=== PATIENT | female | born 1995 | race Caucasian/White ===

== ENCOUNTER 2023-02-07 08:14 | Outpatient (RCR) | payer OTHER, SELFPAY ==
--- NOTE | 2023-02-07 13:18 | PC.NURSE ---
Leroy, Brody and 6 week old Nicolas arrive for support. Family thriving. Parents rested, happy and doing well. States is wonderful nurses well, happy, growing. Baby weighed and 3 pounds above weight. Brody doing well after initial struggle with severe anxiety and Leroy reports feeling like myself again, stress is gone Home at this time, Leroy plans to attend [facility] group and aware to call for concerns.
== END 2023-02-07 13:23 | disposition home or self-care (01) ==
LOC: FBCO 08:14
PROVIDERS: PCP Physician Assistant; Visit Provider Obstetrics & Gynecology
DX: Z39.1 Encounter for care and examination of lactating mother (principal)
CPT/HCPCS: G0463

== ENCOUNTER 2024-04-22 07:01 | Outpatient (OUT) | payer OTHER, SELFPAY ==
--- OUTSIDE RECORDS SUMMARY | 2024-04-22 07:04 | XMS_ITS | CCD ---
Author Organization [facility]iniSynv Care Team Providers Care Zanjero Name Role Phone [facility] Unavailable SANDRO ., DR HAYES Attending Unavailable SANDRO ., DR HAYES Consulting Unavailable SANDRO ., DR HAYES Admitting Unavailable ZIEBER, DR ZEUS Heredia Consulting Unavailable SANDRO ., DR HAYES Attending Unavailable SANDRO ., DR HAYES Consulting Unavailable [facility] Unavailable SANDRO ., DR HAYES Admitting Unavailable ZIEBER, DR ZEUS Heredia Consulting Unavailable [facility] Unavailable KARASIK ., DR SUMMERS Consulting Unavailabl e KARASIK ., DR SUMMERS Attending Unavailabl e KARASIK ., DR SUMMERS Admitting Unavailabl e Sebastian Doan Consulting Unavailable SANDRO ., DR HAYES Consulting Unavailable SANDRO ., DR HAYES Attending Unavailable [facility] Unavailable SANDRO ., DR HAYES Admitting Unavailable SANDRO ., DR HAYES Attending Unavailable [facility] Unavailable SANDRO ., DR HAYES Consulting Unavailable SANDRO ., DR HAYES Admitting Unavailable KARASIK ., DR SUMMERS Admitting Unavailabl e KARASIK ., DR SUMMERS Attending Unavailabl e KARASIK ., DR SUMMERS Consulting [facility] Un[facility] Sebastian Doan Consulting Unavailable SANDRO ., DR HAYES Consulting Unavailable KARASIK ., DR SUMMERS Attending Unavailabl e KARASIK ., DR SUMMERS Consulting Unavailabl e KARASIK ., DR SUMMERS Ad[facility] Sebastian Doan Consulting Unavailable SANDRO ., DR HAYES Consulting Unavailable [facility] Unavailable SANDRO ., DR HAYES Admitting Unavailable SANDRO ., DR HAYES Consulting Unavailable SANDRO ., DR HAYES Attending Unavailable ZIEBER, DR ZEUS Heredia Consulting Unavailable [facility], [facility] Primary Care Unavailable SANDRO ., DR HAYES Attending Unavailable SANDRO ., DR HAYES Consulting Unavailable SANDRO ., DR HAYES Admitting Unavailable SANDRO ., DR HAYES Attending Unavailable [facility] Primary Care Unavailable SANDRO ., DR HAYES Admitting Unavailable [facility] Primary Care Unavailable KARASIK ., DR SUMMERS Admitting Unavailabl e KARASIK ., DR SUMMERS Attending Unavailabl e KARASIK ., DR SUMMERS Consulting Unavailabl e KARASIK ., DR SUMMERS Admitting Unavailabl e KARASIK ., DR SUMMERS Attending Unavailabl e KARASIK ., DR SUMMERS Consulting Unavailabl e [facility] Primary Care Unavailable KARASIK ., DR SUMMERS Admitting Unavailabl e KARASIK ., DR SUMMERS Attending Unavailabl e KARASIK ., DR SUMMERS Consulting Unavailabl e [facility] Primary Care Unavailable [facility] Primary Care Unavailable KARASIK ., DR SUMMERS Consulting Unavailabl e KARASIK ., DR SUMMERS Attending Unavailabl e KARASIK ., DR SUMMERS Admitting Unavailabl e SANDRO ., DR HAYES Consulting Unavailable ZIEBER, DR ZEUS Heredia Consulting Unavailable [facility] Primary Care Unavailable SANDRO ., DR HAYES Admitting Unavailable SANDRO ., DR HAYES Consulting Unavailable SANDRO ., DR HAYES Attending Unavailable ZIEBER, DR ZEUS Heredia Consulting Unavailable [facility] Primary Care Unavailable SANDRO ., DR HAYES Attending Unavailable SANDRO ., DR HAYES Consulting Unavailable SANDRO ., DR HAYES Admitting Unavailable [facility] Primary Care Unavailable SANDRO ., DR HAYES Attending Unavailable SANDRO ., DR HAYES Consulting Unavailable SANDRO ., DR HAYES Admitting Unavailable SANDRO ., DR HAYES Admitting Unavailable [facility], [facility] Primary Care Unavailable SANDRO ., DR HAYES Attending Unavailable SANDRO ., DR HAYES Attending Unavailable [facility] Primary Care Unavailable SANDRO ., DR HAYES Admitting Unavailable [facility] Primary Care Unavailable SANDRO ., DR HAYES Attending Unavailable SANDRO ., DR HAYES Consulting Unavailable SANDRO ., DR HAYES Admitting Unavailable ZIEBER, DR ZEUS Heredia Consulting Unavailable [facility] Primary Care Unavailable SANDRO ., DR HAYES Consulting Unavailable SANDRO ., DR HAYES Admitting Unavailable SANDRO ., DR HAYES Attending Unavailable ZIEBER, DR ZEUS Heredia Consulting Unavailable [facility] Primary Care Unavailable SANDRO ., DR HAYES Consulting Unavailable SANDRO ., DR HAYES Admitting Unavailable SANDRO ., DR HAYES Attending Unavailable ZIEBER, DR ZEUS Heredia Consulting Unavailable KARASIK ., DR SUMMERS Attending Unavailabl e KARASIK ., DR SUMMERS Admitting Unavailabl e SANDRO ., DR HAYES Consulting Unavailable [facility], [facility] Primary Care Unavailable KARASIK ., DR SUMMERS Consulting Unavailabl e KARASIK ., DR SUMMERS Attending Unavailabl e KARASIK ., DR SUMMERS Admitting Unavailabl e [facility] Primary Care Unavailable KARASIK ., DR SUMMERS Consulting Unavailabl e KARASIK ., DR SUMMERS Admitting Unavailabl e KARASIK ., DR SUMMERS Attending Unavailabl e [facility] Primary Care Unavailable [facility] Primary Care Unavailable KARASIK ., DR SUMMERS Consulting Unavailabl e KARASIK ., DR SUMMERS Admitting Unavailabl e KARASIK ., DR SUMMERS Attending Unavailabl e SANDRO ., DR HAYES Attending Unavailable [facility] Primary Care Unavailable SANDRO ., DR HAYES Admitting Unavailable [facility] Primary Care Unavailable SANDRO ., DR HAYES Attending Unavailable SANDRO ., DR HAYES Admitting Unavailable KARASIK ., DR SUMMERS Consulting Unavailabl e SANDRO ., DR HAYES Attending Unavailable [facility] Primary Care Unavailable SANDRO ., DR HAYES Admitting Unavailable SANDRO ., DR HAYES Consulting Unavailable YANIQUE LOVE Consulting Unavailable SANDRO ., DR HAYES Procedure Practitioner Unavail able [facility] Primary Care Unavailable SANDRO ., DR HAYES Attending Unavailable SANDRO ., DR HAYES Consulting Unavailable SANDRO ., DR HAYES Admitting Unavailable [facility], [facility] Primary Care Unavailable KARASIK ., DR SUMMERS Admitting Unavailabl e KARASIK ., DR SUMMERS Attending Ovidio TUTTLE ., DR SUMMERS Consulting Kyler Morse Attending Kyler Ellis Admitting MADELEINE Hernandez Attending Unavailable Problems Active Problems Problem Classification Problem Date Documented Da te Episodic/Chronic Diabetes or abnormal glucose tolerance complicating ; childbirth; or the puerperium (5 sources) Gestational diabetes mellitus in , unspecified control; Translations: [Gestational diabetes mellitus in childbirth, unspecified control] Onset: 12-26-2022 Episodic Menstrual disorders (4 sources) Irregular menstruation, unspecified; Translations: [IRREGULAR MENSTRUATION UNSPECIFIED] Onset: 06-07-2022 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 (1 source) Second degree perineal laceration during delivery; Translations: [SECOND DEG PERINEAL LAC DUR DELIV] Onset: 01-02-2023 Episodic Other and delivery including normal (20 sources) Encounter for care and examination of lactating mother; Translations: [Encounter for routine follow-up] Onset: 05-26-2022 Episodic Residual codes; unclassified (1 source) 40 weeks gestation of ; Translations: [40 WEEKS GESTATION OF ] Onset: 01-02-2023 Episodic Residual codes; unclassified (1 source) 39 weeks gestation of ; Translations: [39 WEEKS GESTATION OF ] Onset: 12-26-2022 Episodic Residual codes; unclassified (1 source) 38 weeks gestation of ; Translations: [38 WEEKS GESTATION OF ] Onset: 12-22-2022 Episodic Residual codes; unclassified (1 source) 37 weeks gestation of ; Translations: [37 WEEKS GESTATION OF ] Onset: 12-13-2022 Episodic Residual codes; unclassified (1 source) 36 weeks gestation of ; Translations: [36 WEEKS GESTATION OF ] Onset: 12-04-2022 Episodic Residual codes; unclassified (1 source) 35 weeks gestation of ; Translations: [35 WEEKS GESTATION OF ] Onset: 11-30-2022 Episodic Residual codes; unclassified (1 source) 34 weeks gestation of ; Translations: [34 WEEKS GESTATION OF ] Onset: 11-19-2022 Episodic Residual codes; unclassified (1 source) 33 weeks gestation of ; Translations: [33 WEEKS GESTATION OF ] Onset: 11-12-2022 Episodic Residual codes; unclassified (1 source) 32 weeks gestation of ; Translations: [32 WEEKS GESTATION OF ] Onset: 11-06-2022 Episodic Past or Other Problems Problem Classification Problem Date Documented Date Episodic/Chronic Diabetes mellitus without complication (4 sources) Other abnormal glucose; Translations: [OTHER ABNORMAL GLUCOSE] Onset: 09-28-2022 Episodic Immunizations and screening for infectious disease (1 source) Contact with and (suspected) exposure to infections with a predominantly sexual mode of transmission; Translations: [CONTCT W EXPOS INFECT SEXUAL TRNSMS] Onset: 06-12-2022 Episodic Other screening for suspected conditions (not mental disorders or infectious disease) (1 source) Encounter for screening for diabetes mellitus; Translations: [ENCOUNTER FOR SCREENING FOR DM] Onset: 06-12-2022 Episodic Residual codes; unclassified (1 source) 28 weeks gestation of ; Translations: [28 WEEKS GESTATION OF ] Onset: 10-09-2022 Episodic Results Test Name Value Interpretation Reference Range Facil ity CBC AUTO DIFFon 12-27-2022 BASO # 0.0 103/ul Normal 0.0-0.1 [facility] Comment on above: Performed By: #### R UBIGG #### [facility] [address] [place] [address] Dr. Baljinder Murrell Basophils/100 WBC (Bld) 0.1 % Critically low 0.2-2.0 [facility] Comment on above: Performed By: #### R UBIGG #### [facility] [address] [place] [address] Dr. Baljinder Murrell EO # 0.0 103/ul Normal 0.0-0.7 [facility] Comment on above: Performed By: #### R UBIGG #### [facility] [address] [address] [address] Baljinder Murrell Eosinophils/100 WBC (Bld) 0.1 % Critically low 0.9-7.0 [facility] Comment on above: Performed By: #### R UBIGG #### [facility] [address] [place] [address] Dr. Baljinder Murrell Erythrocyte distribution width (RBC) [Ratio] 13.3 % Normal 11.0-15.0 [facility] Comment on above: Performed By: #### R UBIGG #### [facility] [address] [place] [address] Dr. Baljinder Murrell Hematocrit (Bld) [Volume fraction] 35.5 % Critically low 36.0-48.0 [facility] Comment on above: Performed By: #### R UBIGG #### [facility] [address] [place] [address] Dr. Baljinder Murrell Hemoglobin (Bld) [Mass/Vol] 11.3 g/dL Critically low 12.0-16.0 [facility] Comment on above: Performed By: #### R UBIGG #### [facility] [address] [place] [address] Dr. Baljinder Murrell IG # 0.06 10e3/ul Critically high 0.00-0.03 [facility] Comment on above: Performed By: #### R UBIGG #### [facility] [address] [place] [address] Dr. Baljinder Murrell IG % 0.4 % Normal 0.0-0.5 [facility] Comment on above: Performed By: #### R UBIGG #### [facility] [address] [place] [address] Dr. Baljinder Murrell LYMPH # 1.6 103/ul Normal 1.2-3.8 [facility] Comment on above: Performed By: #### R UBIGG #### [facility] [address] [place] [address] Dr. Baljinder Murrell Lymphocytes/100 WBC (Bld) 11.0 % Critically low 20.5-60.0 [facility] Comment on above: Performed By: #### R UBIGG #### [facility] [address] [place] [address] Dr. Baljinder Murrell MANUAL DIFF REQ NO Normal [facility] Comment on above: Performed By: #### R UBIGG #### [facility] [address] [place] [address] Dr. Baljinder Murrell MCH (RBC) [Entitic mass] 30.2 pg Normal 26.7-34.0 [facility] Comment on above: Performed By: #### R UBIGG #### [facility] [address] [place] [address] Dr. Baljinder Murrell MCHC (RBC) [Mass/Vol] 31.8 g/dL Normal 29.9-35.2 [facility] Comment on above: Performed By: #### R UBIGG #### [facility] [address] [place] [address] Dr. Baljinder Murrell MCV (RBC) [Entitic vol] 94.9 fL Normal 81.0-99.0 [facility] Comment on above: Performed By: #### R UBIGG #### [facility] [address] [place] [address] Dr. Baljinder Murrell MONO # 0.9 103/ul Critically high 0.3-0.8 [facility] Comment on above: Performed By: #### R UBIGG #### [facility] [address] [place] [address] Dr. Baljinder Murrell Monocytes/100 WBC (Bld) 6.1 % Normal 1.7-12.0 [facility] Comment on above: Performed By: #### R UBIGG #### [facility] [address] [place] [address] Dr. Baljinder Murrell NEUT # 11.9 103/ul Critically high 1.4-6.5 [facility] Comment on above: Performed By: #### R UBIGG #### [facility] [address] [place] [address] Dr. Baljinder Murrell Neutrophils/100 WBC (Bld) 82.3 % Critically high 43.0-75.0 [facility] Comment on above: Performed By: #### R UBIGG #### [facility] [address] [place] [address] Dr. Baljinder Murrell Platelet mean volume (Bld) [Entitic vol] 8.5 fL Critically low 9.5-13.5 [facility] Comment on above: Performed By: #### R UBIGG #### [facility] [address] [address] [address] Baljinder Murrell PLT 217 103/ul Normal 150-450 [facility] Comment on above: Performed By: #### R UBIGG #### [facility] [address] [place] [address] Dr. Baljinder Murrell RBC 3.74 106/ul Critically low 4.20-5.40 [facility] Comment on above: Performed By: #### R UBIGG #### [facility] [address] [place] [address] Dr. Baljinder Murrell WBC 14.5 103/ul Critically high 4.0-11.0 [facility] Comment on above: Performed By: #### R UBIGG #### [facility] [address] [place] [address] Dr. Baljinder Murrell CBC AUTO DIFFon 12-26-2022 BASO # 0.0 103/ul Normal 0.0-0.1 [facility] Comment on above: Performed By: #### C BC #### [facility] [address] [place] [address] Dr. Baljinder Murrell Basophils/100 WBC (Bld) 0.2 % Normal 0.2-2.0 [facility] Comment on above: Performed By: #### C BC #### [facility] [address] [place] [address] Dr. Baljinder Murrell EO # 0.0 103/ul Normal 0.0-0.7 [facility] Comment on above: Performed By: #### C BC #### [facility] [address] [place] [address] Dr. Baljinder Murrell Eosinophils/100 WBC (Bld) 0.4 % Critically low 0.9-7.0 [facility] Comment on above: Performed By: #### C BC #### [facility] [address] [place] [address] Dr. Baljinder Murrell Erythrocyte distribution width (RBC) [Ratio] 13.4 % Normal 11.0-15.0 [facility] Comment on above: Performed By: #### C BC #### [facility] [address] [address] [address] Baljinder Murrell Hematocrit (Bld) [Volume fraction] 36.8 % Normal 36.0-48.0 [facility] Comment on above: Performed By: #### C BC #### [facility] [address] [address] [address] Baljinder Murrell Hemoglobin (Bld) [Mass/Vol] 12.5 g/dL Normal 12.0-16.0 [facility] Comment on above: Performed By: #### C BC #### [facility] [address] [place] [address] Dr. Baljinder Murrell IG # 0.05 10e3/ul Critically high 0.00-0.03 [facility] Comment on above: Performed By: #### C BC #### [facility] [address] [place] [address] Dr. Baljinder Murrell IG % 0.6 % Critically high 0.0-0.5 [facility] Comment on above: Performed By: #### C BC #### [facility] [address] [place] [address] Dr. Baljinder Murrell LYMPH # 1.9 103/ul Normal 1.2-3.8 [facility] Comment on above: Performed By: #### C BC #### [facility] [address] [place] [address] Dr. Baljinder Murrell Lymphocytes/100 WBC (Bld) 20.9 % Normal 20.5-60.0 [facility] Comment on above: Performed By: #### C BC #### [facility] [address] [place] [address] Dr. Baljinder Murrell MANUAL DIFF REQ NO Normal [facility] Comment on above: Performed By: #### C BC #### [facility] [address] [place] [address] Dr. Baljinder Murrell MCH (RBC) [Entitic mass] 31.0 pg Normal 26.7-34.0 [facility] Comment on above: Performed By: #### C BC #### [facility] [address] [place] [address] Dr. Baljinder Murrell MCHC (RBC) [Mass/Vol] 34.0 g/dL Normal 29.9-35.2 [facility] Comment on above: Performed By: #### C BC #### [facility] [address] [place] [address] Dr. Baljinder Murrell MCV (RBC) [Entitic vol] 91.3 fL Normal 81.0-99.0 [facility] Comment on above: Performed By: #### C BC #### [facility] [address] [place] [address] Dr. Baljinder Murrell MONO # 0.6 103/ul Normal 0.3-0.8 [facility] Comment on above: Performed By: #### C BC #### [facility] [address] [place] [address] Dr. Baljinder Murrell Monocytes/100 WBC (Bld) 6.3 % Normal 1.7-12.0 [facility] Comment on above: Performed By: #### C BC #### [facility] [address] [place] [address] Dr. Baljinder Murrell NEUT # 6.4 103/ul Normal 1.4-6.5 [facility] Comment on above: Performed By: #### C BC #### [facility] [address] [place] [address] Dr. Baljinder Murrell Neutrophils/100 WBC (Bld) 71.6 % Normal 43.0-75.0 [facility] Comment on above: Performed By: #### C BC #### [facility] [address] [place] [address] Dr. Baljinder Murrell Platelet mean volume (Bld) [Entitic vol] 8.9 fL Critically low 9.5-13.5 [facility] Comment on above: Performed By: #### C BC #### [facility] [address] [place] [address] Dr. Baljinder Murrell PLT 270 103/ul Normal 150-450 [facility] Comment on above: Performed By: #### C BC #### [facility] [address] [place] [address] Dr. Baljinder Murrell RBC 4.03 106/ul Critically low 4.20-5.40 [facility] Comment on above: Performed By: #### C BC #### [facility] [address] [place] [address] Dr. Baljinder Murrell WBC 8.9 103/ul Normal 4.0-11.0 [facility] Comment on above: Performed By: #### C BC #### [facility] [address] [place] [address] Dr. Baljinder Murrell DRUG SCREEN RAPID (URINE)on 12-26-2022 AMP Negative Normal NEGATIVE [facility] Comment on above: Performed By: #### D RUGRPD #### [facility] [address] [place] [address] Dr. Baljinder Murrell BAR Negative Normal NEGATIVE [facility] Comment on above: Performed By: #### D RUGRPD #### [facility] [address] [place] [address] Dr. Baljinder Murrell BUP Negative Normal NEGATIVE [facility] Comment on above: Performed By: #### D RUGRPD #### [facility] [address] [place] [address] Dr. Baljinder Murrell BZO Negative Normal NEGATIVE [facility] Comment on above: Performed By: #### D RUGRPD #### [facility] [address] [place] [address] Dr. Baljinder Murrell ROXANA Negative Normal NEGATIVE [facility] Comment on above: Performed By: #### D RUGRPD #### [facility] [address] [place] [address] Dr. Baljinder Murrell CUT-OFFS SEE BELOW Normal [facility] Comment on above: Result Comment: AMP (Amphetamine): 500ng/mL, BAR (Barbituates): 200 ng/mL, BZO (Benzodiazepines): 150 ng/mL, BUP (Buprenorphine): 10 ng/mL, ROXANA (Cocaine): 150 ng/mL, mAMP (Methamphetamine): 500 ng/mL, MTD (Methadone): 200 ng/mL, OPI (Opiates): 100 ng/mL, OXY (Oxycodone): 100 ng/mL, PCP (Phencyclidine): 25 ng/mL, PPX (Propoxyphene): 300 ng/mL, THC (Cannabinoids): 50 ng/mL, TCA (Trycyclic Antidepressants): 300 ng/mL Performed By: #### D RUGRPD #### [facility] [address] [place] [address] Dr. Baljinder Murrell DRUG CUT HEADER DRUG CLASS TEST SYSTEM CUT-OFF CONCENTRATIONS ARE FOLLOWS: Normal [facility] Comment on above: Performed By: #### D RUGRPD #### [facility] [address] [place] [address] Dr. Baljinder Murrell mAMP Negative Normal NEGATIVE [facility] Comment on above: Performed By: #### D RUGRPD #### [facility] [address] [place] [address] Dr. Baljinder Murrell MTD Negative Normal NEGATIVE [facility] Comment on above: Performed By: #### D RUGRPD #### [facility] [address] [place] [address] Dr. Baljinder Murrell OPI Negative Normal NEGATIVE [facility] Comment on above: Performed By: #### D RUGRPD #### [facility] [address] [place] [address] Dr. Baljinder Murrell OXY Negative Normal NEGATIVE [facility] Comment on above: Performed By: #### D RUGRPD #### [facility] [address] [place] [address] Dr. Baljinder Murrell PCP Negative Normal NEGATIVE [facility] Comment on above: Performed By: #### D RUGRPD #### [facility] [address] [place] [address] Dr. Baljinder Murrell PPX Negative Normal NEGATIVE [facility] Comment on above: Performed By: #### D RUGRPD #### [facility] [address] [place] [address] Dr. Baljinder Murrell TCA Negative Normal NEGATIVE [facility] Comment on above: Performed By: #### D RUGRPD #### [facility] [address] [place] [address] Dr. Baljinder Murrell THC Negative Normal NEGATIVE [facility] Comment on above: Performed By: #### D RUGRPD #### [facility] [address] [address] [address] Baljinder Murrell TYPE AND SCREENon 12-26-2022 TYPE AND SCREEN Negative Normal [facility] Comment on above: Performed By: #### R UBIGG #### [facility] [address] [address] [address] Baljinder Murrell US PREG BIOPHY W NON STRESSo n 12-23-2022 US PREG BIOPHY W NON STRESS EXAMINATION: US PREG BIOPHY W NON STRESS HISTORY: Gestational diabetes mellitus COMPARISON: Ultrasound biophysical 12/12/2022 FINDINGS: BREATHING MOVEMENTS: 2.0 GROSS BODY MOVEMENTS: 2.0 TONE: 2.0 QUALITATIVE AMNIOTIC FLUID VOLUME: 2.0 PRESENTATION: CEPHALIC HEART RATE: 152.5 bpm bpm. AMNIOTIC FLUID VOLUME: 9.0 cm GESTATIONAL AGE: 39 weeks 0 days CONCLUSION: Total biophysical profile score 8.0. Electronically authenticated by: ZEUS BRANNON Date: 2022-12-22 23:17 Normal [facility] US PREG BIOPHY W NON STRESSo n 12-12-2022 US PREG BIOPHY W NON STRESS EXAMINATION: US PREG BIOPHY W NON STRESS HISTORY: Gestational diabetes mellitus COMPARISON: Ultrasound biophysical 12/05/2022 FINDINGS: BREATHING MOVEMENTS: 2.0 GROSS BODY MOVEMENTS: 2.0 TONE: 2.0 QUALITATIVE AMNIOTIC FLUID VOLUME: 2.0 PRESENTATION: CEPHALIC HEART RATE: 139.2 bpm bpm. AMNIOTIC FLUID VOLUME: 11.6 cm GESTATIONAL AGE: 38 weeks 0 days CONCLUSION: Total biophysical profile score 8.0. Electronically authenticated by: ZEUS BRANNON Date: 2022-12-12 16:39 Normal [facility] US PREG BIOPHY W NON STRESSo n 12-06-2022 US PREG BIOPHY W NON STRESS EXAMINATION: US PREG BIOPHY W NON STRESS HISTORY: Gestational diabetes mellitus COMPARISON: No relevant comparison available. TECHNIQUE: Ultrasound biophysical profile was performed in the radiology department. FINDINGS: BREATHING MOVEMENTS: 2.0 GROSS BODY MOVEMENTS: 2.0 TONE: 2.0 QUALITATIVE AMNIOTIC FLUID VOLUME: 2.0 PRESENTATION: Cephalic HEART RATE: 142.1 bpm H.B./min AMNIOTIC FLUID VOLUME: 12.6 cm cm GESTATIONAL AGE: 37 weeks 0 days CONCLUSION: Total biophysical profile score: 8.0 Electronically authenticated by: SEBASTIAN DOAN Date: 2022-12-06 15:03 Normal [facility] GROUP B STREP CULTUREon 11-07 S. agalactiae Ag Ql (Unsp spec) Culture Observations: NEGATIVE FOR GROUP B STREPTOCOCCUS. Normal [facility] Comment on above: Performed By: #### R UBIGG #### [facility] [address] [place] [address] Dr. Baljinder Murrell US PREG BIOPHY W NON STRESSo n 11-28-2022 US PREG BIOPHY W NON STRESS EXAMINATION: US PREG BIOPHY W NON STRESS HISTORY: Gestational diabetes mellitus COMPARISON: Ultrasound biophysical 11/21/2022 FINDINGS: BREATHING MOVEMENTS: 2.0 GROSS BODY MOVEMENTS: 2.0 TONE: 2.0 QUALITATIVE AMNIOTIC FLUID VOLUME: 2.0 PRESENTATION: Cephalic HEART RATE: 145.9 bpm bpm. AMNIOTIC FLUID VOLUME: 13.3 cm GESTATIONAL AGE: 36 weeks 0 days CONCLUSION: Total biophysical profile score 8.0. Electronically authenticated by: ZEUS BRANNON Date: 2022-11-28 16:08 Normal [facility] US PREG GROWTHon 11-28-2022 US PREG GROWTH EXAMINATION: US PREG GROWTH HISTORY: Gestational diabetes mellitus COMPARISON: No relevant comparison available. FINDINGS: Heart Rate: 145.9 bpm Number: 1.0 Position: Cephalic Amniotic Fluid Volume: 13.3 cm Maximum Vertical Pocket: 4.5 cm BIOMETRY: BPD: 9.1 cm cm; 36 weeks 6 days; 81% HC: 33.6 cmcm; 38 weeks 4 days; 80% AC: 29.6 cm cm; 33 weeks 4 days; 6% FL: 6.6 cm cm; 34 weeks 0 days; 7% EFW: 2450.0 grams; 16% FL/AC: 22.3 FL/BPD: 72.6 HC/AC: 1.1 GESTATIONAL AGE: Age by EDC: 36 weeks 0 days KIM by EDC: 12/26/2022 Age by US: 35 weeks 5 days KIM by US: 12/28/2022 IMPRESSION: 1. Single live intrauterine with growth detailed above. Electronically authenticated by: ZEUS BRANNON Date: 2022-11-28 16:03 Normal [facility] US PREG BIOPHY W NON STRESSo n 11-21-2022 US PREG BIOPHY W NON STRESS EXAMINATION: US PREG BIOPHY W NON STRESS HISTORY: Gestational diabetes mellitus COMPARISON: Ultrasound biophysical 11/14/2022 FINDINGS: BREATHING MOVEMENTS: 2.0 GROSS BODY MOVEMENTS: 2.0 TONE: 2.0 QUALITATIVE AMNIOTIC FLUID VOLUME: 2.0 PRESENTATION: Cephalic HEART RATE: 131.7 bpm bpm. AMNIOTIC FLUID VOLUME: 14.2 cm GESTATIONAL AGE: 35 weeks 0 days CONCLUSION: Total biophysical profile score 8.0. Electronically authenticated by: ZEUS BRANNON Date: 2022-11-21 16:37 Normal [facility] US PREG BIOPHY W NON STRESSo n 11-14-2022 US PREG BIOPHY W NON STRESS EXAMINATION: US PREG BIOPHY W NON STRESS HISTORY: Gestational diabetes mellitus COMPARISON: No relevant comparison available. TECHNIQUE: Ultrasound biophysical profile was performed in the radiology department. FINDINGS: BREATHING MOVEMENTS: 2.0 GROSS BODY MOVEMENTS: 2.0 TONE: 2.0 QUALITATIVE AMNIOTIC FLUID VOLUME: 2.0 PRESENTATION: Cephalic HEART RATE: 151.7 bpm H.B./min AMNIOTIC FLUID VOLUME: 13.0 cm cm GESTATIONAL AGE: 34 weeks 0 days CONCLUSION: Total biophysical profile score: 8.0 Electronically authenticated by: SEBASTIAN DOAN Date: 2022-11-14 15:29 Normal [facility] US PREG BIOPHY W NON STRESSo n 11-07-2022 US PREG BIOPHY W NON STRESS EXAMINATION: US PREG BIOPHY W NON STRESS HISTORY: Gestational diabetes mellitus COMPARISON: No relevant comparison available. TECHNIQUE: Ultrasound biophysical profile was performed in the radiology department. FINDINGS: BREATHING MOVEMENTS: 2.0 GROSS BODY MOVEMENTS: 2.0 TONE: 2.0 QUALITATIVE AMNIOTIC FLUID VOLUME: 2.0 PRESENTATION: Cephalic HEART RATE: 150.0 bpm H.B./min AMNIOTIC FLUID VOLUME: 11.4 cm cm GESTATIONAL AGE: 33 weeks 0 days CONCLUSION: Total biophysical profile score: 8.0 Electronically authenticated by: SEBASTIAN DOAN Date: 2022-11-07 16:03 Normal [facility] US PREG BIOPHY W NON STRESSo n 10-31-2022 US PREG BIOPHY W NON STRESS EXAMINATION: US PREG BIOPHY W NON STRESS HISTORY: Gestational diabetes mellitus COMPARISON: No relevant comparison available. FINDINGS: BREATHING MOVEMENTS: 2.0 GROSS BODY MOVEMENTS: 2.0 TONE: 2.0 QUALITATIVE AMNIOTIC FLUID VOLUME: 2.0 PRESENTATION: Cephalic HEART RATE: 146.7 bpm bpm. AMNIOTIC FLUID VOLUME: 16.1 cm GESTATIONAL AGE: 32 weeks 0 days CONCLUSION: Total biophysical profile score 8.0. Electronically authenticated by: ZEUS BRANNON Date: 2022-10-31 17:13 Normal [facility] US PREG GROWTHon 10-31-2022 US PREG GROWTH EXAMINATION: US PREG GROWTH HISTORY: Gestational diabetes mellitus COMPARISON: No relevant comparison available. FINDINGS: Heart Rate: 146.7 bpm Number: 1.0 Position: Cephalic Amniotic Fluid Volume: 16.1 cm Maximum Vertical Pocket: 5.5 cm BIOMETRY: BPD: 8.3 cm cm; 33 weeks 2 days; 77% HC: 29.7 cmcm; 32 weeks 6 days; 36% AC: 26.9 cm cm; 31 weeks 0 days; 21% FL: 5.9 cm cm; 30 weeks 6 days; 12% EFW: 1744.3 grams; 20% FL/AC: 22.0 FL/BPD: 71.6 HC/AC: 1.1 GESTATIONAL AGE: Age by EDC: 32 weeks 0 days KIM by EDC: 12/26/2022 Age by US: 32 weeks 0 days KIM by US: 12/26/2022 IMPRESSION: 1. Single live intrauterine with growth detailed above. Electronically authenticated by: ZEUS BRANNON Date: 2022-10-31 17:12 Normal [facility] US PREG GROWTHon 10-07-2022 US PREG GROWTH EXAMINATION: US PREG GROWTH HISTORY: Gestational diabetes mellitus COMPARISON: Ultrasound anatomy 08/14/2022 FINDINGS: Heart Rate: 145.0 bpm Number: 1.0 Position: CEPHALIC Amniotic Fluid Volume: 12.8 cm Maximum Vertical Pocket: 4.1 cm BIOMETRY: BPD: 7.1 cm cm; 28 weeks 3 days HC: 27.7 cmcm; 30 weeks 2 days AC: 23.8 cm cm; 28 weeks 1 days FL: 5.3 cm cm; 28 weeks 0 days EFW: 1206.4 grams; 28% FL/AC: 22.1 FL/BPD: 74.5 HC/AC: 1.2 GESTATIONAL AGE: Age by EDC: 28 weeks 4 days KIM by EDC: 12/26/2022 Age by US: 28 weeks 5 days KIM by US: 12/25/2022 IMPRESSION: 1. Single live intrauterine with growth detailed above. Electronically authenticated by: ZEUS BRANNON Date: 2022-10-07 16:18 Normal [facility] GTT 3 HR PREGon 09-28-2022 Glucose [Mass/Vol] 79 mg/dL Normal 74-106 [facility] Comment on above: Performed By: #### G TT3P #### [facility] [address] [place] [address] Dr. Baljinder Murrell Glucose [Mass/Vol] 204 mg/dL Normal [facility] Comment on above: Performed By: #### G TT3P #### [facility] [address] [place] [address] Dr. Baljinder Murrell Glucose [Mass/Vol] 158 mg/dL Normal [facility] Comment on above: Performed By: #### G TT3P #### [facility] [address] [place] [address] Dr. Baljinder Murrell Glucose [Mass/Vol] 150 mg/dL Normal [facility] Comment on above: Performed By: #### G TT3P #### [facility] [address] [place] [address] Dr. Baljinder Murrell CBC AUTO DIFFon 09-21-2022 BASO # 0.0 103/ul Normal 0.0-0.1 [facility] Comment on above: Performed By: #### C BC #### [facility] [address] [place] [address] Dr. Baljinder Murrell Basophils/100 WBC (Bld) 0.2 % Normal 0.2-2.0 [facility] Comment on above: Performed By: #### C BC #### [facility] [address] [place] [address] Dr. Baljinder Murrell EO # 0.0 103/ul Normal 0.0-0.7 [facility] Comment on above: Performed By: #### C BC #### [facility] [address] [place] [address] Dr. Baljinder Murrell Eosinophils/100 WBC (Bld) 0.3 % Critically low 0.9-7.0 [facility] Comment on above: Performed By: #### C BC #### [facility] [address] [place] [address] Dr. Baljinder Murrell Erythrocyte distribution width (RBC) [Ratio] 12.8 % Normal 11.0-15.0 [facility] Comment on above: Performed By: #### C BC #### [facility] [address] [place] [address] Dr. Baljinder Murrell Hematocrit (Bld) [Volume fraction] 33.4 % Critically low 36.0-48.0 [facility] Comment on above: Performed By: #### C BC #### [facility] [address] [place] [address] Dr. Baljinder Murrell Hemoglobin (Bld) [Mass/Vol] 11.4 g/dL Critically low 12.0-16.0 [facility] Comment on above: Performed By: #### C BC #### [facility] [address] [place] [address] Dr. Baljinder Murrell IG # 0.05 10e3/ul Critically high 0.00-0.03 [facility] Comment on above: Performed By: #### C BC #### [facility] [address] [place] [address] Dr. Baljinder Murrell IG % 0.5 % Normal 0.0-0.5 [facility] Comment on above: Performed By: #### C BC #### [facility] [address] [place] [address] Dr. Baljinder Murrell LYMPH # 1.7 103/ul Normal 1.2-3.8 [facility] Comment on above: Performed By: #### C BC #### [facility] [address] [place] [address] Dr. Baljinder Murrell Lymphocytes/100 WBC (Bld) 17.9 % Critically low 20.5-60.0 [facility] Comment on above: Performed By: #### C BC #### [facility] [address] [place] [address] Dr. Baljinder Murrell MANUAL DIFF REQ NO Normal [facility] Comment on above: Performed By: #### C BC #### [facility] [address] [place] [address] Dr. Baljinder Murrell MCH (RBC) [Entitic mass] 31.2 pg Normal 26.7-34.0 [facility] Comment on above: Performed By: #### C BC #### [facility] [address] [place] [address] Dr. Baljinder Murrell MCHC (RBC) [Mass/Vol] 34.1 g/dL Normal 29.9-35.2 [facility] Comment on above: Performed By: #### C BC #### [facility] [address] [place] [address] Dr. Baljinder Murrell MCV (RBC) [Entitic vol] 91.5 fL Normal 81.0-99.0 [facility] Comment on above: Performed By: #### C BC #### [facility] [address] [place] [address] Dr. Baljinder Murrell MONO # 0.4 103/ul Normal 0.3-0.8 [facility] Comment on above: Performed By: #### C BC #### [facility] [address] [place] [address] Dr. Baljinder Murrell Monocytes/100 WBC (Bld) 4.1 % Normal 1.7-12.0 [facility] Comment on above: Performed By: #### C BC #### [facility] [address] [place] [address] Dr. Baljinder Murrell NEUT # 7.2 103/ul Critically high 1.4-6.5 [facility] Comment on above: Performed By: #### C BC #### [facility] [address] [place] [address] Dr. Baljinder Murrell Neutrophils/100 WBC (Bld) 77.0 % Critically high 43.0-75.0 [facility] Comment on above: Performed By: #### C BC #### [facility] [address] [place] [address] Dr. Baljinder Murrell Platelet mean volume (Bld) [Entitic vol] 8.2 fL Critically low 9.5-13.5 [facility] Comment on above: Performed By: #### C BC #### [facility] [address] [place] [address] Dr. Baljinder Murrell PLT 232 103/ul Normal 150-450 [facility] Comment on above: Performed By: #### C BC #### [facility] [address] [place], [place] [id number] Dr. Baljinder Murrell RBC 3.65 106/ul Critically low 4.20-5.40 [facility] Comment on above: Performed By: #### C BC #### [facility] [address] [place] [address] Dr. Baljinder Murrell WBC 9.3 103/ul Normal 4.0-11.0 [facility] Comment on above: Performed By: #### C BC #### [facility] [address] [place] [address] Dr. Baljinder Murrell GLUCOSE - 1HRon 09-21-2022 Glucose [Mass/Vol] 158 mg/dL Critically high 74-106 [facility] Comment on above: Performed By: #### G LU1HR #### [facility] [address] [place] [address] Dr. Baljinder Murrell US PREG ANATOMY SINGLEon US PREG ANATOMY SINGLE EXAMINATION: US PREG ANATOMY SINGLE HISTORY: Patient currently COMPARISON: No relevant comparison available. TECHNIQUE: Transabdominal sonographic examination was performed for obstetrical and evaluation. FINDINGS: Number: 1 Heart Rate: 155.2 bpm H.B. /min Amniotic Fluid Volume: Subjectively normal Placental Location: Posterior with lower margin 1.9 cm from os. Cervix Length: 5.1 cm, closed. ANATOMY: Normal Structures -cerebellum, choroid plexus, cisterna magna, lateral cerebral ventricles, orbits, midline falx, hard palate, four-chamber heart, RVOT, LVOT, stomach, kidneys, bladder, umbilical cord insertion into abdomen, three-vessel cord, cervical spine, thoracic spine, lumbar spine, sacral spine, right upper extremity, left upper extremity, right lower extremity, left lower extremity. SUBOPTIMALLY SEEN: None ABNORMALITIES: None BIOMETRY: BPD: 4.4 cm 19 weeks 2 days ; 5% HC: 17.3 cm 19 weeks 6 days; 7% AC: 16.1 cm 21 weeks 1 days; 54% FL: 3.3 cm 20 weeks 2 days; 25% EFW:368.0 grams; 34% FL/AC: 20.6 FL/BPD: 75.0 HC/AC: 1.1 GESTATIONAL AGE: Age by EDC: 20 weeks 6 days KIM by EDC: 12/26/2022 Age by current US: 20 weeks 1 days KIM by current US: 12/31/2022 IMPRESSION: 1. Single live intrauterine with growth detailed above. Electronically authenticated by: ZEUS BRANNON Date: 2022-08-15 06:49 Normal [facility] HEPATITIS C VIRUS AB W/ REFL EX QUANTon 06-11-2022 HCV AB <0.1 Normal 0.0-0.9 [facility] Comment on above: Performed By: #### H IV12 #### [facility] [address] [address] [address] Baljinder Murrell Interpretation: Comment Normal [facility] Comment on above: Result Comment: Nega tive Not infected with HCV, unless recent infection is suspected or other evidence exists to indicate HCV infection. Performed By: #### H IV12 #### [facility] [address] [address] [address] Baljinder Murrell HEP B SURFACE ANTIGEN SCREEN on 06-09-2022 HBsAg Screen Negative Normal Negative [facility] Comment on above: Performed By: #### D RUGRPD #### [facility] [address] [address] [address] Baljinder Murrell HIV 1 AND 2 WITH REFLEXon HIV Screen 4th Generation wRfx Non-Reactive Normal Non Reactive [facility] Comment on above: Result Comment: HIV Negative HIV-1/HIV-2 antibodies and HIV-1 p24 antigen were NOT detected. There is no laboratory evidence of HIV infection. Performed By: #### H IV12 #### [facility] [address] [address] [address] Baljinder Murrell RPR QUANTon 06-09-2022 Rapid Plasma Reagin, Quant Non-Reactive Normal NonRea<1:1 [facility] Comment on above: Result Comment: Plea se Note: This test does not meet current guidelines for screening and diagnosis of syphilis. This test is intended for following treatment response in patients being treated for syphilis infection. To screen for syphilis infection, a reflex cascade that includes both RPR and a treponema-specific assay should be utilized, such as Treponema pallidum (Syphilis) Screening [place] (219776) or Rapid Plasma Reagin (RPR) Test With Reflex to Quantitative RPR and Confirmatory Treponema pallidum Antibodies ([id number]). Performed By: #### D RUGRPD #### [facility] [address] [place] [address] Dr. Baljinder Murrell RUBELLA AB IGGon 06-09-2022 Rubella Antibodies, IgG 17.20 index Normal Immune >0.99 [facility] Comment on above: Result Comment: Non- immune <0.90 Equivocal 0.90 - 0.99 Immune >0.99 Performed By: #### R UBIGG #### [facility] [address] [place] [address] Dr. Baljinder Murrell CBC AUTO DIFFon 06-07-2022 BASO # 0.0 103/ul Normal 0.0-0.1 [facility] Comment on above: Performed By: #### C BC #### [facility] [address] [place] [address] Dr. Baljinder Murrell Basophils/100 WBC (Bld) 0.2 % Normal 0.2-2.0 [facility] Comment on above: Performed By: #### C BC #### [facility] [address] [place] [address] Dr. Baljinder Murrell EO # 0.1 103/ul Normal 0.0-0.7 [facility] Comment on above: Performed By: #### C BC #### [facility] [address] [place] [address] Dr. Baljinder Murrell Eosinophils/100 WBC (Bld) 0.6 % Critically low 0.9-7.0 [facility] Comment on above: Performed By: #### C BC #### [facility] [address] [place] [address] Dr. Baljinder Murrell Erythrocyte distribution width (RBC) [Ratio] 12.2 % Normal 11.0-15.0 [facility] Comment on above: Performed By: #### C BC #### [facility] [address] [place] [address] Dr. Baljinder Murrell Hematocrit (Bld) [Volume fraction] 37.1 % Normal 36.0-48.0 [facility] Comment on above: Performed By: #### C BC #### [facility] [address] [place] [address] Dr. Baljinder Murrell Hemoglobin (Bld) [Mass/Vol] 12.6 g/dL Normal 12.0-16.0 [facility] Comment on above: Performed By: #### C BC #### [facility] [address] [place] [address] Dr. Baljinder Murrell IG # 0.03 10e3/ul Normal 0.00-0.03 [facility] Comment on above: Performed By: #### C BC #### [facility] [address] [place] [address] Dr. Baljinder Murrell IG % 0.3 % Normal 0.0-0.5 [facility] Comment on above: Performed By: #### C BC #### [facility] [address] [place] [address] Dr. Baljinder Murrell LYMPH # 2.3 103/ul Normal 1.2-3.8 [facility] Comment on above: Performed By: #### C BC #### [facility] [address] [place] [address] Dr. Baljinder Murrell Lymphocytes/100 WBC (Bld) 26.0 % Normal 20.5-60.0 [facility] Comment on above: Performed By: #### C BC #### [facility] [address] [place] [address] Dr. Baljinder Murrell MANUAL DIFF REQ NO Normal [facility] Comment on above: Performed By: #### C BC #### [facility] [address] [place] [address] Dr. Baljinder Murrell MCH (RBC) [Entitic mass] 30.4 pg Normal 26.7-34.0 [facility] Comment on above: Performed By: #### C BC #### [facility] [address] [place] [address] Dr. Baljinder Murrell MCHC (RBC) [Mass/Vol] 34.0 g/dL Normal 29.9-35.2 [facility] Comment on above: Performed By: #### C BC #### [facility] [address] [place] [address] Dr. Baljinder Murrell MCV (RBC) [Entitic vol] 89.6 fL Normal 81.0-99.0 [facility] Comment on above: Performed By: #### C BC #### [facility] [address] [place] [address] Dr. Baljinder Murrell MONO # 0.4 103/ul Normal 0.3-0.8 [facility] Comment on above: Performed By: #### C BC #### [facility] [address] [place] [address] Dr. Baljinder Murrell Monocytes/100 WBC (Bld) 4.6 % Normal 1.7-12.0 [facility] Comment on above: Performed By: #### C BC #### [facility] [address] [place] [address] Dr. Baljinder Murrell NEUT # 6.1 103/ul Normal 1.4-6.5 [facility] Comment on above: Performed By: #### C BC #### [facility] [address] [place] [address] Dr. Baljinder Murrell Neutrophils/100 WBC (Bld) 68.3 % Normal 43.0-75.0 [facility] Comment on above: Performed By: #### C BC #### [facility] [address] [place] [address] Dr. Baljinder Murrell Platelet mean volume (Bld) [Entitic vol] 8.5 fL Critically low 9.5-13.5 [facility] Comment on above: Performed By: #### C BC #### [facility] [address] [address] [address] Baljinder Murrell PLT 260 103/ul Normal 150-450 [facility] Comment on above: Performed By: #### C BC #### [facility] [address] [place] [address] Dr. Baljinder Murrell RBC 4.14 106/ul Critically low 4.20-5.40 [facility] Comment on above: Performed By: #### C BC #### [facility] [address] [place] [address] Dr. Baljinder Murrell WBC 8.9 103/ul Normal 4.0-11.0 [facility] Comment on above: Performed By: #### C BC #### [facility] [address] [place] [address] Dr. Baljinder Murrell CULTURE URINEon 06-07-2022 CULTURE URINE Culture Observations: LIGHT GROWTH OF MIXED GENITAL RAYSHAWN. NO POTENTIAL PATHOGENS SEEN. Normal [facility] Comment on above: Performed By: #### U RCX #### [facility] [address] [place] [address] Dr. Baljinder Murrell GLYCOHEMOGLOBIN A1Con 2021 ADA RECOMMENDATION SEE BELOW Normal [facility] Comment on above: Result Comment: ADA RECOMMENDED LIMIT 4.0 - 6.0 ADA THERAPEUTIC TARGET < 7.0 ACTION SUGGESTED > 7.0 Performed By: #### D RUGRPD #### [facility] [address] [place] [address] Dr. Baljinder Murrell Glucose [Mass/Vol] 105 mg/dL Normal [facility] Comment on above: Performed By: #### D RUGRPD #### [facility] [address] [place] [address] Dr. Baljinder Murrell HbA1c (Bld) [Mass fraction] 5.3 % Normal 4.5-6.2 [facility] Comment on above: Performed By: #### D RUGRPD #### [facility] [address] [place] [address] Dr. Baljinder Murrell CRISTINA BOX TEST PT SEND OUTo n 06-07-2022 SENT TO REF LAB 06/07/2022 Normal [facility] Comment on above: Performed By: #### D RUGRPD #### [facility] [address] [place], [place] [address] Dr. Baljinder Murrell TYPE AND SCREENon 06-07-2022 TYPE AND SCREEN Negative Normal [facility] Comment on above: Performed By: #### T NS #### [facility] [address] [place], [place] [address] Dr. Baljinder Murrell US PREG TVon 05-21-2022 US PREG TV EXAMINATION: US PREG TV HISTORY: Missed period COMPARISON: No relevant comparison available. FINDINGS: GESTATIONAL SAC: Present and normal appearing. POLE: Present and normal appearing. YOLK SAC: Present. CARDIAC: Present. UTERUS: Normal size and appearance. OVARIES: Right: Not seen. Left: Normal. CERVIX: 4.2 cm in length and closed. CUL-DE-SAC: Normal. OTHER: None. AGE BY LMP: 8 weeks, 5 days KIM BY LMP: 12/26/2022 AGE BY US CRL: 8 weeks, 2 days KIM BY US CRL: 12/29/2022 IMPRESSION: 1. Single live intrauterine . Electronically authenticated by: ZEUS BRANNON Date: 2022-05-21 16:59 Normal [facility] Encounters Encounter Date Encounter Type Care Provider Facility Start: 03-30-2024 End: 03-30-2024 ambulatory MADELEINE TRAN Not Available Start: 01-08-2023 End: 01-16-[address] FREDDY JO . Facility:[facility] Start: 12-31-2022 End: 12-31-[address] FREDDY JO . Facility:[facility] Start: 12-26-[address] FREDDY JO . Facili ty:[facility] Start: 12-26-2022 End: 12-28-2022 Evaluation and management of inpatient DR MELINA TUTTLE . Facility:[facility] Start: 12-23-2022 End: 12-23-[address] MELINA TUTTLE . Facility:[facility] Start: 12-19-2022 End: 12-19-2022 ambulatory REJI WRIGHT Facility:[facility] Start: 12-16-2022 End: 12-16-[address] MELINA TUTTLE . Facility:[facility] Start: 12-12-2022 End: 12-12-2022 ambulatory REJI WRIGHT Facility:[facility] Start: 12-09-2022 End: 12-09-[address] MELINA TUTTLE . Facility:[facility] Start: 12-05-2022 End: 12-05-2022 ambulatory REJI ADRIANA Facility:[facility] Start: 12-04-2022 End: 12-04-2022 ambulatory REJI ADRIANA Facility:[facility] Start: 12-02-2022 End: 12-02-2022 ambulatory REJI ADRIANA Facility:[facility] Start: 11-28-2022 End: 11-28-2022 ambulatory REJI ADRIANA Facility:[facility] Start: 11-25-2022 End: 11-25-2022 ambulatory REJI ADRIANA Facility:[facility] Start: 11-21-2022 End: 11-21-2022 ambulatory REJI ADRIANA Facility:[facility] Start: 11-18-2022 End: 11-18-2022 ambulatory REJI WRIGHT Facility:[facility] Start: 11-14-2022 End: 11-14-[address] MELINA TUTTLE . Facility:[facility] Start: 11-11-2022 End: 11-11-[address] MELINA TUTTLE . Facility:[facility] Start: 11-07-2022 End: 11-07-[address] MELINA TUTTLE . Facility:[facility] Start: 11-04-2022 End: 11-04-[address] MELINA TUTTLE . Facility:[facility] Start: 10-31-2022 End: 10-31-2022 ambulatory REJI WRIGHT Facility:[facility] Start: 10-07-2022 End: 10-08-2022 ambulatory REJI ADRIANA Facility:[facility] Start: 10-03-2022 End: 10-04-2022 ambulatory REJI ADRIANA Facility:[facility] Start: 09-28-2022 End: 09-29-2022 ambulatory REJI ADRIANA Facility:[facility] Start: 09-21-2022 End: 09-22-2022 ambulatory REJI ADRIANA Facility:[facility] Start: 08-14-2022 End: 08-15-2022 ambulatory REJI ADRIANA Facility:[facility] Start: 06-07-2022 End: 06-08-2022 ambulatory REJI ADRIANA Facility:[facility] Start: 05-24-2022 End: 05-25-[address] FREDDY JO . Facility:[facility] Start: 05-21-2022 End: 05-22-[address] FREDDY JO . Facility:[facility] Start: 10-25-2020 End: 10-26-2020 ambulatory Kyler Holder Facility:[facility] Procedures Date Procedure Procedure Detail Performing Clinician Start: 12-26-2022 Delivery of Products of Conception, External Approach REJI WRIGHT Start: 12-26-2022 Division of Female P erineum, External Approach REJI WRIGHT Start: 12-26-2022 Drainage of Amniotic Fluid, Therapeutic from Products of Conception, Via Natural or Artificial Opening REJI WRIGHT Start: 12-26-2022 Introduction of Othe r Hormone into Peripheral Vein, Percutaneous Approach REJI WRIGHT Start: 12-26-2022 Repair Perineum Musc le, Open Approach REJI WRIGHT Payers Date Payer Category Payer Private Health Insurance 2020 Unknown 1997 Unknown [id number] 2.16.84 0.1.747636.3.579.2.593 1997 Unknown [id number] 2.16.84 0.1.312109.3.579.2.593 1997 Unknown [id number] 2.16.84 0.1.213344.3.579.2.593 1997 Unknown [id number] 2.16.84 0.1.313219.3.579.2.593 1997 Unknown [id number] 2.16.84 0.1.205174.3.579.2.593 1997 Unknown [id number] 2.16.84 0.1.536567.3.579.2.593 1997 Unknown [id number] 2.16.84 0.1.552615.3.579.2.593 1997 Unknown [id number] 2.16.84 0.1.819934.3.579.2.593 1997 Unknown [id number] 2.16.84 0.1.493081.3.579.2.593 1997 Unknown [id number] 2.16.84 0.1.790244.3.579.2.593 1997 Unknown [id number] 2.16.84 0.1.051732.3.579.2.593 1997 Unknown [id number] 2.16.84 0.1.393041.3.579.2.593 1997 Unknown [id number] 2.16.84 0.1.921210.3.579.2.593 1997 Unknown [id number] 2.16.84 0.1.971519.3.579.2.593 1997 Unknown [id number] 2.16.84 0.1.539155.3.579.2.593 1997 Unknown [id number] 2.16.84 0.1.562662.3.579.2.593 1997 Unknown [id number] 2.16.84 0.1.034223.3.579.2.593 1997 Unknown [id number] 2.16.84 0.1.808455.3.579.2.593 1997 Unknown [id number] 2.16.84 0.1.592160.3.579.2.593 1997 Unknown [id number] 2.16.84 0.1.165427.3.579.2.593 1997 Unknown [id number] 2.16.84 0.1.374550.3.579.2.593 1997 Unknown [id number] 2.16.84 0.1.818670.3.579.2.593 1997 Unknown [id number] 2.16.84 0.1.628359.3.579.2.593 1997 Unknown [id number] 2.16.84 0.1.504359.3.579.2.593 1997 Unknown [id number] 2.16.84 0.1.930548.3.579.2.593 1997 Unknown [id number] 2.16.84 0.1.640993.3.579.2.593 1997 Unknown [id number] 2.16.84 0.1.837095.3.579.2.593 1997 Unknown [id number] 2.16.84 0.1.215441.3.579.2.593 1997 Unknown [id number] 2.16.84 0.1.730825.3.579.2.593 1997 Unknown [id number] 2.16.84 0.1.153154.3.579.2.727 1997 Unknown [id number] 2.16.84 0.1.073440.3.579.2.1259 1959 Self-pay 1959 Unknown [id number] Unknown [id number] 2.16.84 0.1.168612.3.579.2.593 Unknown [id number] 2.16.84 0.1.397971.3.579.2.593 Summary Purpose Family History No Family History Records FoundNo Family History Records FoundNo Family History Records Found Advance Directives No Advanced Directives Records FoundNo Advanced Directives Records FoundNo Advanced Directives Records Found Additional Source Comments INFORMATION SOURCE (unrecogn ized section and content) DATE CREATED AUTHOR 01/17/2023 Micheal [facility] DATE CREATED AUTHOR AUTHOR'S ORGANIZ ATION 12/25/2023 [facility] DATE CREATED AUTHOR AUTHOR'S ORGANIZ ATION 04/01/2024 [facility] FOR RECORDS PERTAINING TO PATIENTS WHO ARE OR HAVE BEEN ENROLLED IN A CHEMICAL DEPENDENCY/SUBSTANCEABUSE PROGRAM, SOME INFORMATION MAY BE OMITTED. This clinical summary was aggregated from multiple sources. Caution should be exercised in using it in the provision of clinical care. This summary normalizes information from multiple sources, and as a consequence, information in this document may materially change the coding, format and clinical context of patient data. In addition, data may be omitted in some cases. CLINICAL DECISIONS SHOULD BE BASED ON THE PRIMARY CLINICAL RECORDS. [facility] provides no warranty or guarantee of the accuracy or completeness of information in this document.
[2024-04-22 09:06] LABS: Chol HDL Ratio 2.5; Cholesterol 199 mg/dL (<=200); Glucose 101 mg/dL (74-106); HDL Cholesterol 79 mg/dL (40-60); Triglycerides 49 mg/dL (<=150); VLDL CHOLESTEROL 9.8 mg/dL
== END 2024-04-22 07:02 | disposition home or self-care (01) ==
PROVIDERS: PCP Physician Assistant; Visit Provider Family Medicine
DX: Z13.220 Encounter for screening for lipoid disorders (principal)
CPT/HCPCS: 36415; 80061; 82947

== ENCOUNTER 2025-05-13 16:10 | Outpatient (OUT) | payer OTHER, SELFPAY ==
--- OUTSIDE RECORDS SUMMARY | 2025-05-13 16:18 | XMS_ITS | CCD ---
Author Organization [facility] Care Team Providers Care Cbx Operator Name Role Phone [facility] Care Unavailable LUCIA ., DR HAYES Attending Unavailable LUCIA ., DR HAYES Consulting Unavailable LUCIA ., DR HAYES Admitting Unavailable ZIEBER, DR ZEUS Heredia Consulting Unavailable LUCIA ., DR HAYES Attending Unavailable LUCIA ., DR HAYES Consulting Unavailable [facility] Care Unavailable LUCIA ., DR HAYES Admitting Unavailable ZIEBER, DR ZEUS Heredia Consulting Unavailable [facility] Care Unavailable KARASIK ., DR SUMMERS Consulting Unavailabl e KARASIK ., DR SUMMERS Attending Unavailabl e KARASIK ., DR SUMMERS Admitting Unavailabl e Sebastian Doan Consulting Unavailable LUCIA ., DR HAYES Consulting Unavailable LUCIA ., DR HAYES Attending Unavailable [facility] Primary Care Unavailable LUCIA ., DR HAYES Admitting Unavailable LUCIA ., DR HAYES Attending Unavailable [facility] Care Unavailable LUCIA ., DR HAYES Consulting Unavailable LUCIA ., DR HAYES Admitting Unavailable KARASIK ., DR SUMMERS Admitting Unavailabl e KARASIK ., DR SUMMERS Attending Unavailabl e KARASIK ., DR SUMMERS Consulting [facility]availabl e [facility] Un[facility] Sebastian Doan Consulting Unavailable LUCIA ., DR HAYES Consulting Unavailable KARASIK ., DR SUMMERS Attending Unavailabl e KARASIK ., DR SUMMERS Consulting Unavailabl e KARASIK ., DR SUMMERS Admitting [facility]abl [facility] Unavailable Sebastian Doan Consulting Unavailable LUCIA ., DR HAYES Consulting Unavailable [facility] Care Unavailable LUCIA ., DR HAYES Admitting Unavailable LUCIA ., DR HAYES Consulting Unavailable LUCIA ., DR HAYES Attending Unavailable ZIEBER, DR ZEUS Heredia Consulting Unavailable [facility] Primary Care Unavailable LUCIA ., DR HAYES Attending Unavailable LUCIA ., DR HAYES Consulting Unavailable LUCIA ., DR HAYES Admitting Unavailable LUCIA ., DR HAYES Attending Unavailable [facility] Primary Care Unavailable LUCIA ., DR HAYES Admitting Unavailable [facility] Primary Care Unavailable KARASIK ., DR SUMMERS Admitting Unavailabl e KARASIK ., DR SUMMERS Attending Unavailabl e KARASIK ., DR SUMMERS Consulting Unavailabl e KARASIK ., DR SUMMERS Admitting Unavailabl e KARASIK ., DR SUMMERS Attending Unavailabl e KARASIK ., DR SUMMERS Consulting Unavailabl e [facility], [facility] Primary Care Unavailable KARASIK ., DR SUMMERS Admitting Unavailabl e KARASIK ., DR SUMMERS Attending Unavailabl e KARASIK ., DR SUMMERS Consulting Unavailabl e [facility], [facility] Primary Care Unavailable [facility], [facility] Primary Care Unavailable KARASIK ., DR SUMMERS Consulting Unavailabl e KARASIK ., DR SUMMERS Attending Unavailabl e KARASIK ., DR SUMMERS Admitting Unavailabl e LUCIA ., DR HAYES Consulting Unavailable ZIEBER, DR ZEUS Heredia Consulting Unavailable [facility] Primary Care Unavailable LUCIA ., DR HAYES Admitting Unavailable LUCIA ., DR HAYES Consulting Unavailable LUCIA ., DR HAYES Attending Unavailable ZIEBER, DR ZEUS Heredia Consulting Unavailable [facility], [facility] Primary Care Unavailable LUCIA ., DR HAYES Attending Unavailable LUCIA ., DR HAYES Consulting Unavailable LUCIA ., DR HAYES Admitting Unavailable [facility], [facility] Primary Care Unavailable LUCIA ., DR HAYES Attending Unavailable LUCIA ., DR HAYES Consulting Unavailable LUCIA ., DR HAYES Admitting Unavailable LUCIA ., DR HAYES Admitting Unavailable [facility], [facility] Primary Care Unavailable LUCIA ., DR HAYES Attending Unavailable LUCIA ., DR HAYES Attending Unavailable [facility], [facility] Primary Care Unavailable LUCIA ., DR HAYES Admitting Unavailable [facility] Primary Care Unavailable LUCIA ., DR HAYES Attending Unavailable LUCIA ., DR HAYES Consulting Unavailable LUCIA ., DR HAYES Admitting Unavailable ZIEBER, DR ZEUS Heredia Consulting Unavailable [facility], [facility] Primary Care Unavailable LUCIA ., DR HAYES Consulting Unavailable LUCIA ., DR HAYES Admitting Unavailable LUCIA ., DR HAYES Attending Unavailable ZIEBER, DR ZEUS Heredia Consulting Unavailable [facility], [facility] Primary Care Unavailable LUCIA ., DR HAYES Consulting Unavailable LUCIA ., DR HAYES Admitting Unavailable LUCIA ., DR HAYES Attending Unavailable ZIEBER, DR ZEUS Heredia Consulting Unavailable KARASIK ., DR SUMMERS Attending Unavailabl e KARASIK ., DR SUMMERS Admitting Unavailabl e LUCIA ., DR HAYES Consulting Unavailable [facility], [facility] Primary Care Unavailable KARASIK ., DR SUMMERS Consulting Unavailabl e KARASIK ., DR SUMMERS Attending Unavailabl e KARASIK ., DR SUMMERS Admitting Unavailabl e [facility], [facility] Primary Care Unavailable KARASIK ., DR SUMMERS Consulting Unavailabl e KARASIK ., DR SUMMERS Admitting Unavailabl e KARASIK ., DR SUMMERS Attending Unavailabl e [facility], [facility] Primary Care Unavailable [facility], [facility] Primary Care Unavailable KARASIK ., DR SUMMERS Consulting Unavailabl e KARASIK ., DR SUMMERS Admitting Unavailabl e KARASIK ., DR SUMMERS Attending Unavailabl e LUCIA ., DR HAYES Attending Unavailable [facility], [facility] Primary Care Unavailable LUCIA ., DR HAYES Admitting Unavailable [facility], [facility] Primary Care Unavailable LUCIA ., DR HAYES Attending Unavailable ULCIA ., DR HAYES Admitting Unavailable KARASIK ., DR SUMMERS Consulting Unavailabl e LUCIA ., DR HAYES Attending Unavailable [facility], [facility] Primary Care Unavailable LUCIA ., DR HAYES Admitting Unavailable LUCIA ., DR HAYES Consulting Unavailable YANIQUE LOVE Consulting Unavailable LUCIA ., DR HAYES Procedure Practitioner Unavail able [facility]RIANA, REGINA Primary Care Unavailable LUCIA ., DR HAYES Attending Unavailable LUCIA ., DR HAYES Consulting Unavailable LUCIA ., DR HAYES Admitting Unavailable AD[facility], REGINA Primary Care Unavailable PARAG ., DR SUMMERS Admitting Ovidio TUTTLE ., DR SUMMERS Attending Ovidio TUTTLE ., DR SUMMERS Consulting Regina Joyce Primary Care Provider Lydia Whyte Primary Care Physician Lydia Whyte Attending Unavailable Lydia Whyte Admitting Unavailable BEE TRAN Attending Unavailable BEE TRAN Attending Unavailable NEISHA LAMB Attending Unavailable Medications Current Medications Medication Drug Class(es) Dates Sig (Normalized) Sig (Original) adapalene 0.001 mg/mg / benzoyl peroxide 0.025 mg/mg topical gel (5 sources) Retinoid Start: 08-25-2024 End: 03-31-2025 Adapalene-Benzoyl Peroxide 0.1-2.5 % gel Indications: Acne, unspecified acne type Apply pea-size amount to T-zone, chin and problem areas nightly. 45 g 1 08/25/2024 03/31/2025 Discontinued ALPRAZolam 0.5 mg oral tablet (1 source) Benzodiazepine Start: 01-19-2020 take 1 tablet by mouth three times daily as needed for anxiety alprazolam 0.5 mg Tab 0.5 mg = 1 tab(s), Oral, TID, PRN for anxiety, # 30 tab(s), Refills(s) 1, Pharmacy: [facility] #[id number], 167.64, cm, 08/11/19 12:02:00 EST, Height/Length Measured, 70.8, kg, 08/11/19 12:02:00 EST, Weight Measured Start Date: 01/19/20 Status: Ordered Quantity: 30.0 Unit: tab(s) Repeat number: 2 Indication: Generalized anxiety disorder benzoyl peroxide 50 mg/ml topical solution (3 sources) Start: 03-31-2025 benzoyl peroxide 5 % external wash Indications: Acne vulgaris Apply to affected areas, then rinse daily, 30 day supply 227 g 11 03/31/2025 Active Start: 03-31-2025 benzoyl peroxi de 5 % external wash Indications: Acne vulgaris Apply to affected areas, then rinse daily, 30 day supply 227 g 03/31/2025 Active cefuroxime 250 mg oral tablet (8 sources) Cephalosporin Antibacterial Start: 07-05-2024 End: 03-31-2025 take 1 tablet by mouth once daily cefuroxime (Ceftin) 250 MG tablet Indications: Acne vulgaris Take 1 tablet, by mouth, once daily, 30 days 30 tablet 2 07/05/2024 03/31/2025 Discontinued cephalexin 500 mg oral capsule (2 sources) Cephalosporin Antibacterial Start: 08-25-2024 End: 09-04-2024 take 1 capsule by mouth in the morning, then take 1 capsule by mouth in the evening, then take 1 capsule by mouth at bedtime cephalexin (Keflex) 500 MG capsule Indications: Acne, unspecified acne type Take 1 capsule (500 mg) by mouth in the morning and 1 capsule (500 mg) in the evening and 1 capsule (500 mg) before bedtime. Do all this for 10 days. 30 capsule 08/25/2024 09/04/2024 Active clindamycin 10 mg/ml topical lotion (3 sources) Lincosamide Antibacterial Start: 03-31-2025 clindamycin (Cleocin T) 1 % lotion Indications: Acne vulgaris Apply thin later to affected areas on the body, once daily, 30 day supply 60 mL 11 03/31/2025 Active Start: 03-31-2025 clindamycin (C leocin T) 1 % lotion Indications: Acne vulgaris Apply thin later to affected areas on the body, once daily, 30 day supply 60 mL 11 03/31/2025 Active {7 (Ethinyl Estradiol 0.035 MG / norgestimate 0.18 MG Oral Tablet) / 7 (Ethinyl Estradiol 0.035 MG / norgestimate 0.215 MG Oral Tablet) / 7 (Ethinyl Estradiol 0.035 MG / norgestimate 0.25 MG Oral Tablet) / 7 (Inert Ingredients 1 MG Oral Tablet) } Pack [TR (1 source) Progestin, Estrogen Start: 06-16-2019 Tri-Linyah 35 mcg oral tablet 1 tab(s), Oral, Daily, 30 tab(s), Refill(s) 0, other reason (Rx) Start Date: 06/16/19 Status: Ordered Quantity: 30.0 Unit: tab(s) Repeat number: 1 tretinoin 0.25 mg/ml topical cream (8 sources) Retinoid Start: 07-05-2024 End: 03-31-2025 tretinoin (Retin-A) 0.025 % cream Indications: Acne vulgaris Apply to face, once daily at evening/night time, 30 day supply 20 g 11 07/05/2024 03/31/2025 Discontinued (Alternate therapy) Completed/Discontinued Medications Medication Drug Class(es) Dates Sig (Normalized) Sig (Original) azelaic acid 200 mg/ml topical cream (3 sources) Start: 04-15-2024 End: 07-05-2024 azelaic acid (Azelex) 20 % cream Indications: Acne vulgaris Apply thin layer to face qHS, 30 day supply 50 g 11 04/15/2024 07/05/2024 Discontinued benzoyl peroxide 0.05 mg/mg / clindamycin 0.01 mg/mg topical gel (3 sources) Lincosamide Antibacterial Start: 03-30-2024 End: 07-05-2024 clindamycin-benzoy l peroxide (BenzaClin) gel Indications: Acne vulgaris Apply thin layer to face, once daily in the morning, 30 day supply 50 g 11 03/30/2024 07/05/2024 Discontinued (Ineffective) Clascoterone (Winlevi) 1 % cream (3 sources) Start: 06-22-2024 End: 07-05-2024 Clascoterone (Winlevi) 1 % cream Indications: Acne vulgaris Apply thin layer to face twice daily 60 g 11 06/22/2024 07/05/2024 Discontinued Start: 06-22-2024 Clascoterone ( Winlevi) 1 % cream Indications: Acne vulgaris Apply thin layer to face twice daily 60 g 11 06/22/2024 Active Problems Active Problems Problem Classification Problem Date Documented Date Episodic/Chronic Abdominal pain (4 sources) Right sided abdominal pain; Translations: [Unspecified abdominal pain] 08-25-2024 Episodic Anxiety disorders (2 sources) Generalized anxiety disorder; Translations: [Panic disorder without agoraphobia] 12-22-2019 Chronic Diabetes or abnormal glucose tolerance complicating ; childbirth; or the puerperium (6 sources) Gestational diabetes mellitus in , unspecified control; Translations: [Gestational diabetes mellitus in childbirth, unspecified control] Onset: 12-26-2022 Episodic Genitourinary symptoms and ill-defined conditions (1 source) Dysuria 11-19-2013 Episodic Menstrual disorders (6 sources) Irregular menstruation, unspecified; Translations: [Missed period] Onset: 06-07-2022 Chronic Mood disorders (1 source) Episodic mood disorder 02-08-2019 Chronic Mycoses (1 source) Tinea corporis 02-08-2019 Episodic OB-related trauma to perineum and vulva (1 source) Second degree perineal laceration during delivery; Translations: [SECOND DEG PERINEAL LAC DUR DELIV] Onset: 01-02-2023 Episodic Other complications of (2 sources) History of gestational diabetes mellitus; Translations: [Supervision of with other poor reproductive or obstetric history, unspecified trimester] Onset: 04-21-2025 04-21-2025 Episodic Other female genital disorders (2 sources) Abnormal uterine bleeding; Translations: [Abnormal uterine and vaginal bleeding, unspecified] 08-25-2024 Chronic Other female genital disorders (1 source) Dysfunctional uterine bleeding 02-23-2019 Chronic Other and delivery including normal (20 sources) Encounter for care and examination of lactating mother; Translations: [Encounter for routine follow-up] Onset: 05-26-2022 Episodic Other skin disorders (4 sources) Acne vulgaris; Translations: [Acne vulgaris] 07-05-2024 Episodic Other skin disorders (2 sources) Acne; Translations: [Acne, unspecified] 08-25-2024 Episodic Residual codes; unclassified (1 source) 40 [...] WEEKS GESTATION OF ] Onset: 11-06-2022 Episodic Residual codes; unclassified (1 source) Gestation period, 8 weeks; Translations: [8 weeks gestation of ] 04-21-2025 Episodic Past or Other Problems Problem Classification [...] Results Test Name Value Interpretation Reference Range Facility HCG ( test) Ql (U)o n 04-21-2025 Interpretation and review of laboratory results Abnormal [facility] Preg Test, Ur Positive Negative [facility] OB TRANSVAGINALon 025 OB TRANSVAGINAL FINDINGS: A single intrauterine gestational sac is present. No subchorionic hemorrhage. A single pole is present. Normal heart rate at 172 beats per minute. Yolk sac also is seen. Current sonographic age is 8 weeks and 3 days based on the crown-rump length measurement of 1.9 cm. Based on this age, current estimated date of delivery is November 08, 2025. No pelvic fluid or adnexal mass present. Cervical length is 4.3 cm, closed. IMPRESSION: Findings consistent with a live intrauterine gestation, current sonographic age of 8 weeks and 3 days resulting in an estimated date of delivery of November 28, 2025. TRANSCRIBED BY: ELECTRONICALLY SIGNED BY: Delroy Reese MD Normal Not Available Comment on above: Order Comment: US OB TRANSVAGINAL No LMP recorded. Urinalysis macro (dipstick) panel (U)on 04-21-2025 Bilirubin, UA Negative Negative - 4(70) +++ mg/dL [facility] Blood, UA Negative Negative - 50 Josh/mcL [facility] Clarity, UA Clear [facility] Color, UA Yellow [facility] Glucose, UA Negative Negative - 1999(110) ++++ mg/dL [facility] Interpretation and review of laboratory results Normal [facility] Ketones, UA Negative Negative - 160(16) ++++ mg/dL [facility] Leukocytes, UA Negative Negative - 500+++ Елена/mcL [facility] Nitrite, UA Negative Negative - Positive [facility] pH, UA 6 5 - 9 [facility] Protein, UA Negative Negative - 1999(20) ++++ mg/dL [facility] Spec Grav, UA 1.02 1 - 1.03 [facility] Urobilinogen, UA 1.0 0.2 - 12 mg/dL [facility] XR Chest 2 Viewson XR Chest 2 Views Exam Date/Time: 01/21/2025 17:05 EDT Reason for Exam: R05.9 Report IMPRESSION: No acute radiographic abnormality. EXAMINATION: XR Chest 2 Views Clinical History: Cough. Shortness of breath. Comparison: None RESULT: No consolidation. No pleural effusion. No pneumothorax. Normal cardiomediastinal silhouette. No acute osseous findings. Ordering Provider: Lydia Whyte FINAL REPORT Dictated: 01/22/2025 8:20 am Manjit Mazariegos MD Signed (Electronic Signature): 01/22/2025 8:20 am Signed by: Manjit Mazariegos MD Transcribed by: BRENDA Technologist: RONAN Childers [facility] US PELVIC COMPLETE W/ TVon 0 09-20-2024 US PELVIC COMPLETE W/ TV EXAM: US PELVIC COMPLETE W/ TV HISTORY: Pelvic pain, abnormal uterine bleeding after intercourse. COMPARISON: None available. TECHNIQUE: Two-dimensional transabdominal grayscale ultrasound imaging of the pelvis was performed. Color flow and spectral Doppler imaging of the ovaries were also performed. Transvaginal was performed. FINDINGS: UTERUS 8.6 x 3.4 x 5.6 cm The uterus is anteverted in position and demonstrates a normal, homogeneous echotexture. ENDOMETRIUM 0.5 cm The endometrium demonstrates a normal, homogeneous echotexture. RIGHT OVARY 3.6 x 1.9 x 2.2 cm The right ovary demonstrates a normal echotexture with a follicles. There is normal color and spectral Doppler flow. LEFT OVARY 3.2 x 1.7 x 1.7 cm The left ovary demonstrates a normal echotexture with follicles. There is normal color and spectral Doppler flow. No fluid is present within the cul-de-sac. IMPRESSION: 1. Unremarkable ultrasound of the pelvis. 2. Normal color and spectral Doppler flow within the bilateral ovaries. Electronically Signed:Electronically signed by YANIRA ZENG II, MD, PHD at 22-Sep-2024 07:42:52 AM [facility] Normal Not Available Comment on above: Order Comment: US PE LVIS-TRANSVAG IF INDICATED Patient's last menstrual period was 07/28/2024 (approximate). HCG ( test) Ql (U)o n 08-25-2024 Interpretation and review of laboratory results Normal [facility] Preg Test, Ur Negative Negative [facility] Urinalysis macro (dipstick) panel (U)on 08-25-2024 Bilirubin, UA Negative Negative - 4(70) +++ mg/dL [facility] Blood, UA Positive Negative - 50 Josh/mcL [facility] Comment on above: moderate Clarity, UA Clear [facility] Color, UA Yellow [facility] Glucose, UA Negative Negative - 1999(110) ++++ mg/dL [facility] Interpretation and review of laboratory results Abnormal [facility] Ketones, UA Negative Negative - 160(16) ++++ mg/dL [facility] Leukocytes, UA Trace Negative - 500+++ Елена/mcL [facility] Nitrite, UA Negative Negative - Positive [facility] pH, UA 6 5 - 9 [facility] Protein, UA Negative Negative - 1999(20) ++++ mg/dL [facility] Spec Grav, UA 1.025 1 - 1.03 [facility] Urobilinogen, UA 0.2 0.2 - 12 mg/dL [facility] CBC AUTO DIFFon 12-27-2022 BASO # 0.0 103/ul Normal 0.0-0.1 [facility] Comment on above: Performed By: #### R UBIGG #### [facility] [address] [place] [address] Dr. Baljinder Murrell Basophils/100 WBC (Bld) 0.1 % Critically low 0.2-2.0 [facility] Comment on above: Performed By: #### R UBIGG #### [facility] [address] [place] [address] Dr. Baljinder Murrell EO # 0.0 103/ul Normal 0.0-0.7 [facility] Comment on above: Performed By: #### R UBIGG #### [facility] [address] [place] [address] Dr. Baljinder Murrell Eosinophils/100 WBC (Bld) 0.1 % Critically low 0.9-7.0 [facility] Comment on above: Performed By: #### R UBIGG #### [facility] [address] [place] [address] Dr. Baljinder Murrell Erythrocyte distribution width (RBC) [Ratio] 13.3 % Normal 11.0-15.0 [facility] Comment on above: Performed By: #### R UBIGG #### [facility] [address] [place] [address] Dr. Baljinder Murrell Hematocrit (Bld) [Volume fraction] 35.5 % Critically low 36.0-48.0 [facility] Comment on above: Performed By: #### R UBIGG #### [facility] [address] [place] [address] Dr. Baljinder Murrell Hemoglobin (Bld) [Mass/Vol] 11.3 g/dL Critically low 12.0-16.0 [facility] Comment on above: Performed By: #### R UBIGG #### [facility] [address] [place] [address] Dr. Baljinder Murrell IG # 0.06 10e3/ul Critically high 0.00-0.03 [facility] Comment on above: Performed By: #### R UBIGG #### [facility] [address] [address] [address] Baljinder Murrell IG % 0.4 % Normal 0.0-0.5 [facility] Comment on above: Performed By: #### R UBIGG #### [facility] [address] [address] [address] Baljinder Murrell LYMPH # 1.6 103/ul Normal 1.2-3.8 [facility] Comment on above: Performed By: #### R UBIGG #### [facility] [address] [address] [address] Baljinder Murrell Lymphocytes/100 WBC (Bld) 11.0 % Critically low 20.5-60.0 [facility] Comment on above: Performed By: #### R UBIGG #### [facility] [address] [address] [address] Baljinder Murrell MANUAL DIFF REQ NO Normal [facility] Comment on above: Performed By: #### R UBIGG #### [facility] [address] [address] [address] Baljinder Murrell MCH (RBC) [Entitic mass] 30.2 pg Normal 26.7-34.0 [facility] Comment on above: Performed By: #### R UBIGG #### [facility] [address] [address] [address] Baljinder Murrell MCHC (RBC) [Mass/Vol] 31.8 g/dL Normal 29.9-35.2 [facility] Comment on above: Performed By: #### R UBIGG #### [facility] [address] [address] [address] Baljinder Murrell MCV (RBC) [Entitic vol] 94.9 fL Normal 81.0-99.0 [facility] Comment on above: Performed By: #### R UBIGG #### [facility] [address] [address] [address] Baljinder Murrell MONO # 0.9 103/ul Critically high 0.3-0.8 [facility] Comment on above: Performed By: #### R UBIGG #### [facility] [address] [address] [address] Baljinder Murrell Monocytes/100 WBC (Bld) 6.1 % Normal 1.7-12.0 [facility] Comment on above: Performed By: #### R UBIGG #### [facility] [address] [address] [address] Baljinder Murrell NEUT # 11.9 103/ul Critically high 1.4-6.5 [facility] Comment on above: Performed By: #### R UBIGG #### [facility] [address] [place] [address] Dr. Baljinder Murrell Neutrophils/100 WBC (Bld) 82.3 % Critically high 43.0-75.0 [facility] Comment on above: Performed By: #### R UBIGG #### [facility] [address] [place] [address] Dr. Baljinder Murrell Platelet mean volume (Bld) [Entitic vol] 8.5 fL Critically low 9.5-13.5 [facility] Comment on above: Performed By: #### R UBIGG #### [facility] [address] [place] [address] Dr. Baljinder Murrell PLT 217 103/ul Normal 150-450 [facility] Comment on above: Performed By: #### R UBIGG #### [facility] [address] [place] [address] Dr. Baljinder Murrell RBC 3.74 106/ul Critically low 4.20-5.40 [facility] Comment on above: Performed By: #### R UBIGG #### [facility] [address] [place] [address] Dr. Baljinder Murrell WBC 14.5 103/ul Critically high 4.0-11.0 [facility] Comment on above: Performed By: #### R UBIGG #### [facility] [address] [place] [address] Dr. Baljinder Murrell CBC AUTO DIFFon 12-26-2022 BASO # 0.0 103/ul Normal 0.0-0.1 [facility] Comment on above: Performed By: #### C BC #### [facility] [address] [place] [address] Dr. Baljinder Murrell Basophils/100 WBC (Bld) 0.2 % Normal 0.2-2.0 [facility] Comment on above: Performed By: #### C BC #### [facility] [address] [place] [address] Dr. Baljinder Murrell EO # 0.0 103/ul Normal 0.0-0.7 [facility] Comment on above: Performed By: #### C BC #### [facility] [address] [place] [address] Dr. Baljinder Murrell Eosinophils/100 WBC (Bld) 0.4 % Critically low 0.9-7.0 [facility] Comment on above: Performed By: #### C BC #### [facility] [address] [place] [address] Dr. Baljinder Murrell Erythrocyte distribution width (RBC) [Ratio] 13.4 % Normal 11.0-15.0 [facility] Comment on above: Performed By: #### C BC #### [facility] [address] [place] [address] Dr. Baljinder Murrell Hematocrit (Bld) [Volume fraction] 36.8 % Normal 36.0-48.0 [facility] Comment on above: Performed By: #### C BC #### [facility] [address] [place] [address] Dr. Baljinder Murrell Hemoglobin (Bld) [Mass/Vol] 12.5 g/dL Normal 12.0-16.0 [facility] Comment on above: Performed By: #### C BC #### [facility] [address] [place] [address] Dr. Baljinder Murrell IG # 0.05 10e3/ul Critically high 0.00-0.03 [facility] Comment on above: Performed By: #### C BC #### [facility] [address] [place] [address] Dr. Baljinder Murrell IG % 0.6 % Critically high 0.0-0.5 [facility] Comment on above: Performed By: #### C BC #### [facility] [address] [place] [address] Dr. Baljinder Murrell LYMPH # 1.9 103/ul Normal 1.2-3.8 [facility] Comment on above: Performed By: #### C BC #### [facility] [address] [place] [address] Dr. Baljinder Murrell Lymphocytes/100 WBC (Bld) 20.9 % Normal 20.5-60.0 [facility] Comment on above: Performed By: #### C BC #### [facility] [address] [place] [address] Dr. Baljinder Murrell MANUAL DIFF REQ NO Normal [facility] Comment on above: Performed By: #### C BC #### [facility] [address] [place] [address] Dr. Baljinder Murrell MCH (RBC) [Entitic mass] 31.0 pg Normal 26.7-34.0 [facility] Comment on above: Performed By: #### C BC #### [facility] [address] [place] [address] Dr. Baljinder Murrell MCHC (RBC) [Mass/Vol] 34.0 g/dL Normal 29.9-35.2 [facility] Comment on above: Performed By: #### C BC #### [facility] [address] [place] [address] Dr. Baljinder Murrell MCV (RBC) [Entitic vol] 91.3 fL Normal 81.0-99.0 [facility] Comment on above: Performed By: #### C BC #### [facility] [address] [place] [address] Dr. Baljinder Murrell MONO # 0.6 103/ul Normal 0.3-0.8 [facility] Comment on above: Performed By: #### C BC #### [facility] [address] [place] [address] Dr. Baljinder Murrell Monocytes/100 WBC (Bld) 6.3 % Normal 1.7-12.0 [facility] Comment on above: Performed By: #### C BC #### [facility] [address] [address] [address] Baljinder Murrell NEUT # 6.4 103/ul Normal 1.4-6.5 [facility] Comment on above: Performed By: #### C BC #### [facility] [address] [address] [address] Baljinder Murrell Neutrophils/100 WBC (Bld) 71.6 % Normal 43.0-75.0 [facility] Comment on above: Performed By: #### C BC #### [facility] [address] [address] [address] Baljinder Murrell Platelet mean volume (Bld) [Entitic vol] 8.9 fL Critically low 9.5-13.5 [facility] Comment on above: Performed By: #### C BC #### [facility] [address] [address] [address] Baljinder Murrell PLT 270 103/ul Normal 150-450 [facility] Comment on above: Performed By: #### C BC #### [facility] [address] [address] [address] Baljinder Murrell RBC 4.03 106/ul Critically low 4.20-5.40 [facility] Comment on above: Performed By: #### C BC #### [facility] [address] [place] [address] Dr. Baljinder Murrell WBC 8.9 103/ul Normal 4.0-11.0 [facility] Comment on above: Performed By: #### C BC #### [facility] [address] [address] [address] Baljinder Murrell DRUG SCREEN RAPID (URINE)on 12-26-2022 AMP Negative Normal NEGATIVE [facility] Comment on above: Performed By: #### D RUGRPD #### [facility] [address] [place] [address] Dr. Baljinder Murrell BAR Negative Normal NEGATIVE [facility] Comment on above: Performed By: #### D RUGRPD #### [facility] [address] [place] [address] Dr. Baljinder Murrell BUP Negative Normal NEGATIVE [facility] Comment on above: Performed By: #### D RUGRPD #### [facility] [address] [place] [address] Dr. Baljinder Murrell BZO Negative Normal NEGATIVE [facility] Comment on above: Performed By: #### D RUGRPD #### [facility] [address] [place] [address] Dr. Baljinder Murrell ROXANA Negative Normal NEGATIVE [facility] Comment on above: Performed By: #### D RUGRPD #### [facility] [address] [place] [address] Dr. Baljinder Murrell CUT-OFFS SEE BELOW Normal [facility] Comment on above: Result Comment: AMP (Amphetamine): 500ng/mL, BAR (Barbituates): 200 ng/mL, BZO (Benzodiazepines): 150 ng/mL, BUP (Buprenorphine): 10 ng/mL, ROXANA (Cocaine): 150 ng/mL, mAMP (Methamphetamine): 500 ng/mL, MTD (Methadone): 200 ng/mL, OPI (Opiates): 100 ng/mL, OXY (Oxycodone): 100 ng/mL, PCP (Phencyclidine): 25 ng/mL, PPX (Propoxyphene): 300 ng/mL, THC (Cannabinoids): 50 ng/mL, TCA (Trycyclic Antidepressants): 300 ng/mL Performed By: #### D RUGRPD #### [facility] [address] [place] [address] Dr. Baljinder Murrell DRUG CUT HEADER DRUG CLASS TEST SYST EM CUT-OFF CONCENTRATIONS ARE FOLLOWS: Normal [facility] Comment on above: Performed By: #### D RUGRPD #### [facility] [address] [place] [address] Dr. Baljinder Murrell mAMP Negative Normal NEGATIVE [facility] Comment on above: Performed By: #### D RUGRPD #### [facility] [address] [place] [address] Dr. Baljinder Murrell MTD Negative Normal NEGATIVE [facility] Comment on above: Performed By: #### D RUGRPD #### [facility] [address] [address] [address] Baljinder Murrell OPI Negative Normal NEGATIVE [facility] Comment on above: Performed By: #### D RUGRPD #### [facility] [address] [address] [address] Baljinder Murrell OXY Negative Normal NEGATIVE [facility] Comment on above: Performed By: #### D RUGRPD #### [facility] [address] [address] [address] Baljinder Murrell PCP Negative Normal NEGATIVE [facility] Comment on above: Performed By: #### D RUGRPD #### [facility] [address] [address] [address] Baljinder Murrell PPX Negative Normal NEGATIVE [facility] Comment on above: Performed By: #### D RUGRPD #### [facility] [address] [place] [address] Dr. Baljinder Murrell TCA Negative Normal NEGATIVE [facility] Comment on above: Performed By: #### D RUGRPD #### [facility] [address] [address] [address] Baljnider Murrell THC Negative Normal NEGATIVE [facility] Comment on above: Performed By: #### D RUGRPD #### [facility] [address] [place] [address] Dr. Baljinder Murrell TYPE AND SCREENon 12-26-2022 TYPE AND SCREEN Negative Normal [facility] Comment on above: Performed By: #### R UBIGG #### [facility] [address] [place] [address] Dr. Baljinder Murrell US PREG BIOPHY W [...] by: ZEUS BRANNON Date: 2022-12-22 23:17 Normal [facility] US PREG BIOPHY W NON STRESSo n [...] by: ZEUS BRANNON Date: 2022-12-12 16:39 Normal [facility] US PREG BIOPHY W NON STRESSo n [...] by: SEBASTIAN DOAN Date: 2022-12-06 15:03 Normal [facility] GROUP B STREP CULTUREon 11-07 S. agalactiae Ag Ql (Unsp spec) Culture Observations: NEGATIVE FOR GROUP B STREPTOCOCCUS. Normal [facility] Comment on above: Performed By: #### R UBIGG #### [facility] [address] [place] [address] Dr. Baljinder Murrell US PREG BIOPHY W [...] by: ZEUS BRANNON Date: 2022-11-28 16:08 Normal [facility] US PREG GROWTHon 11-28-2022 US PREG GROWTH [...] by: ZEUS BRANNON Date: 2022-11-28 16:03 Normal [facility] US PREG BIOPHY W NON STRESSo n [...] by: ZEUS BRANNON Date: 2022-11-21 16:37 Normal [facility] US PREG BIOPHY W NON STRESSo n [...] by: SEBASTIAN DOAN Date: 2022-11-14 15:29 Normal [facility] US PREG BIOPHY W NON STRESSo n [...] by: SEBASTIAN DOAN Date: 2022-11-07 16:03 Normal [facility] US PREG BIOPHY W NON STRESSo n [...] by: ZEUS BRANNON Date: 2022-10-31 17:13 Normal [facility] US PREG GROWTHon 10-31-2022 US PREG GROWTH [...] by: ZEUS BRANNON Date: 2022-10-31 17:12 Normal [facility] US PREG GROWTHon 10-07-2022 US PREG GROWTH [...] by: ZEUS BRANNON Date: 2022-10-07 16:18 Normal [facility] GTT 3 HR PREGon 09-28-2022 Glucose [Mass/Vol] 79 mg/dL Normal 74-106 [facility] Comment on above: Performed By: #### G TT3P #### [facility] [address] [address] [address] Baljinder Murrell Glucose [Mass/Vol] 204 mg/dL Normal [facility] Comment on above: Performed By: #### G TT3P #### [facility] [address] [address] [address] Baljinder Murrell Glucose [Mass/Vol] 158 mg/dL Normal [facility] Comment on above: Performed By: #### G TT3P #### [facility] [address] [address] [address] Baljinder Murrell Glucose [Mass/Vol] 150 mg/dL Normal [facility] Comment on above: Performed By: #### G TT3P #### [facility] [address] [address] [address] Baljinder Murrell CBC AUTO DIFFon 09-21-2022 BASO # 0.0 103/ul Normal 0.0-0.1 [facility] Comment on above: Performed By: #### C BC #### [facility] [address] [place] [address] Dr. Baljinder Murrell Basophils/100 WBC (Bld) 0.2 % Normal 0.2-2.0 [facility] Comment on above: Performed By: #### C BC #### [facility] [address] [place] [address] Dr. Baljinder Murrell EO # 0.0 103/ul Normal 0.0-0.7 [facility] Comment on above: Performed By: #### C BC #### [facility] [address] [place] [address] Dr. Baljinder Murrell Eosinophils/100 WBC (Bld) 0.3 % Critically low 0.9-7.0 [facility] Comment on above: Performed By: #### C BC #### [facility] [address] [place] [address] Dr. Baljinder Murrell Erythrocyte distribution width (RBC) [Ratio] 12.8 % Normal 11.0-15.0 [facility] Comment on above: Performed By: #### C BC #### [facility] [address] [place] [address] Dr. Baljinder Murrell Hematocrit (Bld) [Volume fraction] 33.4 % Critically low 36.0-48.0 [facility] Comment on above: Performed By: #### C BC #### [facility] [address] [place] [address] Dr. Baljinder Murrell Hemoglobin (Bld) [Mass/Vol] 11.4 g/dL Critically low 12.0-16.0 [facility] Comment on above: Performed By: #### C BC #### [facility] [address] [place] [address] Dr. Baljinder Murrell IG # 0.05 10e3/ul Critically high 0.00-0.03 [facility] Comment on above: Performed By: #### C BC #### [facility] [address] [place] [address] Dr. Baljinder Murrell IG % 0.5 % Normal 0.0-0.5 [facility] Comment on above: Performed By: #### C BC #### [facility] [address] [place] [address] Dr. Baljinder Murrell LYMPH # 1.7 103/ul Normal 1.2-3.8 [facility] Comment on above: Performed By: #### C BC #### [facility] [address] [place] [address] Dr. Baljinder Murrell Lymphocytes/100 WBC (Bld) 17.9 % Critically low 20.5-60.0 [facility] Comment on above: Performed By: #### C BC #### [facility] [address] [place] [address] Dr. Baljinder Murrell MANUAL DIFF REQ NO Normal [facility] Comment on above: Performed By: #### C BC #### [facility] [address] [place] [address] Dr. Baljinder Murrell MCH (RBC) [Entitic mass] 31.2 pg Normal 26.7-34.0 [facility] Comment on above: Performed By: #### C BC #### [facility] [address] [place] [address] Dr. Baljinder Murrell MCHC (RBC) [Mass/Vol] 34.1 g/dL Normal 29.9-35.2 [facility] Comment on above: Performed By: #### C BC #### [facility] [address] [place] [address] Dr. Baljinder Murrell MCV (RBC) [Entitic vol] 91.5 fL Normal 81.0-99.0 [facility] Comment on above: Performed By: #### C BC #### [facility] [address] [address] [address] Baljinder Murrell MONO # 0.4 103/ul Normal 0.3-0.8 [facility] Comment on above: Performed By: #### C BC #### [facility] [address] [address] [address] Baljinder Murrell Monocytes/100 WBC (Bld) 4.1 % Normal 1.7-12.0 [facility] Comment on above: Performed By: #### C BC #### [facility] [address] [address] [address] Baljinder Murrell NEUT # 7.2 103/ul Critically high 1.4-6.5 [facility] Comment on above: Performed By: #### C BC #### [facility] [address] [place] [address] Dr. Baljinder Murrell Neutrophils/100 WBC (Bld) 77.0 % Critically high 43.0-75.0 [facility] Comment on above: Performed By: #### C BC #### [facility] [address] [address] [address] Baljinder Murrell Platelet mean volume (Bld) [Entitic vol] 8.2 fL Critically low 9.5-13.5 [facility] Comment on above: Performed By: #### C BC #### [facility] [address] [address] [address] Baljinder Murrell PLT 232 103/ul Normal 150-450 [facility] Comment on above: Performed By: #### C BC #### [facility] [address] [address] [address] Baljinder Murrell RBC 3.65 106/ul Critically low 4.20-5.40 [facility] Comment on above: Performed By: #### C BC #### [facility] [address] [address] [address] Baljinder Murrell WBC 9.3 103/ul Normal 4.0-11.0 [facility] Comment on above: Performed By: #### C BC #### [facility] [address] [address] [address] Baljinder Murrell GLUCOSE - 1HRon 09-21-2022 Glucose [Mass/Vol] 158 mg/dL Critically high 74-106 [facility] Comment on above: Performed By: #### G LU1HR #### [facility] [address] [address] [address] Baljinder Murrell US PREG ANATOMY SINGLEon [...] ZEUS BRANNON Date: 2022-08-15 06:49 Normal [facility] HEPATITIS C VIRUS AB W/ REFL EX QUANTon 06-11-2022 HCV AB <0.1 Normal 0.0-0.9 [facility] Comment on above: Performed By: #### H IV12 #### [facility] [address] [address] [address] Baljinder Murrell Interpretation: Comment Normal [facility] Comment on above: Result Comment: Nega tive Not infected with HCV, unless recent infection is suspected or other evidence exists to indicate HCV infection. Performed By: #### H IV12 #### [facility] [address] [address] [address] Baljinder Murrell HEP B SURFACE ANTIGEN SCREEN on 06-09-2022 HBsAg Screen Negative Normal Negative [facility] Comment on above: Performed By: #### D RUGRPD #### [facility] [address] [address] [address] Baljinder Murrell HIV 1 AND 2 WITH REFLEXon HIV Screen 4th Generation wRfx Non-Reactive Normal Non Reactive [facility] Comment on above: Result Comment: HIV Negative HIV-1/HIV-2 antibodies and HIV-1 p24 antigen were NOT detected. There is no laboratory evidence of HIV infection. Performed By: #### H IV12 #### [facility] [address] [place] [address] Dr. Baljinder Murrell RPR QUANTon 06-09-2022 Rapid Plasma Reagin, Quant Non-Reactive Normal NonRea<1:1 [facility] Comment on above: Result Comment: Plea se Note: This test does not meet current guidelines for screening and diagnosis of syphilis. This test is intended for following treatment response in patients being treated for syphilis infection. To screen for syphilis infection, a reflex cascade that includes both RPR and a treponema-specific assay should be utilized, such as Treponema pallidum (Syphilis) Screening [place] (264714) or Rapid Plasma Reagin (RPR) Test With Reflex to Quantitative RPR and Confirmatory Treponema pallidum Antibodies (384061). Performed By: #### D RUGRPD #### [facility] [address] [place] [address] Dr. Baljinder Murrell RUBELLA AB IGGon 06-09-2022 Rubella Antibodies, IgG 17.20 index Normal Immune >0.99 [facility] Comment on above: Result Comment: Non- immune <0.90 Equivocal 0.90 - 0.99 Immune >0.99 Performed By: #### R UBIGG #### [facility] [address] [place] [address] Dr. Baljinder Murrell CBC AUTO DIFFon 06-07-2022 BASO # 0.0 103/ul Normal 0.0-0.1 [facility] Comment on above: Performed By: #### C BC #### [facility] [address] [place] [address] Dr. Baljinder Murrell Basophils/100 WBC (Bld) 0.2 % Normal 0.2-2.0 [facility] Comment on above: Performed By: #### C BC #### [facility] [address] [place] [address] Dr. Baljinder Murrell EO # 0.1 103/ul Normal 0.0-0.7 [facility] Comment on above: Performed By: #### C BC #### [facility] [address] [place] [address] Dr. Baljinder Murrell Eosinophils/100 WBC (Bld) 0.6 % Critically low 0.9-7.0 [facility] Comment on above: Performed By: #### C BC #### [facility] [address] [place] [address] Dr. Baljinder Murrell Erythrocyte distribution width (RBC) [Ratio] 12.2 % Normal 11.0-15.0 [facility] Comment on above: Performed By: #### C BC #### [facility] [address] [place] [address] Dr. Baljinder Murrell Hematocrit (Bld) [Volume fraction] 37.1 % Normal 36.0-48.0 [facility] Comment on above: Performed By: #### C BC #### [facility] [address] [place] [address] Dr. Baljinder Murrell Hemoglobin (Bld) [Mass/Vol] 12.6 g/dL Normal 12.0-16.0 [facility] Comment on above: Performed By: #### C BC #### [facility] [address] [place] [address] Dr. Baljinder Murrell IG # 0.03 10e3/ul Normal 0.00-0.03 [facility] Comment on above: Performed By: #### C BC #### [facility] [address] [place] [address] Dr. Baljinder Murrell IG % 0.3 % Normal 0.0-0.5 [facility] Comment on above: Performed By: #### C BC #### [facility] [address] [place] [address] Dr. Baljinder Murrell LYMPH # 2.3 103/ul Normal 1.2-3.8 [facility] Comment on above: Performed By: #### C BC #### [facility] [address] [place] [address] Dr. Baljinder Murrell Lymphocytes/100 WBC (Bld) 26.0 % Normal 20.5-60.0 [facility] Comment on above: Performed By: #### C BC #### [facility] [address] [place] [address] Dr. Baljinder Murrell MANUAL DIFF REQ NO Normal [facility] Comment on above: Performed By: #### C BC #### [facility] [address] [place] [address] Dr. Baljinder Murrell MCH (RBC) [Entitic mass] 30.4 pg Normal 26.7-34.0 [facility] Comment on above: Performed By: #### C BC #### [facility] [address] [place] [address] Dr. Baljinder Murrell MCHC (RBC) [Mass/Vol] 34.0 g/dL Normal 29.9-35.2 [facility] Comment on above: Performed By: #### C BC #### [facility] [address] [place] [address] Dr. Baljinder Murrell MCV (RBC) [Entitic vol] 89.6 fL Normal 81.0-99.0 [facility] Comment on above: Performed By: #### C BC #### [facility] [address] [place] [address] Dr. Baljinder Murrell MONO # 0.4 103/ul Normal 0.3-0.8 [facility] Comment on above: Performed By: #### C BC #### [facility] [address] [address] [address] Baljinder Murrell Monocytes/100 WBC (Bld) 4.6 % Normal 1.7-12.0 [facility] Comment on above: Performed By: #### C BC #### [facility] [address] [address] [address] Baljinder Murrell NEUT # 6.1 103/ul Normal 1.4-6.5 [facility] Comment on above: Performed By: #### C BC #### [facility] [address] [place] [address] Dr. Baljinder Murrell Neutrophils/100 WBC (Bld) 68.3 % Normal 43.0-75.0 [facility] Comment on above: Performed By: #### C BC #### [facility] [address] [place] [address] Dr. Baljinder Murrell Platelet mean volume (Bld) [Entitic vol] 8.5 fL Critically low 9.5-13.5 [facility] Comment on above: Performed By: #### C BC #### [facility] [address] [place] [address] Dr. Baljinder Murrell PLT 260 103/ul Normal 150-450 [facility] Comment on above: Performed By: #### C BC #### [facility] [address] [place] [address] Dr. Baljinder Murrell RBC 4.14 106/ul Critically low 4.20-5.40 [facility] Comment on above: Performed By: #### C BC #### [facility] [address] [place] [address] Dr. Baljinder Murrell WBC 8.9 103/ul Normal 4.0-11.0 [facility] Comment on above: Performed By: #### C BC #### [facility] [address] [place] [address] Dr. Baljinder Murrell CULTURE URINEon 06-07-2022 CULTURE URINE Culture Observations : LIGHT GROWTH OF MIXED GENITAL RAYSHAWN. NO POTENTIAL PATHOGENS SEEN. Normal [facility] Comment on above: Performed By: #### U RCX #### [facility] [address] [address] [address] Baljinder Murrell GLYCOHEMOGLOBIN A1Con 2021 ADA RECOMMENDATION SEE BELOW Normal [facility] Comment on above: Result Comment: ADA RECOMMENDED LIMIT 4.0 - 6.0 ADA THERAPEUTIC TARGET < 7.0 ACTION SUGGESTED > 7.0 Performed By: #### D RUGRPD #### [facility] [address] [address] [address] Baljinder Murrell Glucose [Mass/Vol] 105 mg/dL Normal [facility] Comment on above: Performed By: #### D RUGRPD #### [facility] [address] [place] [address] Dr. Baljinder Murrell HbA1c (Bld) [Mass fraction] 5.3 % Normal 4.5-6.2 [facility] Comment on above: Performed By: #### D RUGRPD #### [facility] [address] [address] [address] Baljinder Murrell CRISTINA BOX TEST PT SEND OUTo n 06-07-2022 SENT TO REF LAB 06/07/2022 Normal [facility] Comment on above: Performed By: #### D RUGRPD #### [facility] [address] [place] [address] Dr. Baljinder Murrell TYPE AND SCREENon 06-07-2022 TYPE AND SCREEN Negative Normal [facility] Comment on above: Performed By: #### T NS #### [facility] [address] [place] [address] Dr. Baljinder Murrell US PREG TVon 05-21-2022 [...] by: ZEUS BRANNON Date: 2022-05-21 16:59 Normal [facility] Vital Signs Date Time Vital Sign Value Performing Clinician Kayli petit 04-21-2025 13:33-0400 Body mass index (BMI) [Ratio] 20.99 kg/m2 Lucia Ob [facility] 04-21-2025 13:33-0400 Body weight 60.78 kg Lucia Ob [facility] 04-21-2025 13:33-0400 Diastolic blood pressure 78 mm[Hg] Lucia Ob [facility] 04-21-2025 13:33-0400 Systolic blood pressure 118 mm[Hg] [facility] 08-25-2024 15:52-0500 Body mass index (BMI) [Ratio] 22.55 kg/m2 Neisha ACKERMAN Work Phone: [facility] 08-25-2024 15:52-0500 Body weight 65.32 kg Neisha ACKERMAN Work Phone: [facility] Healthcare Encounters Encounter Date Encounter Type Care Provider Facility Start: 04-21-2025 End: 04-21-2025 Office outpatient visit 5 minutes [facility] Comment on above: GA: 8w4d Start: 04-21-2025 End: 04-21-2025 ambulatory BEE PETITTI Not Available Start: 03-31-2025 End: 03-31-2025 Davis flowsjerel Tran MD Work Phone: [facility] Start: 03-31-2025 End: 03-31-2025 Bambobritni flowsjerel Tran MD Work Phone: [facility] Start: 03-31-2025 End: 03-31-2025 ambulatory BEE A PETITTI Not Available Start: 03-31-2025 End: 03-31-2025 Office outpatient visit 25 minutes Bee Tran MD Work Phone: [facility] Comment on above: Acne vulgaris (Prima ry Dx) Start: 01-21-2025 End: 01-21-2025 ambulatory Lydia Whyte [facility] Start: 01-21-2025 End: 01-21-2025 Patient encounter procedure Lydia Huynh Isabell [facility] Start: 09-20-2024 End: 09-20-2024 ambulatory BEE ARZATEI Not Available Start: 08-25-2024 End: 08-25-2024 Office outpatient visit 15 minutes Neisha ACKERMAN Work Phone: [facility] Comment on above: Abnormal uterine ble eding (AUB); Right sided abdominal pain; Pelvic pain in female; Acne, unspecified acne type Start: 08-25-2024 End: 08-25-2024 ambulatory NEISHA LAMB Not Available Start: 08-25-2024 End: 08-25-2024 Bamboo flowsheet Neisha ACKERMAN Work Phone: [facility] Start: 08-25-2024 End: 08-25-2024 Bamboo flowsheet Neisha Lamb PA Work Phone: [facility] Start: 07-05-2024 End: 07-05-2024 ambulatory BEE A PETITTI Not Available Start: 07-05-2024 End: 07-05-2024 Office outpatient visit 25 minutes Bee Tran MD Work Phone: [facility] Comment on above: Acne vulgaris (Prima ry Dx) Start: 07-05-2024 End: 07-05-2024 Bamboo flowsheet Bee Tran MD Work Phone: [facility] Start: 07-05-2024 End: 07-05-2024 Bamboo flowsheet Bee Tran MD Work Phone: [facility] Start: 01-08-2023 End: 01-16-[address] FREDDY MYERS . Facility: Start: 12-31-2022 End: 12-31-[address] FREDDY MYERS . Facility:[facility] Start: 12-26-[address] FREDDY MYERS . Facili ty:[facility] Start: 12-26-2022 End: 12-28-2022 Evaluation and management of inpatient DR MELINA TUTTLE . Facility:[facility] Start: 12-23-2022 End: 12-23-[address] MELINA TUTTLE . Facility:[facility] Start: 12-19-2022 End: 12-19-2022 ambulatory REGINA WRIGHT Facility:[facility] Start: 12-16-2022 End: 12-16-[address] MELINA TUTTLE . Facility:[facility] Start: 12-12-2022 End: 12-12-2022 ambulatory REGINA WRIGHT Facility:[facility] Start: 12-09-2022 End: 12-09-[address] MELINA TUTTLE . Facility:[facility] Start: 12-05-2022 End: 12-05-2022 ambulatory REGINA WRIGHT Facility:[facility] Start: 12-04-2022 End: 12-04-2022 ambulatory REGINA WRIGHT Facility:[facility] Start: 12-02-2022 End: 12-02-2022 ambulatory REGINA WRIGHT Facility:[facility] Start: 11-28-2022 End: 11-28-2022 ambulatory REGINA WRIGHT Facility:[facility] Start: 11-25-2022 End: 11-25-2022 ambulatory REGINA WRIGHT Facility:[facility] Start: 11-21-2022 End: 11-21-2022 ambulatory REGINA WRIGHT Facility:[facility] Start: 11-18-2022 End: 11-18-2022 ambulatory REGINA WRIGHT Facility:[facility] Start: 11-14-2022 End: 11-14-[address] MELINA TUTTLE . Facility:[facility] Start: 11-11-2022 End: 11-11-[address] MELINA TUTTLE . Facility:[facility] Start: 11-07-2022 End: 11-07-[address] MELINA TUTTLE . Facility:[facility] Start: 11-04-2022 End: 11-04-[address] MELINA TUTTLE . Facility:[facility] Start: 10-31-2022 End: 10-31-2022 ambulatory REGINA WRIGHT Facility:[facility] Start: 10-07-2022 End: 10-08-2022 ambulatory REGINA WRIGHT Facility: Start: 10-03-2022 End: 10-04-2022 ambulatory REGINA WRIGHT Facility: Start: 09-28-2022 End: 09-29-2022 ambulatory REGINA WRIGHT Facility: Start: 09-21-2022 End: 09-22-2022 ambulatory REGINA WRIGHT Facility: Start: 08-14-2022 End: 08-15-2022 ambulatory REGINA WRIGHT Facility: Start: 06-07-2022 End: 06-08-2022 ambulatory REGINA WRIGHT Facility: Start: 05-24-2022 End: 05-25-[address] FREDDY MYERS . Facility: Start: 05-21-2022 End: 05-22-[address] FREDDY MYERS . Facility: Procedures Date Procedure Procedure Detail Performing Clinician Start: 04-21-2025 End: 04-21-2025 Urnls dip stick/tablet rgnt non-auto w/o micrscp Freddy Myers DO Work Phone: Start: 08-25-2024 End: 08-25-2024 Urnls dip stick/tablet rgnt non-auto w/o micrscp Neisha ACKERMAN Work Phone: Start: 12-26-2022 Delivery of Products of Conception, External Approach REGINA WRIGHT Start: 12-26-2022 Division of Female Perineum, External Approach REGINA WRIGHT Start: 12-26-2022 Drainage of Amniotic Fluid, Therapeutic from Products of Conception, Via Natural or Artificial Opening REGINA WRIGHT Start: 12-26-2022 Introduction of Othe r Hormone into Peripheral Vein, Percutaneous Approach REGINA WRIGHT Start: 12-26-2022 Repair Perineum Musc le, Open Approach REGINA WRIGHT Start: 05-16-2014 Cyst Lesion Removal (right) Lydia Whyte Structure of wisdom tooth (body structure) Lydia Whyte Tonsillectomy and adenoidectomy Lydia Whyte Plan of Treatment Date Care Activity Detail Author Start: 06-22-2025 End: 06-22-2025 Patient encounter procedure [facility] Start: 05-23-2025 End: 05-23-2025 Patient encounter procedure 05/23/2025 3:40 PM EDT Routine [facility] [address] [id number] Freddy Myers DO [address] [place] [address] [facility] Start: 05-09-2025 Influenza vaccination Influenza Vacc ine (#1) [facility] Start: 04-21-2025 End: 04-21-2026 ABO/Rh ABO/Rh Lab Routine Missed menses , unspecified gestational age ([facility]) Expected: 04/21/2025 (Approximate), Expires: 04/21/2026 [facility] Comment on above: Expected: 04/21/2025 (Approximate), Expires: 04/21/2026 Start: 04-21-2025 End: 04-21-2026 Blood type and Indirect antibody screen panel - Blood Type and screen Lab Routine Missed menses , unspecified gestational age ([facility]) Expected: 04/21/2025 (Approximate), Expires: 04/21/2026 [facility] Comment on above: Expected: 04/21/2025 (Approximate), Expires: 04/21/2026 Start: 04-21-2025 End: 04-21-2026 Drugs of abuse panel - Urine by Screen method Rapid drug screen, urine Lab Routine , unspecified gestational age ([facility]) Encounter for supervision of normal first in first trimester ([facility]) Expected: 04/21/2025 (Approximate), Expires: 04/21/2026 [facility] Comment on above: Expected: 04/21/2025 (Approximate), Expires: 04/21/2026 Start: 04-21-2025 End: 04-21-2025 ambulatory 04/21/2025 1:00 PM EDT Initial [facility] [address] [address] [facility] Start: 04-21-2025 End: 04-21-2025 Professional / ancillary services management 04/21/2025 12:30 PM EDT Ancillary Procedure [facility] [address] [place] [id number] [facility] Start: 04-13-2025 End: 07-14-2025 US Pelvis transvaginal US OB transvaginal Imaging Routine Missed menses Positive urine test ([facility]) Expected: 04/13/2025, Expires: 07/14/2025 [facility] Work Phone: Comment on above: Expected: 04/13/2025 , Expires: 07/14/2025 Start: 03-31-2025 End: 03-31-2025 Patient encounter procedure 03/31/2025 8:45 AM EDT Office Visit [facility] [address] [place] [address] Bee Tran MD [address] [place], [place] [id number] [facility] Start: 09-20-2024 End: 09-20-2024 Professional / ancillary services management 09/20/2024 3:00 PM EST Ancillary Procedure [facility] [address] [place] [phone] [facility] Start: 09-14-2024 End: 09-14-2024 Patient encounter procedure 09/14/2024 4:00 PM EST Office Visit [facility] [address] [place] [address] Bee Tran MD [address] [place] [address] [facility] Start: 08-25-2024 End: 08-25-2024 Patient encounter procedure 08/25/2024 3:30 PM EST Office Visit [facility] [address] [place] [phone] Neisha Lamb PA [address] [place] [address] [place] [address] Arrived [facility] Comment on above: Arrived Start: 08-25-2024 End: 08-25-2025 US for US PELVIS-TRANSVAG IF INDICATED Imaging Routine Pelvic pain in female Expected: 08/25/2024 (Approximate), Expires: 08/25/2025 [facility] Work Phone: Comment on above: Expected: 08/25/2024 (Approximate), Expires: 08/25/2025 Start: 05-09-2024 Influenza vaccination Influenza Vacc ine (#1) [facility] Bacteria identified in Urine by Culture Urine culture Microbiology Routine Missed menses Ordered: 04/21/2025 [facility] Comment on above: Ordered: 04/21/2025 CBC W Auto Different ial panel - Blood CBC and differential Lab Routine Missed menses , unspecified gestational age ([facility]) Ordered: 04/21/2025 [facility] Comment on above: Ordered: 04/21/2025 Hemoglobin A1c/Hemoglobin.total in Blood Hemoglobin A1c Lab Routine Missed menses , unspecified gestational age ([facility]) Ordered: 04/21/2025 [facility] Comment on above: Ordered: 04/21/2025 Hepatitis B virus surface Ag [Presence] in Serum or Plasma by Immunoassay Hepatitis B surface antigen Lab Routine Missed menses , unspecified gestational age ([facility]) Ordered: 04/21/2025 [facility] Comment on above: Ordered: 04/21/2025 Hepatitis C virus Ab [Presence] in Serum or Plasma by Immunoassay Hepatitis C antibody Lab Routine Missed menses , unspecified gestational age ([facility]) Ordered: 04/21/2025 [facility] Comment on above: Ordered: 04/21/2025 HIV-1/HIV-2 antigen/antibody combination immunoassay HIV-1 and HIV-2 antibodies Lab Routine Missed menses , unspecified gestational age ([facility]) Ordered: 04/21/2025 [facility] Comment on above: Ordered: 04/21/2025 Reagin Ab [Presence] in Serum by RPR RPR Lab Routine Missed menses , unspecified gestational age ([facility]) Ordered: 04/21/2025 [facility] Comment on above: Ordered: 04/21/2025 Rubella antibody, IgG Rubella an tibody, IgG Lab Routine Missed menses , unspecified gestational age ([facility]) Ordered: 04/21/2025 [facility] Comment on above: Ordered: 04/21/2025 US Pelvis transvaginal US OB tra nsvaginal Imaging Routine Missed menses Positive urine test ([facility]) 04/21/2025 1:11 PM EDT [facility] Immunizations Immunization Date Immunization Notes Care Provider Mireya salvador 07-02-2000 pneumococcal conjuga te vaccine, 13 valent Lydia Isabell [facility] 09-28-1998 haemophilus influenz ae type b vaccine, HbOC conjugate Lydia Isabell [facility] 09-28-1998 measles, mumps and rubella virus vaccine Lydia Isabell [facility] 06-27-1998 varicella virus vaccine Lydia Isabell [facility] 1997 diphtheria, tetanus toxoids and acellular pertussis vaccine Lydia Isabell [facility] 1997 hepatitis B vaccine, adult dosage Lydia Isabell [facility] 1997 diphtheria, tetanus toxoids and acellular pertussis vaccine Lydia Isabell [facility] 1997 diphtheria, tetanus toxoids and acellular pertussis vaccine Lydia Isabell [facility] 1997 hepatitis B vaccine, adult dosage Lydia Isabell [facility] NEGATED: Highlighted row has not occurred!08-11-2019 influenza virus vaccine, unspecified formulation Lydia Isabell [facility] Payers Date Payer Category Payer Unknown [id number] 2021 Private Health Insurance [id number] 1997 Unknown [id number] 2.16.84 0.1.166209.3.579.2.593 1997 Unknown [id number] 2.16.84 0.1.898286.3.579.2.593 1997 Unknown [id number] 2.16.84 0.1.093935.3.579.2.593 1997 Unknown [id number] 2.16.84 0.1.364240.3.579.2.593 1997 Unknown [id number] 2.16.84 0.1.211696.3.579.2.593 1997 Unknown [id number] 2.16.84 0.1.475190.3.579.2.593 1997 Unknown [id number] 2.16.84 0.1.360423.3.579.2.593 1997 Unknown [id number] 2.16.84 0.1.151960.3.579.2.593 1997 Unknown [id number] 2.16.84 0.1.313308.3.579.2.593 1997 Unknown [id number] 2.16.84 0.1.896056.3.579.2.593 1997 Unknown [id number] 2.16.84 0.1.887590.3.579.2.593 1997 Unknown [id number] 2.16.84 0.1.352002.3.579.2.593 1997 Unknown [id number] 2.16.84 0.1.962450.3.579.2.593 1997 Unknown [id number] 2.16.84 0.1.905962.3.579.2.593 1997 Unknown [id number] 2.16.84 0.1.037886.3.579.2.593 1997 Unknown [id number] 2.16.84 0.1.760038.3.579.2.593 1997 Unknown [id number] 2.16.84 0.1.120634.3.579.2.593 1997 Unknown [id number] 2.16.84 0.1.242539.3.579.2.593 1997 Unknown [id number] 2.16.84 0.1.706277.3.579.2.593 1997 Unknown [id number] 2.16.84 0.1.026847.3.579.2.593 1997 Unknown [id number] 2.16.84 0.1.384130.3.579.2.593 1997 Unknown [id number] 2.16.84 0.1.754990.3.579.2.593 1997 Unknown [id number] 2.16.84 0.1.820465.3.579.2.593 1997 Unknown [id number] 2.16.84 0.1.349254.3.579.2.593 1997 Unknown [id number] 2.16.84 0.1.028839.3.579.2.593 1997 Unknown [id number] 2.16.84 0.1.462893.3.579.2.593 1997 Unknown [id number] 2.16.84 0.1.161821.3.579.2.593 1997 Unknown [id number] 2.16.84 0.1.996300.3.579.2.593 1997 Unknown [id number] 2.16.84 0.1.105215.3.579.2.593 1997 Unknown [id number] 2.16.8 40.1.662914.3.579.2.727 1997 Unknown [id number] 2.16.8 40.1.309928.3.579.2.1259 1997 Unknown [id number] 2.16.8 40.1.592545.3.579.2.1259 1997 Unknown [id number] 2.16.8 40.1.409513.3.579.2.1259 1997 Unknown [id number] 2.16.84 0.1.597228.3.579.2.1259 1997 Unknown [id number] 2.16.84 0.1.096415.3.579.2.1259 1997 Unknown [id number] 2.16.84 0.1.483135.3.579.2.1259 1959 Self-pay 1959 Unknown [id number] Unknown [id number] 2.16.84 0.1.657550.3.579.2.593 Unknown [id number] 2.16.84 0.1.290002.3.579.2.593 Social History Date Type Detail Facility Start: 12-22-2019 End: 04-03-2023 Tobacco smoking status [facility] Never smoked tobacco [facility] Work Phone: Start: 04-03-2023 Tobacco use and exposure Smoke less tobacco non-user [facility] Start: 03-30-2024 End: 04-21-2025 Alcoholic beverage intake Lifetime non-drinker (finding) [facility] Start: 03-30-2024 End: 03-31-2025 History of Social function [facility] Start: 03-30-2024 End: 03-31-2025 Tobacco use panel [facility] Start: 1995 Sex assigned at Female [facility] Start: 02-09-2023 Gender identity Identifies as female gender (finding) [facility] Tobacco smoking status Never [facility] Sexual Orientation [facility] Start: 11-27-2018 Sex Female (finding) [facility] Start: 03-06-2025 [facility] Clinical Notes 07-05-2024 to 04-21-2025 Peace Espino MA - 04/21/2025 1:00 PM Girish Tran MD - 03/31/2025 8:45 AM TYRON Salvador - 08/25/2024 3:30 PM Jose Tran MD - 07/05/2024 2:40 PM EDT Note Date & Type Note Facility 04-21-2025 History of Present illness Narrative Reason for Appointment: Patient ID: Leroy Baker is a 29 y.o. female who presents for Amenorrhea Patient presents today for a Nurse OB Intake appointment. Patient is 8w4d with a Estimated Date of Delivery: 11/27/25 OB History Para Term AB Living 2 1 1 1 SAB IAB Ectopic Multiple Live Births 1 # Outcome Date GA Lbr Loc/2nd Weight Sex Type Anes PTL Lv 2 Current 1 Term 12/26/21 40w0d 7 lb 2 oz F Vag-Spont N INDRA Current Medications: has a current medication list which includes the following prescription(s): benzoyl peroxide and clindamycin. Medical History: Active Ambulatory Problems Diagnosis Date Noted Gestational diabetes mellitus (GDM) affecting ([facility]) 04/13/2025 H/O gestational diabetes in prior , currently ([facility]) 04/21/2025 Resolved Ambulatory Problems Diagnosis Date Noted No Resolved Ambulatory Problems Past Medical History: Diagnosis Date Acne Anxiety Menorrhagia Family History Problem Relation Name Age of Onset No Known Problems Mother Mental illness Father Cancer Maternal Grandmother Melanoma Neg Hx Social History Tobacco Use Smoking status: Never Smokeless tobacco: Never Substance Use Topics Alcohol use: Never Drug use: Never Past Surgical History: Procedure Laterality Date TONSILLECTOMY 2005 WISDOM TOOTH EXTRACTION No Known Allergies Vitals: Estimated body mass index is 20.99 kg/m as calculated from the following: Height as of 02/10/23: 5' 7 . Weight as of this encounter: 134 lb. BP: 118/78 Patient's last menstrual period was 02/20/2025. Assessment/Plan Diagnoses and all orders for this visit: Missed menses - US OB transvaginal; Future - Type and screen; Future - ABO/Rh; Future - CBC and differential - Hemoglobin A1c - RPR - Rubella antibody, IgG - Hepatitis B surface antigen - Hepatitis C antibody - HIV-1 and HIV-2 antibodies - Urine culture - POCT , urine manually resulted - POCT urinalysis dipstick manually resulted Positive urine test ([facility]) - US OB transvaginal; Future Amenorrhea 8 weeks gestation of ([facility]) , unspecified gestational age ([facility]) - Type and screen; Future - ABO/Rh; Future - CBC and differential - Hemoglobin A1c - RPR - Rubella antibody, IgG - Hepatitis B surface antigen - Hepatitis C antibody - HIV-1 and HIV-2 antibodies - Rapid drug screen, urine; Future Encounter for supervision of normal first in first trimester ([facility]) - Rapid drug screen, urine; Future H/O gestational diabetes in prior , currently ([facility]) Nurse Note: Pt desires [facility] to one. Pt was advised to make sure she takes both the [place] and labs together at [facility]. PVU. Pt has a h/o GDM w/G1 and is aware of an early 1-hour glucose at 16 weeks. PVU. Pt currently has some nausea w/ however, declined any zofran at this time. Pt was advised If she would change her mind to please call our office and we will send it to her pharmacy. PVU. OB Intake: Patient presents today for first OB visit. Patients history has been reviewed in great detail including any potential risks. Patient signed consent forms and patient desires testing in both trimesters. Patient currently has no complaints and has been advised to drink 6-8 glasses of water a day, eat no raw or undercooked meat, and stay away from [facility]. Patient has also been advised to not change litter boxes and eat 6 small meals a day. Patient has been consulted regarding the do's and don'ts of . Patient was given labs and all questions and concerns were answered. Follow Up: Patient is to return in 4 weeks for routine OB appointment. Follow Up: Patient is to have labs drawn at directed and return to office for initial OB appointment with provider. Patient may call office as needed with any concerns or questions. Nurse Visit Completed by: Peace Espino MA documented in this encounter [facility] 03-31-2025 History of Present illness Narrative Images from the original note were not included. Follow up Diagnosis: Acne Location: face, back Last visit: 10 months ago Symptoms: pimples Status: stable, breakouts on her back every now and then Treatments tried and failed: Azelaic acid 20% gel, Clindamycin Phosphate 0.1% lotion, Benzaclin (Clindamycin/BPO) 1%/5% gel, Insurance denied [facility]. Current treatment: Tretinoin 0.025% cream Ceftin 250 mg qd -- patient stopped taking both medications due to . All pertinent medical history, medications, and allergies were reviewed. General Exam: alert, oriented to person, place, and time, normal affect, well appearing Accompanied by daughter A focused exam completed based on patient reported problems, see below: Skin Exam 1. ACNE VULGARIS Head - Anterior (Face), Torso - Posterior (Back) Scattered comedones and inflammatory pustules. Not at treatment goal The patient and/or parent were counseled that it may take up to 2-3 months to notice significant improvement of the acne. Patient recently found out she is , had to stop taking the Ceftin and tretinoin cream. Will have her start use of BPO wash, lather on the skin daily, then rinse, can use on chest and back. Also start clindamycin 0.1% lotion on the face and back once daily. Return to clinic in 2 months. Related Medications benzoyl peroxide 5 % external wash Apply to affected areas, then rinse daily, 30 day supply clindamycin (Cleocin T) 1 % lotion Apply thin later to affected areas on the body, once daily, 30 day supply Next Visit: 1 year documented in this encounter [facility] 08-25-2024 History of Present illness Narrative Reason for Appointment: Patient ID: Leroy Baker is a 29 y.o. female who presents for Vaginal Bleeding (Pt present today for spotting/bleeding after intercourse and right side ovary pain. Pt has been having this pain for 2 months now. ) Patient presents today for Acute Visit. MEDICATIONS Current Outpatient Medications Medication Instructions Adapalene-Benzoyl Peroxide 0.1-2.5 % gel Apply pea-size amount to T-zone, chin and problem areas nightly. cefuroxime (Ceftin) 250 MG tablet Take 1 tablet, by mouth, once daily, 30 days cephalexin (KEFLEX) 500 mg, Oral, 3 times daily tretinoin (Retin-A) 0.025 % cream Apply to face, once daily at evening/night time, 30 day supply ALLERGIES No Known Allergies PROBLEMS Active Ambulatory Problems Diagnosis Date Noted No Active Ambulatory Problems Resolved Ambulatory Problems Diagnosis Date Noted No Resolved Ambulatory Problems Past Medical History: Diagnosis Date Acne Anxiety Menorrhagia HISTORY PAST MEDICAL HISTORY SOCIAL HISTORY Past Medical History: Diagnosis Date Acne Anxiety Menorrhagia Social History Tobacco Use Smoking status: Never Smokeless tobacco: Never Substance Use Topics Alcohol use: Never Drug use: Never FAMILY HISTORY Family History Problem Relation Name Age of Onset No Known Problems Mother Mental illness Father Cancer Maternal Grandmother Melanoma Neg Hx SURGICAL HISTORY Past Surgical History: Procedure Laterality Date TONSILLECTOMY 2005 WISDOM TOOTH EXTRACTION REVIEW OF SYSTEMS Review of Systems: Review of Systems Constitutional: Negative. HENT: Negative. Eyes: Negative. Respiratory: Negative. Cardiovascular: Negative. Gastrointestinal: Negative. Genitourinary: Negative. Musculoskeletal: Negative. Skin: Negative. Neurological: Negative. All other systems reviewed and are negative. Hematological: Negative. Endocrine: Negative. Allergic/Immunologic: Negative. OBJECTIVE Objective: Physical Exam Constitutional: Appearance: Normal appearance. She is normal weight. HENT: Head: Normocephalic. Cardiovascular: Rate and Rhythm: Normal rate. Pulses: Normal pulses. Pulmonary: Effort: Pulmonary effort is normal. Breath sounds: Normal breath sounds. Abdominal: Palpations: Abdomen is soft. Musculoskeletal: General: Normal range of motion. Neurological: General: No focal deficit present. Mental Status: She is alert and oriented to person, place, and time. Psychiatric: Mood and Affect: Mood normal. Behavior: Behavior normal. Thought Content: Thought content normal. Judgment: Judgment normal. Vitals and nursing note reviewed. Vitals: Estimated body mass index is 22.55 kg/m as calculated from the following: Height as of 65/23: 5' 7 . Weight as of this encounter: 144 lb. BP: Patient's last menstrual period was 07/28/2024 (approximate). ASSESSMENT & PLAN ICD-10-CM 1. Abnormal uterine bleeding (AUB) N93.9 2. Right sided abdominal pain R10.9 3. Pelvic pain in female R10.2 POCT urinalysis dipstick manually resulted POCT , urine manually resulted US PELVIS-TRANSVAG IF INDICATED CANCELED: SURESWAB(R) ADVANCED VAGINITIS PLUS, TMA CANCELED: Neisseria gonorrhea DNA probe, direct CANCELED: CHLAMYDIA TRACHOMATIS (GENITO/STI) CANCELED: SURESWAB(R) ADVANCED VAGINITIS PLUS, TMA 4. Acne, unspecified acne type L70.9 Adapalene-Benzoyl Peroxide 0.1-2.5 % gel cephalexin (Keflex) 500 MG capsule Patient presents with chief complaint of right ovarian pain, pt is 20 months post . States pain is increased with cycles. Menstration is normal. We will order US and patient will follow up with DR Myers or myself Documented by TYRON Kathleen on behalf of: TYRON Kathleen documented in this encounter [facility] 07-05-2024 History of Present illness Narrative Images from the original note were not included. Follow up Diagnosis: Acne Location: face, back Last visit: 3 months ago Symptoms: getting bigger bumps on forehead now Status: flaring with recent discontinuation of . Planning for in 1 year. Treatments tried and failed: clindamycin lotion- did not help, Benzaclin gel Current treatment: azelaic 20% cream every day Insurance denied coverage of [employer] [id number] All pertinent medical history, medications, and allergies were reviewed. General Exam: alert, oriented to person, place, and time, normal affect, well appearing Unaccompanied A focused exam completed based on patient reported problems, see below: 1. Acne vulgaris Head - Anterior (Face), Torso - Posterior (Back) Scattered comedones and inflammatory pustules. Flaring today Patient was counseled that this condition is chronic and can be controlled, but not cured. Start Ceftin 250 mg every day and tretinoin 0.025% cream at bedtime. Instructed to discontinue tretinoin should occur. Ceftin handout was given. The patient was instructed to discontinue the medication and inform the office immediately if an adverse effect occurs. Understanding of the proper use and possible adverse effects was verbalized by the patient. The patient and/or parent were counseled that it may take up to 2-3 months to notice significant improvement of the acne. Plan to recheck in 2 months. Related Medications cefuroxime (Ceftin) 250 MG tablet Take 1 tablet, by mouth, once daily, 30 days tretinoin (Retin-A) 0.025 % cream Apply to face, once daily at evening/night time, 30 day supply Next Visit: 2 months documented in this encounter [facility] Evaluation + Plan note No data available for this section [facility] Evaluation note Diagnosis Acne vulgaris- Primary Other acne documented in this encounter [facility] HealthcareEvaluation note* Diagnosis Abnormal uterine bleeding (AUB) Right sided abdominal pain Abdominal pain, unspecified site Pelvic pain in female Unspecified symptom associated with female genital organs Acne, unspecified acne type documented in this encounter [facility] HealthcareEvaluation note* Diagnosis Acne vulgaris- Primary Other acne documented in this encounter [facility] HealthcareEvaluation note* Diagnosis Missed menses Positive urine test ([facility]) Amenorrhea Absence of menstruation 8 weeks gestation of ([facility]) , unspecified gestational age ([facility]) Encounter for supervision of normal first in first trimester ([facility]) H/O gestational diabetes in prior , currently ([facility]) [facility] No data available for this section [facility] Progress note No data available for this section [facility] Summary Purpose Family History No Family History Records Found No data available for this section No Family History Records FoundNo Family History Records Found Advance Directives No Advanced Directives Records FoundNo Advanced Directives Records FoundNo Advanced Directives Records Found Additional Source Comments INFORMATION SOURCE (unrecogn ized section and content) DATE CREATED AUTHOR 01/17/2023 [facility] DATE CREATED AUTHOR AUTHOR'S ORGANIZ ATION 02/03/2025 [facility] DATE CREATED AUTHOR AUTHOR'S ORGANIZ ATION 04/26/2025 [facility] Care Teams (unrecognized sec tion and content) Cbx Operator Relationship Specialty Start Date End Date Regina Wright PA [address] [place] [address] PCP - General Family Medicine 02/10/23 Cbx Operator Relationship Specialty Start Date End Date Regina Wright PA [address] [place] [address] PCP - General Family Medicine 02/10/23 Cbx Operator Relationship Specialty Start Date End Date Regina Wright PA [address] [place] [address] PCP - General Family Medicine 02/10/23 Cbx Operator Relationship Specialty Start Date End Date Regina Wright PA [address] [place] [address] PCP - General Family Medicine 02/10/23 Cbx Operator Relationship Specialty Start Date End Date Regina Wright PA [address] [place] [address] PCP - General Family Medicine 02/10/23 Cbx Operator Relationship Specialty Start Date End Date Regina Wright PA [address] [place] [address] PCP - General Family Medicine 02/10/23 Reason for Visit (unrecogniz ed section and content) Reason Comments Follow-up Reason Comments Vaginal Bleeding Pt present today for spotting/bleeding after intercourse and right side ovary pain. Pt has been having this pain for 2 months now. Reason Comments Amenorrhea FOR RECORDS PERTAINING TO PATIENTS WHO ARE [...] BE BASED ON THE PRIMARY CLINICAL RECORDS. [facility]. provides no warranty or guarantee of the accuracy or completeness of information in this document.
[2025-05-13 16:39] LABS: Hematocrit 38.9 % (36.0-48.0); Hemoglobin 13.4 g/dL (12.0-16.0); Immature Granulocytes Abs Auto 0.02 10^3/uL (0.00-0.03); Immature Granulocytes Pct Auto 0.2 % (0.0-0.5); Lymphocytes Absolute Auto 2.4 10^3/uL (1.2-3.8); Mean Corpuscular HGB Conc 34.4 g/dL (29.9-35.2); Mean Corpuscular Hemoglobin 30.7 pg (26.7-34.0); Mean Corpuscular Volume 89.0 fL (81.0-99.0); Platelet Count 249 10^3/uL (150-450); Red Blood Count 4.37 10^6/uL (4.20-5.40); White Blood Count 8.0 10^3/uL (4.0-11.0)
[2025-05-13 16:48] LABS: Cannabinoid Screen Urine NEGATIVE (NEGATIVE); Methamphetamines Screen Urine NEGATIVE (NEGATIVE); Tricyclic Antidepressant Urine NEGATIVE (NEGATIVE)
[2025-05-15 08:39] LABS: Rubella Antibodies, IgG 16.20 index (Immune >0.99)
[2025-05-15 09:44] LABS: Rapid Plasma Reagin, Quant Non Reactive titer (NonRea<1:1)
== END 2025-05-13 16:11 | disposition home or self-care (01) ==
PROVIDERS: PCP Physician Assistant; Visit Provider Obstetrics & Gynecology
DX: Z34.01 Encounter for supervision of normal first pregnancy, first trimester (principal); N92.6 Irregular menstruation, unspecified
CPT/HCPCS: 36415; 80307; 83036; 85025; 86592; 86762; 86803; 86850; 86900; 86901; 87086; 87340; 87389

== ENCOUNTER 2025-06-22 18:52 | Outpatient (REF) | payer OTHER, SELFPAY ==
--- OUTSIDE RECORDS SUMMARY | 2025-06-22 15:20 | XMS_ITS | Encounter Summary ---
Author Organization [facility] Address [address] [facility] [place] [address] Care Team Providers Care Tool Lapper Hand Name Role Phone Regina Samuels Primary Care Provider [phone] Reason for Visit * Reason Comments Routine Visit Gynecologic Exam STI Screening Encounter Details Date Type Department Care Team (Latest Contact Info) Description 06/22/2025 3:20 PM EDT Routine [facility] [address] [id number] J Carlos Myers DO [address] [place] [address] Well woman exam with routine gynecological exam; Second trimester ([facility]); 17 weeks gestation of ([facility]); Exposure to STD; Need for maternal serum alpha-protein (MSAFP) screening ([facility]); Screening, , for anatomic survey ([facility]); Diabetes mellitus screening Social History Tobacco Use Types Packs/Day Years Used Date Smoking Tobacco: Never Smokeless Tobacco: Never Alcohol Use Standard Drinks/Week Comments Never 0 (1 standard drink = 0.6 oz pur e alcohol) Estimated Date of Delivery Comme nts Yes 11/27/2025 Based on last me nstrual period of 02/20/2025 Sex and Gender Information Value Date Recorded Sex Assigned at Female 02/09/2023 11:12 AM EDT Legal Sex Female 6:42 PM EDT Gender Identity Female 02/09/2023 11:12 AM EDT Sexual Orientation Not on file documented as of this encounter Last Filed Vital Signs Vital Sign Reading Time Taken Comments Blood Pressure 112/76 06/22/2025 3:51 PM EDT Pulse - - Temperature - - Respiratory Rate - - Oxygen Saturation - - Inhaled Oxygen Concentration - - Weight 63 kg (139 lb) 06/22/2025 3:51 PM EDT Height - - Body Mass Index 21.77 02/10/2023 9:47 AM EDT documented in this encounter Progress Notes * Micki Seymour LPN - 06/22/2025 3:20 PM EDT Reason for Appointment: Patient ID: Leroy Baker is a 30 y.o. female who presents for Routine Visit, Gynecologic Exam, and STI Screening Patient presents today for Annual Exam., STD Check., and Return OB appointment. MEDICATIONS Current Outpatient Medications Medication Instructions benzoyl peroxide 5 % external wash Apply to affected areas, then rinse daily, 30 day supply clindamycin (Cleocin T) 1 % lotion Apply thin later to affected areas on the body, once daily, 30 day supply ALLERGIES Allergies[1] PROBLEMS Active Ambulatory Problems Diagnosis Date Noted Gestational diabetes mellitus (GDM) affecting ([facility]) 04/13/2025 H/O gestational diabetes in prior , currently ([facility]) 04/21/2025 Resolved Ambulatory Problems Diagnosis Date Noted No Resolved Ambulatory Problems Past Medical History: Diagnosis Date Acne Anxiety Menorrhagia HISTORY PAST MEDICAL HISTORY SOCIAL HISTORY Medical History[2] Social History Tobacco Use Smoking status: Never Smokeless tobacco: Never Substance Use Topics Alcohol use: Never Drug use: Never FAMILY HISTORY Family History[3] SURGICAL HISTORY Surgical History[4] REVIEW OF SYSTEMS Review of Systems: Review of Systems Constitutional: Negative. HENT: Negative. Eyes: Negative. Respiratory: Negative. Cardiovascular: Negative. Gastrointestinal: Negative. Genitourinary: Negative. Musculoskeletal: Negative. Skin: Negative. Neurological: Negative. All other systems reviewed and are negative. Hematological: Negative. Endocrine: Negative. Allergic/Immunologic: Negative. OBJECTIVE Objective: OBGyn Exam Vitals: Estimated body mass index is 21.77 kg/m?? as calculated from the following: Height as of 02/10/23: 5' 7 . Weight as of this encounter: 139 lb. BP: 112/76 Patient's last menstrual period was 02/20/2025. ASSESSMENT & PLAN ICD-10-CM 1. Well woman exam with routine gynecological exam Z01.419 Pap Smear 2. Second trimester ([facility]) Z34.92 POCT urinalysis dipstick manually resulted 3. 17 weeks gestation of ([facility]) Z3A.17 4. Exposure to STD Z20.2 SURESWAB(R) ADVANCED VAGINITIS PLUS, TMA CHLAMYDIA TRACHOMATIS (GENITO/STI) Neisseria gonorrhea DNA probe, direct 5. Need for maternal serum alpha-protein (MSAFP) screening ([facility]) Z36.1 6. Screening, , for anatomic survey ([facility]) Z36.89 US OB 14+ weeks anatomy scan Alpha fetoprotein, maternal Alpha fetoprotein, maternal Return OB/Annual Exam: Patient presents today for a annual exam/routine obstetrics appointment. Patient is currently [id number]. Patient states she is doing well but has complaints of nausea in the morning. Pap and cultures was obtained without difficulty and patient was given orders for anatomy scan and msAFP to be obtained. Orders Placed This Encounter Procedures US OB 14+ weeks anatomy scan CHLAMYDIA TRACHOMATIS (GENITO/STI) Neisseria gonorrhea DNA probe, direct Alpha fetoprotein, maternal POCT urinalysis dipstick manually resulted Follow Up: Patient is to schedule annual exam for next year and return to office in 4 weeks for OB appointment. Documented by Micki Seymour LPN on behalf of: J Carlos Myers DO [1] No Known Allergies [2] Past Medical History: Diagnosis Date Acne Anxiety Menorrhagia [3] Family History Problem Relation Name Age of Onset No Known Problems Mother Mental illness Father Cancer Maternal Grandmother Melanoma Neg Hx [4] Past Surgical History: Procedure Laterality Date TONSILLECTOMY 2005 WISDOM TOOTH EXTRACTION documented in this encounter Plan of Treatment Upcoming Encounters Date Type Department Care Team (Late st Contact Info) Description 07/13/2025 3:10 PM EST Routine [facility] [address] [place] [address] J Carlos Myers DO [address] [place] [address] Scheduled Orders Name Type Priority Associated Diagnoses Orde r Schedule SURESWAB(R) ADVANCED VAGINITIS PLUS, TMA Pathology and Cytology Routine Exposure to STD Ordered: 06/22/2025 CHLAMYDIA TRACHOMATIS (GENITO/STI) Lab Routine Exposure to STD Ordered: 06/22/2025 Neisseria gonorrhea DNA probe, direct Lab Routine Exposure to STD Ordered: 06/22/2025 Pap Smear Pathology and Cytology Routine Well woman exam with routine gynecological exam Ordered: 06/22/2025 US OB 14+ weeks anatomy scan Imaging Routine Screening, , for anatomic survey ([facility]) Expected: 06/22/2025 (Approximate), Expires: 06/22/2026 Alpha fetoprotein, maternal Lab Routine Screening, , for anatomic survey ([facility]) Expected: 06/22/2025 (Approximate), Expires: 08/22/2025 Glucose tolerance, 1 hour Lab Routine Diabetes mellitus screening Expected: 06/22/2025 (Approximate), Expires: 06/22/2026 documented as of this encounter Procedures Procedure Name Priority Date/Time Associated Diagnosis Comments POCT URINALYSIS DIPSTICK Routine 06/22/2025 3:52 PM EDT Second trimester ([facility]) documented in this encounter Results * POCT urinalysis dipstick manually resulted (06/22/2025 3:52 PM EDT) Color, UA Yellow Clarity, UA Clear Glucose, UA Negative Negative - 1999(110) ++++ mg/dL Bilirubin, UA Negative Negative - 4(70) +++ mg/dL Ketones, UA Negative Negative - 160(16) ++++ mg/dL Spec Grav, UA 1.010 1 - 1.03 Blood, UA Negative Negative - 50 Josh/mcL pH, UA 6.0 5 - 9 Protein, UA Negative Negative - 1999(20) ++++ mg/dL Urobilinogen, UA 1.0 0.2 - 12 mg/dL Leukocytes, UA Negative Negative - 500+++ Елена/mcL Nitrite, UA Negative Negative - Positive Urine 06/22/2025 3:52 PM EDT J Carlos Myers DO POINT OF CARE TEST ENTER/EDIT OR DERABLES Final Result documented in this encounter Visit Diagnoses Diagnosis Well woman exam with routine gynecological exam Routine gynecological examination Second trimester ([facility]) state, incidental 17 weeks gestation of ([facility]) Exposure to STD Need for maternal serum alpha-protein (MSAFP) screening ([facility]) Screening, , for anatomic survey ([facility]) Encounter for anatomic survey Diabetes mellitus screening Screening for diabetes mellitus documented in this encounter Care Teams Tool Lapper Hand Relationship Specialty Start Date End Date Regina Samuels PA [address] [place] [address] PCP - General Family Medicine 02/10/23 documented as of this encounter
--- OUTSIDE RECORDS SUMMARY | 2025-06-22 18:54 | XMS_ITS | Encounter Summary ---
Author Organization [facility] Address [address] [facility] [place] [address] Care Team Providers Care Drum Filler Name Role Phone Regina Samuels Primary Care Provider [phone] Encounter Details Date Type Department Care Team (Late st Contact Info) Description 04/03/2023 Abstract [facility] [address] [facility] [address] [place] [phone] Bee Neves MD [address] [facility] [address] [place] [address] Social History Tobacco Use Types Packs/Day Years Used Date Smoking Tobacco: Never Smokeless Tobacco: Never Alcohol Use Standard Drinks/Week Comments Never 0 (1 standard drink = 0.6 oz pur e alcohol) Comments Unknown Sex and Gender Information Value Date Recorded Sex Assigned at Female 02/09/2023 11:12 AM EDT Legal Sex Female 6:42 PM EDT Gender Identity Female 02/09/2023 11:12 AM EDT Sexual Orientation Not on file COVID-19 Exposure Response Date Recorded In the last 10 days, have yo u been in contact with someone who was confirmed or suspected to have Coronavirus/COVID-19? No / Unsure 03/27/2023 8:35 AM EDT documented as of this encounter Plan of Treatment Upcoming Encounters Date Type Department Care Team (Late st Contact Info) Description 07/13/2025 3:10 PM EST Routine [facility] [place] [address] [place] [address] [place] [phone] J Carlos Myers DO [address] [place] [address] [place] [address] documented as of this encounter Visit Diagnoses Not on filedocumented in this encounter Care Teams Drum Filler Relationship Specialty Start Date End Date Regina Samuels PA [address] [place] [address] PCP - General Family Medicine 02/10/23 documented as of this encounter
--- OUTSIDE RECORDS SUMMARY | 2025-06-22 18:54 | XMS_ITS | Encounter Summary ---
Author Organization [facility] Address [address] [facility] [place] [address] Care Team Providers Care Defense Analyst Name Role Phone Regina Samuels Primary Care Provider [phone] Encounter Details Date Type Department Care Team (Late Contact Info) Description 06/22/2025 Bamboo flowsheet [facility] [address] [place] [address] J Carlos Myers DO [facility] [place], [facility] Social History Tobacco Use Types Packs/Day Years [...] on file documented as of this encounter Plan of Treatment Upcoming Encounters Date Type Department Care Team (Late st Contact Info) Description 07/13/2025 3:10 PM EST Routine [facility] [address] [place] [address] J Carlos Myers DO [address] [place], [place] [id number] documented as of this encounter Visit Diagnoses Not on filedocumented in this encounter Care Teams Defense Analyst Relationship Specialty Start Date End Date Regina Samuels PA [address] [place] [address] PCP - General Family Medicine 02/10/23 documented as of this encounter
--- OUTSIDE RECORDS SUMMARY | 2025-06-22 18:54 | XMS_ITS | Encounter Summary ---
Author Organization [facility] Address [address] [facility] [place] [address] Care Team Providers Care Pricing Director Name Role Phone Regina Samuels Primary Care Provider [phone] Encounter Details Date Type Department Care Team (Latest Contact Info) Description 06/15/2025 Travel Social History Tobacco Use Types Packs/Day Years [...] PM EST Routine [facility] [address] [facility] [place] [phone] J Carlos Myers DO [address] [facility] [address] [facility] [address] [place], [place] [id number] documented as of this encounter Visit Diagnoses Not on filedocumented in this encounter Care Teams Pricing Director Relationship Specialty Start Date End Date Regina Samuels PA [address] [place] [address] PCP - General Family Medicine 02/10/23 documented as of this encounter
--- OUTSIDE RECORDS SUMMARY | 2025-06-22 18:54 | XMS_ITS | Clinical Summary ---
Author Organization [facility] Address [address] [facility] [place] [address] Care Team Providers Care Dish Technician Name Role Phone Regina Samuels Primary Care Provider Allergies No known active allergies Medications benzoyl peroxide 5 % external washIndications :Acne vulgaris Apply to affected areas, then rinse daily, 30 day supply 227 g 11 03/31/2025 Active clindamycin (Cleocin T) 1 % lotionIndicatio ns:Acne vulgaris Apply thin later to affected areas on the body, once daily, 30 day supply 60 mL 11 03/31/2025 Active Active Problems Problem Noted Date Diagnosed Date H/O gestational diabetes in prior , currently ([facility]) 04/21/2025 Gestational diabetes mellitu s (GDM) affecting ([facility]) 04/13/2025 Estimated Date of Delivery Comme nts Yes 11/27/2025 Based on last me nstrual period of 02/20/2025 Encounters Date Type Department Care Team Description 06/22/2025 3:20 PM EDT Routine [facility] [address] [place] [phone] J Carlos Myers, Well woman exam with routine gynecological exam; Second trimester ([facility]); 17 weeks gestation of ([facility]); Exposure to STD; Need for maternal serum alpha-protein (MSAFP) screening ([facility]); Screening, , for anatomic survey ([facility]); Diabetes mellitus screening 06/22/2025 Bamboo flowsheet [facility] [address] [place] [address] [place] [address] J Carlos Myers, DO 06/15/2025 Travel 06/15/2025 Telephone [facility] [place] [phone] Peace Espino MA Error (VOID this visit) 05/23/2025 3:40 PM EDT Routine [facility] [place] [place] [address] J Carlos Myers, 13 weeks gestation of ([facility]); Second trimester ([facility]) 05/23/2025 Bamboo flowsheet [facility] [address] [place] [address] [place] [address] J Carlos Myers, DO 05/16/2025 Travel 05/13/2025 Abstract [facility] [address] [place] [address] [place] [address] J Carlos Myers, DO 05/13/2025 Clinisync Result Encounter N[facility] External Department Unsolicited J Carlos Myers, DO 04/21/2025 1:00 PM EDT Initial [facility] [place] [address] GA: 8w4d 04/21/2025 12:30 PM EDT Ancillary Procedure [facility] [place] [address] Missed menses; Positive urine test ([facility]) 04/14/2025 Travel 03/31/2025 8:45 AM EDT Office Visit [facility] [address] [place] [address] [place] [address] Bee Neves MD Acne vulgaris (Primary Dx) 03/31/2025 Bamboo flowsheet [facility] [address] [place] [address] [place] [address] Bee Neves MD 03/31/2025 Travel 03/24/2025 Travel from Last 3 Months Family History Medical History Relation Name Comments Mental illness Father Cancer Maternal Grandmother No Known Problems Mother Melanoma Neg Hx Relation Name Status Comments Daughter Nicolas Alive Father Alive Maternal Grandmother Mother Alive Social History Tobacco Use Types Packs/Day Years Used Date Smoking Tobacco: Never Smokeless Tobacco: Never Tobacco Cessation:Counseling Given: Not Answered Alcohol Use Standard Drinks/Week Comments Never 0 [...] AM EDT Sexual Orientation Not on file Last Filed Vital Signs Vital Sign Reading Time Taken Comments Blood Pressure 112/76 06/22/2025 3:51 PM EDT Pulse - - Temperature - - Respiratory Rate - - Oxygen Saturation - - Inhaled Oxygen Concentration - - Weight 63 kg (139 lb) 06/22/2025 3:51 PM EDT Height 170.2 cm (5' 7 ) 02/10/2023 9:47 AM EDT Body Mass Index 21.77 02/10/2023 9:47 AM EDT Plan of Treatment Upcoming Encounters Date Type Department Care Team (Late st Contact Info) Description 07/13/2025 3:10 PM EST Routine [facility] [address] [place] [address] J Carlos Myers DO [address] [place] [address] Health Maintenance Due Date Last Done Comments Influenza Vaccine (#1) 2025 Procedures Procedure Name Priority Date/Time Associated Diagnosis Comments POCT URINALYSIS DIPSTICK Routine 06/22/2025 3:52 PM EDT Second trimester ([facility]) POCT URINALYSIS DIPSTICK Routine 05/23/2025 4:48 PM EDT 13 weeks gestation of ([facility]) Second trimester ([facility]) HBSAG SCREEN Routine 05/13/2025 4:24 PM EDT RAPID PLASMA REAGIN, QUANT Routine 05/13/2025 4:24 PM EDT HCV ANTIBODY RFX TO QUANT PCR Routine 05/13/2025 4:24 PM EDT ALL RUBELLA IGG AB Routine 05/13/2025 4: 24 PM EDT HIV AB/P24 AG WITH REFLEX Routine 05/13/2025 4:24 PM EDT ALL TYPE AND SCREEN Routine 05/13/2025 4 :24 PM EDT MLR HEMOGLOBIN A1C Routine 05/13/2025 4: 24 PM EDT ALL CBC WITH AUTO DIFF Routine 05/13/2025 4:24 PM EDT BOX TEST Routine 05/13/2025 4:24 PM EDT URINE CULTURE, ROUTINE Routine 05/13/2025 4:15 PM EDT TBH DRUG SCREEN RAPID (URINE) Routine 05/13/2025 4:15 PM EDT POCT URINALYSIS DIPSTICK Routine 04/21/2025 1:35 PM EDT Missed menses POCT , URINE Routine 04/21/2025 1:34 PM EDT Missed menses US OB TRANSVAGINAL Routine 04/21/2025 1: 11 PM EDT Missed menses Positive urine test ([facility]) from Last 3 Months Results * POCT urinalysis dipstick manually resulted (06/22/2025 3:52 PM EDT) Only the most recent of3 resultswithin the time period is included. Color, UA Yellow Clarity, UA Clear Glucose, UA Negative Negative - 2000(110) ++++ mg/dL Bilirubin, UA Negative Negative - 4(70) +++ mg/dL Ketones, UA Negative Negative - 160(16) ++++ mg/dL Spec Grav, UA 1.010 1 - 1.03 Blood, UA Negative Negative - 50 Josh/mcL pH, UA 6.0 5 - 9 Protein, UA Negative Negative - 2000(20) ++++ mg/dL Urobilinogen, UA 1.0 0.2 - 12 mg/dL Leukocytes, UA Negative Negative - 500+++ Елена/mcL Nitrite, UA Negative Negative - Positive Urine 06/22/2025 3:52 PM EDT J Carlos Myers DO POINT OF CARE TEST ENTER/EDIT OR DERABLES Final Result * BOX TEST (05/13/2025 4:24 PM EDT) BOX TEST SENT OUT [facility] 05/13/2025 [facility] 05/13/2025 4:24 PM EDT 05/13/2025 4:32 PM EDT Narrative [facility] - 05/13/2025 4:37 PM EDT Generic External Data Provider LAB BLOOD ORDERAB LES Final Result [facility] * HBSAG SCREEN (05/13/2025 4:24 PM EDT) HBSAG SCREEN Negative Negative [facility] Comment: Performed at: [address] [id number] Ekg Tech: Sincere Giraldo PhD, Phone: [phone] 05/13/2025 4:24 PM EDT 05/13/2025 4:32 PM EDT Narrative [facility] - 05/15/2025 9:44 AM EDT Generic External Data Provider LAB BLOOD ORDERAB LES Final Result Performing Organization Address [facility]/ZIP Co de Phone Number [facility] * RAPID PLASMA REAGIN, QUANT (05/13/2025 4:24 PM EDT) RAPID PLASMA REAGIN, QUANT Non Reactive NonRea<1: 1 titer [facility] Comment: Please Note: This test does not meet current guidelines for screening and diagnosis of syphilis. This test is intended for following treatment response in patients being treated for syphilis infection. To screen for syphilis infection, a reflex cascade that includes both RPR and a treponema-specific assay should be utilized, such as Treponema pallidum (Syphilis) Screening [place] (805593) or Rapid Plasma Reagin (RPR) Test With Reflex to Quantitative RPR and Confirmatory Treponema pallidum Antibodies (198910). Performed at: [facility] [id number] Ekg Tech: Sincere Giraldo PhD, Phone: [phone] 05/13/2025 4:24 PM EDT 05/13/2025 4:32 PM EDT Narrative [facility] - 05/15/2025 9:44 AM EDT Generic External Data Provider LAB BLOOD ORDERAB LES Final Result Performing Organization Address [facility] Co de Phone Number [facility] * HIV AB/P24 AG WITH REFLEX (05/13/2025 4:24 PM EDT) Pathologist [facility] HIV AB/P24 AG SCREEN Non Reactive Non Reactive [facility] Comment: HIV-1/HIV-2 antibodies and HIV-1 p24 antigen were NOT detected. There is no laboratory evidence of HIV infection. HIV Negative Performed at: [facility] [employer] [id number] Ekg Tech: Sincere Giraldo PhD, Phone: [phone] 05/13/2025 4:24 PM EDT 05/13/2025 4:32 PM EDT Narrative [facility] - 05/15/2025 7:09 AM EDT us Generic External Data Provider LAB BLOOD ORDERAB LES Final Result Performing Organization Address [facility] Co de Phone Number [facility] * HCV ANTIBODY RFX TO QUANT PCR (05/13/2025 4:24 PM EDT) HCV AB Non Reactive Non Reactive TB INTERPRETATION: Comment . TB Comment: Not infected with HCV unless early or acute infection is suspected (which may be delayed in an immunocompromised individual), or other evidence exists to indicate HCV infection. 05/13/2025 4:24 PM EDT 05/13/2025 4:32 PM EDT Narrative [facility] - 05/15/2025 8:39 AM EDT J Carlos Lucia DO LAB BLOOD ORDERABLES Final Resul t Performing Organization Address [facility] de Phone Number [facility] * MLR HEMOGLOBIN A1C (05/13/2025 4:24 PM EDT) GLYCOHEMOGLOBIN A1C 5.0 4.5 - 6.2 % [facility] Comment: ADA RECOMMENDED LIMIT 4.0 - 6.0 ADA THERAPEUTIC TARGET < 7.0 ACTION SUGGESTED > 7.0 ESTIMATED AVERAGE GLUCOSE 97 mg/dL TB 05/13/2025 4:24 PM EDT 05/13/2025 4:32 PM EDT Narrative [facility] - 05/13/2025 5:19 PM EDT us J Carlos Lucia DO CLINISYNC Final Result Performing Organization Address [facility] Co de Phone Number [facility] * ALL TYPE AND SCREEN (05/13/2025 4:24 PM EDT) BLOOD TYPE A Positive [facility] ANTIBODY SCREEN NEGATIVE TB 05/13/2025 4:24 PM EDT 05/13/2025 4:32 PM EDT Narrative [facility] - 05/13/2025 5:52 PM EDT [facility] , J Carlos Lucia DO CLINISYNC Final Result [facility] * ALL RUBELLA IGG AB (05/13/2025 4:24 PM EDT) [facility] RUBELLA ANTIBODIES, IGG 16.20 Immune >0.99 index [facility]H Comment: Non-immune <0.90 Equivocal 0.90 - 0.99 Immune >0.99 Performed at: [facility] [id number] Ekg Tech: Sincere Giraldo PhD, Phone: [phone] 05/13/2025 4:24 PM EDT 05/13/2025 4:32 PM EDT Narrative [facility] - 05/15/2025 8:39 AM EDT J Carlos Lucia DO CLINISYNC Final Result Performing Organization Address City/[facility]/ZIP Co de Phone Number [facility] * (ABNORMAL) ALL CBC WITH AUTO DIFF (05/13/2025 4:24 PM EDT) [facility] TB WBC 8.0 4.0 - 11.0 10 3/uL TBH TB RBC 4.37 4.20 - 5.40 10 6/uL TBH TB HGB 13.4 12.0 - 16.0 g/dL TB TB HCT 38.9 36.0 - 48.0 % TBH TB MCV 89.0 81.0 - 99.0 fL TB TBH MCH 30.7 26.7 - 34.0 pg TBH TB MCHC 34.4 29.9 - 35.2 g/dL TB TB RDW 12.5 11.0 - 15.0 % TBH TBH PLT 249 150 - 450 10 3/uL TBH TBH MPV 8.8(L) 9.5 - 13.5 fL TBH NEUTROPHILS PERCENT AUTO 64.7 43.0 - 75.0 % TBH LYMPHOCYTES PERCENT AUTO 29.4 20.5 - 60.0 % TBH MONOCYTES PERCENT AUTO 4.6 1.7 - 12.0 % TBH TBH EO % 0.7(L) 0.9 - 7.0 % TBH BASOPHILS PERCENT AUTO 0.4 0.2 - 2.0 % TBH IMMATURE GRANULOCYTES PCT AUTO 0.2 0.0 - 0.5 % TBH NEUTROPHILS ABSOLUTE AUTO 5.2 1.4 - 6.5 10 3/uL TBH LYMPHOCYTES ABSOLUTE AUTO 2.4 1.2 - 3.8 10 3/uL TBH MONOCYTES ABSOLUTE AUTO 0.4 0.3 - 0.8 10 3/uL TBH TBH EO # 0.1 0.0 - 0.7 10 3/uL TBH BASOPHILS ABSOLUTE AUTO 0.0 0.0 - 0.1 10 3/uL TBH IMMATURE GRANULOCYTES ABS AUTO 0.02 0.00 - 0.03 10 3/uL TBH 05/13/2025 4:24 PM EDT 05/13/2025 4:32 PM EDT Narrative [facility] - 05/13/2025 4:39 PM EDT Generic External Data Provider CLINISYNC F inal Result Performing Organization Address City/[facility]/ZIP Co de Phone Number [facility] * URINE CULTURE, ROUTINE (05/13/2025 4:15 PM EDT) [facility] URINE CULTURE, ROUTINE Urine Culture, Routine [facility] URINE CULTURE, ROUTINE Mixed urogenital terry [facility] URINE CULTURE, ROUTINE 25,000-50,000 colony forming units per mL [facility] URINE CULTURE, ROUTINE Performed at: - [facility] URINE CULTURE, ROUTINE [address] [place] [id number] [facility] URINE CULTURE, ROUTINE Ekg Tech: Sincere Giraldo PhD, Phone: [phone] [facility] 05/13/2025 4:15 PM EDT 05/13/2025 4:16 PM EDT Narrative [facility] - 05/16/2025 5:11 AM EDT Generic External Data Provider LAB BLOOD ORDERAB LES Final Result [facility] * TBH DRUG SCREEN RAPID (URINE) (05/13/2025 4:15 PM EDT) CANNABINOID SCREEN URINE NEGATIVE NEGATIVE TBH PHENCYCLIDINE SCREEN URINE NEGATIVE NEGATIVE TBH COCAINE SCREEN URINE NEGATIVE NEGATIVE TBH METHAMPHETAMINES SCREEN URINE NEGATIVE NEGATIVE TBH OPIATE SCREEN URINE NEGATIVE NEGATIVE TBH AMPHETAMINE SCREEN URINE NEGATIVE NEGATIVE TBH BENZODIAZEPINES SCREEN URINE NEGATIVE NEGATIVE TBH TRICYCLIC ANTIDEPRESSANT URINE NEGATIVE NEGATIVE TBH METHADONE SCREEN URINE NEGATIVE NEGATIVE TBH BARBITURATES SCREEN URINE NEGATIVE NEGATIVE TBH OXYCODONE SCREEN URINE NEGATIVE NEGATIVE TBH BUPRENORPHINE SCREEN URINE NEGATIVE NEGATIVE TBH Comment: DRUG CLASS TEST SYSTEM CUT-OFF CONCENTRATIONS ARE FOLLOWS: AMP (Amphetamine): 500 ng/mL BAR (Barbiturates): 200 ng/mL BZO (Benzodiazepines): 150 ng/mL BUP (Buprenorphine): 10 ng/mL ROXANA (Cocaine): 150 ng/mL mAMP (Methamphetamine): 500 ng/mL MTD (Methadone): 200 ng/mL OPI (Opiates): 100 ng/mL OXY (Oxycodone): 100 ng/mL PCP (Phencyclidine): 25 ng/mL THC (Cannabinoids): 50 ng/mL TCA (Trycyclic Antidepressants): 300 ng/mL 05/13/2025 4:15 PM EDT 05/13/2025 4:16 PM EDT Narrative [facility] - 05/13/2025 4:48 PM EDT us J Carlos Lucia DO CLINISYNC Final Result [facility] * (ABNORMAL) POCT , urine manually resulted (04/21/2025 1:34 PM EDT) Preg Test, Ur Positive Negative Urine 04/21/2025 1:34 PM EDT us J Carlos Lucia DO POINT OF CARE TEST ENTER/EDIT OR DERABLES Final Result * US OB transvaginal (04/21/2025 1:11 PM EDT) Anatomical Region Laterality Modality Body Ultrasound 04/25/2025 2:09 PM EDT Impressions 04/25/2025 3:59 PM EDT Findings consistent with a live intrauterine gestation, current sonographic age of 8 weeks and 3 days resulting in an estimated date of delivery of November 28, 2025. TRANSCRIBED BY: ELECTRONICALLY SIGNED BY: Delroy Reese MD [facility] 04/25/2025 3:59 PM EDT FINDINGS: A single intrauterine gestational sac is [...] present. Cervical length is 4.3 cm, closed. Procedure Note Delroy Reese MD - 04/25/2025 FINDINGS: A single intrauterine gestational sac is present. No subchorionichemorrhage. A single pole is present. Normal heart rate at172 beats per minute. Yolk sac also is seen. Current sonographic age is8 weeks and 3 days based on the crown-rump length measurement of 1.9 cm.Based on this age, current estimated date of delivery is November 08, 2025.No pelvic fluid or adnexal mass present. Cervical length is 4.3 cm,closed. IMPRESSION: Findings consistent with a live intrauterine gestation, currentsonographic age of 8 weeks and 3 days resulting in an estimated date ofdelivery of November 28, 2025. TRANSCRIBED BY: ELECTRONICALLY SIGNED BY: Delroy Reese MD us J Carlos Lucia DO IMG OB US PROCEDURES Final Resul t from Last 3 Months Insurance [employer] Care Teams Dish Technician Relationship Specialty Start Date End Date Regina Samuels PA [address] [place] [address] PCP - General Family Medicine 02/10/23
--- OUTSIDE RECORDS SUMMARY | 2025-06-22 18:54 | XMS_ITS | Encounter Summary ---
Author Organization [facility] Address [address] [facility] [place] [address] Care Team Providers Care Road Machinery Inspector Name Role Phone Regina Samuels Primary Care Provider [phone] Reason for Visit * Reason Onset Date Comments Error (VOID this visit) 06/15/2025 Encounter Details Date Type Department Care Team (Late st Contact Info) Description 06/15/2025 Telephone [facility] [address] [place] [address] Peace Espino MA [address] [place] [address] Error (VOID this visit) Social History Tobacco Use Types Packs/Day Years [...] on file documented as of this encounter Miscellaneous Notes * Telephone Encounter - Peace Espino MA - 06/15/2025 10:49 AM EDT void documented in this encounter Plan of Treatment Upcoming Encounters Date Type Department Care Team (Late st Contact Info) Description 07/13/2025 3:10 PM EST Routine [facility] [address] [place] [phone] J Carlos Myers DO [address] [place] [address] documented as of this encounter Visit Diagnoses Not on filedocumented in this encounter Care Teams Road Machinery Inspector Relationship Specialty Start Date End Date Regina Samuels PA [address] [place] [address] PCP - General Family Medicine 02/10/23 documented as of this encounter
--- OUTSIDE RECORDS SUMMARY | 2025-06-22 18:54 | XMS_ITS | Encounter Summary ---
Author Organization [facility] Address [address] [facility] [place] [address] Care Team Providers Care Radiology Assistant Name Role Phone Regina Samuels Primary Care Provider Encounter Details Date Type Department Care Team (Late st Contact Info) Description 05/13/2025 Abstract [facility] [place] [address] J Carlos Myers DO [facility] [address] [place], [place] [address] Social History Tobacco Use Types Packs/Day Years [...] Description 07/13/2025 3:10 PM EST Routine [facility] [address] [place] [address] J Carlos Myers DO [facility] [address] [place], [id number] documented as of this encounter Visit Diagnoses Not on filedocumented in this encounter Care Teams Radiology Assistant Relationship Specialty Start Date End Date Regina Samuels PA [address] [place] [address] PCP - General Family Medicine 02/10/23 documented as of this encounter
--- OUTSIDE RECORDS SUMMARY | 2025-06-22 18:54 | XMS_ITS | Clinical Summary ---
Author Organization [employer] s [employer] Address [id number] [address] [place] [address] Care Team Providers Care Mechanic Assistant Name Role Phone Unavailable Primary Care Provider Unavailabl e Allergies No known active allergies Medications amoxicillin (AMOXIL) 500 mg capsule Take 1 capsule (500 mg total) by mouth 3 (three) times a day. Active [id number] fumarate-FA () 28-800 mg-mcg tablet Take by mouth. Activ e clindamycin-sol zoyl peroxide (BENZACLIN) gel Apply 1 application topically in the morning. Active Active Problems Problem Noted Date Diagnosed Date Echogenic bowel of fetus on ultrasound 09/12/2022 Assessment & Plan (09/12/2022 2:17 PM EST): U/S at patient's prior visit suggested possible increased bowel echogenicity. Today's ultrasound reveals bowel with no echogenicity and not dilated. There is no ascites. No additional sonographic follow up is necessary at this time (patient and her were very happy with the news). Family History Medical History Relation Name Comments Mental illness Father Cancer Maternal Grandmother Relation Name Status Comments Father Maternal Grandmother Social History Tobacco Use Types Packs/Day Years Used Date Smoking Tobacco: Never Smokeless Tobacco: Never Tobacco Cessation:Counseling Given: Not Answered Alcohol Use Standard Drinks/Week Comments Not Currently 0 (1 standard drink = 0.6 oz pur e alcohol) OCCASIONAL Hunger Screening Answer Date Recorded Within the past 12 months we worried whether our food would run out before we got money to buy more. Never True 09/12/2022 Within the past 12 months th e food we bought just didn't last and we didn't have money to get more. Never True 09/12/2022 Comments No Sex and Gender Information Value Date Recorded Sex Assigned at Not on file Legal Sex Female 1:41 PM EST Gender Identity Not on file Sexual Orientation Not on file Last Filed Vital Signs Vital Sign Reading Time Taken Comments Blood Pressure 121/77 09/12/2022 1:40 PM EST Pulse 105 09/12/2022 1:40 PM EST Temperature - - Respiratory Rate - - Oxygen Saturation - - Inhaled Oxygen Concentration - - Weight 66 kg (145 lb 8.1 oz) 09/12/2022 1:40 PM EST Height 170.2 cm (5' 7 ) 09/12/2022 1:40 PM EST Body Mass Index 22.79 09/12/2022 1:40 PM EST Plan of Treatment Health Maintenance Due Date Last Done Comments Depression Screening 2009 Tobacco Screening 2009 DTaP,Tdap and Td Vaccines (1 - Tdap) 2016 Pap Smear 2018 Adult BMI Screening 09/12/2023 09/12/2022 Influenza Vaccine 05/09/2025 Medical Devices Not on file Insurance [employer]
--- OUTSIDE RECORDS SUMMARY | 2025-06-22 18:55 | XMS_ITS | CCD ---
Author Organization [facility]iniSyn[facility] Care Team Providers Care Tunnel Inspector Name Role Phone [facility] Unavailable LUCIA ., DR HAYES Attending Unavailable LUCIA ., DR HAYES Consulting Unavailable LUCIA ., DR HAYES Admitting Unavailable ZIEBER, DR ZEUS Heredia Consulting Unavailable LUCIA ., DR HAYES Attending Unavailable LUCIA ., DR HAYES Consulting Unavailable [facility] Unavailable LUCIA ., DR HAYES Admitting Unavailable ZIEBER, DR ZEUS Heredia Consulting Unavailable [facility] Unavailable KARASIK ., DR SUMMERS Consulting Unavailabl e KARASIK ., DR SUMMERS Attending Unavailabl e KARASIK ., DR SUMMERS Admitting Unavailabl e Sebastian Doan Consulting Unavailable LUCIA ., DR HAYES Consulting Unavailable LUCIA ., DR HAYES Attending Unavailable [facility] Unavailable LUCIA ., DR HAYES Admitting Unavailable LUCIA ., DR HAYES Attending Unavailable [facility] Unavailable LUCIA ., DR HAYES Consulting Unavailable LUCIA ., DR HAYES Admitting Unavailable KARASIK ., DR SUMMERS Admitting Unavailabl e KARASIK ., DR SUMMERS Attending Unavailabl e KARASIK ., DR SUMMERS Consulting [facility]availabl e [facility] Unavailable Sebastian Doan Consulting Unavailable LUCIA ., DR HAYES Consulting Unavailable KARASIK ., DR SUMMERS Attending Unavailabl e KARASIK ., DR SUMMERS Consulting Unavailabl e KARASIK ., DR SUMMERS Admitting Unavailabl e [facility] Primary Care Unavailable Sebastian Doan Consulting Unavailable LUCIA ., DR HAYES Consulting Unavailable [facility] Unavailable LUCIA ., DR HAYES Admitting Unavailable LUCIA ., DR HAYES Consulting Unavailable LUCIA ., DR HAYES Attending Unavailable ZIEBER, DR ZEUS Heredia Consulting Unavailable [facility], [facility] Primary Care Unavailable LUCIA ., DR HAYES Attending Unavailable LUCIA ., DR HAYES Consulting Unavailable LUCIA ., DR HAYES Admitting Unavailable LUCIA ., DR HAYES Attending Unavailable [facility] Primary Care Unavailable LUCIA ., DR HAYES Admitting Unavailable [facility] Primary Care Unavailable KARASIK ., DR SUMMERS Admitting Unavailabl e KARASIK ., DR SUMMERS Attending Unavailabl e KARASIK ., DR SUMMERS Consulting Unavailabl e KARASIK ., DR SUMMERS Admitting Unavailabl e KARASIK ., DR SUMMERS Attending Unavailabl e KARASIK ., DR SUMMERS Consulting Unavailabl e [facility] Primary Care Unavailable KARASIK ., DR SUMMERS Admitting Unavailabl e KARASIK ., DR SUMMERS Attending Unavailabl e KARASIK ., DR SUMMERS Consulting Unavailabl e [facility], [facility] Primary Care Unavailable [facility], [facility] Primary Care Unavailable KARASIK ., DR SUMMERS Consulting Unavailabl e KARASIK ., DR SUMMERS Attending Unavailabl e KARASIK ., DR SUMMERS Admitting Unavailabl e LUCIA ., DR HAYES Consulting Unavailable ZIEBER, DR ZEUS Heredia Consulting Unavailable [facility], [facility] Primary Care Unavailable LUCIA ., DR HAYES Admitting Unavailable LUCIA ., DR HAYES Consulting Unavailable LUCIA ., DR HAYES Attending Unavailable ZIEBER, DR ZEUS Heredia Consulting Unavailable [facility], [facility] Primary Care Unavailable LUCIA ., DR HAYES Attending Unavailable LUCIA ., DR HAYES Consulting Unavailable LUCIA ., DR HAYES Admitting Unavailable [facility], [facility] Primary Care Unavailable LUCIA ., DR HAYES Attending Unavailable LUCIA ., DR HAYES Consulting Unavailable LUCIA ., DR HAYES Admitting Unavailable LUCIA ., DR HAYES Admitting Unavailable [facility], [facility] Primary Care Unavailable LUCIA ., DR HAYES Attending Unavailable LUCIA ., DR HAYES Attending Unavailable [facility], [facility] Primary Care Unavailable LUCIA ., DR HAYES Admitting Unavailable [facility], [facility] Primary Care Unavailable LUCIA ., DR HAYES Attending Unavailable LUCIA ., DR HAYES Consulting Unavailable LUCIA ., DR HAYES Admitting Unavailable ZIEBER, DR ZEUS Heredia Consulting Unavailable [facility], [facility] Primary Care Unavailable LUCIA ., DR HAYES Consulting Unavailable LUCIA ., DR HAYES Admitting Unavailable LUCIA ., DR HAYES Attending Unavailable ZIEBER, DR ZEUS Heredia Consulting Unavailable [facility], [facility] Primary Care Unavailable LUCIA ., DR HAYES Consulting Unavailable LUCIA ., DR HAYES Admitting Unavailable LUCIA ., DR HAYES Attending Unavailable ZIEBER, DR ZEUS Heredia Consulting Unavailable KARASIK ., DR SUMMERS Attending Unavailabl e KARASIK ., DR SUMMERS Admitting Unavailabl e LUCIA ., DR HAYES Consulting Unavailable [facility], [facility] Primary Care Unavailable KARASIK ., DR SUMMERS Consulting Unavailabl e KARASIK ., DR SUMMERS Attending Unavailabl e KARASIK ., DR SUMMERS Admitting Unavailabl e [facility] Primary Care Unavailable KARASIK ., DR SUMMERS Consulting Unavailabl e KARASIK ., DR SUMMERS Admitting Unavailabl e KARASIK ., DR SUMMERS Attending Unavailabl e [facility] Primary Care Unavailable [facility], [facility] Primary Care Unavailable KARASIK ., DR SUMMERS Consulting Unavailabl e KARASIK ., DR SUMMERS Admitting Unavailabl e KARASIK ., DR SUMMERS Attending Unavailabl e LUCIA ., DR HAYES Attending Unavailable [facility], [facility] Primary Care Unavailable LUCIA ., DR HAYES Admitting Unavailable [facility], [facility] Primary Care Unavailable LUCIA ., DR HAYES Attending Unavailable LUCIA ., DR HAYES Admitting Unavailable KARASIK ., DR SUMMERS Consulting Unavailabl e LUCIA ., DR HAYES Attending Unavailable [facility], [facility] Primary Care Unavailable LUCIA ., DR HAYES Admitting Unavailable LUCIA ., DR HAYES Consulting Unavailable YANIQUE LOVE Consulting Unavailable LUCIA ., DR HAYES Procedure Practitioner Unavail able [facility], [facility] Primary Care Unavailable LUCIA ., DR HAYES Attending Unavailable LUCIA ., DR HAYES Consulting Unavailable LUCIA ., DR HAYES Admitting Unavailable [facility], [facility] Primary Care Unavailable KARASIK ., DR SUMMERS Admitting Unavailabl e KARASIK ., DR SUMMERS Attending Ovidio TUTTLE ., DR SUMMERS Consulting Jae ACKERMAN, Regina Ford Primary Care Provider Lydia Whyte Primary Care Physician BEE TRAN Attending Unavailable BEE TRAN Attending Unavailable NEISHA LAMB Attending Unavailable FREDDY MYERS Attending Unavailable Lydia Whyte Admitting Unavailable Lydia Whyte Attending Unavailable Lydia Whyte Attending Unavailable Lydia Whyte Admitting Unavailable Lydia Whyte Attending Unavailable Lydia Whyte Admitting Unavailable Medications Current Medications Medication Drug Class(es) [...] anxiety, # 30 tab(s), Refills(s) 1, Pharmacy: [id number], 167.64, cm, 08/11/19 12:02:00 EST, Height/Length Measured, 70.8, kg, 08/11/19 12:02:00 EST, Weight Measured Start Date: 01/19/20 Status: Ordered Quantity: 30.0 Unit: tab(s) Repeat number: 2 Indication: Generalized anxiety disorder benzoyl peroxide 50 mg/ml topical solution (7 sources) Start: 03-31-2025 benzoyl peroxide 5 % external wash Indications: Acne vulgaris Apply to affected areas, then rinse daily, 30 day supply 227 g 11 03/31/2025 Active cefuroxime 250 mg oral tablet [...] 09/04/2024 Active clindamycin 10 mg/ml topical lotion (7 sources) Lincosamide Antibacterial Start: 03-31-2025 clindamycin (Cleocin [...] tolerance complicating ; childbirth; or the puerperium (10 sources) Gestational diabetes mellitus in , unspecified [...] DELIV] Onset: 01-02-2023 Episodic Other complications of (6 sources) History of gestational diabetes mellitus; Translations: [...] [8 weeks gestation of ] 04-21-2025 Episodic Residual codes; unclassified (2 sources) Gestation period, 13 weeks; Translations: [13 weeks gestation of ] 05-23-2025 Episodic Past or Other Problems Problem Classification [...] Test Name Value Interpretation Reference Range Facility Glucoseon 06-20-2025 Glucose [Mass/Vol] 92 mg/dL Normal 55-199 [facility] Comment on above: Performed By: #### 2 [id number] #### [facility] [address] [place] [address] Lipid Panelon 06-20-2025 Cholesterol [Mass/Vol] 176 mg/dL Normal 120-200 [facility] Comment on above: Performed By: #### 2 [id number] #### [facility] [address] [place] [address] Cholesterol in HDL [Mass/Vol] 72 mg/dL Invalid Interpretation Code [facility] Comment on above: Result Comment: '>= 60 LOW RISK' '<= 40 HIGH RISK' Performed By: #### 2 [id number] #### [facility] [address] [place] [address] Cholesterol in LDL [Mass/Vol] 95 mg/dL Normal <=129 [facility] Comment on above: Performed By: #### 2 [id number] #### [facility] [address] [place] [address] Cholesterol in VLDL [Mass/Vol] 22 mg/dL Normal 7-40 [facility] Comment on above: Performed By: #### 2 [id number] #### [facility] [address] [place] [address] Triglyceride [Mass/Vol] 110 mg/dL Normal <=149 [facility] Comment on above: Performed By: #### 2 [id number] #### [facility] [address] [place] [address] Urinalysis macro (dipstick) panel (U)on 05-23-2025 Bilirubin, UA Negative Negative - 4(70) +++ mg/dL [facility] Blood, UA Negative Negative - 50 Josh/mcL [facility] Clarity, UA Cloudy [facility] Color, UA Maira [facility] Glucose, UA Negative Negative - 1999(110) ++++ mg/dL [facility] Interpretation and review of laboratory results Normal [facility] Ketones, UA Negative Negative - 160(16) ++++ mg/dL [facility] Leukocytes, UA Negative Negative - 500+++ Елена/mcL [facility] Nitrite, UA Negative Negative - Positive [facility] pH, UA 6 5 - 9 [facility] Protein, UA Negative Negative - 2000(20) ++++ mg/dL [facility] Spec Grav, UA 1.015 1 - 1.03 [facility] Urobilinogen, UA 1.0 0.2 - 12 mg/dL Pending sale to [facility] BOX TESTon 05-13-2025 BOX TEST SENT OUT [facility] BOX1 [facility] BOX2 05/13/2025 [facility] HCG ( test) Ql (U)o n 04-21-2025 Interpretation and review of laboratory results Abnormal [facility] Preg Test, Ur Positive Negative Pending sale to [facility] US OB TRANSVAGINALon 025 US OB TRANSVAGINAL FINDINGS: A single intrauterine gestational [...] UA Negative Negative - 4(70) +++ mg/dL [facility] Blood, UA Negative Negative - 50 Josh/mcL [facility] Clarity, UA Clear [facility] Color, UA Yellow [facility] Glucose, UA Negative Negative - 2000(110) ++++ mg/dL [facility] Interpretation and review of laboratory results Normal [facility] Ketones, UA Negative Negative - 160(16) ++++ mg/dL [facility] Leukocytes, UA Negative Negative - 500+++ Елена/mcL [facility] Nitrite, UA Negative Negative - Positive [facility] pH, UA 6 5 - 9 [facility] Protein, UA Negative Negative - 2000(20) ++++ mg/dL [facility] Spec Grav, UA 1.02 1 - 1.03 [facility] Urobilinogen, UA 1.0 0.2 - 12 mg/dL Pending sale to [facility] XR Chest 2 Viewson XR Chest 2 [...] MD Transcribed by: BRENDA Technologist: RONAN Childers [facility] US PELVIC COMPLETE W/ TVon 0 [...] II, MD, PHD at 22-Sep-2024 07:42:52 AM [facility] Normal Not Available Comment on above: Order Comment: US PE LVIS-TRANSVAG IF INDICATED Patient's last menstrual period was 07/28/2024 (approximate). HCG ( test) Ql (U)o n 08-25-2024 Interpretation and review of laboratory results Normal [facility] Preg Test, Ur Negative Negative Pending sale to [facility] Urinalysis macro (dipstick) panel (U)on 08-25-2024 Bilirubin, UA Negative Negative - 4(70) +++ mg/dL [facility] Blood, UA Positive Negative - 50 Josh/mcL [facility] Comment on above: moderate Clarity, UA Clear [facility] Color, UA Yellow [facility] Glucose, UA Negative Negative - 2000(110) ++++ mg/dL [facility] Interpretation and review of laboratory results Abnormal [facility] Ketones, UA Negative Negative - 160(16) ++++ mg/dL [facility] Leukocytes, UA Trace Negative - 500+++ Елена/mcL [facility] Nitrite, UA Negative Negative - Positive [facility] pH, UA 6 5 - 9 [facility] Protein, UA Negative Negative - 2000(20) ++++ mg/dL [facility] Spec Grav, UA 1.025 1 - 1.03 [facility] Urobilinogen, UA 0.2 0.2 - 12 mg/dL Pending sale to [facility] CBC AUTO DIFFon 12-27-2022 BASO # 0.0 103/ul Normal 0.0-0.1 [facility] Comment on above: Performed By: #### R UBIGG #### [facility] [address] [place] [address] Dr. Baljinder Murrell Basophils/100 WBC (Bld) 0.1 % Critically low 0.2-2.0 [facility] Comment on above: Performed By: #### R UBIGG #### [facility] [address] [place] [address] Dr. Baljinder Murrell EO # 0.0 103/ul Normal 0.0-0.7 [facility] Comment on above: Performed By: #### R UBIGG #### [facility] [address] [place] [address] Dr. Baljinder Murrell Eosinophils/100 WBC (Bld) 0.1 % Critically low 0.9-7.0 [facility] Comment on above: Performed By: #### R UBIGG #### [facility] [address] [address] [address] Baljinder Murrell Erythrocyte distribution width (RBC) [Ratio] 13.3 % Normal 11.0-15.0 [facility] Comment on above: Performed By: #### R UBIGG #### [facility] [address] [place] [address] Dr. Baljinder Murrell Hematocrit (Bld) [Volume fraction] 35.5 % Critically low 36.0-48.0 [facility] Comment on above: Performed By: #### R UBIGG #### [facility] [address] [place], [place] [id number] Dr. Baljinder Murrell Hemoglobin (Bld) [Mass/Vol] 11.3 g/dL Critically low 12.0-16.0 [facility] Comment on above: Performed By: #### R UBIGG #### [facility] [address] [address] [address] Baljinder Murrell IG # 0.06 10e3/ul Critically high 0.00-0.03 [facility] Comment on above: Performed By: #### R UBIGG #### [facility] [address] [place] [address] Dr. Baljinder Murrell IG % 0.4 % Normal 0.0-0.5 [facility] Comment on above: Performed By: #### R UBIGG #### [facility] [address] [place] [address] Dr. Baljinder Murrell LYMPH # 1.6 103/ul Normal 1.2-3.8 [facility] Comment on above: Performed By: #### R UBIGG #### [facility] [address] [place] [address] Dr. Baljinder Murrell Lymphocytes/100 WBC (Bld) 11.0 % Critically low 20.5-60.0 [facility] Comment on above: Performed By: #### R UBIGG #### [facility] [address] [place] [address] Dr. Baljinder Murrell MANUAL DIFF REQ NO Normal [facility] Comment on above: Performed By: #### R UBIGG #### [facility] [address] [place] [address] Dr. Baljinder Murrell MCH (RBC) [Entitic mass] 30.2 pg Normal 26.7-34.0 [facility] Comment on above: Performed By: #### R UBIGG #### [facility] [address] [place] [address] Dr. Baljinder Murrell MCHC (RBC) [Mass/Vol] 31.8 g/dL Normal 29.9-35.2 [facility] Comment on above: Performed By: #### R UBIGG #### [facility] [address] [address] [address] Baljinder Murrell MCV (RBC) [Entitic vol] 94.9 fL Normal 81.0-99.0 [facility] Comment on above: Performed By: #### R UBIGG #### [facility] [address] [place] [address] Dr. Baljinder Murrell MONO # 0.9 103/ul Critically high 0.3-0.8 [facility] Comment on above: Performed By: #### R UBIGG #### [facility] [address] [place] [address] Dr. Baljinder Murrell Monocytes/100 WBC (Bld) 6.1 % Normal 1.7-12.0 [facility] Comment on above: Performed By: #### R UBIGG #### [facility] [address] [place] [address] Dr. Baljinder Murrell NEUT # 11.9 103/ul Critically high 1.4-6.5 [facility] Comment on above: Performed By: #### R UBIGG #### [facility] [address] [place] [address] Dr. Baljinder Murrell Neutrophils/100 WBC (Bld) 82.3 % Critically high 43.0-75.0 [facility] Comment on above: Performed By: #### R UBIGG #### [facility] [address] [place] [address] Dr. Baljinder Murrell Platelet mean volume (Bld) [Entitic vol] 8.5 fL Critically low 9.5-13.5 [facility] Comment on above: Performed By: #### R UBIGG #### [facility] [address] [place] [address] Dr. Baljinder Murrell PLT 217 103/ul Normal 150-450 [facility] Comment on above: Performed By: #### R UBIGG #### [facility] [address] [place] [address] Dr. Baljinder Murrell RBC 3.74 106/ul Critically low 4.20-5.40 [facility] Comment on above: Performed By: #### R UBIGG #### [facility] [address] [address] [address] Baljinder Murrell WBC 14.5 103/ul Critically high 4.0-11.0 [facility] Comment on above: Performed By: #### R UBIGG #### [facility] [address] [place] [address] Dr. Baljinder Murrell CBC AUTO DIFFon 12-26-2022 BASO # 0.0 103/ul Normal 0.0-0.1 [facility] Comment on above: Performed By: #### C BC #### [facility] [address] [place] [address] Dr. Baljinder Murrell Basophils/100 WBC (Bld) 0.2 % Normal 0.2-2.0 [facility] Comment on above: Performed By: #### C BC #### [facility] [address] [place] [address] Dr. Baljinder Murrell EO # 0.0 103/ul Normal 0.0-0.7 [facility] Comment on above: Performed By: #### C BC #### [facility] [address] [place] [address] Dr. Baljinder Murrell Eosinophils/100 WBC (Bld) 0.4 % Critically low 0.9-7.0 [facility] Comment on above: Performed By: #### C BC #### [facility] [address] [place] [address] Dr. Baljinder Murrell Erythrocyte distribution width (RBC) [Ratio] 13.4 % Normal 11.0-15.0 [facility] Comment on above: Performed By: #### C BC #### [facility] [address] [place] [address] Dr. Baljinder Murrell Hematocrit (Bld) [Volume fraction] 36.8 % Normal 36.0-48.0 [facility] Comment on above: Performed By: #### C BC #### [facility] [address] [place] [address] Dr. Baljinder Murrell Hemoglobin (Bld) [Mass/Vol] 12.5 g/dL Normal 12.0-16.0 [facility] Comment on above: Performed By: #### C BC #### [facility] [address] [place] [address] Dr. Baljinder Murrell IG # 0.05 10e3/ul Critically high 0.00-0.03 [facility] Comment on above: Performed By: #### C BC #### [facility] [address] [place] [address] Dr. Baljinder Murrell IG % 0.6 % Critically high 0.0-0.5 [facility] Comment on above: Performed By: #### C BC #### [facility] [address] [place] [address] Dr. Baljinder Murrell LYMPH # 1.9 103/ul Normal 1.2-3.8 [facility] Comment on above: Performed By: #### C BC #### [facility] [address] [place] [address] Dr. Baljinder Murrell Lymphocytes/100 WBC (Bld) 20.9 % Normal 20.5-60.0 [facility] Comment on above: Performed By: #### C BC #### [facility] [address] [place] [address] Dr. Baljinder Murrell MANUAL DIFF REQ NO Normal [facility] Comment on above: Performed By: #### C BC #### [facility] [address] [place] [address] Dr. Baljinder Murrell MCH (RBC) [Entitic mass] 31.0 pg Normal 26.7-34.0 [facility] Comment on above: Performed By: #### C BC #### [facility] [address] [place] [address] Dr. Baljinder Murrell MCHC (RBC) [Mass/Vol] 34.0 g/dL Normal 29.9-35.2 [facility] Comment on above: Performed By: #### C BC #### [facility] [address] [place] [address] Dr. Baljinder Murrell MCV (RBC) [Entitic vol] 91.3 fL Normal 81.0-99.0 [facility] Comment on above: Performed By: #### C BC #### [facility] [address] [address] [address] Baljinder Murrell MONO # 0.6 103/ul Normal 0.3-0.8 [facility] Comment on above: Performed By: #### C BC #### [facility] [address] [address] [address] Baljinder Murrell Monocytes/100 WBC (Bld) 6.3 % Normal 1.7-12.0 [facility] Comment on above: Performed By: #### C BC #### [facility] [address] [place] [address] Dr. Baljinder Murrell NEUT # 6.4 103/ul Normal 1.4-6.5 [facility] Comment on above: Performed By: #### C BC #### [facility] [address] [place] [address] Dr. Baljinder Murrell Neutrophils/100 WBC (Bld) 71.6 % Normal 43.0-75.0 [facility] Comment on above: Performed By: #### C BC #### [facility] [address] [place] [address] Dr. Baljinder Murrell Platelet mean volume (Bld) [Entitic vol] 8.9 fL Critically low 9.5-13.5 [facility] Comment on above: Performed By: #### C BC #### [facility] [address] [place] [address] Dr. Baljinder Murrell PLT 270 103/ul Normal 150-450 [facility] Comment on above: Performed By: #### C BC #### [facility] [address] [place] [address] Dr. Baljinder Murrell RBC 4.03 106/ul Critically low 4.20-5.40 [facility] Comment on above: Performed By: #### C BC #### [facility] [address] [place] [address] Dr. Baljinder Murrell WBC 8.9 103/ul Normal 4.0-11.0 [facility] Comment on above: Performed By: #### C BC #### [facility] [address] [place] [address] Dr. Baljinder Murrell DRUG SCREEN RAPID (URINE)on 12-26-2022 AMP Negative Normal NEGATIVE [facility] Comment on above: Performed By: #### D RUGRPD #### [facility] [address] [place] [address] Dr. Baljinder Murrell BAR Negative Normal NEGATIVE [facility] Comment on above: Performed By: #### D RUGRPD #### [facility] [address] [place] [address] Dr. Baljinder Murrell BUP Negative Normal NEGATIVE [facility] Comment on above: Performed By: #### D RUGRPD #### [facility] [address] [place] [address] Dr. Baljinder Murrell BZO Negative Normal NEGATIVE [facility] Comment on above: Performed By: #### D RUGRPD #### [facility] [address] [place] [address] Dr. Baljinder Murrell ROXANA Negative Normal NEGATIVE [facility] Comment on above: Performed By: #### D RUGRPD #### [facility] [address] [place] [address] Dr. Baljinder Murrell CUT-OFFS SEE BELOW Normal [facility] Comment on above: Result Comment: AMP [...] ng/mL Performed By: #### D RUGRPD #### [facility] [address] [place] [address] Dr. Baljinder Murrell DRUG CUT HEADER DRUG CLASS TEST SYSTEM CUT-OFF CONCENTRATIONS ARE FOLLOWS: Normal [facility] Comment on above: Performed By: #### D RUGRPD #### [facility] [address] [address] [address] Baljinder Murrell mAMP Negative Normal NEGATIVE [facility] Comment on above: Performed By: #### D RUGRPD #### [facility] [address] [place] [address] Dr. Baljinder Murrell MTD Negative Normal NEGATIVE [facility] Comment on above: Performed By: #### D RUGRPD #### [facility] [address] [address] [address] Baljinder Murrell OPI Negative Normal NEGATIVE [facility] Comment on above: Performed By: #### D RUGRPD #### [facility] [address] [place] [address] Dr. Baljinder Murrell OXY Negative Normal NEGATIVE [facility] Comment on above: Performed By: #### D RUGRPD #### [facility] [address] [place] [address] Dr. Baljinder Murrell PCP Negative Normal NEGATIVE [facility] Comment on above: Performed By: #### D RUGRPD #### [facility] [address] [place] [address] Dr. Baljinder Murrell PPX Negative Normal NEGATIVE [facility] Comment on above: Performed By: #### D RUGRPD #### [facility] [address] [place] [address] Dr. Baljinder Murrell TCA Negative Normal NEGATIVE [facility] Comment on above: Performed By: #### D RUGRPD #### [facility] [address] [place] [address] Dr. Baljinder Murrell THC Negative Normal NEGATIVE [facility] Comment on above: Performed By: #### D RUGRPD #### [facility] [address] [place] [address] Dr. Baljinder Murrell TYPE AND SCREENon 12-26-2022 TYPE AND SCREEN Negative Normal [facility] Comment on above: Performed By: #### R UBIGG #### [facility] [address] [place] [address] Dr. Baljinder Murrell US PREG BIOPHY W [...] by: ZEUS BRANNON Date: 2022-12-22 23:17 Normal [facility] US PREG BIOPHY W NON STRESSo n [...] by: ZEUS BRANNON Date: 2022-12-12 16:39 Normal [facility] US PREG BIOPHY W NON STRESSo n [...] SEBASTIAN DOAN Date: 2022-12-06 15:03 Normal [facility] GROUP B STREP CULTUREon 11-07 S. agalactiae Ag Ql (Unsp spec) Culture Observations: NEGATIVE FOR GROUP B STREPTOCOCCUS. Normal [facility] Comment on above: Performed By: #### R UBIGG #### [facility] [address] [place] [address] Dr. aBljinder Murrell PREG BIOPHY W NON STRESSo n 11-28-2022 [...] by: ZEUS BRANNON Date: 2022-11-28 16:08 Normal [facility] US PREG GROWTHon 11-28-2022 US PREG [...] authenticated by: ZEUS BRANNON Date: 2022-11-28 16:03 [facility] US PREG BIOPHY W NON STRESSo [...] by: ZEUS BRANNON Date: 2022-11-21 16:37 Normal [facility] US PREG BIOPHY W NON STRESSo n [...] by: SEBASTIAN DOAN Date: 2022-11-14 15:29 Normal [facility] US PREG BIOPHY W NON STRESSo n [...] by: SEBASTIAN DOAN Date: 2022-11-07 16:03 Normal [facility] US PREG BIOPHY W NON STRESSo n [...] by: ZEUS BRANNON Date: 2022-10-31 17:13 Normal [facility] US PREG GROWTHon 10-31-2022 US PREG GROWTH [...] by: ZEUS BRANNON Date: 2022-10-31 17:12 Normal [facility] US PREG GROWTHon 10-07-2022 US PREG GROWTH [...] with growth detailed above. Electronically authenticated by: EZUS BRANNON Date: 2022-10-07 16:18 Normal [facility] GTT 3 HR PREGon 09-28-2022 Glucose [Mass/Vol] 79 mg/dL Normal 74-106 [facility] Comment on above: Performed By: #### G TT3P #### [facility] [address] [place] [address] Dr. Baljinder Murrell Glucose [Mass/Vol] 204 mg/dL Normal [facility] Comment on above: Performed By: #### G TT3P #### [facility] [address] [place] [address] Dr. Baljinder Murrell Glucose [Mass/Vol] 158 mg/dL Normal [facility] Comment on above: Performed By: #### G TT3P #### [facility] [address] [place] [address] Dr. Baljinder Murrell Glucose [Mass/Vol] 150 mg/dL Normal [facility] Comment on above: Performed By: #### G TT3P #### [facility] [address] [place] [address] Dr. Baljinder Murrell CBC AUTO DIFFon 09-21-2022 BASO # 0.0 103/ul Normal 0.0-0.1 [facility] Comment on above: Performed By: #### C BC #### [facility] [address] [place] [address] Dr. Baljinder Murrlel Basophils/100 WBC (Bld) 0.2 % Normal 0.2-2.0 [facility] Comment on above: Performed By: #### C BC #### [facility] [address] [place] [address] Dr. Baljinder Murrell EO # 0.0 103/ul Normal 0.0-0.7 [facility] Comment on above: Performed By: #### C BC #### [facility] [address] [place] [address] Dr. Baljinder Murrell Eosinophils/100 WBC (Bld) 0.3 % Critically low 0.9-7.0 [facility] Comment on above: Performed By: #### C BC #### [facility] [address] [place] [address] Dr. Baljinder Murrell Erythrocyte distribution width (RBC) [Ratio] 12.8 % Normal 11.0-15.0 [facility] Comment on above: Performed By: #### C BC #### [facility] [address] [place] [address] Dr. Baljinder Murrell Hematocrit (Bld) [Volume fraction] 33.4 % Critically low 36.0-48.0 [facility] Comment on above: Performed By: #### C BC #### [facility] [address] [place] [address] Dr. Baljinder Murrell Hemoglobin (Bld) [Mass/Vol] 11.4 g/dL Critically low 12.0-16.0 [facility] Comment on above: Performed By: #### C BC #### [facility] [address] [place] [address] Dr. Baljinder Murrell IG # 0.05 10e3/ul Critically high 0.00-0.03 [facility] Comment on above: Performed By: #### C BC #### [facility] [address] [place] [address] Dr. Baljinder Murrell IG % 0.5 % Normal 0.0-0.5 [facility] Comment on above: Performed By: #### C BC #### [facility] [address] [place] [address] Dr. Baljinder Murrell LYMPH # 1.7 103/ul Normal 1.2-3.8 [facility] Comment on above: Performed By: #### C BC #### [facility] [address] [place] [address] Dr. Baljinder Murrell Lymphocytes/100 WBC (Bld) 17.9 % Critically low 20.5-60.0 [facility] Comment on above: Performed By: #### C BC #### [facility] [address] [place] [address] Dr. Baljinder Murrell MANUAL DIFF REQ NO Normal [facility] Comment on above: Performed By: #### C BC #### [facility] [address] [place] [address] Dr. Baljinder Murrell MCH (RBC) [Entitic mass] 31.2 pg Normal 26.7-34.0 [facility] Comment on above: Performed By: #### C BC #### [facility] [address] [place], [place] [id number] Dr. Baljinder Murrell MCHC (RBC) [Mass/Vol] 34.1 g/dL Normal 29.9-35.2 [facility] Comment on above: Performed By: #### C BC #### [facility] [address] [place] [address] Dr. Baljinder Murrell MCV (RBC) [Entitic vol] 91.5 fL Normal 81.0-99.0 [facility] Comment on above: Performed By: #### C BC #### [facility] [address] [place] [address] Dr. Baljinder Murrell MONO # 0.4 103/ul Normal 0.3-0.8 [facility] Comment on above: Performed By: #### C BC #### [facility] [address] [place] [address] Dr. Baljinder Murrell Monocytes/100 WBC (Bld) 4.1 % Normal 1.7-12.0 [facility] Comment on above: Performed By: #### C BC #### [facility] [address] [place] [address] Dr. Baljinder Murrell NEUT # 7.2 103/ul Critically high 1.4-6.5 [facility] Comment on above: Performed By: #### C BC #### [facility] [address] [place] [address] Dr. Baljinder Murrell Neutrophils/100 WBC (Bld) 77.0 % Critically high 43.0-75.0 [facility] Comment on above: Performed By: #### C BC #### [facility] [address] [place] [address] Dr. Baljinder Murrell Platelet mean volume (Bld) [Entitic vol] 8.2 fL Critically low 9.5-13.5 [facility] Comment on above: Performed By: #### C BC #### [facility] [address] [place] [address] Dr. Baljinder Murrell PLT 232 103/ul Normal 150-450 [facility] Comment on above: Performed By: #### C BC #### [facility] [address] [place] [address] Dr. Baljinder Murrell RBC 3.65 106/ul Critically low 4.20-5.40 [facility] Comment on above: Performed By: #### C BC #### [facility] [address] [address] [address] Baljinder Murrell WBC 9.3 103/ul Normal 4.0-11.0 [facility] Comment on above: Performed By: #### C BC #### [facility] [address] [address] [address] Baljinder Murrell GLUCOSE - 1HRon 09-21-2022 Glucose [Mass/Vol] 158 mg/dL Critically high 74-106 [facility] Comment on above: Performed By: #### G LU1HR #### [facility] [address] [address] [address] Baljinder Murrell US PREG ANATOMY SINGLEon [...] ZEUS BRANNON Date: 2022-08-15 06:49 Normal [facility] HEPATITIS C VIRUS AB W/ REFL EX QUANTon 06-11-2022 HCV AB <0.1 Normal 0.0-0.9 [facility] Comment on above: Performed By: #### H IV12 #### [facility] [address] [address] [address] Baljinder Murrell Interpretation: Comment Normal [facility] Comment on above: Result Comment: Nega tive Not infected with HCV, unless recent infection is suspected or other evidence exists to indicate HCV infection. Performed By: #### H IV12 #### [facility] [address] [address] [address] Baljinder Murrell HEP B SURFACE ANTIGEN SCREEN on 06-09-2022 HBsAg Screen Negative Normal Negative [facility] Comment on above: Performed By: #### D RUGRPD #### [facility] [address] [address] [address] Baljinder Murrell HIV 1 AND 2 WITH REFLEXon HIV Screen 4th Generation wRfx Non-Reactive Normal Non Reactive [facility] Comment on above: Result Comment: HIV Negative HIV-1/HIV-2 antibodies and HIV-1 p24 antigen were NOT detected. There is no laboratory evidence of HIV infection. Performed By: #### H IV12 #### [facility] [address] [address] [address] Baljinder Murrell RPR QUANTon 06-09-2022 Rapid Plasma Reagin, Quant Non-Reactive Normal NonRea<1:1 [facility] Comment on above: Result Comment: Plea Note: This test does not meet current guidelines for screening and diagnosis of syphilis. This test is intended for following treatment response in patients being treated for syphilis infection. To screen for syphilis infection, a reflex cascade that includes both RPR and a treponema-specific assay should be utilized, such as Treponema pallidum (Syphilis) Screening Sparks (344656) or Rapid Plasma Reagin (RPR) Test With Reflex to Quantitative RPR and Confirmatory Treponema pallidum Antibodies (565698). Performed By: #### D RUGRPD #### [facility] [address] [place] [address] Dr. Baljinder Murrell RUBELLA AB IGGon 06-09-2022 Rubella Antibodies, IgG 17.20 index Normal Immune >0.99 [facility] Comment on above: Result Comment: Non- immune <0.90 Equivocal 0.90 - 0.99 Immune >0.99 Performed By: #### R UBIGG #### [facility] [address] [place] [address] Dr. Baljinder Murrell CBC AUTO DIFFon 06-07-2022 BASO # 0.0 103/ul Normal 0.0-0.1 [facility] Comment on above: Performed By: #### C BC #### [facility] [address] [place] [address] Dr. Baljinder Murrell Basophils/100 WBC (Bld) 0.2 % Normal 0.2-2.0 [facility] Comment on above: Performed By: #### C BC #### [facility] [address] [place] [address] Dr. Baljinder Murrell EO # 0.1 103/ul Normal 0.0-0.7 [facility] Comment on above: Performed By: #### C BC #### [facility] [address] [place] [address] Dr. Baljinder Murrell Eosinophils/100 WBC (Bld) 0.6 % Critically low 0.9-7.0 [facility] Comment on above: Performed By: #### C BC #### [facility] [address] [place] [address] Dr. Baljinder Murrell Erythrocyte distribution width (RBC) [Ratio] 12.2 % Normal 11.0-15.0 [facility] Comment on above: Performed By: #### C BC #### [facility] [address] [place] [address] Dr. Baljinder Murrell Hematocrit (Bld) [Volume fraction] 37.1 % Normal 36.0-48.0 [facility] Comment on above: Performed By: #### C BC #### [facility] [address] [place] [address] Dr. Baljinder Murrell Hemoglobin (Bld) [Mass/Vol] 12.6 g/dL Normal 12.0-16.0 [facility] Comment on above: Performed By: #### C BC #### [facility] [address] [place] [address] Dr. Baljinder Murrell IG # 0.03 10e3/ul Normal 0.00-0.03 [facility] Comment on above: Performed By: #### C BC #### [facility] [address] [place] [address] Dr. Baljinder Murrell IG % 0.3 % Normal 0.0-0.5 [facility] Comment on above: Performed By: #### C BC #### [facility] [address] [place] [address] Dr. Baljinder Murrell LYMPH # 2.3 103/ul Normal 1.2-3.8 [facility] Comment on above: Performed By: #### C BC #### [facility] [address] [place] [address] Dr. Baljinder Murrell Lymphocytes/100 WBC (Bld) 26.0 % Normal 20.5-60.0 [facility] Comment on above: Performed By: #### C BC #### [facility] [address] [place] [address] Dr. Baljinder Murrell MANUAL DIFF REQ NO Normal [facility] Comment on above: Performed By: #### C BC #### [facility] [address] [place] [address] Dr. Baljinder Murrell MCH (RBC) [Entitic mass] 30.4 pg Normal 26.7-34.0 [facility] Comment on above: Performed By: #### C BC #### [facility] [address] [place] [address] Dr. Baljinder Murrell MCHC (RBC) [Mass/Vol] 34.0 g/dL Normal 29.9-35.2 [facility] Comment on above: Performed By: #### C BC #### [facility] [address] [id number] [address] Baljinder Murrell MCV (RBC) [Entitic vol] 89.6 fL Normal 81.0-99.0 [facility] Comment on above: Performed By: #### C BC #### [facility] [address] [id number] [address] Baljinder Murrell MONO # 0.4 103/ul Normal 0.3-0.8 [facility] Comment on above: Performed By: #### C BC #### [facility] [address] [address] [address] Baljinder Murrell Monocytes/100 WBC (Bld) 4.6 % Normal 1.7-12.0 [facility] Comment on above: Performed By: #### C BC #### [facility] [address] [place] [address] Dr. Baljinder Murrell NEUT # 6.1 103/ul Normal 1.4-6.5 [facility] Comment on above: Performed By: #### C BC #### [facility] [address] [place] [address] Dr. Baljinder Murrell Neutrophils/100 WBC (Bld) 68.3 % Normal 43.0-75.0 [facility] Comment on above: Performed By: #### C BC #### [facility] [address] [place] [address] Dr. Baljinder Murrell Platelet mean volume (Bld) [Entitic vol] 8.5 fL Critically low 9.5-13.5 [facility] Comment on above: Performed By: #### C BC #### [facility] [address] [place] [address] Dr. Baljinder Murrell PLT 260 103/ul Normal 150-450 [facility] Comment on above: Performed By: #### C BC #### [facility] [address] [place], [place] [id number] Dr. Baljinder Murrell RBC 4.14 106/ul Critically low 4.20-5.40 [facility] Comment on above: Performed By: #### C BC #### [facility] [address] [place] [address] Dr. Baljinder Murrell WBC 8.9 103/ul Normal 4.0-11.0 [facility] Comment on above: Performed By: #### C BC #### [facility] [address] [place] [address] Dr. Baljinder Murrell CULTURE URINEon 06-07-2022 CULTURE URINE Culture Observations : LIGHT GROWTH OF MIXED GENITAL RAYSHAWN. NO POTENTIAL PATHOGENS SEEN. Normal [facility] Comment on above: Performed By: #### U RCX #### [facility] [address] [place] [address] Dr. Baljinder Murrell GLYCOHEMOGLOBIN A1Con 2021 ADA RECOMMENDATION SEE BELOW Normal [facility] Comment on above: Result Comment: ADA RECOMMENDED LIMIT 4.0 - 6.0 ADA THERAPEUTIC TARGET < 7.0 ACTION SUGGESTED > 7.0 Performed By: #### D RUGRPD #### [facility] [address] [place] [address] Dr. Baljinder Murrell Glucose [Mass/Vol] 105 mg/dL Normal [facility] Comment on above: Performed By: #### D RUGRPD #### [facility] [address] [place] [address] Dr. Baljinder Murrell HbA1c (Bld) [Mass fraction] 5.3 % Normal 4.5-6.2 [facility] Comment on above: Performed By: #### D RUGRPD #### [facility] [address] [place] [address] Dr. Baljinder Murrell CRISTINA BOX TEST PT SEND OUTo n 06-07-2022 SENT TO REF LAB 06/07/2022 Normal [facility] Comment on above: Performed By: #### D RUGRPD #### [facility] [address] [place] [address] Dr. Baljinder Murrell TYPE AND SCREENon 06-07-2022 TYPE AND SCREEN Negative Normal [facility] Comment on above: Performed By: #### T NS #### [facility] [address] [place] [address] Dr. Baljinder Murrell US PREG TVon 05-21-2022 [...] by: ZEUS BRANNON Date: 2022-05-21 16:59 Normal [facility] Vital Signs Date Time Vital Sign Value Performing Clinician Kayli petit 05-23-2025 16:37-0400 Body mass index (BMI) [Ratio] 21.58 kg/m2 HESKA Work Phone: [facility] 05-23-2025 16:37-0400 Body weight 62.51 kg Freddy [employer] Work Phone: [facility] 05-23-2025 16:37-0400 Diastolic blood pressure 80 mm[Hg] Freddy [employer] Work Phone: [facility] 05-23-2025 16:37-0400 Systolic blood pressure 102 mm[Hg] Freddy [employer] Work Phone: [facility] 04-21-2025 13:33-0400 Body mass index (BMI) [Ratio] 20.99 kg/m2 Lucia [facility] 04-21-2025 13:33-0400 Body weight 60.78 kg Lucia [facility] 04-21-2025 13:33-0400 Diastolic blood pressure 78 mm[Hg] Lucia [facility] 04-21-2025 13:33-0400 Systolic blood pressure 118 mm[Hg] [facility] 08-25-2024 15:52-0500 Body mass index (BMI) [Ratio] 22.55 kg/m2 Neisha ACKERMAN Work Phone: [facility] 08-25-2024 15:52-0500 Body weight 65.32 kg Neisha ACKERMAN Work Phone: [facility] Encounters Encounter Date Encounter Type Care Provider Facility Start: 06-20-2025 End: 06-20-2025 ambulatory Lydia Whyte Facility:[facility] Start: 05-23-2025 End: 05-23-2025 flow sheet Freddy Lucia DO Work Phone: [facility] Comment on above: 13 weeks gestation o f ([facility]); Second trimester ([facility]) Start: 05-23-2025 End: 05-23-2025 ambulatory FREDDY LUCIA Not Available Start: 05-23-2025 End: 05-23-2025 Bamboo flowsheet Freddy Lucia DO Work Phone: [facility] Start: 05-23-2025 End: 05-23-2025 Bamboo flowsheet Freddy Lucia DO Work Phone: [facility] Start: 05-13-2025 End: 05-13-2025 Clinisync Result Encounter Freddy Lucia DO Work Phone: [facility] Department Unsolicited Start: 05-13-2025 End: 05-13-2025 Clinisync Result Encounter Freddy Lucia DO Work Phone: [facility] Unsolicited Start: 04-21-2025 End: 04-21-2025 Office outpatient visit 5 minutes Lucia [facility] Comment on above: GA: 8w4d Start: 04-21-2025 End: 04-21-2025 ambulatory BEE TRAN Not Available Start: 03-31-2025 End: 03-31-2025 Bamangel flowsjerel Tran MD Work Phone: [facility] Start: 03-31-2025 End: 03-31-2025 Bambobritni flowsjerel Tran MD Work Phone: [facility] Start: 03-31-2025 End: 03-31-2025 ambulatory BEE A PETITTI Not Available Start: 03-31-2025 End: 03-31-2025 Office outpatient visit 25 minutes Bee Tran MD Work Phone: [facility] Comment on above: Acne vulgaris (Prima ry Dx) Start: 01-21-2025 End: 01-21-2025 ambulatory Lydia Whyte Facility:[facility] Start: 01-21-2025 End: 01-21-2025 Patient encounter procedure Lydia Whyte [facility] Start: 09-20-2024 End: 09-20-2024 ambulatory BEE PETITTI Not Available Start: 08-25-2024 End: 08-25-2024 Office outpatient visit 15 minutes Neisha ACKERMAN Work Phone: [facility] Comment on above: Abnormal uterine ble eding (AUB); Right sided abdominal pain; Pelvic pain in female; Acne, unspecified acne type Start: 08-25-2024 End: 08-25-2024 ambulatory NEISHA LAMB Not Available Start: 08-25-2024 End: 08-25-2024 Bamboo flowsheet Neisha ACKERMAN Work Phone: [facility] Start: 08-25-2024 End: 08-25-2024 Bamboo flowsheet Neisha ACKERMAN Work Phone: [facility] Start: 07-05-2024 End: 07-05-2024 ambulatory BEE A PETITTI Not Available Start: 07-05-2024 End: 07-05-2024 Office outpatient visit 25 minutes Bee Tran MD Work Phone: [facility] Comment on above: Acne vulgaris (Prima ry Dx) Start: 07-05-2024 End: 07-05-2024 Bamboo flowsheet Bee Tran MD Work Phone: [facility] Start: 07-05-2024 End: 07-05-2024 Bamboo flowsheet Bee Tran MD Work Phone: [facility] Start: 01-08-2023 End: 01-16-[address] FREDDY MYERS . Facility:[facility] Start: 12-31-2022 End: 12-31-2022 ambulatory [...] Start: 10-07-2022 End: 10-08-2022 ambulatory REGINA WRIGHT Facility:[facility] Start: 10-03-2022 End: 10-04-2022 ambulatory REGINA WRIGHT Facility:[facility] Start: 09-28-2022 End: 09-29-2022 ambulatory REGINA WRIGHT Facility:[facility] Start: 09-21-2022 End: 09-22-2022 ambulatory REGINA WRIGHT Facility:[facility] Start: 08-14-2022 End: 08-15-2022 ambulatory REGINA WRIGHT Facility:[facility] Start: 06-07-2022 End: 06-08-2022 ambulatory REGINA WRIGHT Facility:[facility] Start: 05-24-2022 End: 05-25-[address] FREDDY MYERS . Facility:[facility] Start: 05-21-2022 End: 05-22-[address] FREDDY MYERS . Facility: Procedures Date Procedure Procedure Detail Performing Clinician Start: 05-23-2025 Urnls dip stick/tabl et rgnt non-auto w/o micrscp Freddy Lucia DO Work Phone: Start: 05-13-2025 BOX TEST Generic Ex ternal Data Provider Start: 04-21-2025 End: 04-21-2025 Urnls dip stick/tablet rgnt non-auto w/o micrscp Freddy Lucia DO Work Phone: Start: 08-25-2024 End: 08-25-2024 [...] End: 06-22-2025 Patient encounter procedure [facility] AND[facility] Start: 05-23-2025 End: 05-23-2025 Patient encounter procedure [facility] Chel[facility] Comment on above: Arrived Start: 05-09-2025 Influenza vaccination Influenza Vacc ine (#1) [facility] Start: 04-21-2025 End: 04-21-2026 ABO/Rh ABO/Rh Lab Routine Missed menses , unspecified gestational age ([facility]) Expected: 04/21/2025 (Approximate), Expires: 04/21/2026 [facility] Comment on above: Expected: 04/21/2025 (Approximate), Expires: 04/21/2026 Start: 04-21-2025 End: 04-21-2026 Blood type and Indirect antibody screen panel - Blood Type and screen Lab Routine Missed menses , unspecified gestational age ([facility]) Expected: 04/21/2025 (Approximate), Expires: 04/21/2026 [facility] Comment on above: Expected: 04/21/2025 (Approximate), Expires: 04/21/2026 Start: 04-21-2025 End: 04-21-2026 Drugs of abuse panel - Urine by Screen method Rapid drug screen, urine Lab Routine , unspecified gestational age ([facility]) Encounter for supervision of normal first in first trimester ([facility]) Expected: 04/21/2025 (Approximate), Expires: 04/21/2026 [facility] Comment on above: Expected: 04/21/2025 (Approximate), Expires: 04/21/2026 Start: 04-21-2025 End: 04-21-2025 ambulatory 04/21/2025 1:00 PM EDT Initial [facility] [address] [place] [id number] [facility] Start: 04-21-2025 End: 04-21-2025 Professional / ancillary services management 04/21/2025 12:30 PM EDT Ancillary Procedure [facility] [address] [place] [address] [facility] Start: 04-13-2025 End: 07-14-2025 US Pelvis transvaginal US OB transvaginal Imaging Routine Missed menses Positive urine test ([facility]) Expected: 04/13/2025, Expires: 07/14/2025 [facility] Work Phone: Comment on above: Expected: 04/13/2025 , Expires: 07/14/2025 Start: 03-31-2025 End: 03-31-2025 Patient encounter procedure 03/31/2025 8:45 AM EDT Office Visit [facility] [address] [place] [address] Bee Tran MD [address] [place], [place] [id number] [facility] Start: 09-20-2024 End: 09-20-2024 Professional / ancillary services management 09/20/2024 3:00 PM EST Ancillary Procedure [facility] [address] [place] [id number] [facility] Start: 09-14-2024 End: 09-14-2024 Patient encounter procedure 09/14/2024 4:00 PM EST Office Visit [facility] [address] [place] [address] Bee Tran MD [address] [place] [address] [facility] Start: 08-25-2024 End: 08-25-2024 Patient encounter procedure 08/25/2024 3:30 PM EST Office Visit [facility] [address] [place] [address] Neisha Lamb PA [address] [place] [address] Arrived [facility] Comment on above: Arrived Start: 08-25-2024 End: 08-25-2025 US for US PELVIS-TRANSVAG IF INDICATED Imaging Routine Pelvic pain in female Expected: 08/25/2024 (Approximate), Expires: 08/25/2025 [facility] Work Phone: Comment on above: Expected: 08/25/2024 (Approximate), Expires: 08/25/2025 Start: 05-09-2024 Influenza vaccination Influenza Vacc ine (#1) [facility] Bacteria identified in Urine by Culture Urine culture Microbiology Routine Missed menses Ordered: 04/21/2025 [facility] Comment on above: Ordered: 04/21/2025 CBC W Auto Different ial panel - Blood CBC and differential Lab Routine Missed menses , unspecified gestational age ([facility]) Ordered: 04/21/2025 [facility] Comment on above: Ordered: 04/21/2025 Hemoglobin A1c/Hemoglobin.total in Blood Hemoglobin A1c Lab Routine Missed menses , unspecified gestational age ([facility]) Ordered: 04/21/2025 [facility] Comment on above: Ordered: 04/21/2025 Hepatitis B virus surface Ag [Presence] in Serum or Plasma by Immunoassay Hepatitis B surface antigen Lab Routine Missed menses , unspecified gestational age ([facility]) Ordered: 04/21/2025 [facility] Comment on above: Ordered: 04/21/2025 Hepatitis C virus Ab [Presence] in Serum or Plasma by Immunoassay Hepatitis C antibody Lab Routine Missed menses , unspecified gestational age ([facility]) Ordered: 04/21/2025 [facility] Comment on above: Ordered: 04/21/2025 HIV-1/HIV-2 antigen/antibody combination immunoassay HIV-1 and HIV-2 antibodies Lab Routine Missed menses , unspecified gestational age ([facility]) Ordered: 04/21/2025 [facility] Comment on above: Ordered: 04/21/2025 Reagin Ab [Presence] in Serum by RPR RPR Lab Routine Missed menses , unspecified gestational age ([facility]) Ordered: 04/21/2025 [facility] Comment on above: Ordered: 04/21/2025 Rubella antibody, IgG Rubella an tibody, IgG Lab Routine Missed menses , unspecified gestational age ([facility]) Ordered: 04/21/2025 [facility] Comment on above: Ordered: 04/21/2025 US Pelvis transvaginal US OB tra nsvaginal Imaging Routine Missed menses Positive urine test ([facility]) 04/21/2025 1:11 PM EDT [facility] Immunizations Immunization Date Immunization Notes Care Provider Mireya salvador 07-02-2000 pneumococcal conjuga te vaccine, 13 valent Lydia Isabell [facility] 09-28-1998 haemophilus influenz ae type b vaccine, HbOC conjugate Lydia Isabell [facility] 09-28-1998 measles, mumps and rubella virus vaccine Lydia Isabell [facility] 06-27-1998 varicella virus vaccine Lydia Isabell [facility] 1997 diphtheria, tetanus toxoids and acellular pertussis vaccine Lydia Isabell [facility] 1997 hepatitis B vaccine, adult dosage Lydia Isabell [facility] 1997 diphtheria, tetanus toxoids and acellular pertussis vaccine Lydia Isabell [facility] 1997 diphtheria, tetanus toxoids and acellular pertussis vaccine Lydia Isabell [facility] 1997 hepatitis B vaccine, adult dosage Lydia Isabell [facility] NEGATED: Highlighted row has not occurred!08-11-2019 influenza virus vaccine, unspecified formulation Lydia Whyte [facility] Payers Date Payer Category Payer Unknown [id number] 2021 Private Health Insurance [id number] 1997 Unknown [id number] 2.16.84 0.1.018320.3.579.2.593 1997 Unknown [id number] 2.16.84 0.1.165440.3.579.2.593 1997 Unknown [id number] 2.16.84 0.1.671261.3.579.2.593 1997 Unknown [id number] 2.16.84 0.1.314217.3.579.2.593 1997 Unknown [id number] 2.16.84 0.1.281477.3.579.2.593 1997 Unknown [id number] 2.16.84 0.1.145379.3.579.2.593 1997 Unknown [id number] 2.16.84 0.1.691034.3.579.2.593 1997 Unknown [id number] 2.16.84 0.1.180888.3.579.2.593 1997 Unknown [id number] 2.16.84 0.1.897324.3.579.2.593 1997 Unknown [id number] 2.16.84 0.1.607034.3.579.2.593 1997 Unknown [id number] 2.16.84 0.1.286165.3.579.2.593 1997 Unknown [id number] 2.16.84 0.1.760895.3.579.2.593 1997 Unknown [id number] 2.16.84 0.1.347238.3.579.2.593 1997 Unknown [id number] 2.16.84 0.1.303982.3.579.2.593 1997 Unknown [id number] 2.16.84 0.1.642681.3.579.2.593 1997 Unknown [id number] 2.16.84 0.1.970488.3.579.2.593 1997 Unknown [id number] 2.16.84 0.1.001445.3.579.2.593 1997 Unknown [id number] 2.16.84 0.1.687919.3.579.2.593 1997 Unknown [id number] 2.16.84 0.1.075312.3.579.2.593 1997 Unknown [id number] 2.16.84 0.1.039792.3.579.2.593 1997 Unknown [id number] 2.16.84 0.1.356711.3.579.2.593 1997 Unknown [id number] 2.16.84 0.1.895234.3.579.2.593 1997 Unknown [id number] 2.16.84 0.1.184095.3.579.2.593 1997 Unknown [id number] 2.16.84 0.1.508085.3.579.2.593 1997 Unknown [id number] 2.16.84 0.1.919162.3.579.2.593 1997 Unknown [id number] 2.16.84 0.1.985201.3.579.2.593 1997 Unknown [id number] 2.16.84 0.1.629997.3.579.2.593 1997 Unknown [id number] 2.16.84 0.1.696442.3.579.2.593 1997 Unknown [id number] 2.16.84 0.1.870861.3.579.2.593 1997 Unknown [id number] 2.16.8 40.1.293002.3.579.2.1259 1997 Unknown [id number] 2.16.8 40.1.260463.3.579.2.1259 1997 Unknown [id number] 2.16.8 40.1.821670.3.579.2.1259 1997 Unknown [id number] 2.16.8 40.1.131221.3.579.2.1259 1997 Unknown [id number] 2.16.84 0.1.906349.3.579.2.1259 1997 Unknown [id number] 2.16.84 0.1.217565.3.579.2.1259 1997 Unknown [id number] 2.16.84 0.1.282571.3.579.2.1259 1997 Unknown [id number] 2.16.8 40.1.375630.3.579.2.727 1997 Unknown [id number] 2.16.8 40.1.775697.3.579.2.727 1959 Self-pay 1959 Unknown [id number] Unknown [id number] 2.16.84 0.1.039583.3.579.2.593 Unknown [id number] 2.16.84 0.1.546105.3.579.2.593 Social History Date Type Detail Facility Start: 12-22-2019 End: 04-03-2023 Tobacco smoking status [facility] Never smoked tobacco [facility] Work Phone: Start: 04-03-2023 Tobacco use and exposure Smoke less tobacco non-user [facility] Start: 03-30-2024 End: 04-21-2025 Alcoholic beverage intake Lifetime non-drinker (finding) [facility] Start: 03-30-2024 End: 03-31-2025 History of Social function [facility] Start: 03-30-2024 End: 03-31-2025 Tobacco use panel [facility] Start: 1995 Sex assigned at Female [facility] Start: 02-09-2023 Gender identity Identifies as female gender (finding) [facility] Tobacco smoking status Never [facility] Sexual Orientation [facility] Start: 11-27-2018 Sex Female (finding) [facility] Start: 03-06-2025 [facility] Clinical Notes 07-05-2024 to 05-23-2025 Lily Raymond LPN - 05/23/2025 3:40 PM EDLenin Espino MA - 04/21/2025 1:00 PM Girish Tran MD - 03/31/2025 8:45 AM TYRON Salvador - 08/25/2024 3:30 PM EST Note Date & Type Note Facility 05-23-2025 History of Present illness Narrative Reason for Appointment: Patient ID: Leroy Baker is a 29 y.o. female who presents for Routine Visit Patient presents today for Return OB appointment. MEDICATIONS Current Outpatient Medications Medication Instructions benzoyl peroxide 5 % external wash Apply to affected areas, then rinse daily, 30 day supply clindamycin (Cleocin T) 1 % lotion Apply thin later to affected areas on the body, once daily, 30 day supply ALLERGIES No Known Allergies PROBLEMS Active Ambulatory Problems Diagnosis Date Noted Gestational diabetes mellitus (GDM) affecting ([facility]) 04/13/2025 H/O gestational diabetes in prior , currently ([facility]) 04/21/2025 Resolved Ambulatory Problems Diagnosis Date Noted [...] Exam Constitutional: Appearance: Normal appearance. She is well-developed. Cardiovascular: Rate and Rhythm: Normal rate and regular rhythm. Pulmonary: Effort: Pulmonary effort is normal. Breath sounds: Normal breath sounds. Abdominal: General: Bowel sounds are normal. There is no distension. Palpations: Abdomen is soft. Tenderness: There is no abdominal tenderness. There is no guarding or rebound. Musculoskeletal: General: No swelling. Normal range of motion. Right lower leg: No edema. Left lower leg: No edema. Neurological: Mental Status: She is alert and oriented to person, place, and time. Skin: General: Skin is warm and dry. Psychiatric: Mood and Affect: Mood normal. Behavior: Behavior normal. Vitals and nursing note reviewed. Exam conducted with a coach mechanic present. Vitals: Estimated body mass index is 21.58 kg/m as calculated from the following: Height as of 02/10/23: 5' 7 . Weight as of this encounter: 137 lb 12.8 oz. BP: Patient's last menstrual period was 02/20/2025. ASSESSMENT & PLAN ICD-10-CM 1. 13 weeks gestation of ([facility]) Z3A.13 POCT urinalysis dipstick manually resulted 2. Second trimester ([facility]) Z34.92 POCT urinalysis dipstick manually resulted New OB: Patient presents today for 1st time obstetrics appointment with provider. Patient is currently 13w1d . Patients history has been reviewed in great detail including any potential risks. Patient stated she currently has no complaints. Expectations throughout regarding labs, ultrasounds, and appointments have been discussed with the patient in detail. It was reiterated that the patient is to drink 6-8 glasses of water a day, eat 6 small meals a day, do not consume raw or undercooked meat, and stay away from sushi. Patient has been consulted regarding any further do's and don'ts of . Patient voiced understanding and all questions and concerns were answered. Discussed with patient and spouse Rh detected on [facility]ctor Screening. Patient and spouse given gender in envelope to also check online if they desire. Orders Placed This Encounter Procedures POCT urinalysis dipstick manually resulted Follow Up: Patient is to return in 4 weeks for routine OB appointment. Documented by Lily Raymond LPN on behalf of: Freddy Myers DO documented in this encounter [facility] 04-21-2025 History of Present illness Narrative Reason [...] Date Noted Gestational diabetes mellitus (GDM) affecting ([facility]) 04/13/2025 H/O gestational diabetes in prior , currently ([facility]) 04/21/2025 Resolved Ambulatory Problems Diagnosis Date Noted [...] urinalysis dipstick manually resulted Positive urine test ([facility]) - OB transvaginal; Future Amenorrhea 8 weeks gestation of ([facility]) , unspecified gestational age ([facility]) - Type and screen; Future - ABO/Rh; Future - CBC and differential - Hemoglobin A1c - RPR - Rubella antibody, IgG - Hepatitis B surface antigen - Hepatitis C antibody - HIV-1 and HIV-2 antibodies - Rapid drug screen, urine; Future Encounter for supervision of normal first in first trimester ([facility]) - Rapid drug screen, urine; Future H/O gestational diabetes in prior , currently ([facility]) Nurse Note: Pt desires [employer] to one. Pt was advised to make sure she takes both the Exerscrip and labs together at [facility]. Pt has a h/o GDM w/G1 [...] or undercooked meat, and stay away from [facility]. Patient has also been advised to [...] Peace Espino MA documented in this encounter [facility] 03-31-2025 History of Present illness Narrative Images from the original note were not included. Follow up Diagnosis: Acne Location: face, back Last visit: 10 months ago Symptoms: pimples Status: stable, breakouts on her back every now and then Treatments tried and failed: Azelaic acid 20% gel, Clindamycin Phosphate 0.1% lotion, Benzaclin (Clindamycin/BPO) 1%/5% gel, Insurance denied [facility]. Current treatment: Tretinoin 0.025% cream Ceftin 250 [...] Visit: 1 year documented in this encounter [facility] 08-25-2024 History of Present illness Narrative Reason [...] of: TYRON Kathleen documented in this encounter [facility] 07-05-2024 History of Present illness Narrative Images [...] cream every day Insurance denied coverage of Winlevi All pertinent medical history, medications, and allergies [...] Visit: 2 months documented in this encounter [facility] Evaluation + Plan note No data available for this section [facility] Evaluation note Diagnosis Acne vulgaris- Primary Other acne documented in this encounter [facility] HealthcareEvaluation note* Diagnosis Abnormal uterine bleeding (AUB) Right sided abdominal pain Abdominal pain, unspecified site Pelvic pain in female Unspecified symptom associated with female genital organs Acne, unspecified acne type documented in this encounter [facility] Healthcare[facility] note* Diagnosis Acne vulgaris- Primary Other acne documented in this encounter [facility] Healthcare[facility] note* Diagnosis Missed menses Positive urine test ([facility]) Amenorrhea Absence of menstruation 8 weeks gestation of ([facility]) , unspecified gestational age ([facility]) Encounter for supervision of normal first in first trimester ([facility]) H/O gestational diabetes in prior , currently ([facility]) documented in this encounter [facility]* Diagnosis 13 weeks gestation of ([facility]) Second trimester ([facility]) state, incidental documented in this encounter [facility] Discharge instructions No data available for this section [facility] Progress note No data available for this section [facility] Summary Purpose Family History No Family [...] pital DATE CREATED AUTHOR AUTHOR'S ORGANIZ ATION 05/24/2025 [facility] EPIC DATE CREATED AUTHOR AUTHOR'S ORGANIZ ATION 06/21/2025 [facility] DATE CREATED AUTHOR AUTHOR'S ORGANIZ ATION 06/22/2025 [facility] Care Teams (unrecognized sec tion and content) Tunnel Inspector Relationship Specialty Start Date End Date Regina Wright PA [address] [place] [address] PCP - General Family Medicine 02/10/23 Tunnel Inspector Relationship Specialty Start Date End Date Regina Wright PA [address] [place] [address] PCP - General Family Medicine 02/10/23 Tunnel Inspector Relationship Specialty Start Date End Date Regina Wright PA [address] [place] [address] PCP - General Family Medicine 02/10/23 Tunnel Inspector Relationship Specialty Start Date End Date Regina Wright PA [address] [place] [address] PCP - General Family Medicine 02/10/23 Tunnel Inspector Relationship Specialty Start Date End Date Regina Wright PA [address] [place] [address] PCP - General Family Medicine 02/10/23 Tunnel Inspector Relationship Specialty Start Date End Date Regina Wright PA [address] [place] [address] PCP - General Family Medicine 02/10/23 Tunnel Inspector Relationship Specialty Start Date End Date Regina Wright PA [address] [place] [address] PCP - General Family Medicine 02/10/23 Reason for Visit (unrecogniz ed section and content) Reason Comments Follow-up Reason Comments Vaginal Bleeding Pt present today for spotting/bleeding after intercourse and right side ovary pain. Pt has been having this pain for 2 months now. Reason Comments Amenorrhea Reason Comments Routine Visit FOR RECORDS PERTAINING TO PATIENTS WHO ARE [...] BE BASED ON THE PRIMARY CLINICAL RECORDS. [employer] provides no warranty or guarantee of the accuracy or completeness of information in this document.
[2025-06-28 16:09] LABS: Age Gdln ACOG Testing Note (.); IGP, rfx Aptima HPV ASCU Note (.)
== END 2025-06-22 18:53 | disposition home or self-care (01) ==
LOC: LAB 18:52
PROVIDERS: PCP Physician Assistant; Visit Provider Obstetrics & Gynecology
DX: Z01.419 Encounter for gynecological examination (general) (routine) without abnormal findings (principal)
CPT/HCPCS: 88175

== ENCOUNTER 2025-07-12 16:00 | Outpatient (OUT) | payer OTHER, SELFPAY ==
--- OUTSIDE RECORDS SUMMARY | 2025-07-12 16:03 | XMS_ITS | Clinical Summary ---
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 Phone Regina Samuels Primary Care Provider [phone] Allergies No known active allergies Medications MedicationSigDispense QuantityRefillsLast FilledStart DateEnd DateStatus benzoyl peroxide 5 % external wash Indications:Acne vulgarisApply to affected areas, then rinse daily, 30 day supply 227 g 1105Active clindamycin (Cleocin T) 1 % lotion Indications:Acne vulgarisApply thin later to affected areas on the body, once daily, 30 day supply 60 mL 1105Active Active Problems ProblemNoted DateDiagnosed DateH/O gestational diabetes in prior , currently ([facility])04/21/2025Gestational diabetes mellitus (GDM) affecting ([facility])04/13/2025Estimated Date of Delivery HpjoxvmqYlu51/22/2026ased on last menstrual period of 02/20/2025 Encounters DateTypeDepartmentCare XdujLlpamyzkapi86/29/2017Bauzaf34/27/2025Orders Only [facility] [place] [address] [place] [address] Peace Espino MA 06/22/2025 3:20 PM EDTRoutine [facility] [address] [place] [address] J Carlos Myers, Well woman exam with routine gynecological exam; Second trimester ([facility]); 17 weeks gestation of ([facility]); Exposure to STD; Need for maternal serum alpha-protein (MSAFP) screening ([facility]); Screening, , for anatomic survey ([facility]); Diabetes mellitus zkjgmutvc34/15/2025linisync Result Encounter [facility] External Department Unsolicited Provider, Generic External Data 06/22/2025External Result Encounter [facility] External Department Unsolicited J Carlos Myers, DO 06/22/2025amboo [place] [address] J Carlos Myers, DO 06/15/20255606Gkpuuj77/08/2025[place] [address] Peace Espino MA Error (VOID this visit)05/23/2025 3:40 [place] [address] J Carlos Myers, DO 13 weeks gestation of ([facility]); Second trimester ([facility])05/23/2025amboo flowsheet [facility] [address] [place] [address] J Carlos Myers, DO 05/16/20254890Llgbvb10/05/2025[place] [address] J Carlos Myers, DO 05/13/2025linisync Result Encounter [facility] External Department Unsolicited J Carlos Myers, DO 04/21/2025 1:00 [place] [address] GA: 8w4d04/21/2025 12:30 PM EDTAncillary [place] [address] Missed menses; Positive urine test ([facility])04/14/2025Travelfrom Last 3 Months Family History Medical HistoryRelationNameCommentsMental illnessFatherCancerMaternal GrandmotherNo Known ProblemsMotherMelanomaNeg HxRelationNameStatusComments DaughterDrewAliveFatherAliveMaternal GrandmotherMotherAlive Social History Tobacco UseTypesPacks/DayYears UsedDateSmoking Tobacco: NeverSmokeless Tobacco: Never Tobacco Cessation:Counseling Given: Not Answered Alcohol UseStandard Drinks/WeekCommentsNever0 (1 standard drink = 0.6 oz pure alcohol)Estimated Date of XrkjzbliDgmktzdlDgq55/22/2026ased on last menstrual period of 02/20/2025Sex and Gender InformationValueDate RecordedSex Assigned at GborkPljpyh28/04/2023 11:12 AM EDTLegal CtxGyzpyy15/15/2023 6:42 PM EDTGender GkwreoinMlnqji56/04/2023 11:12 AM EDTSexual OrientationNot on file Last Filed Vital Signs Vital SignReadingTime TakenCommentsBlood Eloakndt136/7606/22/2025 3:51 PM EDT Pulse--Temperature--Respiratory Rate--Oxygen Saturation--Inhaled Oxygen Concentration--Lfsauz56 kg (139 lb)06/22/2025 3:51 PM KDWLvepfo246.2 cm (5' 7 ) 02/10/2023 9:47 AM EDTBody Mass Index21.77002/10/2023 9:47 AM EDT Plan of Treatment DateTypeDepartmentCare Team (Latest Contact Info)Cebxgoxhwkl85/05/2025 3:10 PM ESTRoutine [facility] [address] [address] J Carlos Myers DO [address] [place] [address] Health MaintenanceDue DateLast DoneCommentsMMR Vaccines (1 of 1 - Standard series)1998DTaP/Tdap/Td Vaccines (1 - Tdap)2004Varicella Vaccines (1 of 2 - 13+ 2-dose series)2010Hepatitis B Vaccines (1 of 3 - 19+ 3-dose series)2016HPV Vaccines (1 - 3-dose SCDM series)4COVID-19 Vaccine ( - season)2025Influenza Vaccine (#1)2025HIB VaccinesAged OutNo longer eligible based on patient's age to complete this topicHepatitis A VaccinesAged OutNo longer eligible based on patient's age to complete this topic IPV VaccinesAged OutNo longer eligible based on patient's age to complete this topicMeningococcal B VaccineAged OutNo longer eligible based on patient's age to complete this topicMeningococcal VaccineAged OutNo longer eligible based on patient's age to complete this topicPneumococcal Vaccine: Pediatrics (0 to 5 Years) and At-Risk Patients (6 to 64 Years)Aged OutNo longer eligible based on patient's age to complete this topicRotavirus VaccinesAged OutNo longer eligible based on patient's age to complete this topic Procedures Procedure NamePriorityDate/TimeAssociated DiagnosisCommentsRECURRENT VAGINITIS (HTRX)Bsbcooz9806/22/2025 4:25 PM EDT POCT URINALYSIS MMRQHGOZQarjbsz27/15/2025 3:52 PM EDT Second trimester ([facility]) IGP,APTIMA HPV,AGE NWKPFlmxukg53/15/2025 3:37 PM EDT PAP TEST, FZLZAFAKSssusdu99/15/2025 12:00 AM EDTPOCT URINALYSIS DIPSTICKRoutine 05/23/2025 4:48 PM EDT 13 weeks gestation of ([facility]) Second trimester ([facility]) HBSAG ZQIWACZjeugcv90/05/2025 4:24 PM EDT RAPID PLASMA REAGIN, GCJJLYfcivfb52/05/2025 4:24 PM EDT HCV ANTIBODY RFX TO QUANT OEUHxvmnnz83/05/2025 4:24 PM EDT ALL RUBELLA IGG ZMJfrlrzy87/05/2025 4:24 PM EDT HIV AB/P24 AG WITH LEECOSZstbmyu79/05/2025 4:24 PM EDT ALL TYPE AND VZZXWTGjhbgfr98/05/2025 4:24 PM EDT MLR HEMOGLOBIN N9FDaxjipv15/05/2025 4:24 PM EDT ALL CBC WITH AUTO WYGWBxsdrcy05/05/2025 4:24 PM EDT BOX EUKJKeyzpkh59/05/2025 4:24 PM EDT URINE CULTURE, ZYVBVUVUxqcmlz72/05/2025 4:15 PM EDT TBH DRUG SCREEN RAPID (URINE)Uqxyhpj3905/13/2025 4:15 PM EDT POCT URINALYSIS LRAIQTTWSiijlwh16/14/2025 1:35 PM EDT Missed menses POCT , KQTMMRryjpqn41/14/2025 1:34 PM EDT Missed menses US OB GYOMVRASJXZMBukwepk11/14/2025 1:11 PM EDT Missed menses Positive urine test ([facility]) from Last 3 Months Results * RECURRENT VAGINITIS (HTRX) (06/22/2025 4:25 PM EDT)ComponentValueRef RangeTest MethodAnalysis TimePerformed AtPathologist SignatureATOPOBIUM KXCOCBH701.961 - 24.689 ppm06/24/2025 7:20 AM EDTHealthTrackRx at LabPortATOPOBIUM VAGINAENot Vjlhvlzu26.961 - 24.689 ppm06/24/2025 7:20 AM EDTHealthTrackRx at LabInd[facility] HospitalBVAB 2,3 (BACTERIAL VAGINOSIS ASSOCIATED BACTERIA 2, 3); MOBILUNCUS SXG036.961 - 24.689 ppm06/24/2025 7:20 AM EDTHealthTrackRx at LabInd[facility] HospitalBVAB 2,3 (BACTERIAL VAGINOSIS ASSOCIATED BACTERIA 2, 3); MOBILUNCUS SPPNot Zobwqmfq73.961 - 24.689 ppm06/24/2025 7:20 AM EDTHealthTrackRx at LabPortCANDIDA ALBICANS, PARAPSILOSIS, WDROKPRIRL176.000 - 30.347 ppm06/24/2025 7:20 AM EDT [facility] LabInd[facility] HospitalCANDIDA ALBICANS, PARAPSILOSIS, TROPICALISNot Detected 23.000 - 30.347 ppm06/24/2025 7:20 AM EDTHealthTrackRx at [facility] AEBVYIHU268.000 - 31.618 ppm06/24/2025 7:20 AM EDTHealth[facility] at [facility] NANCY GLABRATANot Jmpqvpdl09.000 - 31.618 ppm06/24/2025 7:20 AM EDT [facility] HospitalCANDIDA NKPSPC636.000 - 30.873 ppm06/24/2025 7:20 AM EDTHealthTrackRx at LabInd[facility] HospitalCANDIDA KRUSEINot Hytossnf30.000 - 30.873 ppm 06/24/2025 7:20 AM EDTHealthTrackRx at [facility] HospitalPortCHLAMYDIA SZGPGSNINTU477.000 - 31.586 ppm06/24/2025 7:20 AM EDTHealthTrackRx at [facility] HospitalCHLAMYDIA TRACHOMATIS Not Jtiiexqj18.000 - 31.586 ppm06/24/2025 7:20 AM EDTHealth[facility] at [facility] GARDNERELLA BTMSBCCZN749.961 - 24.689 ppm06/24/2025 7:20 AM EDTHealthTrackRx at [facility] HospitalGARDNERELLA VAGINALISNot Lzezzpsz94.961 - 24.689 ppm06/24/2025 7:20 AM EDTHealthTrackRx at [facility] HospitalMEGASPHAERA (TYPES 1, 2)019.961 - 24.689 ppm 06/24/2025 7:20 AM EDTHealthTrackRx at LabPortMEGASPHAERA (TYPES 1, 2)Not Wlkwwndm87.961 - 24.689 ppm06/24/2025 7:20 AM EDTHealthTrackRx at LabPort NEISSERIA YPVQMOSXKUO060.000 - 32.587 ppm06/24/2025 7:20 AM EDTHealthTrackRx at LabPortNEISSERIA GONORRHOEAENot Tezulwuq12.000 - 32.587 ppm06/24/2025 7:20 AM EDTHealthTrackRx at LabInd[facility] Star[facility] HospitalTRICHOMONAS SSYFOPYJL292.000 - 31.995 ppm 06/24/2025 7:20 AM EDTHealthTrackRx at LabInd[facility] Star[facility] HospitalTRICHOMONAS VAGINALISNot Ezlqdlfq60.000 - 31.995 ppm06/24/2025 7:20 AM EDTHealthTrackRx at LabPort MYCOPLASMA DEVMQCSEGZ938.961 - 24.689 ppm06/24/2025 7:20 AM EDTHealthTrackRx at LabPortMYCOPLASMA GENITALIUMNot Lfftvtva40.961 - 24.689 ppm06/24/2025 7:20 AM EDTHealthTrackRx at LabPortSpecimen (Source)Anatomical Location / LateralityCollection Method / VolumeCollection TimeReceived TimeTissue 06/22/2025 4:25 PM EDT1 2:19 AM EDT Narrative Authorizing ProviderResult TypeResult StatusCorey Lucia DOLAB BLOOD ORDERABLES Final ResultPerforming OrganizationAddressCity/State/ZIP CodePhone Number [facility]Port [address] [place] [phone] * POCT urinalysis dipstick manually resulted (06/22/2025 3:52 PM EDT) Only the most recent of3 resultswithin the time period is included. ComponentValueRef RangeTest MethodAnalysis TimePerformed AtPathologist Signature Color, UAYellowClarity, UAClearGlucose, UANegativeNegative - 2000(110) ++++ mg/dLBilirubin, UANegativeNegative - 4(70) +++ mg/dLKetones, UANegativeNegative - 160(16) ++++ mg/dLSpec Grav, UA1.0101 - 1.03Blood, UANegativeNegative - 50 Josh/mcLpH, UA6.05 - 9Protein, UANegativeNegative - 2000(20) ++++ mg/dL Urobilinogen, UA1.00.2 - 12 mg/dLLeukocytes, UANegativeNegative - 500+++ Елена/mcL Nitrite, UANegativeNegative - PositiveSpecimen (Source)Anatomical Location / LateralityCollection Method / VolumeCollection TimeReceived JsfcJvueh14/15/2025 3:52 PM EDT Narrative Authorizing ProviderResult TypeResult StatusCorey Lucia DOPOINT OF CARE TEST ENTER/EDIT ORDERABLESFinal Result * IGP,APTIMA HPV,AGE GDLN (06/22/2025 3:37 PM EDT)ComponentValueRef RangeTest MethodAnalysis TimePerformed AtPathologist SignatureAGE GDLN ACOG TESTINGNote. TBHComment: ?? TESTS ? RESULT ??FLAG ??UNITS ?REF RANGE ??LAB ?? Clinician Provided Cytology Information ?? Source.............Endocervix ?? No. of containers..01 ThinPrep Vial Age Algo ACOG Aleida... ??21-29 ? 01 ?FLAG LEGEND: ?L-Low Normal,H-High Normal,LL-Alert Low,HH-Alert High <-Panic Low,>-Panic High,A-Abnormal,AA-Critical Abnormal Performed at: 01 =G ?[facility] [address] ?? [address] [place] [place] ??[phone] ?? Fay Parson MD, IGP, RFX APTIMA HPV ASCUNote.TBHComment: ?? TESTS ? RESULT ??FLAG ??UNITS ?REF RANGE ??LAB DIAGNOSIS: ?02 ?? NEGATIVE FOR INTRAEPITHELIAL LESION OR MALIGNANCY. Specimen adequacy: ?02 ?? Satisfactory for evaluation. ??Endocervical and/or squamous metaplastic ?? cells (endocervical component) are present. Performed by: ? 02 ?? Lokesh Veras Industrial Controls Technician (ASC) . ? 02 Note: ? Note ?02 ?? The Pap smear is a screening test designed to aid in the ?? detection of premalignant and malignant conditions of the ?? uterine cervix. ??It is not a diagnostic procedure and ?? should not be used as the sole means of detecting cervical ?? cancer. ??Both false-positive and false-negative reports do ?? occur. Test Methodology: ? Note ?02 ?? This liquid based ThinPrep(R) pap test was interpreted ?? using the [employer](R) Money Toolkit(TM) Cervical Algorithm whole ?? slide imaging system. . ? 02 ?? The HPV DNA reflex criteria were not met with this specimen ?? result therefore, no HPV testing was performed. ?FLAG LEGEND: ?L-Low Normal,H-High Normal,LL-Alert Low,HH-Alert High <-Panic Low,>-Panic High,A-Abnormal,AA-Critical Abnormal Performed at: 02 WB ?[facility] ?? [address] [place] ??[address] ?? Fay Parson MD, Performed at: ??=G - [facility] [address], [place] ??[id number] House Shorer: Fay Parson MD, Phone: ??[phone] Performed at: ??WB - [facility] [address] ??[id number] House Shorer: Fay Parson MD, Phone: ??[phone] Specimen (Source)Anatomical Location / LateralityCollection Method / Volume Collection TimeReceived Time06/22/2025 3:37 PM EDT1 7:29 PM EDT Narrative [facility] - 06/28/2025 4:09 PM EDT SPATULA-ALONE ENDOCERVIX Authorizing ProviderResult TypeResult StatusGeneric External Data ProviderLAB BLOOD ORDERABLESFinal ResultPerforming OrganizationAddressCity/State/ZIP Code Phone Number [facility] * PAP TEST, EXTERNAL (06/22/2025 12:00 AM EDT) Narrative Authorizing ProviderResult TypeResult StatusCorey Lucia DOLAB CYTOLOGY ORDERABLESFinal ResultPerforming OrganizationAddressCity/State/ZIP CodePhone Number EXTERNAL LAB * BOX TEST (05/13/2025 4:24 PM EDT)ComponentValueRef RangeTest MethodAnalysis TimePerformed AtPathologist SignatureBOX TEST SENT ORPSKUTQLOCHRX0QNDRAKAOJKA5 05/13/2025TBHSpecimen (Source)Anatomical Location / LateralityCollection Method / VolumeCollection TimeReceived Time05/13/2025 4:24 PM EDT05/13/2025 4:32 PM EDT Narrative [facility] - 05/13/2025 4:37 PM EDT Authorizing ProviderResult TypeResult StatusGeneric External Data ProviderLAB BLOOD ORDERABLESFinal ResultPerforming OrganizationAddressCity/State/ZIP Code Phone Number [facility] * HBSAG SCREEN (05/13/2025 4:24 PM EDT)ComponentValueRef RangeTest Method Analysis TimePerformed AtPathologist SignatureHBSAG SCREENNegativeNegativeTBH Comment: Performed at: ??CB - [facility] [address] ??[id number] House Shorer: Sincere Giraldo PhD, Phone: ??[phone] Specimen (Source)Anatomical Location / LateralityCollection Method / Volume Collection TimeReceived Time05/13/2025 4:24 PM EDT05/13/2025 4:32 PM EDT Narrative [facility] - 05/15/2025 9:44 AM EDT Authorizing ProviderResult TypeResult StatusGeneric External Data ProviderLAB BLOOD ORDERABLESFinal ResultPerforming OrganizationAddressty/State/[facility] Code Phone Number [facility] * RAPID PLASMA REAGIN, QUANT (05/13/2025 4:24 PM EDT)ComponentValueRef RangeTest MethodAnalysis TimePerformed AtPathologist SignatureRAPID PLASMA REAGIN, QUANT Non ReactiveNonRea<1:1 titerTBHComment: Please Note: This test does not meet current guidelines for screening and diagnosis of syphilis. This test is intended for following treatment response in patients being treated for syphilis infection. To screen for syphilis infection, a reflex cascade that includes both RPR and a treponema-specific assay should be utilized, such as Treponema pallidum (Syphilis) Screening Mcduffie (778501) or Rapid Plasma Reagin (RPR) Test With Reflex to Quantitative RPR and Confirmatory Treponema pallidum Antibodies (481105). Performed at: ?? - [facility] ??[id number] House Shorer: Sincere Giraldo PhD, Phone: ??[phone] Specimen (Source)Anatomical Location / LateralityCollection Method / Volume Collection TimeReceived Time05/13/2025 4:24 PM EDT05/13/2025 4:32 PM EDT Narrative [facility] - 05/15/2025 9:44 AM EDT Authorizing ProviderResult TypeResult StatusGeneric External Data ProviderLAB BLOOD ORDERABLESFinal ResultPerforming OrganizationAddressty/State/[facility] Code Phone Number [facility] * HIV AB/P24 AG WITH REFLEX (05/13/2025 4:24 PM EDT)ComponentValueRef RangeTest MethodAnalysis TimePerformed AtPathologist SignatureHIV AB/P24 AG SCREENNon ReactiveNon ReactiveTBHComment: HIV-1/HIV-2 antibodies and HIV-1 p24 antigen were NOT detected. There is no laboratory evidence of HIV infection. HIV Negative Performed at: ?? - [facility] [address] ??[id number] House Shorer: Sincere Giraldo PhD, Phone: ??[phone] Specimen (Source)Anatomical Location / LateralityCollection Method / Volume Collection TimeReceived Time05/13/2025 4:24 PM EDT05/13/2025 4:32 PM EDT Narrative [facility] - 05/15/2025 7:09 AM EDT Authorizing ProviderResult TypeResult StatusGeneric External Data ProviderLAB BLOOD ORDERABLESFinal ResultPerforming OrganizationAddressCity/State/ZIP Code Phone Number [facility] * HCV ANTIBODY RFX TO QUANT PCR (05/13/2025 4:24 PM EDT)ComponentValueRef Range Test MethodAnalysis TimePerformed AtPathologist SignatureHCV ABNon ReactiveNon ReactiveTBHINTERPRETATION:Comment.TBHComment: Not infected with HCV unless early or acute infection is suspected (which may be delayed in an immunocompromised individual), or other evidence exists to indicate HCV infection. Specimen (Source)Anatomical Location / LateralityCollection Method / Volume Collection TimeReceived Time05/13/2025 4:24 PM EDT05/13/2025 4:32 PM EDT Narrative [facility] - 05/15/2025 8:39 AM EDT Authorizing ProviderResult TypeResult StatusCorey Lucia WELIA HEALTHAB BLOOD ORDERABLES Final ResultPerforming OrganizationAddressCity/State/ZIP CodePhone Number [facility] * MLR HEMOGLOBIN A1C (05/13/2025 4:24 PM EDT)ComponentValueRef RangeTest Method Analysis TimePerformed AtPathologist SignatureGLYCOHEMOGLOBIN A1C5.04.5 - 6.2 %TBHComment: ADA RECOMMENDED LIMIT 4.0 - 6.0 ADA THERAPEUTIC TARGET < 7.0 ACTION SUGGESTED > 7.0 ESTIMATED AVERAGE IQISZTT55jf/dLTBHSpecimen (Source)Anatomical Location / LateralityCollection Method / VolumeCollection TimeReceived Time05/13/2025 4:24 PM EDT05/13/2025 4:32 PM EDT Narrative [facility] - 05/13/2025 5:19 PM EDT Authorizing ProviderResult TypeResult StatusCorey Lucia DOCLINISYNCFinal Result Performing OrganizationAddressCity/State/ZIP CodePhone Number [facility] * ALL TYPE AND SCREEN (05/13/2025 4:24 PM EDT)ComponentValueRef RangeTest Method Analysis TimePerformed AtPathologist SignatureBLOOD TYPEA PositiveTBHANTIBODY SCREENNEGATIVETBHSpecimen (Source)Anatomical Location / LateralityCollection Method / VolumeCollection TimeReceived Time05/13/2025 4:24 PM EDT05/13/2025 4:32 PM EDT Narrative [facility] - 05/13/2025 5:52 PM EDT [facility] , ?? Authorizing ProviderResult TypeResult StatusCorey Lucia DOCLINISYNCFinal Result Performing OrganizationAddressCity/State/ZIP CodePhone Number [facility] * ALL RUBELLA IGG AB (05/13/2025 4:24 PM EDT)ComponentValueRef RangeTest Method Analysis TimePerformed AtPathologist SignatureRUBELLA ANTIBODIES, IGG16.20 Immune >0.99 indexTBHComment: Non-immune <0.90 ?Equivocal ??0.90 - 0.99 Immune >0.99 Performed at: ??CB - [facility] ??[id number] House Shorer: Sincere Giraldo PhD, Phone: ??[phone] Specimen (Source)Anatomical Location / LateralityCollection Method / Volume Collection TimeReceived Time05/13/2025 4:24 PM EDT05/13/2025 4:32 PM EDT Narrative [facility] - 05/15/2025 8:39 AM EDT Authorizing ProviderResult TypeResult StatusCorey Lucia DOCLINISYNCFinal Result Performing OrganizationAddressCity/State/ZIP CodePhone Number [facility] * (ABNORMAL) ALL CBC WITH AUTO DIFF (05/13/2025 4:24 PM EDT)ComponentValueRef RangeTest MethodAnalysis TimePerformed AtPathologist SignatureTBH WBC8.04.0 - 11.0 10 3/uLTBHTBH RBC4.374.20 - 5.40 10 6/uLTBHTBH HGB13.412.0 - 16.0 g/dLTBH TBH HCT38.936.0 - 48.0 %TBHT MCV89.081.0 - 99.0 fLTBHTBH MCH30.726.7 - 34.0 pgTBHTBH MCHC34.429.9 - 35.2 g/dLTBHTBH RDW12.511.0 - 15.0 %TBHTBH TAS945973 - 450 10 3/uLTBHTBH MPV8.8(L)9.5 - 13.5 fLTBHNEUTROPHILS PERCENT AUTO64.743.0 - 75.0 %TBHLYMPHOCYTES PERCENT AUTO29.420.5 - 60.0 %TBHMONOCYTES PERCENT AUTO4.6 1.7 - 12.0 %TBHTBH EO %0.7(L)0.9 - 7.0 %TBHBASOPHILS PERCENT AUTO0.40.2 - 2.0 %TBHIMMATURE GRANULOCYTES PCT AUTO0.20.0 - 0.5 %TBHNEUTROPHILS ABSOLUTE AUTO 5.21.4 - 6.5 10 3/uLTBHLYMPHOCYTES ABSOLUTE AUTO2.41.2 - 3.8 10 3/uLTBH MONOCYTES ABSOLUTE AUTO0.40.3 - 0.8 10 3/uLTBHTBH EO #0.10.0 - 0.7 10 3/uLTBH BASOPHILS ABSOLUTE AUTO0.00.0 - 0.1 10 3/uLTBHIMMATURE GRANULOCYTES ABS AUTO 0.020.00 - 0.03 10 3/uLTBHSpecimen (Source)Anatomical Location / Laterality Collection Method / VolumeCollection TimeReceived Time05/13/2025 4:24 PM EDT 05/13/2025 4:32 PM EDT Narrative [facility] - 05/13/2025 4:39 PM EDT Authorizing ProviderResult TypeResult StatusGeneric External Data Provider CLINISYNCFinal ResultPerforming OrganizationAddressCity/State/ZIP CodePhone Number [facility] * URINE CULTURE, ROUTINE (05/13/2025 4:15 PM EDT)ComponentValueRef RangeTest MethodAnalysis TimePerformed AtPathologist SignatureURINE CULTURE, ROUTINE ??Urine Culture, Routine TBHURINE CULTURE, ROUTINEMixed urogenital floraTBHURINE CULTURE, PHZRRRA18,000- 50,000 colony forming units per mLTBHURINE CULTURE, ROUTINEPerformed at: [facility] LabMyMich[facility] Medical Center ClareTBHURINE CULTURE, [id number] [place], [place] [id number] URINE CULTURE, ROUTINELab Director: Sincere Giraldo PhD, Phone: [phone] Specimen (Source)Anatomical Location / LateralityCollection Method / Volume Collection TimeReceived Time05/13/2025 4:15 PM EDT05/13/2025 4:16 PM EDT Narrative [facility] - 05/16/2025 5:11 AM EDT Authorizing ProviderResult TypeResult StatusGeneric External Data ProviderLAB BLOOD ORDERABLESFinal ResultPerforming OrganizationAddressCity/State/ZIP Code Phone Number [facility] * [facility] DRUG SCREEN RAPID (URINE) (05/13/2025 4:15 PM EDT)ComponentValueRef Range Test MethodAnalysis TimePerformed AtPathologist SignatureCANNABINOID SCREEN URINENEGATIVENEGATIVETBHPHENCYCLIDINE SCREEN URINENEGATIVENEGATIVETBHCOCAINE SCREEN URINENEGATIVENEGATIVETBHMETHAMPHETAMINES SCREEN URINENEGATIVENEGATIVE TBHOPIATE SCREEN URINENEGATIVENEGATIVETBHAMPHETAMINE SCREEN URINENEGATIVE NEGATIVETBHBENZODIAZEPINES SCREEN URINENEGATIVENEGATIVETBHTRICYCLIC ANTIDEPRESSANT URINENEGATIVENEGATIVETBHMETHADONE SCREEN URINENEGATIVENEGATIVE TBHBARBITURATES SCREEN URINENEGATIVENEGATIVETBHOXYCODONE SCREEN URINENEGATIVE NEGATIVETBHBUPRENORPHINE SCREEN URINENEGATIVENEGATIVETBHComment: DRUG CLASS TEST SYSTEM CUT-OFF CONCENTRATIONS ARE FOLLOWS: AMP (Amphetamine): 500 ng/mL BAR (Barbiturates): 200 ng/mL BZO (Benzodiazepines): 150 ng/mL BUP (Buprenorphine): 10 ng/mL ROXANA (Cocaine): 150 ng/mL mAMP (Methamphetamine): 500 ng/mL MTD (Methadone): 200 ng/mL OPI (Opiates): 100 ng/mL OXY (Oxycodone): 100 ng/mL PCP (Phencyclidine): 25 ng/mL THC (Cannabinoids): 50 ng/mL TCA (Trycyclic Antidepressants): 300 ng/mL Specimen (Source)Anatomical Location / LateralityCollection Method / Volume Collection TimeReceived Time05/13/2025 4:15 PM EDT05/13/2025 4:16 PM EDT Narrative VIELKA - 05/13/2025 4:48 PM EDT Authorizing ProviderResult TypeResult StatusCorey Lucia DOCLINISYNCFinal Result Performing OrganizationAddressCity/State/ZIP CodePhone Number [facility] * (ABNORMAL) POCT , urine manually resulted (04/21/2025 1:34 PM EDT) ComponentValueRef RangeTest MethodAnalysis TimePerformed AtPathologist SignaturePreg Test, UrPositiveNegativeSpecimen (Source)Anatomical Location / LateralityCollection Method / VolumeCollection TimeReceived TimeUrine 04/21/2025 1:34 PM EDT Narrative Authorizing ProviderResult TypeResult StatusCorey Lucia DOPOINT OF CARE TEST ENTER/EDIT ORDERABLESFinal Result * US OB transvaginal (04/21/2025 1:11 PM EDT)Anatomical RegionLateralityModality BodyUltrasoundSpecimen (Source)Anatomical Location / LateralityCollection Method / VolumeCollection TimeReceived Time04/25/2025 2:09 PM EDT Impressions 04/25/2025 3:59 PM EDT Findings consistent with a live intrauterine gestation, current sonographic age of 8 weeks and 3 days resulting in an estimated date of delivery of November 28, 2025. TRANSCRIBED BY: ? ELECTRONICALLY SIGNED BY: Delroy Reese MD Narrative 04/25/2025 3:59 PM EDT FINDINGS: A single intrauterine gestational sac is present. ??No subchorionic hemorrhage. ??A single pole is present. Normal heart rate at ??172 beats per minute. ??Yolk sac also is seen. ?? Current sonographic age is 8 weeks and 3 days based on the crown-rump length measurement of 1.9 cm. ??Based on this age, current estimated date of delivery is November 08, 2025. ?? No pelvic fluid or adnexal mass present. ??Cervical length is 4.3 cm, closed. Procedure Note [...] BY: ELECTRONICALLY SIGNED BY: Delroy Reese MD Authorizing ProviderResult TypeResult StatusCorey Lucia DOIMG OB US PROCEDURES Final Result from Last 3 [place] [id number] Care Teams Team MemberRelationshipSpecialtyStart DateEnd Date Regina Samuels PA [address] [place] [address] PCP - GeneralFamily Medicine02/10/23
--- OUTSIDE RECORDS SUMMARY | 2025-07-12 16:03 | XMS_ITS | Encounter Summary ---
Author Organization [facility] Address [address] [place] [address] Care Team Providers Care Sheet Music Salesperson Name Role Phone Regina Samuels Primary Care Provider [phone]- [phone] Encounter Details DateTypeDepartmentCare Team (Latest Contact Info)Lisqicbdkee47/29/2025Travel Social History Tobacco UseTypesPacks/DayYears UsedDateSmoking Tobacco: NeverSmokeless Tobacco: NeverAlcohol UseStandard Drinks/WeekCommentsNever0 (1 standard drink = 0.6 oz pure alcohol)Estimated Date of MqafiqenXftjqqcqWyn37/22/2026ased on last menstrual period of 02/20/2025Sex and Gender InformationValueDate Recorded Sex Assigned at EewsnPzhjbq84/04/2023 11:12 AM EDTLegal JbiStagkm05/15/2023 6:42 PM EDTGender PkaewehwPnjmtk68/04/2023 11:12 AM EDTSexual OrientationNot on file documented as of this encounter Plan of Treatment DateTypeDepartmentCare Team (Latest Contact Info)Wckwavszqif70/05/2025 3:10 PM ESTRoutine [facility] [address] [place] [address] J Carlos Myers DO [address] [place], [place] [id number] documented as of this encounter Visit Diagnoses Not on filedocumented in this encounter Care Teams Team MemberRelationshipSpecialtyStart DateEnd Date Regina Samuels PA [address] [place] [address] PCP - GeneralFamily Medicine02/10/23documented as of this encounter
--- OUTSIDE RECORDS SUMMARY | 2025-07-12 16:03 | XMS_ITS | Encounter Summary ---
Author Organization [facility] Address [address] [place] [address] Care Team Providers Care Supervisor Irrigation Name Role Phone Regina Samuels Primary Care Provider +1- [phone] Encounter Details DateTypeDepartmentCare Team (Latest Contact Info)Tujuriqjwlh02/27/2025Orders Only [facility] [address] [place] [address] Peace Espino PA [address] [place] [address] Social History Tobacco UseTypesPacks/DayYears UsedDateSmoking Tobacco: NeverSmokeless Tobacco: NeverAlcohol UseStandard Drinks/WeekCommentsNever0 (1 standard drink = 0.6 oz pure alcohol)Estimated Date of GwhtucozBtroeuslMzi52/22/2026Based on last menstrual period of 02/20/2025Sex and Gender InformationValueDate Recorded Sex Assigned at GqmmoTtyesr35/04/2023 11:12 AM EDTLegal CedLxkuto52/15/2023 6:42 PM EDTGender JljkukyyDjqese48/04/2023 11:12 AM EDTSexual OrientationNot on file documented as of this encounter Plan of Treatment DateTypeDepartmentCare Team (Latest Contact Info)Hfrxsxpcejf23/05/2025 3:10 PM ESTRoutine [facility] [address] [place] [address] J Carlos Myers DO [address] [place] [address] documented as of this encounter Procedures Procedure NamePriorityDate/TimeAssociated DiagnosisCommentsPAP TEST, EXTERNAL Eqdpldw9006/22/2025 12:00 AM EDTdocumented in this encounter Results * PAP TEST, EXTERNAL (06/22/2025 12:00 AM EDT) Narrative Authorizing ProviderResult TypeResult StatusCorey Lucia DOLAB CYTOLOGY ORDERABLESFinal ResultPerforming OrganizationAddressCity/State/ZIP CodePhone Number EXTERNAL LAB documented in this encounter Visit Diagnoses Not on filedocumented in this encounter Care Teams Team MemberRelationshipSpecialtyStart DateEnd Date Regina Samuels PA [address] [place] [address] PCP - GeneralFamily Medicine02/10/23documented as of this encounter
--- OUTSIDE RECORDS SUMMARY | 2025-07-12 16:03 | XMS_ITS | Encounter Summary ---
Author Organization [facility] Address [address] [facility] [place] [address] Care Team Providers Care Adjuster Piano Action Name Role Phone Regina Samuels Primary Care Provider +1- [phone] Encounter Details DateTypeDepartmentCare Team (Latest Contact Info)Ysrylihtiwt34/15/2025linisync Result Encounter [facility] Unsolicited Provider, Generic External Data Social History Tobacco UseTypesPacks/DayYears UsedDateSmoking Tobacco: NeverSmokeless Tobacco: NeverAlcohol UseStandard Drinks/WeekCommentsNever0 (1 standard drink = 0.6 oz pure alcohol)Estimated Date of TideudljRsmmucgdHsz63/22/2026ased on last menstrual period of 02/20/2025Sex and Gender InformationValueDate Recorded Sex Assigned at UbihtQmeyrl18/04/2023 11:12 AM EDTLegal PmySpovls06/15/2023 6:42 PM EDTGender WiwkrpniQpqzxe11/04/2023 11:12 AM EDTSexual OrientationNot on file documented as of this encounter Plan of Treatment DateTypeDepartmentCare Team (Latest Contact Info)Acofynittbr43/05/2025 3:10 PM ESTRoutine [facility] [address] [place] [address] J Carlos Myers DO [address] [place] [address] documented as of this encounter Procedures Procedure NamePriorityDate/TimeAssociated DiagnosisCommentsIGP,APTIMA HPV,AGE MWLNOoxlodi24/15/2025 3:37 PM EDT documented in this encounter Results * IGP,APTIMA HPV,AGE GDLN (06/22/2025 3:37 PM [...] at: 01 =G ?[facility] ?? [address] [place] ??[address] ?? Fay Parson MD, IGP, RFX APTIMA HPV ASCUNote.TBHComment: ?? TESTS ? RESULT ??FLAG ??UNITS ?REF RANGE ??LAB DIAGNOSIS: ?02 ?? NEGATIVE FOR INTRAEPITHELIAL LESION OR MALIGNANCY. Specimen adequacy: ?02 ?? Satisfactory for evaluation. ??Endocervical and/or squamous metaplastic ?? cells (endocervical component) are present. Performed by: ? 02 ?? Lokesh Veras Manager Of Marketing (ASCP) . ? 02 Note: ? Note ?02 [...] pap test was interpreted ?? using the Endomedix(R) Genius(TM) Cervical Algorithm whole ?? slide imaging system. . ? 02 ?? The HPV DNA reflex criteria were not met with this specimen ?? result therefore, no HPV testing was performed. ?FLAG LEGEND: ?L-Low Normal,H-High Normal,LL-Alert Low,HH-Alert High <-Panic Low,>-Panic High,A-Abnormal,AA-Critical Abnormal Performed at: 02 WB ?[facility] ?? [address] [place], [place] ??[address] ?? Fay Parson MD, Performed at: ??=G - [facility] [address], [place] ??[id number] Screed Person: Fay Parson MD, Phone: ??[phone] Performed at: ??WB - [facility] ??[id number] Screed Person: Fay Parson MD, Phone: ??[phone] Specimen (Source)Anatomical Location / LateralityCollection Method / Volume Collection TimeReceived Time06/22/2025 3:37 PM EDT1 7:29 PM EDT Narrative [facility] - 06/28/2025 4:09 PM EDT [facility] Authorizing ProviderResult TypeResult StatusGeneric External Data ProviderLAB BLOOD ORDERABLESFinal ResultPerforming OrganizationAddressCity/State/ZIP Code Phone Number [facility] documented in this encounter Visit Diagnoses Not on filedocumented in this encounter Care Teams Team MemberRelationshipSpecialtyStart DateEnd Date Regina Samuels PA [address] [place] [address] PCP - GeneralFamily Medicine02/10/23documented as of this encounter
--- NOTE | 2025-07-12 16:06 | US_ITS ---
The [address] [address] Patient Name: CLINT NEGRO MRN: [id number] date: 1995 Sex: F Assigned Patient Location: Current Patient Location: Accession/Order Number: [id number] Exam Date: 07/12/2025 16:10 Report Date: 07/13/2025 08:40 At the request of: FREDDY JO DO Procedure: US OB anatomy CLINICAL DATA: Anatomy screening COMPARISON: None ULTRASOUND OB ANATOMY There is a single live intrauterine gestation in variable presentation. There is cardiac and somatic activity with heart rate of 151 bpm. The placenta is anterior. The amniotic fluid volume is subjectively normal. The neural axis and all 4 extremities were surveyed by the chief estimator. The thoracic spine was suboptimally visualized due to position. No extremity abnormalities were detected. A 4 chamber heart with right and left ventricular outflow tracts was also suboptimally seen. The bladder, stomach, kidneys, three-vessel cord with insertion, diaphragm, facial features and male gender are visualized. The following measurements were obtained: Biparietal diameter 4.6 cm 20 weeks 0 days 30% Head circumference 17.5 cm 20 weeks 0 days 31% Abdominal circumference 15.6 cm 20 weeks 6 days 61% Femur length 3.2 cm 20 weeks 1 day 35% The composite ultrasound age based on these measurements is 20 weeks 2 days +/- 1 week 3 days. The estimated date of delivery is 11/27/2025 which correlates with reported gestational age. The estimated weight is 12 ounces +/- 2 ounces (53%). US/US OB anatomy IMPRESSION: SINGLE LIVE INTRAUTERINE GESTATION WITH ULTRASOUND AGE OF 20 WEEKS 2 DAYS. INCOMPLETE ANATOMY SURVEY WITH SUBOPTIMAL VISUALIZATION OF THE HEART AND SPINE. ULTRASOUND OB CERVICAL LENGTH The cervix was evaluated with the transvaginal probe. The cervix is closed and measures approximately 4.7 cm in length. There is no evidence of previa. IMPRESSION: NORMAL CLOSED CERVIX. Impression dictated by: Micki Espinoza M.D. 07/13/2025 8:40 AM Dictation Location: [place] [address] Electronically authenticated by: [id number] Y Date: 07/13/2025 08:40
--- NOTE | 2025-07-12 16:06 | US_ITS ---
The [address] [address] Patient Name: CLINT NEGRO MRN: [id number] date: 1995 Sex: F Assigned Patient Location: Current Patient Location: Accession/Order Number: [id number] Exam Date: 07/12/2025 16:10 Report Date: 07/13/2025 08:40 At the request of: FREDDY JO DO Procedure: US OB anatomy CLINICAL DATA: Anatomy screening COMPARISON: None ULTRASOUND OB ANATOMY There is a single live intrauterine gestation in variable presentation. There is cardiac and somatic activity with heart rate of 151 bpm. The placenta is anterior. The amniotic fluid volume is subjectively normal. The neural axis and all 4 extremities were surveyed by the senior animal trainer. The thoracic spine was suboptimally visualized due to position. No extremity abnormalities were detected. A 4 chamber heart with right and left ventricular outflow tracts was also suboptimally seen. The bladder, stomach, kidneys, three-vessel cord with insertion, diaphragm, facial features and male gender are visualized. The following measurements were obtained: Biparietal diameter 4.6 cm 20 weeks 0 days 30% Head circumference 17.5 cm 20 weeks 0 days 31% Abdominal circumference 15.6 cm 20 weeks 6 days 61% Femur length 3.2 cm 20 weeks 1 day 35% The composite ultrasound age based on these measurements is 20 weeks 2 days +/- 1 week 3 days. The estimated date of delivery is 11/27/2025 which correlates with reported gestational age. The estimated weight is 12 ounces +/- 2 ounces (53%). US/US OB cervical length IMPRESSION: SINGLE LIVE INTRAUTERINE GESTATION WITH ULTRASOUND AGE OF 20 WEEKS 2 DAYS. INCOMPLETE ANATOMY SURVEY WITH SUBOPTIMAL VISUALIZATION OF THE HEART AND SPINE. ULTRASOUND OB CERVICAL LENGTH The cervix was evaluated with the transvaginal probe. The cervix is closed and measures approximately 4.7 cm in length. There is no evidence of previa. IMPRESSION: NORMAL CLOSED CERVIX. Impression dictated by: Micki Espinoza M.D. 07/13/2025 8:40 AM Dictation Location: [place] [address] Electronically authenticated by: [id number] Y Date: 07/13/2025 08:40
--- OUTSIDE RECORDS SUMMARY | 2025-07-12 16:08 | XMS_ITS | CCD ---
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 Name Role Phone [facility] Care Unavailable LUCIA ., DR HAYES Attending Unavailable LUCIA ., DR HAYES Consulting Unavailable LUCIA ., DR HAYES Admitting Unavailable ZIEBER, DR ZEUS Heredia Consulting Unavailable LUCIA ., DR HAYES Attending Unavailable LUCIA ., DR HAYES Consulting Unavailable [facility] Care Unavailable LUCIA ., DR HAYES Admitting Unavailable ZIEBER, DR ZEUS Heredia Consulting Unavailable [facility] Care Unavailable KARASIK ., DR SUMMERS Consulting Unavailabl e KARASIK ., DR SUMMERS Attending Unavailabl e KARASIK ., DR SUMMERS Admitting Unavailabl e Sebastian Doan Consulting Unavailable LUCIA ., DR HAYES Consulting Unavailable LUCIA ., DR HAYES Attending Unavailable [facility] Primary Care Unavailable LUCIA ., DR HAYES Admitting Unavailable LUCIA ., DR HAYES Attending Unavailable [facility] Care Unavailable LUCIA ., DR HAYES Consulting Unavailable LUCIA ., DR HAYES Admitting Unavailable KARASIK ., DR SUMMERS Admitting Unavailabl e KARASIK ., DR SUMMERS Attending Unavailabl e KARASIK ., DR SUMMERS Consulting [facility]availabl e [facility] Unavailable Sebastian Doan Consulting Unavailable LUCIA ., DR HAYES Consulting Unavailable KARASIK ., DR SUMMERS Attending Unavailabl e KARASIK ., DR SUMMERS Consulting Unavailabl e KARASIK ., DR SUMMERS Admitting [facility]availabl e [facility] Primary Care Unavailable Sebastian Doan Consulting Unavailable LUCIA ., DR HAYES Consulting Unavailable [facility] Care Unavailable LUCIA ., DR HAYES Admitting Unavailable LUCIA ., DR HAYES Consulting Unavailable LUCIA ., DR HAYES Attending Unavailable ZIEBER, DR ZEUS Heredia Consulting Unavailable [facility] Primary Care Unavailable LUCIA ., DR HAYES Attending Unavailable LUCIA ., DR HAYES Consulting Unavailable LUCIA ., DR HAYES Admitting Unavailable LUCIA ., DR HAYES Attending Unavailable [facility], [facility] Primary Care Unavailable LUCIA ., DR HAYES Admitting Unavailable [facility], [facility] Primary Care Unavailable KARASIK ., DR SUMMERS Admitting Unavailabl e KARASIK ., DR SUMMERS Attending Unavailabl e KARASIK ., DR SUMMERS Consulting Unavailabl e KARASIK ., DR SUMMERS Admitting Unavailabl e KARASIK ., DR SUMMERS Attending Unavailabl e KARASIK ., DR SUMMERS Consulting Unavailabl e [facility], [facility] Primary Care Unavailable KARASIK ., DR SUMMERS Admitting Unavailabl e KARASIK ., DR SUMMERS Attending Unavailabl e KARASIK ., DR SUMMERS Consulting Unavailabl e AD[facility], [facility] Primary Care Unavailable [facility], [facility] Primary Care Unavailable KARASIK ., DR SUMMERS Consulting Unavailabl e KARASIK ., DR SUMMERS Attending Unavailabl e KARASIK ., DR USMMERS Admitting Unavailabl e LUCIA ., DR HAYES Consulting Unavailable ZIEBER, DR ZEUS Heredia Consulting Unavailable [facility], [facility] Primary Care Unavailable LUCIA ., DR HAYES Admitting Unavailable LUCIA ., DR HAYES Consulting Unavailable LUCIA ., DR HAYES Attending Unavailable ZIEBER, DR ZEUS Heredia Consulting Unavailable [facility], [facility] Primary Care Unavailable LUCIA ., DR HAYES Attending Unavailable LUCIA ., DR HAYES Consulting Unavailable LUCIA ., DR HAYES Admitting Unavailable [facility], [facility] Primary Care Unavailable LUCIA ., DR HAYES Attending Unavailable LUCIA ., DR HAYES Consulting Unavailable LUCIA ., DR HAYES Admitting Unavailable LUCIA ., DR HAYES Admitting Unavailable [facility], [facility] Primary Care Unavailable LUCIA ., DR HAYES Attending Unavailable LUCIA ., DR HAYES Attending Unavailable [facility], [facility] Primary Care Unavailable LUCIA ., DR HAYES Admitting Unavailable [facility], [facility] Primary Care Unavailable LUCIA ., DR HAYES Attending Unavailable LUCIA ., DR HAYES Consulting Unavailable LUCIA ., DR HAYES Admitting Unavailable ZIEBER, DR ZEUS Heredia Consulting Unavailable [facility], [facility] Primary Care Unavailable LUCIA ., DR HAYES Consulting Unavailable LUCIA ., DR HAYES Admitting Unavailable LUCIA ., DR HAYES Attending Unavailable ZIEBER, DR ZEUS Heredia Consulting Unavailable [facility], [facility] Primary Care Unavailable LUCIA ., DR HAYES Consulting Unavailable LUCIA ., DR HAYES Admitting Unavailable LUCIA ., DR HAYES Attending Unavailable ZIEBER, DR ZEUS Heredia Consulting Unavailable KARASIK ., DR SUMMERS Attending Unavailabl e KARASIK ., DR SUMMERS Admitting Unavailabl e LUCIA ., DR HAYES Consulting Unavailable [facility], [facility] Primary Care Unavailable KARASIK ., DR SUMMERS Consulting Unavailabl e KARASIK ., DR SUMMERS Attending Unavailabl e KARASIK ., DR SUMMERS Admitting Unavailabl e ADRI[facility], [facility] Primary Care Unavailable KARASIK ., DR SUMMERS Consulting Unavailabl e KARASIK ., DR SUMMERS Admitting Unavailabl e KARASIK ., DR SUMMERS Attending Unavailabl e [facility], [facility] Primary Care Unavailable [facility], [facility] Primary Care Unavailable KARASIK ., DR SUMMERS Consulting Unavailabl e KARASIK ., DR SUMMERS Admitting Unavailabl e KARASIK ., DR SUMMERS Attending Unavailabl e LUCIA ., DR HAYES Attending Unavailable [facility], [facility] Primary Care Unavailable LUCIA ., DR HAYES Admitting Unavailable [facility], [facility] Primary Care Unavailable LUCIA ., DR HAYES Attending Unavailable LUCIA ., DR HAYES Admitting Unavailable KARASIK ., DR SUMMERS Consulting Unavailabl e LUCIA ., DR HAYES Attending Unavailable [facility], [facility] Primary Care Unavailable LUCIA ., DR HAYES Admitting Unavailable LUCIA ., DR HAYES Consulting Unavailable YANIQUE LOVE Consulting Unavailable LUCIA ., DR HAYES Procedure Practitioner Unavail able [facility], [facility] Primary Care Unavailable LUCIA ., DR HAYES Attending Unavailable LUCIA ., DR HAYES Consulting Unavailable LUCIA ., DR HAYES Admitting Unavailable ADRIANA, [facility] Primary Care Unavailable PARGA ., DR SUMMERS Admitting Ovidio TUTTLE ., DR SUMMERS Attending Ovidio TUTTLE ., DR SUMMERS Consulting Regina Joyce Primary Care Provider [phone] Lydia Whyte Primary Care Physician [phone] Lydia Whyte Admitting Unavailable Lydia Whyte Attending Unavailable Lydia Whyte Attending Unavailable Lydia Whyte Admitting Unavailable BEE TRAN Attending Unavailable BEE TRAN Attending Unavailable FREDDY MYERS Attending Unavailable FREDDY MYERS Attending Unavailable NEISHA LAMB Attending Unavailable Lydia Whyte Attending Unavailable Lydia Whyte Admitting Unavailable Medications Current Medications MedicationDrug Class(es)DatesSig (Normalized)Sig (Original)adapalene 0.001 mg/mg / benzoyl peroxide 0.025 mg/mg topical gel (5 sources)RetinoidStart: 08-25-2024 End: 33-92-1360Llvhwerbp-Benzoyl Peroxide 0.1-2.5 % gel Indications: Acne, unspecified acne type Apply pea-size amount to T-zone, chin and problem areas nightly. 45 g 1 08/25/2024 03/31/2025 DiscontinuedALPRAZolam 0.5 mg oral tablet (1 source)BenzodiazepineStart: 33-03-5534fcsh 1 tablet by mouth three times daily as needed for anxietyalprazolam 0.5 mg Tab 0.5 mg = 1 tab(s), Oral, TID, PRN for anxiety, # 30 tab(s), Refills(s) 1, Pharmacy: [id number], 167.64, cm, 08/11/19 12:02:00 EST, Height/Length Measured, 70.8,kg, 08/11/19 12:02:00 EST, Weight Measured Start Date: 01/19/20 Status: Ordered Quantity: 30.0 Unit:tab(s) Repeat number: 2 Indication: Generalized anxiety disorderbenzoyl peroxide 50 mg/ml topical solution (12 sources)Start: 53-06-3869svdnvzx peroxide 5 % external wash Indications: Acne vulgaris Apply to affected areas, then rinse daily, 30 day supply 227 g 11 03/31/2025 Activecefuroxime 250 mg oral tablet (8 sources)Cephalosporin AntibacterialStart: 07-05-2024 End: 78-56-3281ufzw 1 tablet by mouth once dailycefuroxime (Ceftin) 250 MG tablet Indications: Acne vulgaris Take 1 tablet, by mouth, once daily, 30 days 30 tablet 2 07/05/2024 03/31/2025 Discontinuedcephalexin 500 mg oral capsule (2 sources)Cephalosporin AntibacterialStart: 08-25-2024 End: 67-47-8029uxmx 1 capsule by mouth in the morning, then take 1 capsule by mouth in the evening, then take 1 capsule by mouth at bedtimecephalexin (Keflex) 500 MG capsule Indications: Acne, unspecified acne type Take 1 capsule (500 mg) by mouth in the morning and 1 capsule (500 mg) in the evening and 1 capsule (500 mg) before bedtime. Do all this for 10 days. 30 capsule 08/25/2024 09/04/2024 Activeclindamycin 10 mg/ml topical lotion (12 sources)Lincosamide AntibacterialStart: 39-08-9494djvxfznlvhg (Cleocin T) 1 % lotion Indications: Acne vulgaris Apply thin later to affected areas onthe body, once daily, 30 day supply 60 mL 11 03/31/2025 Active{7 (Ethinyl Estradiol 0.035 MG / norgestimate 0.18 MG Oral Tablet) / 7 (Ethinyl Estradiol 0.035 MG / norgestimate 0.215 MG Oral Tablet) / 7 (Ethinyl Estradiol 0.035 MG / norgestimate 0.25 MG Oral Tablet) / 7 (Inert Ingredients 1 MG Oral Tablet) } Pack [TR (1 source)Progestin, EstrogenStart: 90-44-4083Dxg-Linyah 35 mcg oral tablet 1 tab(s), Oral, Daily, 30 tab(s), Refill(s) 0, other reason (Rx) Start Date: 06/16/19 Status: Ordered Quantity: 30.0 Unit: tab(s) Repeat number: 1tretinoin 0.25 mg/ml topical cream (8 sources)RetinoidStart: 07-05-2024 End: 96-18-6326iwndmjbaz (Retin-A) 0.025 % cream Indications: Acne vulgaris Apply to face, once daily at evening/night time, 30 day supply 20 g 11 07/05/2024 03/31/2025 Discontinued (Alternate therapy) Completed/Discontinued Medications MedicationDrug Class(es)DatesSig (Normalized)Sig (Original)azelaic acid 200 mg/ml topical cream (3 sources)Start: 04-15-2024 End: 05-96-2988hfgcoyi acid (Azelex) 20 % cream Indications: Acne vulgaris Apply thin layer to face qHS, 30 day supply 50 g 11 04/15/2024 07/05/2024 Discontinuedbenzoyl peroxide 0.05 mg/mg / clindamycin 0.01 mg/mg topical gel (3 sources)Lincosamide AntibacterialStart: 03-30-2024 End: 86-95-1244cwarlzjzyek-benzoyl peroxide (BenzaClin) gel Indications: Acne vulgaris Apply thin layer to face, once daily in the morning, 30 day supply 50 g 11 03/30/2024 07/05/2024 Discontinued (Ineffective)Clascoterone (Winlevi) 1 % cream (3 sources)Start: 06-22-2024 End: 36-85-2037Lfydphfiqclx (Winlevi) 1 % cream Indications: Acne vulgaris Apply thin layer to face twice daily 60g 11 06/22/2024 07/05/2024 DiscontinuedStart: 14-87-4291Dkoeczokxzau (Winlevi) 1 % cream Indications: Acne vulgaris Apply thin layer to face twice daily 60g 11 06/22/2024 Active Problems Active Problems Problem ClassificationProblemDateDocumented DateEpisodic/ChronicAbdominal pain (4 sources)Right sided abdominal pain; Translations: [Unspecified abdominal pain]88-79-3391IsqqdixaIijoknv disorders (2 sources)Generalized anxiety disorder; Translations: [Panic disorder without agoraphobia]65-94-8642AvsiuocHiusgzix or abnormal glucose tolerance complicating ; childbirth; or the puerperium (15 sources)Gestational diabetes mellitus in , unspecified control; Translations: [Gestational diabetes mellitus in childbirth, unspecified control] Onset: 04-06-6271JfkuniqbUbdkjflviqwbl symptoms and ill-defined conditions (1 source)Uwmvflz98-04-2518ZaaaziliKdlcuqixtpeus and screening for infectious disease (3 sources)Contact with and (suspected) exposure to infections with a predominantly sexual mode of transmission; Translations: [Exposure to sexually transmissible disorder]Onset: 072340-26-9862NnxixqgiPelkqtwbl disorders (6 sources)Irregular menstruation, unspecified; Translations: [Missed period] Onset: 16-16-5532LxszfgoPjct disorders (1 source)Episodic mood hzxtlvra23-19-6424JwfelaeEomeuln (1 source)Tinea okmzmrfg17-37-1830ZqnnkvemEV-lwnenmd trauma to perineum and vulva (1 source)Second degree perineal laceration during delivery; Translations: [SECOND DEG PERINEAL LAC DUR DELIV]Onset: 22-46-3475UykhxkzrSikfd complications of (11 sources)History of gestational diabetes mellitus; Translations: [Supervision of with other poor reproductive or obstetric history, unspecified trimester]Onset: 071489-43-2588NamsfeerVsmfz female genital disorders (2 sources)Abnormal uterine bleeding; Translations: [Abnormal uterine and vaginal bleeding, unspecified]88-17-5847QuulheqNwugv female genital disorders (1 source)Dysfunctional uterine lntgxuxr19-53-7653ZftisaiIcaih and delivery including normal (20 sources)Encounter for care and examination of lactating mother; Translations: [Encounter for routine follow-up]Onset: 05-26-2022 EpisodicOther screening for suspected conditions (not mental disorders or infectious disease) (7 sources)Encounter for screening for diabetes mellitus; Translations: [Alpha- fetoprotein blood test status]Onset: 595099-92-0751FsgajessBikkv skin disorders (4 sources)Acne vulgaris; Translations: [Acne vulgaris]19-88-8786NsqcclplXmlsc skin disorders (2 sources)Acne; Translations: [Acne, unspecified]22-78-9530TavbazjrTohfvejb codes; unclassified (1 source)40 weeks gestation of ; Translations: [40 WEEKS GESTATION OF ]Onset: 65-42-2559HyzxrquiSwvvfcnt codes; unclassified (1 source)39 weeks gestation of ; Translations: [39 WEEKS GESTATION OF ]Onset: 57-88-3335BjgjdrayPqdgniwa codes; unclassified (1 source)38 weeks gestation of ; Translations: [38 WEEKS GESTATION OF ]Onset: 86-45-6739TessrfbiTdrffbji codes; unclassified (1 source)37 weeks gestation of ; Translations: [37 WEEKS GESTATION OF ]Onset: 79-18-5341GnnwbpbjCtrgxloi codes; unclassified (1 source)36 weeks gestation of ; Translations: [36 WEEKS GESTATION OF ]Onset: 21-73-0263WhmumughHwqodrij codes; unclassified (1 source)35 weeks gestation of ; Translations: [35 WEEKS GESTATION OF ]Onset: 14-92-6476ZpsujwdhFpnvazdd codes; unclassified (1 source)34 weeks gestation of ; Translations: [34 WEEKS GESTATION OF ]Onset: 19-76-5891XxmiflojOqklzisl codes; unclassified (1 source)33 weeks gestation of ; Translations: [33 WEEKS GESTATION OF ]Onset: 69-12-1456IpcomrujBadlourt codes; unclassified (1 source)32 weeks gestation of ; Translations: [32 WEEKS GESTATION OF ]Onset: 80-51-0273QgslmvjlCqrgdzgg codes; unclassified (1 source)Gestation period, 8 weeks; Translations: [8 weeks gestation of ]87-27-1204SdqumyrgAuvyopfq codes; unclassified (2 sources)Gestation period, 13 weeks; Translations: [13 weeks gestation of ]80-40-2485FgcvpirhGxnawwuq codes; unclassified (2 sources)Gestation period, 17 weeks; Translations: [17 weeks gestation of ]36-67-3949Gqeuybth Past or Other Problems Problem ClassificationProblemDateDocumented DateEpisodic/ChronicDiabetes mellitus without complication (4 sources)Other abnormal glucose; Translations: [OTHER ABNORMAL GLUCOSE]Onset: 43-04-3727NtawndbgQabwpmuj codes; unclassified (1 source)28 weeks gestation of ; Translations: [28 WEEKS GESTATION OF ]Onset: 23-94-0732Rrbfnyoa Results Test NameValueInterpretationReference RangeFacilityIGP,APTIMA HPV,AGE GDLNon 70-41-9232RVM LN ACOG TESTINGNote.[facility] HealthcareComment on above:TESTS RESULT FLAG UNITS REF RANGE LAB Clinician Provided Cytology Information Source.............Endocervix No. of containers..01 ThinPrep Vial Age Algo ACOG Aleida... FLAG LEGEND: L-Low Normal,H-High Normal,LL-Alert Low,HH-Alert High <-Panic Low,>-Panic High,A-Abnormal,AA-Critical Abnormal Performed at: 01 =G [facility] [phone] Fay Parson MD, IGP, RFX APTIMA HPV ASCUNote.NOMS HealthcareComment on above:TESTS RESULT FLAG UNITS REF RANGE LAB DIAGNOSIS: 02 NEGATIVE FOR INTRAEPITHELIAL LESION OR MALIGNANCY. Specimen adequacy: 02 Satisfactory for evaluation. Endocervical and/or squamous metaplastic cells (endocervical component) are present. Performed by: 02 Lokesh Ver[employer] Tender ([facility]) . 02 Note: Note 02 The Pap smear is a screening test designed to aid in the detection of premalignant and malignant conditions of the uterine cervix. It is not a diagnostic procedure and should not be used as the sole means of detecting cervical cancer. Both false-positive and false-negative reports do occur. Test Methodology: Note 02 This liquid based ThinPrep(R) pap test was interpreted using the Nearway(R) Genius(TM) Cervical Algorithm whole slide imaging system. . 02 The HPV DNA reflex criteria were not met with this specimen result therefore, no HPV testing was performed. FLAG LEGEND: L-Low Normal,H-High Normal,LL-Alert Low,HH-Alert High <-Panic Low,>-Panic High,A-Abnormal,AA-Critical Abnormal Performed at: [address] [phone] Fay Parson MD, Performed at: = - [facility] [id number] Manager Of Care: Fay Parson MD, Phone: [phone] Performed at: [facility] [id number] Manager Of Care: Fay Parson MD, Phone: [phone] SPATULA-ALONE ENDOCERVIX CLINISYNCNOMS HealthcareRECURRENT VAGINITIS (HTRX)on 65-81-7841SRDTQRELA VAGINAE 0NOMS HealthcareATOPOBIUM VAGINAENot detectedNOMS HealthcareBVAB 2,3 (BACTERIAL VAGINOSIS ASSOCIATED BACTERIA 2, 3); MOBILUNCUS [id number] HealthcareBVAB 2,3 (BACTERIAL VAGINOSIS ASSOCIATED BACTERIA 2, 3); MOBILUNCUS SPPNot detectedNOMS HealthcareCANDIDA ALBICANS, PARAPSILOSIS, [id number] HealthcareCANDIDA ALBICANS, PARAPSILOSIS, TROPICALISNot detectedNOMS HealthcareCANDIDA GLABRATA0 NOMS HealthcareCANDIDA GLABRATANot detectedNOMS HealthcareCANDIDA [id number] HealthcareCANDIDA KRUSEINot detectedNOMS HealthcareCHLAMYDIA TSDWKQVYTFN3AODQ HealthcareCHLAMYDIA TRACHOMATISNot detectedNOMS HealthcareGARDNERELLA VAGINALIS0 NOMS HealthcareGARDNERELLA VAGINALISNot detectedNOMS HealthcareMEGASPHAERA (TYPES 1, 2)0NOMS HealthcareMEGASPHAERA (TYPES 1, 2)Not detectedNOMS Healthcare MYCOPLASMA WKEALTVKKT4OOQR HealthcareMYCOPLASMA GENITALIUMNot detectedNOMS HealthcareNEISSERIA YSQOBHAMHDF3VIJR HealthcareNEISSERIA GONORRHOEAENot detected NOMS HealthcareTRICHOMONAS JNAHHDPLQ5TIFF HealthcareTRICHOMONAS VAGINALISNot detectedNOMS HealthcareNOMS HealthcareUrinalysis macro (dipstick) panel (U)on 09-86-6741Juvbruvfn, UANegativeNegative - 4(70) +++ mg/dLNOMS HealthcareBlood, UANegativeNegative - 50 Josh/mcLNOMS HealthcareClarity, UAClearNOMS Healthcare Color, UAYellowNOMS HealthcareGlucose, UANegativeNegative - 2000(110) ++++ mg/dL N[facility]S HealthcareInterpretation and review of laboratory resultsNormalNOMS HealthcareKetones, UANegativeNegative - 160(16) ++++ mg/dLNOWY Healthcare Leukocytes, UANegativeNegative - 500+++ Елена/mcLNOMS HealthcareNitrite, UA NegativeNegative - PositiveNOMS HealthcarepH, UA6.05 - 9NOMS HealthcareProtein, UANegativeNegative - 2000(20) ++++ mg/dLNOMS HealthcareSpec Grav, UA1.0101 - 1.03NOMS HealthcareUrobilinogen, UA1.00.2 - 12 mg/dLNOMS HealthcareNOMS HealthcareGlucoseon 95-41-7685Naefqiq [Mass/Vol]92 mg/hTFzrdtj28-098WxobmiMercy Health St. Charles HospitalComment on above:Performed By: #### [id number] #### Fernando [facility] [address], [place] [address]Gqxfg Panelon 43-09-3027Tnqyvclhocg [Mass/Vol]176 mg/dLNormal 120-200Mercy Health St. Charles HospitalComment on above:Performed By: #### [id number] #### King [facility] [address], [place] [address]Kittezifbqh in HDL [Mass/Vol]72 mg/dLInvalid Interpretation CodeMercy Health St. Charles HospitalComment on above:Result Comment: '>= 60 LOW RISK' '<= 40 HIGH RISK'Performed By: #### [id number] #### King [facility] [address], [place] [address]Emjvlpyvrjt in LDL [Mass/Vol]95 mg/dLNormal<=129Mer[facility] Health St. Charles HospitalComment on above:Performed By: #### [id number] #### [facility] [address], [place] [address]Ocfjitvsdso in VLDL [Mass/Vol]22 mg/dLNormal7-40Mer[facility] Health St. Charles HospitalComment on above:Performed By: #### [id number] #### [place] [facility] [address], [place] [address]Eoeqtsjxpjde [Mass/Vol]110 mg/dLNormal<=149Mer[facility] Health St. Charles HospitalComment on above:Performed By: #### [id number] #### [place] [facility] [address] [place], [place] [address]Qygmsoeptn macro (dipstick) panel (U)on 90-10-6466Oornbfzqj, UA NegativeNegative - 4(70) +++ mg/dLNOMS HealthcareBlood, UANegativeNegative - 50 Josh/mcLNOMS HealthcareClarity, UACloudyNOMS HealthcareColor, UAAmberNOMS HealthcareGlucose, UANegativeNegative - 2000(110) ++++ mg/dLNOMS Healthcare Interpretation and review of laboratory resultsNormalNOMS HealthcareKetones, UA NegativeNegative - 160(16) ++++ mg/dLNOMS HealthcareLeukocytes, UANegative Negative - 500+++ Елена/mcLNOMS HealthcareNitrite, UANegativeNegative - Positive NOMS HealthcarepH, UA65 - 9NOMS HealthcareProtein, UANegativeNegative - 2000(20) ++++ mg/dLNOMS HealthcareSpec Grav, UA1.0151 - 1.03NOMS HealthcareUrobilinogen, UA1.00.2 - 12 mg/dLNOMS HealthcareNOMS HealthcareBOX TESTon 42-02-7516UHQ TEST SENT OUTUNITYNOWY TrkweqtljqMGR7QBQFYRLCZ RwewqjyxyfJZW872/05/2025NOWY HealthcareCLINISYNCNOMS HealthcareHCG ( test) Ql (U)on 04-21-2025 Interpretation and review of laboratory resultsAbnormalNOMS HealthcarePreg Test, UrPositiveNegativeNOWY HealthcareNOMS HealthcareUS OB TRANSVAGINALon 04-21-2025 US OB TRANSVAGINALFINDINGS: A single intrauterine gestational sac is present. [...] 28, 2025. TRANSCRIBED BY: ELECTRONICALLY SIGNED BY: Yash Iyer AvailableComment on above:Order Comment: US OB TRANSVAGINAL No LMP recorded.Urinalysis macro (dipstick) panel (U)on 10-83-9869Zxhzvihpi, UA NegativeNegative - 4(70) +++ mg/dLNOMS HealthcareBlood, UANegativeNegative - 50 Josh/mcLNOMS HealthcareClarity, UAClearNOMS HealthcareColor, UAYellowNOMS HealthcareGlucose, UANegativeNegative - 2000(110) ++++ mg/dLNOMS Healthcare Interpretation and review of laboratory resultsNormalNOMS HealthcareKetones, UA NegativeNegative - 160(16) ++++ mg/dLNOWY HealthcareLeukocytes, UANegative Negative - 500+++ Елена/mcLNOMS HealthcareNitrite, UANegativeNegative - Positive NOMS HealthcarepH, UA65 - 9NOMS HealthcareProtein, UANegativeNegative - 2000(20) ++++ mg/dLNOMS HealthcareSpec Grav, UA1.021 - 1.03NOMS HealthcareUrobilinogen, UA1.00.2 - 12 mg/dLNOMS HealthcareNOMS HealthcareXR Chest 2 Viewson [id number] Chest 2 ViewsExam Date/Time: 01/21/2025 17:05 EDT Reason for Exam: R05.9 Report IMPRESSION: No acute radiographic abnormality. EXAMINATION: XR Chest 2 Views Clinical History: Cough. Shortness of breath. Comparison: None RESULT: No consolidation. No pleural effusion. No pneumothorax. Normal cardiomediastinal silhouette. No acute osseous findings. Ordering Provider: Lydia Whyte FINAL REPORT Dictated: 01/22/2025 8:20 am Manjit Mazariegos MD. Signed (Electronic Signature): 01/22/2025 8:20 am Signed by: Manjit Mazariegos MD Transcribed by: BRENDA Technologist: [facility] HospitalUS PELVIC COMPLETE W/ TVon [id number] PELVIC COMPLETE W/ TVEXAM: US PELVIC COMPLETE W/ TV HISTORY: Pelvic pain, abnormal uterine bleeding after intercourse. COMPARISON: None available. TECHNIQUE: Two-dimensional transabdominal grayscale ultrasound imaging of the pelvis was performed.Color flow and spectral Doppler imaging of the [...] with follicles. There is normal color and spectralDoppler flow. No fluid is present within the cul-de-sac. IMPRESSION: 1. Unremarkable ultrasound of the pelvis. 2. Normal color and spectral Doppler flow within the bilateral ovaries. Electronically Signed:Electronically signed by YANIRA ZENG II, MD, PHD at 22-Sep-2024 07:42:52 AM [facility] TeleradiologyNormalNot AvailableComment on above:Order Comment: US PELVIS-TRANSVAG IF INDICATED Patient's last menstrual period was 07/28/2024 (approximate).HCG ( test) Ql (U)on 87-24-5598Pemmikrbxvokwc and review of laboratory resultsNormal NOMS HealthcarePreg Test, UrNegativeNegativeNOMayo Clinic Health System[facility] [place] Urinalysis macro (dipstick) panel (U)on 96-05-3749Eiydscjbn, UANegativeNegative - 4(70) +++ mg/dLNOWY HealthcareBlood, UAPositiveNegative - 50 Josh/mcLNOWY HealthcareComment on above:moderateClarity, UAClearNOWY HealthcareColor, UA YellowNOWY HealthcareGlucose, UANegativeNegative - 2000(110) ++++ mg/dLNOWY HealthcareInterpretation and review of laboratory resultsAbnormalMercy McCune[facility] Ketones, UANegativeNegative - 160(16) ++++ mg/dLSAN JUAN [facility] HealthcareLeukocytes, UA TraceNegative - 500+++ Елена/mcLSAN JUAN HOSPITAL HealthcareNitrite, UANegativeNegative - PositiveNOWY HealthcarepH, UA65 - 9NOWY HealthcareProtein, UANegativeNegative - 2000(20) ++++ mg/dLNOWY HealthcareSpec Grav, UA1.0251 - 1.03[facility] Urobilinogen, UA0.20.2 - 12 mg/dLNOParkland Health Center HealthcareCBC AUTO DIFFon [id number] #0.0 103/ulNormal0.0-0.1The [facility] CenterComment on above: Performed By: #### KETANG #### [facility] [address] [address] [address] Baljinder Menjivarphils/100 WBC (Bld)0.1 %Critically low0.2-2.0The [facility] CenterComment on above:Performed By: #### RUBIGG #### [facility] [address] [place] [address] Dr. Baljinder Barrera #0.0 103/ulNormal0.0-0.7The [facility] CenterComment on above: Performed By: #### RUBIGG #### [facility] [address] [place] [address] Dr. Baljinder Pringleosinophils/100 WBC (Bld)0.1 %Critically low0.9-7.0The [facility] CenterComment on above:Performed By: #### RUBIGG #### [facility] [address] [place] [address] Dr. Baljinder Pringlerythrocyte distribution width (RBC) [Ratio]13.3 %Mdtqad80.0-15.0 The [facility] CenterComment on above:Performed By: #### RUBARIKG #### [facility] [address] [place] [address] Dr. Baljinder MurrellHematocrit (Bld) [Volume fraction]35.5 %Critically low36.0-48.0 The [facility] CenterComment on above:Performed By: #### RUBARIKG #### [facility] [address] [place] [address] Dr. Baljinder MurrellHemoglobin (Bld) [Mass/Vol]11.3 g/dLCritically low12.0-16.0The [facility] CenterComment on above:Performed By: #### RUBARIKG #### [facility] [address] [place] [address] Dr. Baljinder Mendez #0.06 10e3/ulCritically high0.00-0.03The [facility] Comment on above:Performed By: #### RUBARIKG #### [facility] [address] [place] [address] Dr. Baljinder Mendez %0.4 %Normal0.0-0.5The [facility] CenterComment on above: Performed By: #### RUBARIKG #### [facility] [address] [place] [address] Dr. Baljinder Alonzo #1.6 103/ulNormal1.2-3.8The [facility] CenterComment on above:Performed By: #### KETANG #### [facility] [address] [place] [address] Dr. Baljinder Maiermphocytes/100 WBC (Bld)11.0 %Critically low20.5-60.0The [facility] CenterComment on above:Performed By: #### KETANG #### [facility] [address] [place] [address] Dr. Baljinder Aldana DIFF REQNONormalThe [facility] CenterComment on above: Performed By: #### KETANG #### [facility] [address] [place] [address] Dr. Baljinder Bernstein (RBC) [Entitic mass]30.2 suSlhfhd52.7-34.0The [facility] CenterComment on above:Performed By: #### KETANG #### [facility] [address] [place] [address] Dr. Baljinder Bernstein (RBC) [Mass/Vol]31.8 g/oYWnfjhb05.9-35.2The [facility] CenterComment on above:Performed By: #### KETANG #### [facility] [address] [place] [address] Dr. Baljinder Bernstein (RBC) [Entitic vol]94.9 uLUjkpok40.0-99.0The [facility] CenterComment on above:Performed By: #### KETANG #### [facility] [address] [place] [address] Dr. Baljinder Rodriguez #0.9 103/ulCritically high0.3-0.8The [facility] Comment on above:Performed By: #### KETANG #### [facility] [address] [place] [address] Dr. Baljinder Mcgrawocytes/100 WBC (Bld)6.1 %Normal1.7-12.0[facility] Comment on above:Performed By: #### KETANG #### [facility] [address] [place] [address] Dr. Baljinder Marie #11.9 103/ulCritically high1.4-6.5The [facility] Comment on above:Performed By: #### RUBIGG #### [facility] [address] [place] [address] Dr. Baljinder Carrilloutrophils/100 WBC (Bld)82.3 %Critically high43.0-75.0The [facility] CenterComment on above:Performed By: #### RUBARIKG #### [facility] [address] [place] [address] Dr. Baljinder MurrellPlatelet mean volume (Bld) [Entitic vol]8.5 fLCritically low 9.5-13.5The [facility] CenterComment on above:Performed By: #### KETANG #### [facility] [address] [place] [address] Dr. Baljinder MurrellPLT217 103/nsYxepxy146-189Yzp [facility] CenterComment on above: Performed By: #### RUBARIKG #### [facility] [address] [place] [address] Dr. Baljinder MurrellRBC3.74 106/ulCritically low4.20-5.40The [facility] CenterComment on above:Performed By: #### RUBIGG #### [facility] [address] [place] [address] Dr. Baljinder MurrellWBC14.5 103/ulCritically high4.0-11.0The [facility] CenterComment on above:Performed By: #### RUBARIKG #### [facility] [address] [place] [address] Dr. Baljinder Jeter AUTO DIFFon [id number] #0.0 103/ulNormal0.0-0.1The [facility] CenterComment on above:Performed By: #### CBC #### [facility] [address] [place] [address] Dr. Baljinder MurrellBasophils/100 WBC (Bld)0.2 %Normal0.2-2.0[facility] Comment on above:Performed By: #### CBC #### [facility] [address] [address] [address] Baljinder Barrera #0.0 103/ulNormal0.0-0.7The [facility] CenterComment on above: Performed By: #### CBC #### [facility] [address] [place] [address] Dr. Baljinder Pringleosinophils/100 WBC (Bld)0.4 %Critically low0.9-7.0The [facility] CenterComment on above:Performed By: #### CBC #### [facility] [address] [place] [address] Dr. Baljinder Pringlerythrocyte distribution width (RBC) [Ratio]13.4 %Mvugml36.0-15.0 The [facility] CenterComment on above:Performed By: #### CBC #### [facility] [address] [place] [address] Dr. Baljinder MurrellHematocrit (Bld) [Volume fraction]36.8 %Hswnbh54.0-48.0The [facility] CenterComment on above:Performed By: #### CBC #### [facility] [address] [place] [address] Dr. Baljinder MurrellHemoglobin (Bld) [Mass/Vol]12.5 g/wBXzrfvh03.0-16.0The [facility] CenterComment on above:Performed By: #### CBC #### [facility] [address] [place] [address] Dr. Baljinder Mendez #0.05 10e3/ulCritically high0.00-0.03The [facility] Comment on above:Performed By: #### CBC #### [facility] [address] [place] [address] Dr. Baljinder Mendez %0.6 %Critically high0.0-0.5The [facility] CenterComment on above:Performed By: #### CBC #### [facility] [address] [place] [address] Dr. Baljidner Chavis #1.9 103/ulNormal1.2-3.8The [facility] CenterComment on above:Performed By: #### CBC #### [facility] [address] [place] [address] Dr. Baljinder aMiermphocytes/100 WBC (Bld)20.9 %Ckilua63.5-60.0The [facility] CenterComment on above:Performed By: #### CBC #### [facility] [address] [place] [address] Dr. Baljinder Aldana DIFF REQNONormalThe [facility]perance HospitalComment on above: Performed By: #### CBC #### [facility] [address] [place] [address] Dr. Baljinder Bernstein (RBC) [Entitic mass]31.0 cyScweun77.7-34.0The [facility] CenterComment on above:Performed By: #### CBC #### [facility] [address] [place] [address] Dr. Baljinder Bernstein (RBC) [Mass/Vol]34.0 g/aWXwgdsz03.9-35.2The [facility] CenterComment on above:Performed By: #### CBC #### [facility] [address] [place] [address] Dr. Baljinder Martino (RBC) [Entitic vol]91.3 lAUzlczn40.0-99.0The [facility] CenterComment on above:Performed By: #### CBC #### [facility] [address] [place] [address] Dr. Baljinder Rodriguez #0.6 103/ulNormal0.3-0.8The [facility] CenterComment on above:Performed By: #### CBC #### [facility] [address] [place] [address] Dr. Baljinder Mcgrawocytes/100 WBC (Bld)6.3 %Normal1.7-12.0The [facility] Comment on above:Performed By: #### CBC #### [facility] [address] [place] [address] Dr. Baljinder Marie #6.4 103/ulNormal1.4-6.5The [facility] CenterComment on above:Performed By: #### CBC #### [facility] [address] [place] [address] Dr. Baljinder Carrilloutrophils/100 WBC (Bld)71.6 %Lcgzzr34.0-75.0The [facility] CenterComment on above:Performed By: #### CBC #### [facility] [address] [place] [address] Dr. Baljinder MurrellPlatelet mean volume (Bld) [Entitic vol]8.9 fLCritically low 9.5-13.5The [facility] CenterComment on above:Performed By: #### CBC #### [facility] [address] [place] [address] Dr. Baljinder MurrellPLT270 103/crGruura960-547Bse [facility] CenterComment on above: Performed By: #### CBC #### [facility] [address] [place] [address] Dr. Baljinder MurrellRBC4.03 106/ulCritically low4.20-5.40The [facility] CenterComment on above:Performed By: #### CBC #### [facility] [address] [place] [address] Dr. Baljinder MurrellWBC8.9 103/ulNormal4.0-11.0The [facility] CenterComment on above: Performed By: #### CBC #### [facility] [address] [place] [address] Dr. Baljinder MurrellDRUG SCREEN RAPID (URINE)on [id number]T The [facility] CenterComment on above:Performed By: #### DRUGRPD #### [facility] [address] [place] [address] Dr. Baljinder MurrellBARNegativeNormalNEGATIVEThe [facility] CenterComment on above: Performed By: #### DRUGRPD #### [facility] [address] [place] [address] Dr. Baljinder MurrellBUPNegativeNormalNEGATIVEThe [facility] CenterComment on above: Performed By: #### DRUGRPD #### [facility] [address] [place] [address] Dr. Baljinder HerringZONegativeNormalNEGATIVEClermont County HospitalComment on above: Performed By: #### DRUGRPD #### [facility] [address] [address] [address] Baljinder MurrellCOCNegativeNormalNEGATIVEClermont County HospitalComment on above: Performed By: #### DRUGRPD #### [facility] [address] [place] [address] Dr. Baljinder RosadoUniversity Hospitals Conneaut Medical CenterComment on above: Result Comment: AMP (Amphetamine): 500ng/mL, BAR (Barbituates): 200 ng/mL, BZO (Benzodiazepines): 150 ng/mL, BUP (Buprenorphine): 10 ng/mL, ROXANA (Cocaine): 150 ng/mL, mAMP (Methamphetamine): 500 ng/mL, MTD (Methadone): 200 ng/mL, OPI (Opiates): 100 ng/mL, OXY (Oxycodone): 100 ng/mL, PCP (Phencyclidine): 25 ng/mL, PPX (Propoxyphene): 300 ng/mL, THC (Cannabinoids): 50 ng/mL, TCA (Trycyclic Antidepressants): 300 ng/mLPerformed By: #### DRUGRPD #### [facility] [address] [place] [address] Dr. Baljinder MurrellDRUG CUT HEADERDRUG CLASS TEST SYSTEM CUT-OFF CONCENTRATIONS ARE FOLLOWS:NormalThe [facility] CenterCommclaren greater [facility] on above:Performed By: #### DRUGRPD #### [facility] [address] [place] [address] Dr. Baljinder MurrellmAMPNegativeNormalNEGATIVEClermont County HospitalCommclaren [facility] on above: Performed By: #### DRUGRPD #### [facility] [address] [place] [address] Dr. Baljinder MurrellMTDNegativeNormalNEGATIVEClermont County HospitalComment on above: Performed By: #### DRUGRPD #### [facility] [address] [address] [address] Baljinder MurrellOPINegativeNormalNEGGreen Cross HospitalComment on above: Performed By: #### DRUGRPD #### [facility] [address] [address] [address] Baljinder MurrellOXYNegativeNormalNEGGreen Cross HospitalComment on above: Performed By: #### DRUGRPD #### [facility] [address] [address] [address] Baljinder MurrellPCPNegativeNormalNEGGreen Cross HospitalComment on above: Performed By: #### DRUGRPD #### [facility] [address] [address] [address] Baljinder MurrellPPXNegativeNormalNEGGreen Cross HospitalComment on above: Performed By: #### DRUGRPD #### [facility] [address] [address] [address] Baljinder MurrellTCANegativeNormalNEGGreen Cross HospitalComment on above: Performed By: #### DRUGRPD #### [facility] [address] [address] [address] Baljinder MurrellTHCNegativeNormalNEGGreen Cross HospitalCommclaren [facility] on above: Performed By: #### DRUGRPD #### [facility] [address] [address] [address] Baljinder Larson AND SCREENon [id number] AND SCREENNegativeAccess Hospital DaytonComment on above:Performed By: #### RUBIGG #### [facility] [address] [place] [address] Dr. Baljinder Johnson PREG BIOPHY W NON STRESSon [id number] PREG BIOPHY W NON STRESSEXAMINATION: US PREG BIOPHY W NON STRESS HISTORY: Gestational diabetes mellitus COMPARISON: Ultrasound biophysical 12/12/2022 FINDINGS: BREATHING MOVEMENTS: 2.0 GROSS BODY MOVEMENTS: 2.0 TONE: 2.0 QUALITATIVE AMNIOTIC FLUID VOLUME: 2.0 PRESENTATION: CEPHALIC HEART RATE: 152.5 bpm bpm. AMNIOTIC FLUID VOLUME: 9.0 cm GESTATIONAL AGE: 39 weeks 0 days CONCLUSION: Total biophysical profile score 8.0. Electronically authenticated by: ZEUS BRANNON Date: 2022-12-22 23:17[facility] DaytonUS PREG BIOPHY W NON STRESSon [id number] PREG BIOPHY W NON STRESSEXAMINATION: US PREG BIOPHY W NON STRESS HISTORY: Gestational diabetes mellitus COMPARISON: Ultrasound biophysical 12/05/2022 FINDINGS: BREATHING MOVEMENTS: 2.0 GROSS BODY MOVEMENTS: 2.0 TONE: 2.0 QUALITATIVE AMNIOTIC FLUID VOLUME: 2.0 PRESENTATION: CEPHALIC HEART RATE: 139.2 bpm bpm. AMNIOTIC FLUID VOLUME: 11.6 cm GESTATIONAL AGE: 38 weeks 0 days CONCLUSION: Total biophysical profile score 8.0. Electronically authenticated by: ZEUS BRANNON Date: 2022-12-12 16:39[facility] PREG BIOPHY W NON STRESSon [id number] PREG BIOPHY W NON STRESSEXAMINATION: US PREG BIOPHY W NON STRESS HISTORY: [...] Electronically authenticated by: SEBASTIAN DOAN Date: 2022-12-06 15:03[facility] DaytonGROUP B STREP CULTUREon 12-04-2022S. agalactiae Ag Ql (Unsp spec)Culture Observations: NEGATIVE FOR GROUP B STREPTOCOCCUS.NormalThe [facility] CenterComment on above: Performed By: #### RUBIGG #### [facility] [address] [place] [address] Dr. Baljinder Johnson PREG BIOPHY W NON STRESSon [id number] PREG BIOPHY W NON STRESSEXAMINATION: US PREG BIOPHY W NON STRESS HISTORY: Gestational diabetes mellitus COMPARISON: Ultrasound biophysical 11/21/2022 FINDINGS: BREATHING MOVEMENTS: 2.0 GROSS BODY MOVEMENTS: 2.0 TONE: 2.0 QUALITATIVE AMNIOTIC FLUID VOLUME: 2.0 PRESENTATION: Cephalic HEART RATE: 145.9 bpm bpm. AMNIOTIC FLUID VOLUME: 13.3 cm GESTATIONAL AGE: 36 weeks 0 days CONCLUSION: Total biophysical profile score 8.0. Electronically authenticated by: ZEUS BRANNON Date: 2022-11-28 16:08[facility] PREG GROWTHon [id number] PREG GROWTHEXAMINATION: US PREG GROWTH HISTORY: Gestational diabetes mellitus [...] Electronically authenticated by: ZEUS BRANNON Date: 2022-11-28 16:03[facility] PREG BIOPHY W NON STRESSon [id number] PREG BIOPHY W NON STRESSEXAMINATION: US PREG BIOPHY W NON STRESS HISTORY: Gestational diabetes mellitus COMPARISON: Ultrasound biophysical 11/14/2022 FINDINGS: BREATHING MOVEMENTS: 2.0 GROSS BODY MOVEMENTS: 2.0 TONE: 2.0 QUALITATIVE AMNIOTIC FLUID VOLUME: 2.0 PRESENTATION: Cephalic HEART RATE: 131.7 bpm bpm. AMNIOTIC FLUID VOLUME: 14.2 cm GESTATIONAL AGE: 35 weeks 0 days CONCLUSION: Total biophysical profile score 8.0. Electronically authenticated by: ZEUS BRANNON Date: 2022-11-21 16:37[facility] PREG BIOPHY W NON STRESSon [id number] PREG BIOPHY W NON STRESSEXAMINATION: US PREG BIOPHY W NON STRESS HISTORY: [...] Electronically authenticated by: SEBASTIAN DOAN Date: 2022-11-14 15:29[facility] DaytonUS PREG BIOPHY W NON STRESSon [id number] PREG BIOPHY W NON STRESSEXAMINATION: US PREG BIOPHY W NON STRESS HISTORY: [...] Electronically authenticated by: SEBASTIAN DOAN Date: 2022-11-07 16:03[facility] PREG BIOPHY W NON STRESSon [id number] PREG BIOPHY W NON STRESSEXAMINATION: US PREG BIOPHY W NON STRESS HISTORY: Gestational diabetes mellitus COMPARISON: No relevant comparison available. FINDINGS: BREATHING MOVEMENTS: 2.0 GROSS BODY MOVEMENTS: 2.0 TONE: 2.0 QUALITATIVE AMNIOTIC FLUID VOLUME: 2.0 PRESENTATION: Cephalic HEART RATE: 146.7 bpm bpm. AMNIOTIC FLUID VOLUME: 16.1 cm GESTATIONAL AGE: 32 weeks 0 days CONCLUSION: Total biophysical profile score 8.0. Electronically authenticated by: ZEUS BRANNON Date: 2022-10-31 17:13[facility] PREG GROWTHon [id number] PREG GROWTHEXAMINATION: US PREG GROWTH HISTORY: Gestational diabetes mellitus [...] Electronically authenticated by: ZEUS BRANNON Date: 2022-10-31 17:12[facility] DaytonUS PREG GROWTHon [id number] PREG GROWTHEXAMINATION: US PREG GROWTH HISTORY: Gestational diabetes mellitus [...] Electronically authenticated by: ZEUS BRANNON Date: 2022-10-07 16:18[facility] DaytonGTT 3 HR PREGon [id number] [Mass/Vol]79 mg/dLNormal 74-106Cl[facility] HospitalComment on above:Performed By: #### GTT3P #### [facility] [address] [place] [address] Dr. Baljinder MurrellGlucose [Mass/Vol]204 mg/dLNoCleveland Clinic Medina HospitalComment on above:Performed By: #### GTT3P #### [facility] [address] [address] [address] Baljinder MurrellGlucose [Mass/Vol]158 mg/dLNoCleveland Clinic Medina HospitalComment on above:Performed By: #### GTT3P #### [facility] [address] [place] [address] Dr. Baljinder MurrellGlucose [Mass/Vol]150 mg/dLNoCleveland Clinic Medina HospitalComment on above:Performed By: #### GTT3P #### [facility] [address] [place] [address] Dr. Baljinder Jeter AUTO DIFFon [id number] #0.0 103/ulNormal0.0-0.1The [facility] on above:Performed By: #### CBC #### [facility] [address] [place] [address] Dr. Baljinder MurrellBasophils/100 WBC (Bld)0.2 %Normal0.2-2.0[facility] on above:Performed By: #### CBC #### [facility] [address] [place] [address] Dr. Baljinder Barrera #0.0 103/ulNormal0.0-0.7The [facility] on above: Performed By: #### CBC #### [facility] [address] [place] [address] Dr. Baljinder Pringleosinophils/100 WBC (Bld)0.3 %Critically low0.9-7.0The [facility] on above:Performed By: #### CBC #### [facility] [address] [place] [address] Dr. Baljinder Pringlerythrocyte distribution width (RBC) [Ratio]12.8 %Xgnxpf30.0-15.0 The [facility] Campusment on above:Performed By: #### CBC #### [facility] [address] [place] [address] Dr. Baljinder MurrellHematocrit (Bld) [Volume fraction]33.4 %Critically low36.0-48.0 The [facility] CenterComment on above:Performed By: #### CBC #### [facility] [address] [place] [address] Dr. Baljinder MurrellHemoglobin (Bld) [Mass/Vol]11.4 g/dLCritically low12.0-16.0The [facility] CenterComment on above:Performed By: #### CBC #### [facility] [address] [place] [address] Dr. Baljinder Mendez #0.05 10e3/ulCritically high0.00-0.03The [facility] Comment on above:Performed By: #### CBC #### [facility] [address] [place] [address] Dr. Baljinder Mendez %0.5 %Normal0.0-0.5The [facility] CenterComment on above: Performed By: #### CBC #### [facility] [address] [place] [address] Dr. Baljinder Aolnzo #1.7 103/ulNormal1.2-3.8The [facility] CenterComment on above:Performed By: #### CBC #### [facility] [address] [place] [address] Dr. Baljinder Chavishocytes/100 WBC (Bld)17.9 %Critically low20.5-60.0The [facility] Medical CenterComment on above:Performed By: #### CBC #### [facility] [address] [place] [address] Dr. Baljinder HernandezUAL DIFF REQNONormalThe [facility] CenterComment on above: Performed By: #### CBC #### [facility] [address] [place] [address] Dr. Baljinder Montoya (RBC) [Entitic mass]31.2 sfTykorf63.7-34.0The [facility] CenterComment on above:Performed By: #### CBC #### [facility] [address] [place] [address] Dr. Baljinder Bernstein (RBC) [Mass/Vol]34.1 g/dSJavawx19.9-35.2The [facility] CenterComment on above:Performed By: #### CBC #### [facility] [address] [place] [address] Dr. Baljinder Martino (RBC) [Entitic vol]91.5 qPZhqsdr76.0-99.0The [facility] CenterComment on above:Performed By: #### CBC #### [facility] [address] [place] [address] Dr. Baljinder Rodriguez #0.4 103/ulNormal0.3-0.8The [facility] CenterComment on above:Performed By: #### CBC #### [facility] [address] [place] [address] Dr. Baljinder Mcgrawocytes/100 WBC (Bld)4.1 %Normal1.7-12.0The [facility] Comment on above:Performed By: #### CBC #### [facility] [address] [place] [address] Dr. Baljinder Marie #7.2 103/ulCritically high1.4-6.5The [facility] Comment on above:Performed By: #### CBC #### [facility] [address] [place] [address] Dr. Baljinder Carrilloutrophils/100 WBC (Bld)77.0 %Critically high43.0-75.0The [facility] CenterComment on above:Performed By: #### CBC #### [facility] [address] [place] [address] Dr. Baljinder Bentley mean volume (Bld) [Entitic vol]8.2 fLCritically low 9.5-13.5The [facility] CenterComment on above:Performed By: #### CBC #### [facility] [address] [place] [address] Dr. Baljinder ApodacaT232 103/ilQgadpi353-853Ett [facility] CenterComment on above: Performed By: #### CBC #### [facility] [address] [place] [address] Dr. Baljinder ManciniC3.65 106/ulCritically low4.20-5.40The [facility] CenterComment on above:Performed By: #### CBC #### [facility] [address] [place] [address] Dr. Baljinder MurrellWBC9.3 103/ulNormal4.0-11.0The [facility] CenterComment on above: Performed By: #### CBC #### [facility] [address] [place] [address] Dr. Baljinder MurrellGLUCOSE - 1HRon 65-13-7551Aulpowx [Mass/Vol]158 mg/dLCritically xjsj95-506Utq [facility] CenterComment on above:Performed By: #### GLU1HR #### [facility] [address] [place] [address] Dr. Baljinder MurrellUS PREG ANATOMY SINGLEon 59-43-5691PI PREG ANATOMY SINGLE EXAMINATION: US PREG ANATOMY [...] Electronically authenticated by: ZEUS BRANNON Date: 2022-08-15 06:49NoCleveland Clinic Medina HospitalHEPATITIS C VIRUS AB W/ REFLEX QUANTon 54-89-0090ISV AB<0.1 Normal0.0-0.9The [facility] Main Campusment on above:Performed By: #### HIV12 #### [facility] [address] [place] [address] Dr. Baljinder MurrellInterpretation:CommentKindred Hospital Dayton on above:Result Comment: Negative Not infected with HCV, unless recent infection is suspected or other evidence exists to indicate HCV infection.Performed By: #### HIV12 #### [facility] [address] [place] [address] Dr. Baljinder Heart B SURFACE ANTIGEN SCREENon 20-96-7010ZBmMt ScreenNegative NormalNegativeThe [facility] on above:Performed By: #### DRUGRPD #### [facility] [address] [place] [address] Dr. Baljinder Garcia 1 AND 2 WITH REFLEXon 94-58-5065TFU Screen 4th Generation wRfxNon-ReactiveNormalNon ReactiveThe [facility] on above:Result Comment: HIV Negative HIV-1/HIV-2 antibodies and HIV-1 p24 antigen were NOT detected. There is no laboratory evidence of HIV infection.Performed By: #### HIV12 #### [facility] [address] [place] [address] Dr. Baljinder MurrellRPR QUANTon 91-71-5862Ixchc Plasma Reagin, QuantNon-Reactive NormalNonRea<1:1The [facility] on above:Result Comment: Please Note: This test does not meet current guidelines for screening and diagnosis of syphilis. This test is intended for following treatment response in patients being treated for syphilis infection. To screen for syphilis infection, a reflex cascade that includes both RPR and a treponema-specific assay should be utilized, such as Treponema pallidum (Syphilis) Screening [place] (008463) or Rapid Plasma Reagin (RPR) Test With Reflex to Quantitative RPR and Confirmatory Treponema pallidum Antibodies (535237).Performed By: #### DRUGRPD #### [facility] [address] [place] [address] Dr. Baljinder Vega AB IGGon 59-09-4476Puozely Antibodies, IgG17.20 index NormalImmune >0.99The [facility] CenterComment on above:Result Comment: Non- immune <0.90 Equivocal 0.90 - 0.99 Immune >0.99Performed By: #### RUBIGG #### [facility] [address] [place] [address] Dr. Baljinder Jeter AUTO DIFFon 39-54-7643DQQH #0.0 103/ulNormal0.0-0.1The [facility] CenterComment on above:Performed By: #### CBC #### [facility] [address] [place] [address] Dr. Baljinder MurrellBasophils/100 WBC (Bld)0.2 %Normal0.2-2.0[facility] Comment on above:Performed By: #### CBC #### [facility] [address] [place] [address] Dr. Baljinder Barrera #0.1 103/ulNormal0.0-0.7The [facility] CenterComment on above: Performed By: #### CBC #### [facility] [address] [place] [address] Dr. Baljinder Pringleosinophils/100 WBC (Bld)0.6 %Critically low0.9-7.0The [facility] CenterComment on above:Performed By: #### CBC #### [facility] [address] [place] [address] Dr. Baljinder Pringlerythrocyte distribution width (RBC) [Ratio]12.2 %Wllrhl99.0-15.0 The [facility] CenterComment on above:Performed By: #### CBC #### [facility] [address] [place] [address] Dr. Baljinder MurrellHematocrit (Bld) [Volume fraction]37.1 %Dxmgym32.0-48.0The [facility] CenterComment on above:Performed By: #### CBC #### [facility] [address] [place] [address] Dr. Baljinder MurrellHemoglobin (Bld) [Mass/Vol]12.6 g/cMIwgfea65.0-16.0The [facility] CenterComment on above:Performed By: #### CBC #### [facility] [address] [place] [address] Dr. Baljinder Mendez #0.03 10e3/ulNormal0.00-0.03The [facility] CenterComment on above:Performed By: #### CBC #### [facility] [address] [place] [address] Dr. Baljinder Mendez %0.3 %Normal0.0-0.5The [facility] CenterComment on above: Performed By: #### CBC #### [facility] [address] [place] [address] Dr. Baljinder Alonzo #2.3 103/ulNormal1.2-3.8The [facility] CenterComment on above:Performed By: #### CBC #### [facility] [address] [place] [address] Dr. Baljinder Maiermphocytes/100 WBC (Bld)26.0 %Ohnupi52.5-60.0The [facility] CenterComment on above:Performed By: #### CBC #### [facility] [address] [place] [address] Dr. Baljinder HernandezUAL DIFF REQNONormalThe [facility] Medical CenterComment on above: Performed By: #### CBC #### [facility] [address] [place] [address] Dr. Baljinder Montoya (RBC) [Entitic mass]30.4 idVfozwt90.7-34.0The [facility] CenterComment on above:Performed By: #### CBC #### [facility] [address] [place] [address] Dr. Baljinder BernsteinHC (RBC) [Mass/Vol]34.0 g/gXIxdzhd92.9-35.2The [facility] CenterComment on above:Performed By: #### CBC #### [facility] [address] [address] [address] Baljinder BernsteinV (RBC) [Entitic vol]89.6 kYTdjvqo90.0-99.0The [facility] CenterComment on above:Performed By: #### CBC #### [facility] [address] [place] [address] Dr. Baljinder Rodriguez #0.4 103/ulNormal0.3-0.8The [facility] CenterComment on above:Performed By: #### CBC #### [facility] [address] [place] [address] Dr. Baljinder Mcgrawocytes/100 WBC (Bld)4.6 %Normal1.7-12.0The [facility] Comment on above:Performed By: #### CBC #### [facility] [address] [place] [address] Dr. Baljinder Marie #6.1 103/ulNormal1.4-6.5The [facility] CenterComment on above:Performed By: #### CBC #### [facility] [address] [place] [address] Dr. Baljinder Carrilloutrophils/100 WBC (Bld)68.3 %Gpoann48.0-75.0The [facility] CenterComment on above:Performed By: #### CBC #### [facility] [address] [place] [address] Dr. Baljinder Bentley mean volume (Bld) [Entitic vol]8.5 fLCritically low 9.5-13.5The [facility] CenterComment on above:Performed By: #### CBC #### [facility] [address] [place] [address] Dr. Baljinder ApodacaT260 103/fwRwwufq599-641Ywe [facility] CenterComment on above: Performed By: #### CBC #### [facility] [address] [place] [address] Dr. Baljinder MurrellRBC4.14 106/ulCritically low4.20-5.40The [facility] Campusment on above:Performed By: #### CBC #### [facility] [address] [place] [address] Dr. Baljinder MurrellWBC8.9 103/ulNormal4.0-11.0The [facility] CenterComment on above: Performed By: #### CBC #### [facility] [address] [place] [address] Dr. Baljinder MurrellCULTURE URINEon 78-71-3301TTYZLMQ URINECulture Observations: LIGHT GROWTH OF MIXED GENITAL RAYSHAWN. NO POTENTIAL PATHOGENS SEEN.NormalThe [facility] CenterComment on above:Performed By: #### URCX #### [facility] [address] [place] [address] Dr. Baljinder MurrellGLYCOHEMOGLOBIN A1Con 22-94-2963DNA RECOMMENDATIONSEE BELOWNormal The [facility] CenterComment on above:Result Comment: ADA RECOMMENDED LIMIT 4.0 - 6.0 ADA THERAPEUTIC TARGET < 7.0 ACTION SUGGESTED > 7.0Performed By: #### DRUGRPD #### [facility] [address] [place] [address] Dr. Baljinder MurrellGlucose [Mass/Vol]105 mg/dLNormalThe [facility] CenterCommclaren greater lans[facility] on above:Performed By: #### DRUGRPD #### [facility] [address] [place] [address] Dr. Baljinder MurrellHbA1c (Bld) [Mass fraction]5.3 %Normal4.5-6.2The [facility] Campusment on above:Performed By: #### DRUGRPD #### [facility] [address] [place] [address] Dr. Baljinder Chamorro BOX TEST PT SEND OUTon 97-10-7950JGTB TO REF LAB06/07/2022 [facility]Sal[facility] on above:Performed By: #### DRUGRPD #### [facility] [address] [place] [address] Dr. Baljinder MurrellTYPE AND SCREENon 97-19-2640IXFG AND SCREENNegativeAccess Hospital DaytonComment on above:Performed By: #### TNS #### [facility] [address] [address] [address] Baljinder Johnson PREG TVon 16-72-2878HI PREG TVEXAMINATION: US PREG TV HISTORY: Missed period COMPARISON: [...] Electronically authenticated by: ZEUS BRANNON Date: 2022-05-21 16:59[facility] Vital Signs Date TimeVital SignValuePerforming UnznmslekQidbcshj79-05-7856 15:51-0400Body mass index (BMI) [Ratio]21.77 kg/f9Fkpqp Yuan[place] Translation DO Work Phone: [phone] HospitalUkrdbpkhun11-95-7755 15:51-0400Body .05 kgCorey Lucia DO Work Phone: [phone] HospitalZtpptlszmk41-31-1198 15:51-0400Diastolic blood eiddsolq39 mm[Hg]Freddy Lucia DO Work Phone: [facility] HospitalMnqtufupfk01-33-9518 15:51-0400Systolic blood mm[Hg]FreddyProNerve Work Phone: [phone] HospitalTpslmgsuru55-41-1734 16:37-0400Body mass index (BMI) [Ratio]21.58 kg/l2Tkyse Lucia DO Work Phone: [facility] HospitalGpgqochvne90-57-6155 16:37-0400Body svgagk65.51 kgCorey Lucia DO Work Phone: [facility] HospitalRgrucxqqps33-90-8133 16:37-0400Diastolic blood pzdmjyvn89 mm[Hg]Freddy [employer] Work Phone: [facility] HospitalFtlviyiwnl60-92-9717 16:37-0400Systolic blood exrreuvi103 mm[Hg]Freddy [employer] Work Phone: [facility] HospitalKhwfyijdns79-30-3254 13:33-0400Body mass index (BMI) [Ratio]20.99 kg/l7MokezHenry J. [facility]08-14-2025 13:33-0400Body weight 60.[address] [address]-14-2025 13:33-0400Diastolic blood bquwfisx56 mm[Hg][facility]08-14-2025 13:33-0400Systolic blood mm[Hg][facility]12-18-2024 15:52-0500Body mass index (BMI) [Ratio] 22.55 kg/m2Neisha ACKERMAN Work Phone: [facility] HospitalTqnajsjrxm80-09-2428 15:52-0500Body .32 kgNeisha ACKERMAN Work Phone: [place] [facility] Encounters Encounter DateEncounter TypeCare ProviderFacilityStart: 06-22-2025 End: 98-40-4842jmbpniwxpuJNAAP FAZIONot AvailableStart: 06-22-2025 End: 79-69-5192Inluebq encounter procedureCorey Lucia [place] [facility] Phone: noW[place] HealthcareStart: 06-22-2025 End: 75-47-4415Amdbrden preventive med est patient 18-39 yrsCorey Lucia DO Work Phone: noW[place] OBGYNComment on above:Well woman exam with routine gynecological exam; Second trimester ([facility]); 17 weeks gestation of ([facility]); Exposure to STD; Need for maternal serum alpha-protein (MSAFP) screening ([facility]); Screening, , for anatomic survey ([facility]); Diabetes mellitus screeningStart: 06-22-2025 End: 25-47-2042Sloiij flowsheetCorey Lucia DO Work Phone: [facility] [place] OBGYNStart: 06-22-2025 End: 61-77-3856Pnbbwc flowsheetCorey Lucia DO Work Phone: [facility] [place] OBGYNStart: 06-22-2025 End: 44-26-4359Tecnqxcbj Result EncounterGeneric External Data ProviderNOMS External Department UnsolicitedStart: 06-22-2025 End: 93-17-2149Bowbbtqt Result EncounterCorey Lucia DO Work Phone: [facility] External Department UnsolicitedStart: 06-20-2025 End: 73-79-4083qibdwlwadsGxvdd C TinkerFacility:FTMCStart: 05-23-2025 End: 60-07-0948Hodmgaut flow sheetCorey Lucia DO Work Phone: [phone] [place] OBGYNComment on above:13 weeks gestation of ([facility]); Second trimester ([facility])Start: 05-23-2025 End: 19-93-1038awmpwoyoceRCRMZ FAZIONot AvailableStart: 05-23-2025 End: 41-88-1140Axyyjb flowsheetCorey Lucia DO Work Phone: [facility] [place] OBGYNStart: 05-23-2025 End: 20-64-1440Euevhs flowsheetCorey Lucia DO Work Phone: [facility] [place]zaue OBGYNStart: 05-13-2025 End: 32-97-1510Trznmltiu Result EncounterCorey Lucia DO Work Phone: [facility] External Department UnsolicitedStart: 05-13-2025 End: 66-91-3537Yuwjncvgf Result EncounterCorey Lucia DO Work Phone: [facility] External Department UnsolicitedStart: 04-21-2025 End: 41-66-5741Hjjhvq outpatient visit 5 minutesFazio Nurse Noms Bcp ObNOMS Esperance OBGYNComment on above:GA: 8r8zAmwlw: 04-21-2025 End: 83-99-3438owqilfnrknMPJIV PETITTINot AvailableStart: 03-31-2025 End: 13-70-9974Wvsbap flowsTru Tran MD Work Phone: NONR SWS DERMStart: 03-31-2025 End: 94-87-2725Pfwrqo flowsheetEmaileen Tran MD Work Phone: [facility] SWS DERMStart: 03-31-2025 End: 05-05-8749aftwtrrbifPBWPB A PETITTINot AvailableStart: 03-31-2025 End: 46-92-0598Sxvict outpatient visit 25 minutesEmaileen Tran MD Work Phone: noms SWS DERMComment on above:Acne vulgaris (Primary Dx)Start: 01-21-2025 End: 32-90-0093tnfzvsntxqDzotv C TinkerFacility:FTMCStart: 01-21-2025 End: 30-07-1480Lxarvwm encounter procedureElyse C [facility]ab[facility] Start: 09-20-2024 End: 93-28-1141jluravqppzRRHQR PETITTINot AvailableStart: 08-25-2024 End: 61-08-4126Hhsrwi outpatient visit 15 minutesNeisha ACKERMAN Work Phone: noms BCP OBComment on above:Abnormal uterine bleeding (AUB); Right sided abdominal pain; Pelvic pain in female; Acne, unspecified acne typeStart: 08-25-2024 End: 20-36-3523msdymbuxloDHP RAMEYNot AvailableStart: 08-25-2024 End: 99-29-5414Qfpuus Aminata ACKERMAN Work Phone: noms BCP OBStart: 08-25-2024 End: 14-17-3357Iauxfn Aminata ACKERMAN Work Phone: [facility] BCP OBStart: 07-05-2024 End: 98-57-8106bwgajonukzKTJGA Dex ARZATEINot AvailableStart: 07-05-2024 End: 50-03-4693Jgaxhs outpatient visit 25 minutesEmaileen Tran MD Work Phone: [facility] DERMComment on above:Acne vulgaris (Primary Dx)Start: 07-05-2024 End: 89-36-2402Kenflq flowsheetEmaileen Tran MD Work Phone: [facility] DERMStart: 07-05-2024 End: 45-17-5383Alrdch flowsheetEmaileen Tran MD Work Phone: [facility] DERMStart: 01-08-2023 End: 32-40-9677bqvzhqzklcBY FREDDY MYERS .Facility:K0Pbavi: 12-31-2022 End: 74-06-9503wxrdzsgqeuYC FREDDY MYERS .Facility:S3Tihfb: 60-66-8840stwpemwypl DR FREDDY MYERS .Facility:M4Bfuku: 12-26-2022 End: 03-93-7410Xgxbyrajbj and management of inpatientDR MELINA TUTTLE . Facility:O4Jzuwl: 12-23-2022 End: 19-51-7213ykjriapbqeCV MELINA TUTTLE .Facility:V4Zydwo: 12-19-2022 End: 34-65-4432heehgjoxtrOLPRRBE SOMMERSFacility:M4Uoehk: 12-16-2022 End: 93-51-1621zoztqisbloPM MELINA TUTTLE .Facility:L1Wnndx: 12-12-2022 End: 04-83-7444oasnqsyxgfYINTSUK SOMMERSFacility:Y8Xmvnd: 12-09-2022 End: 11-04-5931ltlreravodAR MELINA TUTTLE .Facility:A0Dcasq: 12-05-2022 End: 97-14-8932wfuobiexouVEPKOCZ SOMMERSFacility:H3Ldhpc: 12-04-2022 End: 53-98-0266dbjptbomzcFQKLPMO SOMMERSFacility:C7Eawan: 12-02-2022 End: 76-94-5564otryyfpdttPJHEQGT SOMMERSFacility:U1Gtsbw: 11-28-2022 End: 30-16-7467vcrsifeetrJVBDBXM SOMMERSFacility:H2Zhmcv: 11-25-2022 End: 84-85-1018nwkrpbrrlwMFBRVCR SOMMERSFacility:G9Rfnve: 11-21-2022 End: 18-89-4465ckexwcsmmuJJCNDXQ SOMMERSFacility:O3Flcvg: 11-18-2022 End: 08-64-1649femqshhuhxYKGHFJU SOMMERSFacility:R8Qjsvp: 11-14-2022 End: 04-40-1695nupmewvblpWS MELINA TUTTLE .Facility:B2Fzkol: 11-11-2022 End: 14-67-9750uearihxvzaQX GREGORY KARASIK .Facility:A2Bhaom: 11-07-2022 End: 80-67-7782qamirywdqzPK GREGORY KARASIK .Facility:Z3Xvuoq: 11-04-2022 End: 38-58-6474kpkfxjavvaHE GREGORY KARASIK .Facility:F5Fzvsz: 10-31-2022 End: 27-22-2506zlsaxtbhujFKZBDKL SOMMERSFacility:P8Ldvtt: 10-07-2022 End: 41-76-2924bqjaiclydzJNOGZMW SOMMERSFacility:O7Vinbv: 10-03-2022 End: 54-18-4636nmynvjqhesGVSDNBE SOMMERSFacility:F7Wjwhi: 09-28-2022 End: 52-91-5570idwevnpjzaDEIQMGR SOMMERSFacility:T6Owihq: 09-21-2022 End: 02-91-4345tukbultagzNNCJIKK SOMMERSFacility:I6Uwodz: 08-14-2022 End: 61-10-0277szimhnqnbzWYWSQAM SOMMERSFacility:V0Ilvzp: 06-07-2022 End: 20-21-3249ujzhrfzmxjOLHETZA SOMMERSFacility:H8Nnxfx: 05-24-2022 End: 77-00-5730cpywhbbkevUO FREDDY LUCIA .Facility:N2Noqpg: 05-21-2022 End: 74-62-2747huzxgoupygYK FREDDY LUCIA .Facility:H1 Procedures DateProcedureProcedure DetailPerforming ClinicianStart: 57-73-3521DOGGJYGWW VAGINITIS (HTRX)Freddy Lucia DO Work Phone: Start: 17-85-4308Cbvnk dip stick/tablet rgnt non-auto w/o micrscpCorey Lucia DO Work Phone: Start: 30-98-7358YCW,APTIMA HPV,AGE GDLNGeneric External Data ProviderStart: 21-89-0581Nspfs dip stick/tablet rgnt non-auto w/o micrscpCorey Lucia DO Work Phone: Start: 75-48-6426PNQ TESTGeneric External Data ProviderStart: 04-21-2025 End: 76-89-2219Yhfpi dip stick/tablet rgnt non-auto w/o micrscpCorey Lucia DO Work Phone: Start: 08-25-2024 End: 96-49-5392Nckbi dip stick/tablet rgnt non-auto w/o micrscpAmy Sadia ACKERMAN Work Phone: Start: 85-73-5239Dcjzhgei of Products of Conception, External ApproachDEHCA FLORIDA BLAKE HOSPITALStart: 37-70-0865Varsaoed of Female Perineum, External ApproachCOMMONWEALTH REGIONAL SPECIALTY HOSPITALStart: 15-48-4016Lukblyap of Amniotic Fluid, Therapeutic from Products of Conception, Via Natural or Artificial Opening [facility]ENTERStart: 64-32-9303Vwwymmpztizf of Other Hormone into Peripheral Vein, Percutaneous ApproachCOMMONWEALTH REGIONAL SPECIALTY HOSPITALStart: 19-84-4878Uqmsbg Perineum Muscle, Open ApproachCOMMONWEALTH REGIONAL SPECIALTY HOSPITALStart: 51-71-4458Wnnm Lesion Removal (right) Lydia Whyte structure of wisdom tooth (body structure)Lydia Whyte Tonsillectomy and adenoidectomyElfariba Whyte Plan of Treatment DateCare ActivityDetailAuthorStart: 07-13-2025 End: 94-93-6705Afvpgeh encounter hucjruzql75/05/2025 3:10 PM EST Routine [facility] [address] [place], [id number] Freddy Myers DO [address] [place] [address] [facility] OBGYNStart: 06-22-2025 End: 87-88-0493Gapnmef encounter procedureNOMS SWS DERMStart: 06-22-2025 End: 68-86-8429Xrrok fetoprotein, maternalAlpha fetoprotein, maternal Lab Routine Screening, , for anatomic survey ([facility]) Expected: 06/22/2025 (Approximate), Expires: 08/22/2025NOMS HealthcareComment on above: Expected: 06/22/2025 (Approximate), Expires: 08/22/2025Start: 06-22-2025 End: 32-08-8431Nqaubykyhhd of glucose 1 hour after glucose challenge for glucose tolerance testGlucose tolerance, 1 hour Lab Routine Diabetes mellitus screening Expected: 06/22/2025 (Approximate), Expires: 06/22/2026NOWY HealthcareComment on above:Expected: 06/22/2025 (Approximate), Expires: 06/22/2026Start: 06-22-2025 End: 54-71-9727VQ for pregnancyUS OB 14+ weeks anatomy scan Imaging Routine Screening, , for anatomic survey ([facility]) Expected: 06/22/2025 (Approximate), Expires: 06/22/2026NOWY HealthcareComment on above:Expected: 06/22/2025 (Approximate), Expires: 06/22/2026Start: 05-23-2025 End: 73-37-8745Lacannu encounter procedureNOMS Merlos OBGYNComment on above: ArrivedStart: 57-88-6491Ytegnzzwo vaccinationInfluenza Vaccine (#1)[facility] HealthcareStart: 04-21-2025 End: 41-13-7050MIJ/RhABO/Rh Lab Routine Missed menses , unspecified gestational age ([facility]) Expected: 04/21/2025 (Approximate), Expires: 04/21/2026[facility] HealthcareComment on above:Expected: 04/21/2025 (Approximate), Expires: 04/21/2026Start: 04-21-2025 End: 48-44-8085Tmoir type and Indirect antibody screen panel - BloodType and screen Lab Routine Missed menses , unspecified gestational age ([facility]) Expected: 04/21/2025 (Approximate), Expires: 04/21/2026[facility] Comment on above:Expected: 04/21/2025 (Approximate), Expires: 04/21/2026Start: 04-21-2025 End: 95-53-5188Qtccs of abuse panel - Urine by Screen methodRapid drug screen, urine Lab Routine , unspecified gestational age ([facility]) Encounter for supervision of normal first in first trimester ([facility]) Expected: 04/21/2025 (Approximate), Expires: 04/21/2026NOW[facility] HealthcareComment on above: Expected: 04/21/2025 (Approximate), Expires: 04/21/2026Start: 04-21-2025 End: 65-72-7318lkwbpgsmcy90/14/2025 1:00 PM EDT Initial [facility] [address] [place] [address] [place] [address] [facility] OBStart: 04-21-2025 End: 83-09-7186Xsopqajtbqkz / ancillary services szvofnciyf44/14/2025 12:30 PM EDT Ancillary Procedure [facility] [address] [place] [address] [address] [place], [place] [phone] [facility] BCP OBStart: 04-13-2025 End: 77-54-1181MI Pelvis transvaginalUS OB transvaginal Imaging Routine Missed menses Positive urine test ([facility]) Expected: 04/13/2025, Expires: 07/14/2025[facility] Work Phone: comment on above:Expected: 04/13/2025, Expires: 07/14/2025Start: 03-31-2025 End: 69-85-3763Bkuivzs encounter yyiecsgik84/24/2025 8:45 AM EDT Office Visit [facility] [address] [place] [phone] Bee Tran MD [address] [place] [address] [facility] DERMStart: 09-20-2024 End: 66-13-4618Nuddfqnxorii / ancillary services hpmoceqwzx43/13/2025 3:00 PM EST Ancillary Procedure [facility] [address] [place] [address] [facility] BCP OBStart: 09-14-2024 End: 22-78-4467Ylioghm encounter myynqahut68/07/2025 4:00 PM EST Office Visit [facility] [address] [place] [phone] Bee Tran MD [address] [place] [address] [facility] DERMStart: 08-25-2024 End: 94-02-5074Rehuzwf encounter smmnmweni34/18/2024 3:30 PM EST Office Visit [facility] [address] [facility] [place] [address] Neisha Lamb PA [address] [facility] [place] [address] ArrivedNOMS BCP OBComment on above:ArrivedStart: 08-25-2024 End: 30-01-7622WC for pregnancyUS PELVIS-TRANSVAG IF INDICATED Imaging Routine Pelvic pain in female Expected: 08/25/2024 (Approximate), Expires: 08/25/2025 [facility] Work Phone: comment on above:Expected: 08/25/2024 (Approximate), Expires: 08/25/2025Start: 01-52-4541Wscgktxss vaccinationInfluenza Vaccine (#1) [facility] HealthcareBacteria identified in Urine by CultureUrine culture Microbiology Routine Missed menses Ordered: 04/21/2025[facility] HealthcareComment on above: Ordered: 04/21/2025BC W Auto Differential panel - BloodCBC and differential Lab Routine Missed menses , unspecified gestational age ([facility]) Ordered: 04/21/2025[facility] HealthcareComment on above:Ordered: 04/21/2025HLAMYDIA TRACHOMATIS (GENITO/STI)CHLAMYDIA TRACHOMATIS (GENITO/STI) Lab Routine Exposure to STD Ordered: 06/22/2025[facility] HealthcareComment on above:Ordered: 06/22/2025 Cytology Cervical or vaginal smear or scraping studyPap Smear Pathology and Cytology Routine Well woman exam with routine gynecological exam Ordered: [place] HealthcareComment on above:Ordered: 06/22/2025Hemoglobin A1c/Hemoglobin.total in BloodHemoglobin A1c Lab Routine Missed menses , unspecified gestational age ([facility]) Ordered: 04/21/2025[facility] HealthcareComment on above:Ordered: 04/21/2025Hepatitis B virus surface Ag [Presence] in Serum or Plasma by ImmunoassayHepatitis B surface antigen Lab Routine Missed menses , unspecified gestational age ([facility]) Ordered: 04/21/2025[facility] HealthcareComment on above:Ordered: 04/21/2025Hepatitis C virus Ab [Presence] in Serum or Plasma by ImmunoassayHepatitis C antibody Lab Routine Missed menses , unspecified gestational age ([facility]) Ordered: 04/21/2025[facility] HealthcareComment on above:Ordered: 04/21/2025HIV-1/HIV-2 antigen/antibody combination immunoassayHIV-1 and HIV-2 antibodies Lab Routine Missed menses , unspecified gestational age ([facility]) Ordered: 04/21/2025[facility] HealthcareComment on above:Ordered: 04/21/2025Neisseria gonorrhoeae DNA [Presence] in Unspecified specimen by NASH with probe detectionNeisseria gonorrhea DNA probe, direct Lab Routine Exposure to STD Ordered: 06/22/2025[facility] HealthcareComment on above:Ordered: 06/22/2025Reagin Ab [Presence] in Serum by RPRRPR Lab Routine Missed menses , unspecified gestational age ([facility]) Ordered: 04/21/2025[facility] HealthcareComment on above:Ordered: 04/21/2025 Rubella antibody, IgGRubella antibody, IgG Lab Routine Missed menses , unspecified gestational age ([facility]) Ordered: 04/21/2025[facility] HealthcareComment on above:Ordered: 04/21/2025SURESWAB(R) ADVANCED VAGINITIS PLUS, TMASURESWAB(R) ADVANCED VAGINITIS PLUS, TMA Pathology and Cytology Routine Exposure to STD Ordered: 06/22/2025[facility] [employer] Work Phone: comment on above:Ordered: 06/22/2025US Pelvis transvaginalUS OB transvaginal Imaging Routine Missed menses Positive urine test ([facility] Immunizations Immunization DateImmunizationNotesCare TgmzchmnSbzixsph73-30-2393fhalunbaqgoa conjugate vaccine, 13 valentElyse Isabell 593-2627Xirayl-Hprmp[address] [place], [place] 1605201-21-1999 haemophilus influenzae type b vaccine, HbOC conjugateElyse Isabell 016-3189Xejlux-Gyupf[address] [place], [place] 1605201-21-1999 measles, mumps and rubella virus vaccineElyse Isabell 538-7340Xlouqe-Fdgkc[address] [place], [place] 1605210-20-1998 varicella virus vaccineElyse Isabell 168-2760Qbzyxg-Ekukv[address] [place], [place] 1605204-21-1998 diphtheria, tetanus toxoids and acellular pertussis vaccineElyse Isabell 165-2760Ynsvub-CvdyvCommunity [facility]04-21-1998 hepatitis B vaccine, adult dosageElyse Isabell 308-6494Ormatv-XfsvtCommunity [facility] Hospital02-12-1998 diphtheria, tetanus toxoids and acellular pertussis vaccineElyse Isabell [phone]-VxyrqCommunity Memorial Hospital1997 diphtheria, tetanus toxoids and acellular pertussis vaccineElyse Isabell [phone]-UyldnReg[facility] Primary Vlwl13-59-1595 hepatitis B vaccine, adult dosageElyse Isabell [phone]-TyrynRegional Medical Center Primary CareNEGATED: Highlighted row has not occurred!24-65-5145xughycrit virus vaccine, unspecified formulationElyse Whyte [phone]-BhfzyRegional Medical Center Primary Care Payers DatePayer CategoryPayerPolicy [id number] [id number] Health Insurance [id number] 2.16.840.1.791034.3.57[id number] 2.16.840.1.404273.3.57[id number] 2.16.840.1.293597.3.57[id number] 2.16.840.1.916730.3.579.[id number] 2.16.840.1.587538.3.579.2.75158-16-6158Jsiziwm7877167 2.16.840.1.871721.3.579.2.56809-26-2807Aqnmuzv6033213 2.16.840.1.595162.3.579.2.88326-73-9448Iaqmqcg3611731 2.16.840.1.592275.3.579.2.14618-91-4188Qmwzcvk4689308 2.16.840.1.830904.3.579.2.17874-60-3749Guvlzvt0097075 2.16.840.1.250368.3.579.2.89731-71-2385Hkrfzxx1620679 2.16.840.1.113448.3.579.2.52317-07-7964Beyrgvk3802458 2.16.840.1.683045.3.579.2.04989-62-4638Cetutaf9820823 2.16.840.1.333964.3.579.2.80197-78-4070Trywvpf9714771 2.16.840.1.025638.3.579.2.75725-02-2222Ljtswvo6013861 2.16.840.1.991561.3.579.2.07819-22-6686Bcwegpf8315295 2.16.840.1.455651.3.579.2.90779-58-3559Rplrivh8401476 2.16.840.1.371724.3.579.2.63291-55-8266Sytabex1670084 2.16.840.1.533342.3.579.2.12515-94-3587Rmjulpb4767524 2.16.840.1.796025.3.579.2.65199-11-0524Ipngptc1005100 2.16.840.1.923449.3.579.2.00807-94-0293Vmmhise7174652 2.16.840.1.314433.3.579.2.16615-65-6793Eiwfyuq8624786 2.16.840.1.102108.3.579.2.80530-89-9001Pxzapcf7540117 2.16.840.1.776110.3.579.2.60373-57-3084Xewbxxn0244373 2.16.840.1.537201.3.579.2.14092-39-5551Qsygayi5710227 2.16.840.1.565654.3.579.2.90947-97-2690Vldtswv5664126 2.16.840.1.405051.3.579.2.42387-41-1311Joiihvh0202527 2.16.840.1.032944.3.579.2.05353-21-3756Japigyi0631997 2.16.840.1.034536.3.579.2.48276-32-5229Rcepmjy7362509 2.16.840.1.940007.3.579.2.26855-19-8235Kjkvhyt20358220 2.16.840.1.516877.3.579.2.16329-50-5247Ayeyoag52312650 2.16.840.1.438652.3.579.2.50242-89-9232Ejfidsa32759741 2.16.840.1.760433.3.579.2.857527-69-8020Utfbwga95997439 2.16.840.1.882742.3.579.2.423227-43-0581Qnxjmcd71911600 2.16.840.1.017188.3.579.2.560084-29-5801Rglfees31414359 2.16.840.1.930213.3.579.2.219214-89-2066Ztsldqe65302245 2.16.840.1.770640.3.579.2.584913-55-7859Mkuphoi0680650 2.16.840.1.406420.3.579.2.725570-43-6612Yguszjd9363591 2.16.840.1.029616.3.579.2.770083-43-1104Tdkbude0644448 2.16.840.1.591646.3.579.2.620544-39-7964Lzne-vrq95-31-4053Sxhmskb478093444645 Clzwkan7348845 2.16.840.1.437554.3.579.2.908Fekoniw6963566 2.16.840.1.625559.3.579.2.593 Social History DateTypeDetailFacilityStart: 12-22-2019 End: 64-02-6027Vnqsjhm smoking status NHISNever smoked tobaccoSAN JUAN HOSPITAL Healthcare Work Phone: Start: 82-56-9627Exbkfzd use and exposureSmokeless tobacco non-userNOMS HealthcareStart: 03-30-2024 End: 30-06-0267Lyyenwzxf beverage intakeLifetime non-drinker (finding)[facility] HealthcareStart: 03-30-2024 End: 40-21-8328Ogwgxyx of Social functionNOMS HealthcareStart: 03-30-2024 End: 60-00-3745Ejjnkfk use panelCleveland Clinic Fairview Hospitaltart: 1995 [facility] HealthcareStart: 83-71-7132Ipwvaa identity Identifies as female gender (finding)[facility] HealthcareStart: 56-86-0497Ixaoknz smoking statusNeSelect Medical Specialty [facility], Incexual OrientationMiami Valley Hospital Start: 03-56-5906OjfLvydgc (finding)[facility] Hospitaltart: 74-06-2831BxrfctzcwUZPN Healthcare Clinical Notes 07-05-2024 to 06-22-2025 Note Date & KsnfDwzmKqbccods80-15-8272 History of Present illness Narrative* Micki Seymour LPN - 06/22/2025 3:20 PM [...] Date Noted Gestational diabetes mellitus (GDM) affecting ([facility]) 04/13/2025 H/O gestational diabetes in prior , currently ([facility]) 04/21/2025 Resolved Ambulatory Problems Diagnosis Date Noted [...] Vitals: Estimated body mass index is 21.77 kg/m as calculated from the following: Height as of 02/10/23: 5' 7 . Weight as of this encounter: 139 lb. BP: 112/76 Patient's last menstrual period was 02/20/2025. ASSESSMENT & PLAN ICD-10-CM 1. Well woman exam with routine gynecological exam Z01.419 Pap Smear 2. Second trimester ([facility]) Z34.92 POCT urinalysis dipstick manually resulted 3. 17 weeks gestation of ([facility]) Z3A.17 4. Exposure to STD Z20.2 SURESWAB(R) ADVANCED VAGINITIS PLUS, TMA CHLAMYDIA TRACHOMATIS (GENITO/STI) Neisseria gonorrhea DNA probe, direct 5. Need for maternal serum alpha-protein (MSAFP) screening ([facility]) Z36.1 6. Screening, , for anatomic survey ([facility]) Z36.89 OB 14+ weeks anatomy scan Alpha fetoprotein, maternal Alpha fetoprotein, maternal Return OB/Annual Exam: Patient presents today for a annual exam/routine obstetrics appointment. Patient is currently 36r3zxbnbbrty. Patient states she is doing well but has complaints of nausea in the morning. Pap and cultures was obtained without difficulty and patient was given orders for anatomy scan and msAFP to be obtained. Orders Placed This Encounter Procedures OB 14+ weeks anatomy scan CHLAMYDIA TRACHOMATIS (GENITO/STI) Neisseria gonorrhea DNA probe, direct Alpha fetoprotein, maternal POCT urinalysis dipstick manually resulted Follow Up: Patient is to schedule annual exam for next year and return to office in 4 weeks for OB appointment. Documented by Micki Seymour LPN on behalf of: Freddy Myers DO [1] No Known Allergies [2] Past Medical History: Diagnosis Date Acne Anxiety Menorrhagia [3] Family History Problem Relation Name Age of Onset No Known Problems Mother Mental illness Father Cancer Maternal Grandmother Melanoma Neg Hx [4] Past Surgical History: Procedure Laterality Date TONSILLECTOMY 2004 WISDOM TOOTH EXTRACTION documented in this encounterMercy McCune-Brooks HospitalXczhyjavao79-21-7068 History of Present illness Narrative* Lily Raymond LPN - 05/23/2025 3:40 PM EDT Reason for Appointment: Patient ID: [...] Date Noted Gestational diabetes mellitus (GDM) affecting ([facility]) 04/13/2025 H/O gestational diabetes in prior , currently ([facility]) 04/21/2025 Resolved Ambulatory Problems Diagnosis Date Noted [...] nursing note reviewed. Exam conducted with a accounts payable assistant present. Vitals: Estimated body mass index is 21.58 kg/m as calculated from the following: Height as of 02/10/23: 5' 7 . Weight as of this encounter: 137 lb 12.8 oz. BP: Patient's last menstrual period was 02/20/2025. ASSESSMENT & PLAN ICD-10-CM 1. 13 weeks gestation of ([facility]) Z3A.13 POCT urinalysis dipstick manually resulted 2. Second trimester ([facility]) Z34.92 POCT urinalysis dipstick manually resulted New [...] or undercooked meat, and stay away from [facility]. Patient has been consulted regarding any further do's and don'tsof . Patient voiced understanding and all questions and concerns were answered. Discussed with patient and spouse Rh detected on [place] Screening. Patient and spouse given gender in envelope to also check online if they desire. Orders Placed This Encounter Procedures POCT urinalysis dipstick manually resulted Follow Up: Patient is to return in 4 weeks for routine OB appointment. Documented by Lily Raymond LPN on behalf of: Freddy Myers DO documented in this encounterMercy McCune-Brooks HospitalSlhgatpxzm19-69-1086 History of Present illness Narrative* Peace Espino MA - 04/21/2025 1:00 PM EDT Reason for Appointment: Patient ID: [...] Date Noted Gestational diabetes mellitus (GDM) affecting ([facility]) 04/13/2025 H/O gestational diabetes in prior , currently ([facility]) 04/21/2025 Resolved Ambulatory Problems Diagnosis Date Noted [...] urinalysis dipstick manually resulted Positive urine test ([facility]) - US OB transvaginal; Future Amenorrhea 8 weeks gestation of ([facility]) , unspecified gestational age ([facility]) - Type and screen; Future - ABO/Rh; Future - CBC and differential - Hemoglobin A1c - RPR - Rubella antibody, IgG - Hepatitis B surface antigen - Hepatitis C antibody - HIV-1 and HIV-2 antibodies - Rapid drug screen, urine; Future Encounter for supervision of normal first in first trimester ([facility]) - Rapid drug screen, urine; Future H/O gestational diabetes in prior , currently ([facility]) Nurse Note: Pt desires [employer] to one. Pt was advised to make sure she takes both the [place] and labs together at [facility]. [facility]. Pt has a h/o GDM w/G1 [...] drink 6-8 glasses of water a day, eatno raw or undercooked meat, and stay away from [facility]. Patient has also been advised to not change litter boxes and eat 6 small meals a day. Patient has been consulted regarding the do's and don'ts ofpregnancy. Patient was given labs and all questions [...] by: Peace Espino MA documented in this encounterMercy McCune-Brooks HospitalWevmynnsbu82-99-0112 History of Present illness Narrative* Bee Tran MD - 03/31/2025 8:45 AM EDT Images from the original note were not included. Follow up Diagnosis: Acne Location: face, back Last visit: 10 months ago Symptoms: pimples Status: stable, breakouts on her back every now and then Treatments tried and failed: Azelaic acid 20% gel, Clindamycin Phosphate 0.1% lotion, Benzaclin (Clindamycin/BPO) 1%/5% gel, Insurance denied [facility]. Current treatment: Tretinoin 0.025% cream Ceftin [...] stop taking the Ceftin and tretinoin cream. Willhave her start use of BPO wash, lather [...] Next Visit: 1 year documented in this encounterMercy McCune-Brooks HospitalSjvafqusxw98-52-6980 History of Present illness Narrative* TYRON Kathleen - 08/25/2024 3:30 PM EST Reason for Appointment: Patient ID: Leroy Baker [...] behalf of: TYRON Kathleen documented in this encounterMercy McCune-Brooks HospitalIfvnlsjffg49-43-3301 History of Present illness Narrative* Bee Tran MD - 07/05/2024 2:40 PM EDT Images from the original note were not included. Follow up Diagnosis: Acne Location: face, back Last visit: 3 months ago Symptoms: getting bigger bumps on forehead now Status: flaring with recent discontinuation of . Planning for in 1 year. Treatments tried and failed: clindamycin lotion- did not help, Benzaclin gel Current treatment: azelaic 20% cream every day [facility] All pertinent medical history, medications, and allergies [...] Next Visit: 2 months [facility] HealthcareEvaluation + Plan note No data available for this section [facility] Evaluation note* Diagnosis Acne vulgaris- Primary Other acne documented in this encounter [facility] HealthcareEvaluation note* Diagnosis Abnormal uterine bleeding (AUB) Right sided abdominal pain Abdominal pain, unspecified site Pelvic pain in female Unspecified symptom associated with female genital organs Acne, unspecified acne type documented in this encounter [facility] HealthcareEvaluation note* Diagnosis Acne vulgaris- Primary Other acne documented in this encounter [facility] HealthcareEvaluation note* Diagnosis Missed menses Positive urine test ([facility]) Amenorrhea Absence of menstruation 8 weeks gestation of ([facility]) , unspecified gestational age ([facility]) Encounter for supervision of normal first in first trimester ([facility]) H/O gestational diabetes in prior , currently ([facility]) documented in this encounter [facility] HealthcareEvaluation note* Diagnosis 13 weeks gestation of ([facility]) Second trimester ([facility]) state, incidental documented in this encounter [facility] HealthcareEvaluation note* Diagnosis Well woman exam with routine gynecological exam Routine gynecological examination Second trimester ([facility]) state, incidental 17 weeks gestation of ([facility]) Exposure to STD Need for maternal serum alpha-protein (MSAFP) screening ([facility]) Screening, , for anatomic survey ([facility]) Encounter for anatomic survey Diabetes mellitus screening Screening for diabetes mellitus documented in this encounter [facility] HealthcareHospital Discharge instructions No data available for this section [facility] Progress note No data available for this section [facility] Summary Purpose Family History No Family [...] section and content) DATE CREATED AUTHOR 01/17/2023 [facility] DATE CREATED AUTHOR AUTHOR'S ORGANIZ ATION 06/21/[address] [facility] DATE CREATED AUTHOR AUTHOR'S ORGANIZ ATION 06/22/[address] [facility] DATE CREATED AUTHOR AUTHOR'S ORGANIZ ATION 06/24/2025 [facility] DATE CREATED AUTHOR AUTHOR'S ORGANIZ ATION 06/28/[address] [facility] Care Teams (unrecognized sec tion and content) Team MemberRelationshipSpecialtyStart DateEnd Date Regina Samuels PA [address] [place] [address] PCP - GeneralFamily Medicine02/10/23Team MemberRelationshipSpecialtyStart DateEnd Date Regina Samuels PA [address] [place] [address] PCP - GeneralFamily Medicine02/10/23Team MemberRelationshipSpecialtyStart DateEnd Date Regina Samuels PA [address] [place] [address] PCP - GeneralFamily Medicine02/10/23Team MemberRelationshipSpecialtyStart DateEnd Date Regina Samuels PA [address] [place] [address] PCP - GeneralFamily Medicine/01/28Team MemberRelationshipSpecialtyStart DateEnd Date Regina Samuels PA [address] [place] [address] PCP - GeneralFamily Medicine02/10/23Team MemberRelationshipSpecialtyStart DateEnd Date Regina Samuels PA [address] [place] [address] PCP - GeneralFamily Medicine02/10/23Team MemberRelationshipSpecialtyStart DateEnd Date Regina Samuels PA [address] [place] [address] PCP - GeneralFamily Medicine02/10/23Team MemberRelationshipSpecialtyStart DateEnd Date Regina Samuels PA [address] [place] [address] PCP - GeneralFamily Medicine02/10/23Team MemberRelationshipSpecialtyStart DateEnd Date Regina Samuels PA [address] [place] [address] PCP - GeneralFamily Medicine/01/28Team MemberRelationshipSpecialtyStart DateEnd Date Regina Samuels PA [address] [place] [address] PCP - GeneralFamily Medicine02/10/23 Reason for Visit (unrecogniz ed section and content) ReasonCommentsFollow-upReasonCommentsVaginal BleedingPt present today for spotting/bleeding after intercourse and right side ovary pain. Pt has been havi ng this pain for 2 months now.ReasonCommentsAmenorrheaReasonCommentsRoutine VisitReasonCommentsRoutine VisitGynecologic ExamSTI Screening FOR RECORDS PERTAINING TO PATIENTS WHO ARE [...] BE BASED ON THE PRIMARY CLINICAL RECORDS. [facility] [employer] [facility]. provides no warranty or guarantee of the accuracy or completeness of information in this document.
== END 2025-07-12 16:01 | disposition home or self-care (01) ==
LOC: US 16:01
PROVIDERS: PCP Physician Assistant; Visit Provider Obstetrics & Gynecology
DX: Z36.89 Encounter for other specified antenatal screening (principal); Z3A.20 20 weeks gestation of pregnancy
CPT/HCPCS: 76805; 76817

== ENCOUNTER 2025-07-23 08:15 | Outpatient (OUT) | payer OTHER, SELFPAY ==
--- OUTSIDE RECORDS SUMMARY | 2025-07-13 15:10 | XMS_ITS | Encounter Summary ---
Author Organization [facility] Address [address] [place] [address] Care Team Providers Care Supervisor [employer] Room Name Role Phone Regina Samuels Primary Care Provider [phone] Reason for Visit * ReasonCommentsRoutine Visit Encounter Details DateTypeDepartmentCare Team (Latest Contact Info)Lqhtjgganij69/05/2025 3:10 PM ESTRoutine [facility] [address] [place] [phone] J Carlos Myers DO [address] [place], [facility] Second trimester ([facility]); 20 weeks gestation of ([facility]); H/O gestational diabetes in prior , currently ([facility]) Social History Tobacco UseTypesPacks/DayYears UsedDateSmoking Tobacco: NeverSmokeless Tobacco: NeverAlcohol UseStandard Drinks/WeekCommentsNever0 (1 standard drink = 0.6 oz pure alcohol)Estimated Date of QtcmbefsEwylcpmuNfs86/22/2026Based on last menstrual period of 02/20/2025Sex and Gender InformationValueDate Recorded Sex Assigned at HyzplDytiaj68/04/2023 11:12 AM EDTLegal NhpEwczsv49/15/2023 6:42 PM EDTGender IserhmzsLhnhek93/04/2023 11:12 AM EDTSexual OrientationNot on file documented as of this encounter Last Filed Vital Signs Vital SignReadingTime TakenCommentsBlood Dqztqafb636/7211/01/2025 3:39 PM EST Pulse--Temperature--Respiratory Rate--Oxygen Saturation--Inhaled Oxygen Concentration--Jiiirs07.9 kg (143 lb)07/13/2025 3:39 PM ESTHeight--Body Mass Index22.406/01/2023 9:47 AM EDTdocumented in this encounter Progress Notes * Peace EspinoJYAA - 07/13/2025 3:10 PM EST Reason for Appointment: Patient ID: Leroy Baker is a 30 y.o. female who presents for Routine Visit [...] Date Noted Gestational diabetes mellitus (GDM) affecting ([facility]) 04/13/2025 H/O gestational diabetes in prior , currently ([facility]) 04/21/2025 Resolved Ambulatory Problems Diagnosis Date Noted [...] SYSTEMS Review of Systems: Review of Systems OBJECTIVE Objective: OBGyn Exam Vitals: Estimated body mass index is 21.77 kg/m?? as calculated from the following: Height as of 02/10/23: 5' 7 . Weight as of 06/22/25: 139 lb. BP: Patient's last menstrual period was 02/20/2025. Assessment/Plan ICD-10-CM 1. Second trimester ([facility]) Z34.92 POCT urinalysis dipstick manually resulted 2. 20 weeks gestation of ([facility]) Z3A.20 3. H/O gestational diabetes in prior , currently ([facility]) O09.299 Z86.32 Return OB: Patient presents today for a routine obstetrics appointment. Patient is currently 20w3d . Patient states she is doing well but has complaints of being tired due to current . Patient has verbalizes frequent movement. labor precautions was discussed/given and patient was instructed to perform kick counts three times a day. Orders Placed This Encounter Procedures POCT urinalysis dipstick manually resulted Follow Up: Patient is to return to office in 4 week for routine OB appointment. Documented by Peace Espino MA on behalf of: J Carlos Myers DO documented in this encounter Plan of Treatment DateTypeDepartmentCare Team (Latest Contact Info)Yjjwbwxhnuz51/08/2025 3:20 PM ESTRoutine [facility] [address] [place] [phone] J Carlos Myers DO [address] [place] [place] [address] documented as of this encounter Visit Diagnoses Diagnosis Second trimester ([facility]) state, incidental 20 weeks gestation of ([facility]) H/O gestational diabetes in prior , currently ([facility]) documented in this encounter Care Teams Team MemberRelationshipSpecialtyStart DateEnd Date Regina Samuels PA [address] [place] [address] PCP - GeneralFamily Medicine02/10/23documented as of this encounter
--- OUTSIDE RECORDS SUMMARY | 2025-07-23 08:22 | XMS_ITS | CCD ---
Author Organization [facility] Care Team Providers Care Cordwood Cutter Name Role Phone [facility] Care Unavailable LUCIA ., DR HAYES Attending Unavailable LUCIA ., DR HAYES Consulting Unavailable LUCIA ., DR HAYES Admitting Unavailable ZIEBER, DR ZEUS Heredia Consulting Unavailable LUCIA ., DR HAYES Attending Unavailable LUCIA ., DR HAYES Consulting Unavailable [facility] Care Unavailable LUCIA ., DR HAYES Admitting Unavailable ZIEBER, DR ZEUS Heredia Consulting Unavailable [facility] Care Unavailable KARASIK ., DR SUMMERS Consulting Unavailabl e KARASIK ., DR USMMERS Attending Unavailabl e KARASIK ., DR SUMMERS Admitting Unavailabl e Sebastian Doan Consulting Unavailable LUCIA ., DR HAYES Consulting Unavailable LUCIA ., DR HAYES Attending Unavailable [facility] Primary Care Unavailable LUCIA ., DR HAYES Admitting Unavailable LUCIA ., DR HAYES Attending Unavailable [facility] Care Unavailable LUCIA ., DR HAYES Consulting Unavailable LUCIA ., DR HAYES Admitting Unavailable KARASIK ., DR SUMMERS Admitting Unavailabl e KARASIK ., DR SUMMERS Attending Unavailabl e KARASIK ., DR SUMMERS Consulting [facility]abl e [facility] Un[facility] Sebastian Doan Consulting Unavailable LUCIA ., DR HAYES Consulting Unavailable KARASIK ., DR SUMMERS Attending Unavailabl e KARASIK ., DR SUMMERS Consulting Unavailabl e KARASIK ., DR SUMMERS Admitting [facility]ailabl e [facility] Unavailable Sebastian Doan Consulting Unavailable LUCIA ., DR HAYES Consulting Unavailable [facility] Care Unavailable LUCIA ., DR HAYES Admitting Unavailable LUCIA ., DR HAYES Consulting Unavailable LUCIA ., DR HAYES Attending Unavailable ZIEBER, DR ZEUS Heredia Consulting Unavailable [facility] Primary Care Unavailable LUCIA ., DR HAYES Attending Unavailable LUCIA ., DR HAYES Consulting Unavailable LUCIA ., DR HAYES Admitting Unavailable LUCIA ., DR HAYES Attending Unavailable [facility] Primary Care Unavailable LUCIA ., DR HAYES Admitting Unavailable [facility] Primary Care Unavailable KARASIK ., DR SUMMERS Admitting Unavailabl e KARASIK ., DR SUMMERS Attending Unavailabl e KARASIK ., DR SUMMERS Consulting Unavailabl e KARASIK ., DR SUMMERS Admitting Unavailabl e KARASIK ., DR SUMMERS Attending Unavailabl e KARASIK ., DR SUMMERS Consulting Unavailabl e [facility] Primary Care Unavailable KARASIK ., DR SUMMERS Admitting Unavailabl e KARASIK ., DR SUMMERS Attending Unavailabl e KARASIK ., DR SUMMERS Consulting Unavailabl e [facility] Primary Care Unavailable [facility] Primary Care Unavailable KARASIK ., DR SUMMERS Consulting Unavailabl e KARASIK ., DR SUMMERS Attending Unavailabl e KARASIK ., DR SUMMERS Admitting Unavailabl e LUCIA ., DR HAYES Consulting Unavailable ZIEBER, DR ZEUS Heredia Consulting Unavailable [facility] Primary Care Unavailable LUCIA ., DR HAYES Admitting Unavailable LUCIA ., DR HAYES Consulting Unavailable LUCIA ., DR HAYES Attending Unavailable ZIEBER, DR ZEUS Heredia Consulting Unavailable [facility] Primary Care Unavailable LUCIA ., DR HAYES Attending Unavailable LUCIA ., DR HAYES Consulting Unavailable LUCIA ., DR HAYES Admitting Unavailable [facility] Primary Care Unavailable LUCIA ., DR HAYES Attending Unavailable LUCIA ., DR HAYES Consulting Unavailable LUCIA ., DR HAYES Admitting Unavailable LUCIA ., DR HAYES Admitting Unavailable [facility] Primary Care Unavailable LUCIA ., DR HAYES Attending Unavailable LUCIA ., DR HAYES Attending Unavailable [facility] Primary Care Unavailable LUCIA ., DR HAYES Admitting Unavailable [facility] Primary Care Unavailable LUCIA ., DR HAYES Attending Unavailable ULCIA ., DR HAYES Consulting Unavailable LUCIA ., DR HAYES Admitting Unavailable ZIEBER, DR ZEUS Heredia Consulting Unavailable [facility] Primary Care Unavailable LUCIA ., DR HAYES Consulting Unavailable LUCIA ., DR HAYES Admitting Unavailable LUCIA ., DR HAYES Attending Unavailable ZIEBER, DR ZEUS Heredia Consulting Unavailable [facility] Primary Care Unavailable LUCIA ., DR HAYES Consulting Unavailable LUCIA ., DR HAYES Admitting Unavailable LUCIA ., DR HAYES Attending Unavailable ZIEBER, DR ZEUS Heredia Consulting Unavailable KARASIK ., DR SUMMERS Attending Unavailabl e KARASIK ., DR SUMMERS Admitting Unavailabl e LUCIA ., DR HAYES Consulting Unavailable [facility] Primary Care Unavailable KARASIK ., DR SUMMERS Consulting Unavailabl e KARASIK ., DR SUMMERS Attending Unavailabl e KARASIK ., DR SUMMERS Admitting Unavailabl e [facility] Primary Care Unavailable KARASIK ., DR SUMMERS Consulting Unavailabl e KARASIK ., DR SUMMERS Admitting Unavailabl e KARASIK ., DR SUMMERS Attending Unavailabl e [facility] Primary Care Unavailable [facility] Primary Care Unavailable KARASIK ., DR SUMMERS Consulting Unavailabl e KARASIK ., DR SUMMERS Admitting Unavailabl e KARASIK ., DR SUMMERS Attending Unavailabl e LUCIA ., DR HAYES Attending Unavailable [facility] Primary Care Unavailable LUCIA ., DR HAYES Admitting Unavailable [facility] Primary Care Unavailable LUCIA ., DR HAYES Attending Unavailable LUCIA ., DR HAYES Admitting Unavailable KARASIK ., DR SUMMERS Consulting Unavailabl e LUCIA ., DR HAYES Attending Unavailable [facility] Primary Care Unavailable LUCIA ., [...] Lydia Whyte Primary Care Physician Lydia Whyte Admitting Unavailable Lydia Whyte Attending Unavailable Lydia Whyte Attending Unavailable Isabell Lydia C Admitting Unavailable Bo Whyteyse Lino Attending Unavailable Bo Whyteyse C Admitting Unavailable BEE TRAN Attending Unavailable FREDDY MYERS Attending Unavailable FREDDY MYERS Attending Unavailable FREDDY MYERS Attending Unavailable NEISHA LAMB Attending Unavailable Medications Current Medications MedicationDrug Class(es)DatesSig (Normalized)Sig (Original)adapalene 0.001 mg/mg / benzoyl peroxide 0.025 mg/mg topical gel (5 sources)RetinoidStart: 08-25-2024 End: 30-59-5700Whqbpjxpw-Benzoyl Peroxide 0.1-2.5 % gel Indications: Acne, unspecified acne type Apply pea-size amount to T-zone, chin and problem areas nightly. 45 g 1 08/25/2024 03/31/2025 DiscontinuedALPRAZolam 0.5 mg oral tablet (1 source)BenzodiazepineStart: 03-26-2411hory 1 tablet by mouth three times daily as needed for anxietyalprazolam 0.5 mg Tab 0.5 mg = 1 tab(s), Oral, TID, PRN for anxiety, # 30 tab(s), Refills(s) 1, Pharmacy: [id number], 167.64, cm, 08/11/19 12:02:00 EST, Height/Length Measured, 70.8,kg, 08/11/19 12:02:00 EST, Weight Measured Start Date: 01/19/20 Status: Ordered Quantity: 30.0 Unit:tab(s) Repeat number: 2 Indication: Generalized anxiety disorderbenzoyl peroxide 50 mg/ml topical solution (16 sources)Start: 15-93-5095pikciqy peroxide 5 % external wash Indications: Acne vulgaris Apply to affected areas, then rinse daily, 30 day supply 227 g 11 03/31/2025 Activecefuroxime 250 mg oral tablet (8 sources)Cephalosporin AntibacterialStart: 07-05-2024 End: 87-29-6564bonu 1 tablet by mouth once dailycefuroxime (Ceftin) 250 MG tablet Indications: Acne vulgaris Take 1 tablet, by mouth, once daily, 30 days 30 tablet 2 07/05/2024 03/31/2025 Discontinuedcephalexin 500 mg oral capsule (2 sources)Cephalosporin AntibacterialStart: 08-25-2024 End: 32-11-2586uwry 1 capsule by mouth in the morning, [...] 08/25/2024 09/04/2024 Activeclindamycin 10 mg/ml topical lotion (16 sources)Lincosamide AntibacterialStart: 49-75-7056jwlsezozmse (Cleocin T) 1 % lotion Indications: Acne [...] Tablet) } Pack [TR (1 source)Progestin, EstrogenStart: 32-15-6901Jtd-Linyah 35 mcg oral tablet 1 tab(s), Oral, Daily, 30 tab(s), Refill(s) 0, other reason (Rx) Start Date: 06/16/19 Status: Ordered Quantity: 30.0 Unit: tab(s) Repeat number: 1tretinoin 0.25 mg/ml topical cream (8 sources)RetinoidStart: 07-05-2024 End: 94-05-2242ofotfeivn (Retin-A) 0.025 % cream Indications: Acne vulgaris Apply to face, once daily at evening/night time, 30 day supply 20 g 11 07/05/2024 03/31/2025 Discontinued (Alternate therapy) Completed/Discontinued Medications MedicationDrug Class(es)DatesSig (Normalized)Sig (Original)azelaic acid 200 mg/ml topical cream (3 sources)Start: 04-15-2024 End: 68-56-4332xiifhwm acid (Azelex) 20 % cream Indications: Acne vulgaris Apply thin layer to face qHS, 30 day supply 50 g 11 04/15/2024 07/05/2024 Discontinuedbenzoyl peroxide 0.05 mg/mg / clindamycin 0.01 mg/mg topical gel (3 sources)Lincosamide AntibacterialStart: 03-30-2024 End: 50-84-1884hbmvmyrhmkp-benzoyl peroxide (BenzaClin) gel Indications: Acne vulgaris Apply thin layer to face, once daily in the morning, 30 day supply 50 g 11 03/30/2024 07/05/2024 Discontinued (Ineffective)Clascoterone (Winlevi) 1 % cream (3 sources)Start: 06-22-2024 End: 06-67-2003Dqcxnqxngank (Winlevi) 1 % cream Indications: Acne vulgaris Apply thin layer to face twice daily 60g 11 06/22/2024 07/05/2024 DiscontinuedStart: 30-47-1012Hvceqchvrgcp (Winlevi) 1 % cream Indications: Acne vulgaris Apply thin layer to face twice daily 60g 11 06/22/2024 Active Problems Active Problems Problem ClassificationProblemDateDocumented DateEpisodic/ChronicAbdominal pain (4 sources)Right sided abdominal pain; Translations: [Unspecified abdominal pain]07-40-6709FsdousgmYjogwhg disorders (2 sources)Generalized anxiety disorder; Translations: [Panic disorder without agoraphobia]05-08-5184CztprclFbkigefdespoz symptoms and ill-defined conditions (1 source)Kkvbvmu78-50-4145BxvxsmkkXfdwnsizdexlz and screening for infectious disease (3 sources)Contact with and (suspected) exposure to infections with a predominantly sexual mode of transmission; Translations: [Exposure to sexually transmissible disorder]Onset: 414786-16-7995FmbvnhuaUtvoblzop disorders (6 sources)Irregular menstruation, unspecified; Translations: [Missed period] Onset: 62-87-3976PeanlmlDtno disorders (1 source)Episodic mood sducktpo04-88-2613JpzkdyjSjschzp (1 source)Tinea ezumbsvv65-63-1401MlsqntkzIA-iiozrpq trauma to perineum and vulva (1 source)Second degree perineal laceration during delivery; Translations: [SECOND DEG PERINEAL LAC DUR DELIV]Onset: 90-71-2025KyvlqrvuCabcq complications of (17 sources)History of gestational diabetes mellitus; Translations: [Supervision of with other poor reproductive or obstetric history, unspecified trimester]Onset: 674533-23-1266CsuvpyjuRbkok female genital disorders (2 sources)Abnormal uterine bleeding; Translations: [Abnormal uterine and vaginal bleeding, unspecified]38-67-7530AaojhtpJatyn female genital disorders (1 source)Dysfunctional uterine ttvyjfbb02-14-4611FxuddpvAsiht and delivery including normal (20 sources)Encounter for care and examination of lactating mother; Translations: [Encounter for routine follow-up]Onset: 05-26-2022 EpisodicOther screening for suspected conditions (not mental disorders or infectious disease) (7 sources)Encounter for screening for diabetes mellitus; Translations: [Alpha- fetoprotein blood test status]Onset: 831974-37-9579ZhybskpqCgdal skin disorders (4 sources)Acne vulgaris; Translations: [Acne vulgaris]12-23-8927KqxotvavFyfgj skin disorders (2 sources)Acne; Translations: [Acne, unspecified]66-19-7154NsrfzyudUvossvoc codes; unclassified (1 source)40 weeks gestation of ; Translations: [40 WEEKS GESTATION OF ]Onset: 03-91-4923TexzcqduMrswpykq codes; unclassified (1 source)39 weeks gestation of ; Translations: [39 WEEKS GESTATION OF ]Onset: 57-37-1925HtoniruzLfcbfkfr codes; unclassified (1 source)38 weeks gestation of ; Translations: [38 WEEKS GESTATION OF ]Onset: 43-74-6915NizifzmjCfgbxvca codes; unclassified (1 source)37 weeks gestation of ; Translations: [37 WEEKS GESTATION OF ]Onset: 66-41-6193ZcnpwsueTkvyhdem codes; unclassified (1 source)36 weeks gestation of ; Translations: [36 WEEKS GESTATION OF ]Onset: 39-55-6286BmbmzhzlCrkbglrr codes; unclassified (1 source)35 weeks gestation of ; Translations: [35 WEEKS GESTATION OF ]Onset: 41-52-4327YwtldffoYcazogdw codes; unclassified (1 source)34 weeks gestation of ; Translations: [34 WEEKS GESTATION OF ]Onset: 70-35-6855PgtxzzmnIawvrvcl codes; unclassified (1 source)33 weeks gestation of ; Translations: [33 WEEKS GESTATION OF ]Onset: 86-74-9334VkosogkoKjqcdxlf codes; unclassified (1 source)32 weeks gestation of ; Translations: [32 WEEKS GESTATION OF ]Onset: 64-24-7655VwbtyrydAbsxsxrw codes; unclassified (1 source)Gestation period, 8 weeks; Translations: [8 weeks gestation of ]56-27-7249FincjwbyTdmvghss codes; unclassified (2 sources)Gestation period, 13 weeks; Translations: [13 weeks gestation of ]53-52-6214DligwfmoCdbbrant codes; unclassified (2 sources)Gestation period, 17 weeks; Translations: [17 weeks gestation of ]60-92-6963YsntpjjoGvglwgak codes; unclassified (2 sources)Gestation period, 20 weeks; Translations: [20 weeks gestation of ]76-01-3570Lcufkfth Past or Other Problems Problem ClassificationProblemDateDocumented DateEpisodic/ChronicDiabetes mellitus without complication (4 sources)Other abnormal glucose; Translations: [OTHER ABNORMAL GLUCOSE]Onset: 65-66-5832GxhgzvtxLsqmowdt or abnormal glucose tolerance complicating ; childbirth; or the puerperium (19 sources)Gestational diabetes mellitus in , unspecified control; Translations: [Gestational diabetes mellitus in childbirth, unspecified control] Onset: 46-69-6759WrgbgeruFlsranap codes; unclassified (1 source)28 weeks gestation of ; Translations: [28 WEEKS GESTATION OF ]Onset: 29-35-8619Tqylaxqx Results Test NameValueInterpretationReference RangeFacilityNo Panel Informationon 26-83-8098Zknecwhlh Study observation (narrative)[facility] [place] [facility] [place] [address] Ultrasound Report Signed Patient: MILDRED NEGRO MR#: [id number] : 1995 Acct:[id number] Age/Sex: 30 / F ADM Date: 07/12/25 Loc: US Attending Dr: Freddy Myers D.O. Ordering Physician: Freddy Myers D.O. Date of Service: 07/12/25 Procedure(s): US OB anatomy Accession Number(s): [id number] cc: Freddy Myers D.O.; REGINA WRIGHT [place] [address] Patient Name: MILDRED NEGRO MRN: [id number] date: 1995 Sex: F Assigned Patient Location: US Current Patient Location: Accession/Order Number: [id number] Exam Date: 07/12/2025 16:10 Report Date: 07/13/2025 08:40 At the request of: FREDDY MYERS DO Procedure: US OB anatomy CLINICAL DATA: Anatomy screening COMPARISON: None ULTRASOUND OB ANATOMY There is a single live intrauterine gestation in variable presentation. There is cardiac and somatic activity with heart rate of 151 bpm. The placenta is anterior. The amniotic fluid volume is subjectively normal. The neural axis and all 4 extremities were surveyed by the lurer. The thoracic spine was suboptimally visualized due to position. No extremity abnormalities were detected. A 4 chamber heart with right and left ventricular outflow tracts was also suboptimally seen. The bladder, stomach, kidneys, three-vessel cord with insertion, diaphragm, facial features and male gender are visualized. The following measurements were obtained: Biparietal diameter 4.6 cm 20 weeks 0 days 30% Head circumference 17.5 cm 20 weeks 0 days 31% Abdominal circumference 15.6 cm 20 weeks 6 days 61% Femur length 3.2 cm 20 weeks 1 day 35% The composite ultrasound age based on these measurements is 20 weeks 2 days +/- 1 week 3 days. The estimated date of delivery is 11/27/2025 which correlates with reported gestational age. The estimated weight is 12 ounces +/- 2 ounces (53%). US/US OB anatomy IMPRESSION: SINGLE LIVE INTRAUTERINE GESTATION WITH ULTRASOUND AGE OF 20 WEEKS 2 DAYS. INCOMPLETE ANATOMY SURVEY WITH SUBOPTIMAL VISUALIZATION OF THE HEART AND SPINE. ULTRASOUND OB CERVICAL LENGTH The cervix was evaluated with the transvaginal probe. The cervix is closed and measures approximately 4.7 cm in length. There is no evidence of previa. IMPRESSION: NORMAL CLOSED CERVIX. Impression dictated by: Micki Espinoza M.D. 07/13/2025 8:40 AM Dictation Location: [place] [address] Electronically authenticated by: [id number] Y Date: 07/13/2025 08:40 Dictated By: Micki Espinoza M.D. Signed By: 07/13/25 0843 DD/ 0840 TD/TT: Student Success Counselor:TBHRadiology, Radiologist, MD - 07/13/2025 [place] [id number] Ultrasound Report Signed Patient: MILDRED NEGRO MR#: [id number] : 1995 Acct:[id number] Age/Sex: 30 / F ADM Date: 07/12/25 Loc: US Attending Dr: Freddy Myers D.O. Ordering Physician: Freddy Myers D.O. Date of Service: 07/12/25 Procedure(s): US OB anatomy Accession Number(s): [id number] cc: Freddy Myers D.O.; REGINA WRIGHT [place] [id number] Patient Name: MILDRED NEGRO MRN: [id number] date: 1995 Sex: F Assigned Patient Location: US Current Patient Location: Accession/Order Number: [id number] Exam Date: 07/12/2025 16:10 Report Date: 07/13/2025 08:40 At the request of: FREDDY MYERS DO Procedure: US OB anatomy CLINICAL DATA: Anatomy screening COMPARISON: None ULTRASOUND OB ANATOMY There is a single live intrauterine gestation in variable presentation. There is cardiac and somatic activity with heart rate of 151 bpm. The placenta is anterior. The amniotic fluid volume is subjectively normal. The neural axis and all 4 extremities were surveyed by the lurer. The thoracic spine was suboptimally visualized due to position. No extremity abnormalities were detected. A 4 chamber heart with right and left ventricular outflow tracts was also suboptimally seen. The bladder, stomach, kidneys, three-vessel cord with insertion, diaphragm, facial features and male gender are visualized. The following measurements were obtained: Biparietal diameter 4.6 cm 20 weeks 0 days 30% Head circumference 17.5 cm 20 weeks 0 days 31% Abdominal circumference 15.6 cm 20 weeks 6 days 61% Femur length 3.2 cm 20 weeks 1 day 35% The composite ultrasound age based on these measurements is 20 weeks 2 days +/- 1 week 3 days. The estimated date of delivery is 11/27/2025 which correlates with reported gestational age. The estimated weight is 12 ounces +/- 2 ounces (53%). US/US OB anatomy IMPRESSION: SINGLE LIVE INTRAUTERINE GESTATION WITH ULTRASOUND AGE OF 20 WEEKS 2 DAYS. INCOMPLETE ANATOMY SURVEY WITH SUBOPTIMAL VISUALIZATION OF THE HEART AND SPINE. ULTRASOUND OB CERVICAL LENGTH The cervix was evaluated with the transvaginal probe. The cervix is closed and measures approximately 4.7 cm in length. There is no evidence of previa. IMPRESSION: NORMAL CLOSED CERVIX. Impression dictated by: Micki Espinoza M.D. 07/13/2025 8:40 AM Dictation Location: [place] [address] Electronically authenticated by: [id number] Y Date: 07/13/2025 08:40 Dictated By: Micki Espinoza M.D. Signed By: 07/13/25 0843 DD/ 9 TD/TT: Student Success Counselor: [facility] ANATOMYOrdered By: Radiologist Radiology on 38-52-3544LPIL [employer] Work Phone: US OB CERVICAL LENGTHon [phone] [address] Ultrasound Report Signed Patient: MILDRED NEGRO MR#: [id number] : 1995 Acct:[id number] Age/Sex: 30 / F ADM Date: 07/12/25 Loc: US Attending Dr: Freddy Myers D.O. Ordering Physician: Freddy Myers D.O. Date of Service: 07/12/25 Procedure(s): US OB cervical length Accession Number(s): [id number] cc: Freddy Myers D.O.; REGINA WRIGHT [address] [address] Patient Name: MILDRED NEGRO MRN: [id number] date: 1995 Sex: F Assigned Patient Location: US Current Patient Location: Accession/Order Number: [id number] Exam Date: 07/12/2025 16:10 Report Date: 07/13/2025 08:40 At the request of: FREDDY MYERS DO Procedure: US OB anatomy CLINICAL DATA: Anatomy screening COMPARISON: None ULTRASOUND OB ANATOMY There is a single live intrauterine gestation in variable presentation. There is cardiac and somatic activity with heart rate of 151 bpm. The placenta is anterior. The amniotic fluid volume is subjectively normal. The neural axis and all 4 extremities were surveyed by the lurer. The thoracic spine was suboptimally visualized due to position. No extremity abnormalities were detected. A 4 chamber heart with right and left ventricular outflow tracts was also suboptimally seen. The bladder, stomach, kidneys, three-vessel cord with insertion, diaphragm, facial features and male gender are visualized. The following measurements were obtained: Biparietal diameter 4.6 cm 20 weeks 0 days 30% Head circumference 17.5 cm 20 weeks 0 days 31% Abdominal circumference 15.6 cm 20 weeks 6 days 61% Femur length 3.2 cm 20 weeks 1 day 35% The composite ultrasound age based on these measurements is 20 weeks 2 days +/- 1 week 3 days. The estimated date of delivery is 11/27/2025 which correlates with reported gestational age. The estimated weight is 12 ounces +/- 2 ounces (53%). US/US OB cervical length IMPRESSION: SINGLE LIVE INTRAUTERINE GESTATION WITH ULTRASOUND AGE OF 20 WEEKS 2 DAYS. INCOMPLETE ANATOMY SURVEY WITH SUBOPTIMAL VISUALIZATION OF THE HEART AND SPINE. ULTRASOUND OB CERVICAL LENGTH The cervix was evaluated with the transvaginal probe. The cervix is closed and measures approximately 4.7 cm in length. There is no evidence of previa. IMPRESSION: NORMAL CLOSED CERVIX. Impression dictated by: Micki Espinoza M.D. 07/13/2025 8:40 AM Dictation Location: [place] [address] Electronically authenticated by: [id number] Y Date: 07/13/2025 08:40 Dictated By: Micki Espinoza M.D. Signed By: 07/13/2542 DD/ 9 TD/TT: Student Success Counselor:DENAadiolognaina, Radiologist, - 07/13/2025 [place] [id number] Ultrasound Report Signed Patient: MILDRED NEGRO MR#: [id number] : 1995 Acct:[id number] Age/Sex: 30 / F ADM Date: 07/12/25 Loc: US Attending Dr: Freddy Myers D.O. Ordering Physician: Freddy Myers D.O. Date of Service: 07/12/25 Procedure(s): US OB cervical length Accession Number(s): [id number] cc: Freddy Myers D.O.; REGINA WRIGHT [place] [id number] Patient Name: MILDRED NEGRO MRN: [id number] date: 1995 Sex: F Assigned Patient Location: US Current Patient Location: Accession/Order Number: [id number] Exam Date: 07/12/2025 16:10 Report Date: 07/13/2025 08:40 At the request of: FREDDY MYERS DO Procedure: US OB anatomy CLINICAL DATA: Anatomy screening COMPARISON: None ULTRASOUND OB ANATOMY There is a single live intrauterine gestation in variable presentation. There is cardiac and somatic activity with heart rate of 151 bpm. The placenta is anterior. The amniotic fluid volume is subjectively normal. The neural axis and all 4 extremities were surveyed by the lurer. The thoracic spine was suboptimally visualized due to position. No extremity abnormalities were detected. A 4 chamber heart with right and left ventricular outflow tracts was also suboptimally seen. The bladder, stomach, kidneys, three-vessel cord with insertion, diaphragm, facial features and male gender are visualized. The following measurements were obtained: Biparietal diameter 4.6 cm 20 weeks 0 days 30% Head circumference 17.5 cm 20 weeks 0 days 31% Abdominal circumference 15.6 cm 20 weeks 6 days 61% Femur length 3.2 cm 20 weeks 1 day 35% The composite ultrasound age based on these measurements is 20 weeks 2 days +/- 1 week 3 days. The estimated date of delivery is 11/27/2025 which correlates with reported gestational age. The estimated weight is 12 ounces +/- 2 ounces (53%). US/US OB cervical length IMPRESSION: SINGLE LIVE INTRAUTERINE GESTATION WITH ULTRASOUND AGE OF 22 WEEKS 2 DAYS. INCOMPLETE ANATOMY SURVEY WITH SUBOPTIMAL VISUALIZATION OF THE HEART AND SPINE. ULTRASOUND OB CERVICAL LENGTH The cervix was evaluated with the transvaginal probe. The cervix is closed and measures approximately 4.7 cm in length. There is no evidence of previa. IMPRESSION: NORMAL CLOSED CERVIX. Impression dictated by: Micki Espinoza M.D. 07/13/2025 8:40 AM Dictation Location: [place] [address] Electronically authenticated by: [id number] Y Date: 07/13/2025 08:40 Dictated By: Micki Espinoza M.D. Signed By: 07/13/2542 DD/ 9 TD/TT: Student Success Counselor: TRAY [place] OB CERVICAL LENGTHOrdered By: Radiologist Radiology on [id number] Work Phone: IGP,APTIMA HPV,AGE GDLNon [id number] GDLN ACOG TESTINGNote.TRAY HealthcareComment on above:TESTS RESULT FLAG UNITS REF RANGE LAB Clinician Provided Cytology Information Source.............Endocervix No. of containers..01 ThinPrep Vial Age Nando Shin... FLAG LEGEND: L-Low Normal,H-High Normal,LL-Alert Low,HH-Alert High <-Panic Low,>-Panic High,A-Abnormal,AA-Critical Abnormal Performed at: 01 =[facility] [address] [place] [address] Fay Parson MD, IGP, RFX APTIMA HPV ASCUNote.[facility] HealthcareComment on above:TESTS RESULT FLAG UNITS REF RANGE LAB DIAGNOSIS: 02 NEGATIVE FOR INTRAEPITHELIAL LESION OR MALIGNANCY. Specimen adequacy: 02 Satisfactory for evaluation. Endocervical and/or squamous metaplastic cells (endocervical component) are present. Performed by: 02 Lokesh Veras, Director Women ([facility]) . 02 Note: Note 02 The [...] ThinPrep(R) pap test was interpreted using the [employer](R) Innovaci(TM) Cervical Algorithm whole slide imaging system. . 02 The HPV DNA reflex criteria were not met with this specimen result therefore, no HPV testing was performed. FLAG LEGEND: L-Low Normal,H-High Normal,LL-Alert Low,HH-Alert High <-Panic Low,>-Panic High,A-Abnormal,AA-Critical Abnormal Performed at: [address] [id number] Fay Parson MD, Performed at: = - [facility] [id number] Auto Radio Mechanic: Fay Parson MD, Phone: [phone] Performed at: [address] [id number] Auto Radio Mechanic: Fay Parson MD, Phone: [phone] SPATULA-ALONE ENDOCERVIX CLINISYNCNOMS HealthcareRECURRENT VAGINITIS (HTRX)on 31-82-0688EAJHXOZYJ VAGINAE 0NOMS HealthcareATOPOBIUM VAGINAENot detectedNOMS HealthcareBVAB 2,3 (BACTERIAL VAGINOSIS ASSOCIATED BACTERIA 2, 3); MOBILUNCUS UVA4ANZR HealthcareBVAB 2,3 (BACTERIAL VAGINOSIS ASSOCIATED BACTERIA 2, 3); MOBILUNCUS SPPNot detectedNOMS HealthcareCANDIDA ALBICANS, PARAPSILOSIS, [id number] HealthcareCANDIDA ALBICANS, PARAPSILOSIS, TROPICALISNot detectedNOMS HealthcareCANDIDA GLABRATA0 NOMS HealthcareCANDIDA GLABRATANot detectedNOMS HealthcareCANDIDA IEOMAN7GLAP HealthcareCANDIDA KRUSEINot detectedNOMS HealthcareCHLAMYDIA [id number] HealthcareCHLAMYDIA TRACHOMATISNot detectedNOMS HealthcareGARDNERELLA VAGINALIS0 NOMS HealthcareGARDNERELLA VAGINALISNot detectedNOMS HealthcareMEGASPHAERA (TYPES 1, 2)0NOMS HealthcareMEGASPHAERA (TYPES 1, 2)Not detectedNOMS Healthcare MYCOPLASMA FOFGKINFNT9SOSS HealthcareMYCOPLASMA GENITALIUMNot detectedNOMS HealthcareNEISSERIA [id number] HealthcareNEISSERIA GONORRHOEAENot detected NOMS HealthcareTRICHOMONAS [id number] HealthcareTRICHOMONAS VAGINALISNot detectedNOMS HealthcareNOMS HealthcareUrinalysis macro (dipstick) panel (U)on 89-41-1326Rhjoelymi, UANegativeNegative - 4(70) +++ mg/dLNOMS HealthcareBlood, UANegativeNegative - 50 Josh/mcLNOMS HealthcareClarity, UAClearNOMS Healthcare Color, UAYellowNOMS HealthcareGlucose, UANegativeNegative - 2000(110) ++++ mg/dL NOMS HealthcareInterpretation and review of laboratory resultsNormalNOMS HealthcareKetones, UANegativeNegative - 160(16) ++++ mg/dLNOME Healthcare Leukocytes, UANegativeNegative - 500+++ Елена/mcLNOMS HealthcareNitrite, UA NegativeNegative - PositiveNOMS HealthcarepH, UA6.05 - 9NOMS HealthcareProtein, UANegativeNegative - 2000(20) ++++ mg/dLNOME HealthcareSpec Grav, UA1.0101 - 1.03NOMS HealthcareUrobilinogen, UA1.00.2 - 12 mg/dLNOMS HealthcareNOMS HealthcareGlucoseon 57-26-8681Rtesmvl [Mass/Vol]92 mg/nWTgbloi03-083NtancsFirelands Regional Medical CenterComment on above:Performed By: #### [id number] #### [facility] [address], [place] [address]Tskzy Panelon 39-48-9351Suwskcpwnsp [Mass/Vol]176 mg/dLNormal 120-200Firelands Regional Medical CenterComment on above:Performed By: #### [id number] #### [facility] [address], [place] [address]Dvbxupmonij in HDL [Mass/Vol]72 mg/dLInvalid Interpretation CodeFirelands Regional Medical CenterComment on above:Result Comment: '>= 60 LOW RISK' '<= 40 HIGH RISK'Performed By: #### [id number] #### [facility] [address], [place] [address]Uvsglgemgpa in LDL [Mass/Vol]95 mg/dLNormal<=129Firelands Regional Medical CenterComment on above:Performed By: #### [id number] #### [facility] [address], [place] [address]Cwzxcdbsezq in VLDL [Mass/Vol]22 mg/dLNormal7-40Firelands Regional Medical CenterComment on above:Performed By: #### [id number] #### [facility] [address], [place] [address]Qqoqgfgjxmux [Mass/Vol]110 mg/dLNormal<=149Firelands Regional Medical CenterComment on above:Performed By: #### [id number] #### [facility] [address], [place] [address]Hvdbvjlyap macro (dipstick) panel (U)on 91-20-2761Tibsexxlz, UA NegativeNegative - 4(70) +++ mg/dLNOMS HealthcareBlood, UANegativeNegative - 50 Josh/mcLNOMS HealthcareClarity, UACloudyNOMS HealthcareColor, UAAmberNOMS HealthcareGlucose, UANegativeNegative - 2000(110) ++++ mg/dLNOME Healthcare Interpretation and review of laboratory resultsNormalNOME HealthcareKetones, UA NegativeNegative - 160(16) ++++ mg/dLNOMS HealthcareLeukocytes, UANegative Negative - 500+++ Елена/mcLNOMS HealthcareNitrite, UANegativeNegative - Positive NOMS HealthcarepH, UA65 - 9NOMS HealthcareProtein, UANegativeNegative - 2000(20) ++++ mg/dLNOMS HealthcareSpec Grav, UA1.0151 - 1.03NOMS HealthcareUrobilinogen, UA1.00.2 - 12 mg/dLNOMS HealthcareNOMS HealthcareBOX TESTon 49-72-0742FLP TEST SENT OUTUNSELECT MEDICAL [facility] CtexstdrwbWTO8RCOSCUMJO VtexasdfwsDXI211/05/2025NOME HealthcareCLINISYNCNOMS HealthcareHCG ( test) Ql (U)on 04-21-2025 Interpretation and review of laboratory resultsAbnoJefferson HospitalPreg Test, UrPositiveNegativeCass Medical Center HealthcareUS OB TRANSVAGINALon 04-21-2025 US OB TRANSVAGINALFINDINGS: [...] 28, 2025. TRANSCRIBED BY: ELECTRONICALLY SIGNED BY: Rebecca IyerNot AvailableComment on above:Order Comment: US OB TRANSVAGINAL No LMP recorded.Urinalysis macro (dipstick) panel (U)on 33-50-6699Mtmilygyz, UA NegativeNegative - 4(70) +++ mg/dLNOMS HealthcareBlood, UANegativeNegative - 50 Josh/mcLNOMS HealthcareClarity, UAClearNOMS HealthcareColor, UAYellowNOMS HealthcareGlucose, UANegativeNegative - 1999(110) ++++ mg/dLNOME Healthcare Interpretation and review of laboratory resultsNormalLONE PEAK HOSPITAL HealthcareKetones, UA NegativeNegative - 160(16) ++++ mg/dLNOMS HealthcareLeukocytes, UANegative Negative - 500+++ Елена/mcLNOMS HealthcareNitrite, UANegativeNegative - Positive NOMS HealthcarepH, UA65 - 9NOMS HealthcareProtein, UANegativeNegative - 2000(20) ++++ mg/dLNOMS HealthcareSpec Grav, UA1.021 - 1.03NOMS HealthcareUrobilinogen, UA1.00.2 - 12 mg/dLCape Fear Valley Medical CenterXR Chest 2 Viewson [id number] Chest 2 ViewsExam Date/Time: 01/21/2025 17:05 EDT [...] Manjit Mazariegos MD Transcribed by: BRENDA Technologist: [facility] FoundationUS PELVIC COMPLETE W/ TVon [id number] PELVIC COMPLETE W/ TVEXAM: US PELVIC COMPLETE [...] II, MD, PHD at 22-Sep-2024 07:42:52 AM [facility] TeleradiologyNormalNot AvailableComment on above:Order Comment: US PELVIS-TRANSVAG IF INDICATED Patient's last menstrual period was 07/28/2024 (approximate).HCG ( test) Ql (U)on 64-82-3658Gqpkgtkkcwosok and review of laboratory resultsNormal NOMS HealthcarePreg Test, UrNegativeNegativeNOMS [facility] Healthcare Urinalysis macro (dipstick) panel (U)on 82-39-4629Pzzyoorwd, UANegativeNegative - 4(70) +++ mg/dLNOMS HealthcareBlood, UAPositiveNegative - 50 Josh/mcLNOMS HealthcareComment on above:moderateClarity, UAClearNOMS HealthcareColor, UA YellowNOMS HealthcareGlucose, UANegativeNegative - 2000(110) ++++ mg/dLNOMS HealthcareInterpretation and review of laboratory resultsAbnormUniversity Hospitals St. [facility] Healthcare Ketones, UANegativeNegative - 160(16) ++++ mg/dLNOME HealthcareLeukocytes, UA TraceNegative - 500+++ Елена/mcLNOME HealthcareNitrite, UANegativeNegative - PositiveNOMS HealthcarepH, UA65 - 9NOMS HealthcareProtein, UANegativeNegative - 2000(20) ++++ mg/dLNOMS HealthcareSpec Grav, UA1.0251 - 1.03N[facility] Healthcare Urobilinogen, UA0.20.2 - 12 mg/dLNOCoxHealth HealthcareCBC AUTO DIFFon 91-77-9681ALFK #0.0 103/ulNormal0.0-0.1The [facility] NorthComment on above: Performed By: #### RUBARIKG #### [facility] Laboratory [address] [place] [address] Dr. Gale ChangBasophils/100 WBC (Bld)0.1 %Critically low0.2-2.0The [facility] NorthComment on above:Performed By: #### RUBARIKG #### [facility] Laboratory [address] [place] [address] Dr. Baljinder Barrera #0.0 103/ulNormal0.0-0.7The [facility] NorthComment on above: Performed By: #### RUBIGG #### [facility] [address] [place] [address] Dr. Yilan ChangEosinophils/100 WBC (Bld)0.1 %Critically low0.9-7.0The [facility] Hospitalment on above:Performed By: #### RUBIGG #### [facility] [address] [place] [address] Dr. Baljinder Pringlerythrocyte distribution width (RBC) [Ratio]13.3 %Zrsddc63.0-15.0 The [facility] NorthComment on above:Performed By: #### RUBIGG #### [facility] [address] [place] [address] Dr. Baljinder MurrellHematocrit (Bld) [Volume fraction]35.5 %Critically low36.0-48.0 The [facility] NorthComment on above:Performed By: #### RUBIGG #### [facility] [address] [place] [address] Dr. Baljinder MurrellHemoglobin (Bld) [Mass/Vol]11.3 g/dLCritically low12.0-16.0The [facility] NorthComment on above:Performed By: #### RUBIGG #### [facility] [address] [place] [address] Dr. Baljinder Mendez #0.06 10e3/ulCritically high0.00-0.03The [facility] Comment on above:Performed By: #### RUBARIKG #### [facility] [address] [place] [address] Dr. Baljinder MurrellIG %0.4 %Normal0.0-0.5The [facility] NorthComment on above: Performed By: #### RUBIGG #### [facility] [address] [place] [address] Dr. Baljinder FarmerMPH #1.6 103/ulNormal1.2-3.8The [facility] NorthComment on above:Performed By: #### RUBIGG #### [facility] [address] [place] [address] Dr. Baljinder Farmermphocytes/100 WBC (Bld)11.0 %Critically low20.5-60.0The [facility] Hospitalment on above:Performed By: #### RUBIGG #### [facility] [address] [place] [address] Dr. Baljinder Aldana DIFF REQNONormalThe [facility] NorthComment on above: Performed By: #### RUBIGG #### [facility] [address] [place] [address] Dr. Baljinder Bernstein (RBC) [Entitic mass]30.2 roHcryfx43.7-34.0The [facility] NorthComment on above:Performed By: #### RUBIGG #### [facility] [address] [place] [address] Dr. Baljinder Bernstein (RBC) [Mass/Vol]31.8 g/uPEngwcr71.9-35.2The [facility] NorthComment on above:Performed By: #### RUBIGG #### [facility] [address] [place] [address] Dr. Baljinder Bernstein (RBC) [Entitic vol]94.9 kLLiidxm53.0-99.0Genesis HospitalComment on above:Performed By: #### KETANG #### [facility] [address] [place] [address] Dr. Baljinder Rodriguez #0.9 103/ulCritically high0.3-0.8ThMercy Health Fairfield Hospital Comment on above:Performed By: #### RUBIGG #### [facility] [address] [place] [address] Dr. Baljinder Mcgrawocytes/100 WBC (Bld)6.1 %Normal1.7-12.0[facility] Comment on above:Performed By: #### RIVASIGG #### [facility] [address] [place] [address] Dr. Baljinder Marie #11.9 103/ulCritically high1.4-6.5ThMercy Health Fairfield Hospital Comment on above:Performed By: #### RUBIGG #### [facility] [address] [place] [address] Dr. Baljinder Carrilloutrophils/100 WBC (Bld)82.3 %Critically high43.0-75.0The [facility] NorthComment on above:Performed By: #### RUBIGG #### [facility] [address] [place] [address] Dr. Baljinder Hilllet mean volume (Bld) [Entitic vol]8.5 fLCritically low 9.5-13.5The [facility] NorthComment on above:Performed By: #### RUBIGG #### [facility] [address] [place] [address] Dr. Baljinder MurrellPLT217 103/twDevtll239-087Ejx [facility] NorthComment on above: Performed By: #### RUBARIKG #### [facility] [address] [place] [address] Dr. Baljinder MurrellRBC3.74 106/ulCritically low4.20-5.40The [facility] NorthComment on above:Performed By: #### KETANG #### [facility] [address] [place] [address] Dr. Baljinder MurrellWBC14.5 103/ulCritically high4.0-11.0The [facility] NorthComment on above:Performed By: #### RUBARIKG #### [facility] [address] [place] [address] Dr. Baljinder Jeter AUTO DIFFon [id number] #0.0 103/ulNormal0.0-0.1The [facility] NorthComment on above:Performed By: #### CBC #### [facility] [address] [place] [address] Dr. Baljinder Prattsophils/100 WBC (Bld)0.2 %Normal0.2-2.0The [facility] Comment on above:Performed By: #### CBC #### [facility] [address] [place] [address] Dr. Baljinder Barrera #0.0 103/ulNormal0.0-0.7The [facility] NorthComment on above: Performed By: #### CBC #### [facility] [address] [place] [address] Dr. Baljinder Pringleosinophils/100 WBC (Bld)0.4 %Critically low0.9-7.0The [facility] Hospitalment on above:Performed By: #### CBC #### [facility] [address] [place] [address] Dr. Baljinder Pringlerythrocyte distribution width (RBC) [Ratio]13.4 %Rzuozu61.0-15.0 The [facility] NorthComment on above:Performed By: #### CBC #### [facility] [address] [place] [address] Dr. Baljinder MurrellHematocrit (Bld) [Volume fraction]36.8 %Sqjnma11.0-48.0The [facility] NorthComment on above:Performed By: #### CBC #### [facility] [address] [place] [address] Dr. Baljinder MurrellHemoglobin (Bld) [Mass/Vol]12.5 g/dVEmpapn40.0-16.0The [facility] Hospitalment on above:Performed By: #### CBC #### [facility] [address] [place] [address] Dr. Baljinder Mendez #0.05 10e3/ulCritically high0.00-0.03The [facility] Comment on above:Performed By: #### CBC #### [facility] [address] [place] [address] Dr. Baljinder Mendez %0.6 %Critically high0.0-0.5The [facility] NorthComment on above:Performed By: #### CBC #### [facility] [address] [place] [address] Dr. Baljinder FarmerMPH #1.9 103/ulNormal1.2-3.8The [facility] NorthComment on above:Performed By: #### CBC #### [facility] [address] [place] [address] Dr. Baljinder Farmermphocytes/100 WBC (Bld)20.9 %Bghixm39.5-60.0The [facility] NorthComment on above:Performed By: #### CBC #### [facility] [address] [place] [address] Dr. Baljinder HernandezUAL DIFF REQNONormalThe [facility] NorthComment on above: Performed By: #### CBC #### [facility] [address] [place] [address] Dr. Baljinder Bernstein (RBC) [Entitic mass]31.0 quOnltdb68.7-34.0The [facility] NorthComment on above:Performed By: #### CBC #### [facility] [address] [place] [address] Dr. Baljinder Bernstein (RBC) [Mass/Vol]34.0 g/mCWqcuuz72.9-35.2The [facility] NorthComment on above:Performed By: #### CBC #### [facility] [address] [place] [address] Dr. Baljinder Bernstein (RBC) [Entitic vol]91.3 kPBslpcq75.0-99.0The [facility] NorthComment on above:Performed By: #### CBC #### [facility] [address] [place] [address] Dr. Baljinder Rodriguez #0.6 103/ulNormal0.3-0.8The [facility] NorthComment on above:Performed By: #### CBC #### [facility] [address] [place] [address] Dr. Baljinder Mcgrawocytes/100 WBC (Bld)6.3 %Normal1.7-12.0The [facility] Comment on above:Performed By: #### CBC #### [facility] [address] [place] [address] Dr. Baljinder Marie #6.4 103/ulNormal1.4-6.5The [facility] NorthComment on above:Performed By: #### CBC #### [facility] [address] [place] [address] Dr. Baljinder Carrilloutrophils/100 WBC (Bld)71.6 %Kdgbvl41.0-75.0The [facility] NorthComment on above:Performed By: #### CBC #### [facility] [address] [place] [address] [address] Baljinder Hilllet mean volume (Bld) [Entitic vol]8.9 fLCritically low 9.5-13.5The [facility] NorthCommclaren flint on above:Performed By: #### CBC #### [facility] [address] [place] [address] Dr. Baljinder MurrellPLT270 103/ooItewte101-017Efi [facility] NorthComment on above: Performed By: #### CBC #### [facility] [address] [place] [address] Dr. Baljinder MurrellRBC4.03 106/ulCritically low4.20-5.40The [facility] NorthComment on above:Performed By: #### CBC #### [facility] [address] [place] [address] Dr. Baljinder MurrellWBC8.9 103/ulNormal4.0-11.0The [facility] NorthComment on above: Performed By: #### CBC #### [facility] [address] [place] [address] Dr. Baljinder MurrellDRUG SCREEN RAPID (URINE)on 90-17-4229RQCWpvuegaaVkatudJKSBWWDN [facility] on above:Performed By: #### DRUGRPD #### [facility] [address] [place] [address] Dr. Baljinder JoyceNegativeNormalNEGATIVEGenesis HospitalCommclaren flint on above: Performed By: #### DRUGRPD #### [facility] [address] [place] [address] Dr. Baljinder CastPNegativeNormalNEGATIVEGenesis HospitalCommclaren flint on above: Performed By: #### DRUGRPD #### [facility] [address] [place] [address] Dr. Baljinder MurrellBZONegativeNormalNEGATIVEGenesis HospitalCommclaren flint on above: Performed By: #### DRUGRPD #### [facility] [address] [place] [address] Dr. Baljinder MurdockegativeNormalNEGATIVEGenesis HospitalComment on above: Performed By: #### DRUGRPD #### [facility] [address] [place] [address] Dr. Baljinder RosadoMartins Ferry HospitalComment on above: Result Comment: AMP (Amphetamine): 500ng/mL, BAR (Barbituates): 200 ng/mL, BZO (Benzodiazepines): 150 ng/mL, BUP (Buprenorphine): 10 ng/mL, ROXANA (Cocaine): 150 ng/mL, mAMP (Methamphetamine): 500 ng/mL, MTD (Methadone): 200 ng/mL, OPI (Opiates): 100 ng/mL, OXY (Oxycodone): 100 ng/mL, PCP (Phencyclidine): 25 ng/mL, PPX (Propoxyphene): 300 ng/mL, THC (Cannabinoids): 50 ng/mL, TCA (Trycyclic Antidepressants): 300 ng/mLPerformed By: #### DRUGRPD #### [facility] [address] [place] [address] Dr. Baljinder MurrellDRUG CUT HEADERDRUG CLASS TEST SYSTEM CUT-OFF CONCENTRATIONS ARE FOLLOWS:NormalThe [facility] on above:Performed By: #### DRUGRPD #### [facility] [address] [place] [address] Dr. Baljinder MurrellmAMPNegativeNormalNEGATIVEGenesis HospitalCommclaren flint on above: Performed By: #### DRUGRPD #### [facility] [address] [place] [address] Dr. Baljinder MurrellMTDNegativeNormalNEGATIVEGenesis HospitalCommclaren flint on above: Performed By: #### DRUGRPD #### [facility] [address] [place] [address] Dr. Baljinder MendosaINegativeNormalNEGATIVEThe [facility] on above: Performed By: #### DRUGRPD #### [facility] Laboratory [address] [place] [address] Dr. Baljinder MurrellOXYNegativeNormalNEGATIVEGenesis HospitalComment on above: Performed By: #### DRUGRPD #### [facility] [address] [address] [address] Baljinder MurrellPCPNegativeNormalNEGSelect Medical [facility] Rehabilitation Hospital, BeachwoodComment on above: Performed By: #### DRUGRPD #### [facility] [address] [address] [address] Baljinder MurrellPPXNegativeNormalNEGATIVEGenesis HospitalComment on above: Performed By: #### DRUGRPD #### [facility] [address] [address] [address] Baljinder MurrellTCANegativeNormalNEGSelect Medical [facility] Hospital, BeachwoodComment on above: Performed By: #### DRUGRPD #### [facility] [address] [address] [address] Baljinder MurrellTHCNegativeNormalNEGSelect Medical [facility] Hospital, BeachwoodComment on above: Performed By: #### DRUGRPD #### [facility] [address] [address] [address] Baljinder MurrellTYPE AND SCREENon [id number] AND SCREENNegSelect Medical [facility] Hospital, BeachwoodComment on above:Performed By: #### RUBIGG #### [facility] [address] [address] [address] Baljinder Johnson PREG BIOPHY W NON STRESSon [id number] PREG BIOPHY W NON STRESSEXAMINATION: US PREG [...] Electronically authenticated by: ZEUS BRANNON Date: 2022-12-22 23:17[facility] PREG BIOPHY W NON STRESSon [id number] PREG BIOPHY W NON STRESSEXAMINATION: US PREG [...] Electronically authenticated by: ZEUS BRANNON Date: 2022-12-12 16:39[facility] HospitalUS PREG BIOPHY W NON STRESSon [id number] PREG BIOPHY W NON STRESSEXAMINATION: US PREG [...] Electronically authenticated by: SEBASTIAN DOAN Date: 2022-12-06 15:03[facility] HospitalGROUP B STREP CULTUREon 12-04-2022S. agalactiae Ag Ql (Unsp spec)Culture Observations: NEGATIVE FOR GROUP B STREPTOCOCCUS.NormalThe [facility] NorthComment on above: Performed By: #### RUBIGG #### [facility] [address] [place] [address] Dr. Baljinder Johnson PREG BIOPHY W NON STRESSon [id number] PREG BIOPHY W NON STRESSEXAMINATION: US PREG [...] Electronically authenticated by: ZEUS BRANNON Date: 2022-11-28 16:08[facility] HospitalUS PREG GROWTHon [id number] PREG GROWTHEXAMINATION: US PREG GROWTH HISTORY: Gestational [...] Electronically authenticated by: ZEUS BRANNON Date: 2022-11-28 16:03[facility] PREG BIOPHY W NON STRESSon [id number] PREG BIOPHY W NON STRESSEXAMINATION: US PREG [...] Electronically authenticated by: ZEUS BRANNON Date: 2022-11-21 16:37[facility] PREG BIOPHY W NON STRESSon [id number] PREG BIOPHY W NON STRESSEXAMINATION: US PREG [...] Electronically authenticated by: SEBASTIAN DOAN Date: 2022-11-14 15:29[facility] PREG BIOPHY W NON STRESSon [id number] PREG BIOPHY W NON STRESSEXAMINATION: US PREG [...] Electronically authenticated by: SEBASTIAN DOAN Date: 2022-11-07 16:03[facility] PREG BIOPHY W NON STRESSon [id number] PREG BIOPHY W NON STRESSEXAMINATION: US PREG [...] Electronically authenticated by: ZEUS BRANNON Date: 2022-10-31 17:13[facility] PREG GROWTHon [id number] PREG GROWTHEXAMINATION: US PREG GROWTH HISTORY: Gestational [...] Electronically authenticated by: ZEUS BRANNON Date: 2022-10-31 17:12[facility] HospitalUS PREG GROWTHon [id number] PREG GROWTHEXAMINATION: US PREG GROWTH HISTORY: Gestational [...] Electronically authenticated by: ZEUS BRANNON Date: 2022-10-07 16:18[facility] HospitalGTT 3 HR PREGon [id number] [Mass/Vol]79 mg/dLNormal 74-106Genesis HospitalComment on above:Performed By: #### GTT3P #### [facility] [address] [place] [address] Dr. Baljinder MurrellGlucose [Mass/Vol]204 mg/dLGrand Lake Joint Township District Memorial HospitalComment on above:Performed By: #### GTT3P #### [facility] [address] [place] [address] Dr. Baljinder MurrellGlucose [Mass/Vol]158 mg/dLGrand Lake Joint Township District Memorial HospitalComment on above:Performed By: #### GTT3P #### [facility] [address] [place] [address] Dr. Baljinder MurrellGlucose [Mass/Vol]150 mg/dLNormalThMercy Health Fairfield HospitalComment on above:Performed By: #### GTT3P #### [facility] [address] [place] [address] Dr. Baljinder Jeter AUTO DIFFon [id number] #0.0 103/ulNormal0.0-0.1The [facility] NorthComment on above:Performed By: #### CBC #### [facility] [address] [place] [address] Dr. Baljinder MurrellBasophils/100 WBC (Bld)0.2 %Normal0.2-2.0[facility] Comment on above:Performed By: #### CBC #### [facility] [address] [place] [address] Dr. Gale ChangEO #0.0 103/ulNormal0.0-0.7The [facility] NorthComment on above: Performed By: #### CBC #### [facility] [address] [place] [address] Dr. Baljinder Pringleosinophils/100 WBC (Bld)0.3 %Critically low0.9-7.0The [facility] on above:Performed By: #### CBC #### [facility] [address] [place] [address] Dr. Baljinder Pringlerythrocyte distribution width (RBC) [Ratio]12.8 %Fakoag25.0-15.0 Genesis HospitalComment on above:Performed By: #### CBC #### [facility] [address] [place] [address] Dr. Baljinder MurrellHematocrit (Bld) [Volume fraction]33.4 %Critically low36.0-48.0 [facility] Hospitalment on above:Performed By: #### CBC #### [facility] [address] [place] [address] Dr. Baljinder MurrellHemoglobin (Bld) [Mass/Vol]11.4 g/dLCritically low12.0-16.0The [facility] NorthComment on above:Performed By: #### CBC #### [facility] [address] [address] [address] Baljinder Mendez #0.05 10e3/ulCritically high0.00-0.03The [facility] Comment on above:Performed By: #### CBC #### [facility] [address] [place] [address] Dr. Baljinder Mendez %0.5 %Normal0.0-0.5The [facility] NorthComment on above: Performed By: #### CBC #### [facility] [address] [place] [address] Dr. Bajlinder Alonzo #1.7 103/ulNormal1.2-3.8The [facility] NorthComment on above:Performed By: #### CBC #### [facility] [address] [place] [address] Dr. Baljinder Palmahocytes/100 WBC (Bld)17.9 %Critically low20.5-60.0The [facility] NorthComment on above:Performed By: #### CBC #### [facility] [address] [place] [address] Dr. Baljinder HernandezUAL DIFF REQNONormalThe [facility] NorthComment on above: Performed By: #### CBC #### [facility] [address] [place] [address] Dr. Baljinder Bernstein (RBC) [Entitic mass]31.2 jpLsdlhy15.7-34.0The [facility] NorthComment on above:Performed By: #### CBC #### [facility] [address] [place] [address] Dr. Baljinder Bernstein (RBC) [Mass/Vol]34.1 g/yZIewtwr39.9-35.2The [facility] NorthComment on above:Performed By: #### CBC #### [facility] [address] [place] [address] Dr. Baljinder Bernstein (RBC) [Entitic vol]91.5 uWFzfubp85.0-99.0The [facility]aton HospitalComment on above:Performed By: #### CBC #### [facility] [address] [address] [address] Baljinder Rodriguez #0.4 103/ulNormal0.3-0.8The [facility] NorthComment on above:Performed By: #### CBC #### [facility] [address] [address] [address] Baljinder Mcgrawocytes/100 WBC (Bld)4.1 %Normal1.7-12.0The [facility] Comment on above:Performed By: #### CBC #### [facility] [address] [place] [address] Dr. Baljinder Marie #7.2 103/ulCritically high1.4-6.5The [facility] Comment on above:Performed By: #### CBC #### [facility] [address] [place] [address] Dr. Baljinder Carrilloutrophils/100 WBC (Bld)77.0 %Critically high43.0-75.0The [facility] NorthComment on above:Performed By: #### CBC #### [facility] [address] [place] [address] Dr. Baljinder Bentley mean volume (Bld) [Entitic vol]8.2 fLCritically low 9.5-13.5The [facility] NorthComment on above:Performed By: #### CBC #### [facility] [address] [place] [address] Dr. Baljinder MurrellPLT232 103/wvSreuov321-044Xdl [facility] NorthComment on above: Performed By: #### CBC #### [facility] [address] [place] [address] Dr. Baljinder MurrellRBC3.65 106/ulCritically low4.20-5.40The [facility] NorthComment on above:Performed By: #### CBC #### [facility] [address] [place] [address] Dr. Baljinder MurrellWBC9.3 103/ulNormal4.0-11.0The [facility] NorthComment on above: Performed By: #### CBC #### [facility] [address] [address] [address] Baljinder MurrellGLUCOSE - 1HRon 07-95-3538Ktyacyw [Mass/Vol]158 mg/dLCritically pvke49-775XofGenesis HospitalComment on above:Performed By: #### GLU1HR #### [facility] [address] [address] [address] Baljinder MurrellUS PREG ANATOMY SINGLEon 67-45-1805QB PREG ANATOMY SINGLE EXAMINATION: US PREG ANATOMY [...] Electronically authenticated by: ZEUS BRANNON Date: 2022-08-15 06:49[facility] HospitalHEPATITIS C VIRUS AB W/ REFLEX QUANTon [id number] AB<0.1 Normal0.0-0.9The [facility] on above:Performed By: #### HIV12 #### [facility] [address] [place] [address] Dr. Baljinder MurrellInterpretation:CommentNormalThe [facility] on above:Result Comment: Negative Not infected with HCV, unless recent infection is suspected or other evidence exists to indicate HCV infection.Performed By: #### HIV12 #### [facility] [address] [place] [address] Dr. Baljinder Heart B SURFACE ANTIGEN SCREENon 71-22-0310VXyXy ScreenNegative NormalNegativeThe [facility] on above:Performed By: #### DRUGRPD #### [address] [address] Dr[address] Baljinder MurrellHIV 1 AND 2 WITH REFLEXon 98-24-3847ZWF Screen 4th Generation wRfxNon-ReactiveNormalNon ReactiveThe [facility] on above:Result Comment: HIV Negative HIV-1/HIV-2 antibodies and HIV-1 p24 antigen were NOT detected. There is no laboratory evidence of HIV infection.Performed By: #### HIV12 #### [facility] [address] [place] [address] Dr. Baljinder Ordonez QUANTon 85-37-0486Qwajl Plasma Reagin, QuantNon-Reactive NormalNonRea<1:1The [facility] on above:Result Comment: Please Note: This test does not meet current guidelines for screening and diagnosis of syphilis. This test is intended for following treatment response in patients being treated for syphilis infection. To screen for syphilis infection, a reflex cascade that includes both RPR and a treponema-specific assay should be utilized, such as Treponema pallidum (Syphilis) Screening Traill (851500) or Rapid Plasma Reagin (RPR) Test With Reflex to Quantitative RPR and Confirmatory Treponema pallidum Antibodies (131013).Performed By: #### DRUGRPD #### [facility] [address] [place] [address] Dr. Baljinder Vega AB IGGon 49-67-5380Rvaprox Antibodies, IgG17.20 index NormalImmune >0.99The [facility] Hospitalment on above:Result Comment: Non- immune <0.90 Equivocal 0.90 - 0.99 Immune >0.99Performed By: #### RUBIGG #### [facility] [address] [place] [address] Dr. Baljinder Jeter AUTO DIFFon [id number] #0.0 103/ulNormal0.0-0.1The [facility] NorthComment on above:Performed By: #### CBC #### [facility] [address] [place] [address] Dr. Baljinder MurrellBasophils/100 WBC (Bld)0.2 %Normal0.2-2.0[facility] Comment on above:Performed By: #### CBC #### [facility] [address] [place] [address] Dr. Baljinder Barrera #0.1 103/ulNormal0.0-0.7The [facility] NorthComment on above: Performed By: #### CBC #### [facility] [address] [place] [address] Dr. Baljinder Pringleosinophils/100 WBC (Bld)0.6 %Critically low0.9-7.0The [facility] NorthComment on above:Performed By: #### CBC #### [facility] [address] [place] [address] Dr. Baljinder Pringlerythrocyte distribution width (RBC) [Ratio]12.2 %Vazyxy77.0-15.0 The [facility] NorthComment on above:Performed By: #### CBC #### [facility] [address] [place] [address] Dr. Baljinder MurrellHematocrit (Bld) [Volume fraction]37.1 %Ctxxmh27.0-48.0The [facility] NorthComment on above:Performed By: #### CBC #### [facility] [address] [place] [address] Dr. Baljinder MurrellHemoglobin (Bld) [Mass/Vol]12.6 g/oKAifmqv08.0-16.0The [facility] NorthComment on above:Performed By: #### CBC #### [facility] [address] [place] [address] Dr. Baljinder Mendez #0.03 10e3/ulNormal0.00-0.03The [facility] NorthComment on above:Performed By: #### CBC #### [facility] [address] [place] [address] Dr. Baljinder Mendez %0.3 %Normal0.0-0.5The [facility] NorthComment on above: Performed By: #### CBC #### [facility] [address] [place] [address] Dr. Baljinder Alonzo #2.3 103/ulNormal1.2-3.8The [facility] NorthComment on above:Performed By: #### CBC #### [facility] [address] [place] [address] Dr. Baljinder Palmahocytes/100 WBC (Bld)26.0 %Ijtudw43.5-60.0The [facility] NorthComment on above:Performed By: #### CBC #### [facility] [address] [place] [address] Dr. Baljinder HernandezUAL DIFF REQNONormalThe [facility] NorthComment on above: Performed By: #### CBC #### [facility] [address] [place] [address] Dr. Baljinder Bernstein (RBC) [Entitic mass]30.4 ybTinbpa64.7-34.0The [facility] NorthComment on above:Performed By: #### CBC #### [facility] [address] [place] [address] Dr. Baljinder Bernstein (RBC) [Mass/Vol]34.0 g/dNXkzpdv70.9-35.2The [facility] NorthComment on above:Performed By: #### CBC #### [facility] [address] [place] [address] Dr. Baljinder Bernstein (RBC) [Entitic vol]89.6 xLCidhph26.0-99.0The [facility] NorthComment on above:Performed By: #### CBC #### [facility] [address] [address] [address] Baljinder Rodriguez #0.4 103/ulNormal0.3-0.8The [facility] NorthComment on above:Performed By: #### CBC #### [facility] [address] [address] [address] Baljinder Mcgrawocytes/100 WBC (Bld)4.6 %Normal1.7-12.0The [facility] Comment on above:Performed By: #### CBC #### [facility] [address] [place] [address] Dr. Baljinder Marie #6.1 103/ulNormal1.4-6.5The [facility] NorthComment on above:Performed By: #### CBC #### [facility] [address] [place] [address] Dr. Baljinder Carrilloutrophils/100 WBC (Bld)68.3 %Gkdwbn87.0-75.0The [facility] NorthComment on above:Performed By: #### CBC #### [facility] [address] [place] [address] Dr. Baljinder Bentley mean volume (Bld) [Entitic vol]8.5 fLCritically low 9.5-13.5The [facility] NorthComment on above:Performed By: #### CBC #### [facility] [address] [place] [address] Dr. Baljinder MurrellPLT260 103/krGqqtjv632-364Tjo [facility] NorthComment on above: Performed By: #### CBC #### [facility] [address] [place] [address] Dr. Baljinder MurrellRBC4.14 106/ulCritically low4.20-5.40The [facility] NorthComment on above:Performed By: #### CBC #### [facility] [address] [place] [address] Dr. Baljinder MurrellWBC8.9 103/ulNormal4.0-11.0The [facility] Hospitalment on above: Performed By: #### CBC #### [facility] [address] [place] [address] Dr. Baljinder MurrellCULTURE URINEon 22-83-4997ZONVAWA URINECulture Observations: LIGHT GROWTH OF MIXED GENITAL RAYSHAWN. NO POTENTIAL PATHOGENS SEEN.NormalThe [facility] NorthComment on above:Performed By: #### URCX #### [facility] [address] [place] [address] Dr. Baljinder MurrellGLYCOHEMOGLOBIN A1Con 86-31-1472TNB RECOMMENDATIONSEE BELOWNormal The [facility] NorthCommclaren flint on above:Result Comment: ADA RECOMMENDED LIMIT 4.0 - 6.0 ADA THERAPEUTIC TARGET < 7.0 ACTION SUGGESTED > 7.0Performed By: #### DRUGRPD #### [facility] [address] [place] [address] Dr. Baljinder MurrellGlucose [Mass/Vol]105 mg/dLNoSelect Medical [facility] Rehabilitation Hospital, Edwin ShawCommclaren flint on above:Performed By: #### DRUGRPD #### [facility] [address] [place] [address] Dr. Baljinder MurrellHbA1c (Bld) [Mass fraction]5.3 %Normal4.5-6.2The [facility] on above:Performed By: #### DRUGRPD #### [facility] [address] [place] [address] Dr. Baljinder Chamorro BOX TEST PT SEND OUTon 28-37-1334ATLR TO REF LAB06/07/2022 NormalThe [facility] on above:Performed By: #### DRUGRPD #### [facility] [address] [place] [address] Dr. Baljinder MurrellTYPE AND SCREENon 28-60-2608YHRC AND SCREENNegativeNoSelect Medical [facility], Edwin ShawCommclaren flint on above:Performed By: #### TNS #### [facility] [address] [place] [address] Dr. Baljinder MurrellUS PREG TVon 14-25-2530MT PREG TVEXAMINATION: US PREG TV HISTORY: Missed [...] Electronically authenticated by: ZEUS BRANNON Date: 2022-05-21 16:[address] [place] [address] Vital Signs Date TimeVital SignValuePerforming EjijezyvwYkupuuyr20-14-5552 15:39-0500Body mass index (BMI) [Ratio]22.4 kg/i0NtyxtGenY Medium Work Phone: [phone] [place], [place] [address]Ogqhgkjwjs29-63-4884 15:39-0500Body urlbfa06.86 kgCoreGenY Medium Work Phone: [phone]'s HospitalCyardzkwbl95-80-1278 15:39-0500Diastolic blood mogqvuzf79 mm[Hg]AFINOS Work Phone: [phone] CenterSpringshotSSM Health [facility] Children's HospitalRvveaddfhu10-29-5282 15:39-0500Systolic blood vjqycgod318 mm[Hg]AFINOS Work Phone: [phone]'s HospitalGsywhpkcia68-93-2250 15:51-0400Body mass index (BMI) [Ratio]21.77 kg/l2Gtjqm Lucia [employer] Work Phone: [phone] [place], [place] [address]Yhnsuqqzsm50-05-7009 15:51-0400Body lejnyj73.05 kgCorey Finexkap Work Phone: [phone]3[employer] HospitalGrsqnuvxic39-92-6099 15:51-0400Diastolic blood blvhiovj03 mm[Hg]Branch[employer]o [employer] Work Phone: [employer] HospitalWeahzvmiyv69-02-8561 15:51-0400Systolic blood vwezfucx698 mm[Hg]AFINOS Work Phone: [phone]09-15-2025 16:37-0400Body mass index (BMI) [Ratio]21.58 kg/v6Xoghp Lucia DO Work Phone: [facility]'s HospitalHkugxefldc64-02-8646 16:37-0400Body pthvqa54.51 kgCorey Lucia DO Work Phone: [facility]'s HospitalJevopjdbhy25-49-4654 16:37-0400Diastolic blood vnphczwa40 mm[Hg]Freddy Lucia DO Work Phone: [facility]'s HospitalTemibemwyp39-98-5320 16:37-0400Systolic blood wgjtewmc845 mm[Hg]Freddy Lucia [employer] Work Phone: [facility]'s HospitalXmetfyxxtg08-84-6127 13:33-0400Body mass index (BMI) [Ratio]20.99 kg/y8IrvvhMohawk Valley [facility] Hospital08-14-2025 13:33-0400Body weight 60.78 kgMohawk Valley General Hospital08-14-2025 13:33-0400Diastolic blood eclqhkdw16 mm[Hg][facility]08-14-2025 13:33-0400Systolic blood eqddujoq795 mm[Hg][facility]12-18-2024 15:52-0500Body mass index (BMI) [Ratio] 22.55 kg/m2Neisha ACKERMAN Work Phone: [facility] HospitalLhtictuygk24-36-2379 15:52-0500Body nvlqub66.32 kgNeisha ACKERMAN Work Phone: [facility] Healthcare Encounters Encounter DateEncounter TypeCare ProviderFacilityStart: 07-13-2025 End: 15-81-0888iqgknmtxvzGXOOE FAZIONot AvailableStart: 07-13-2025 End: 39-44-8487Yhwuyobi flow sheetCorey Lucia DO Work Phone: [facility] Chelita OBGYNComment on above:Second trimester ([facility]); 20 weeks gestation of ([facility]); H/O gestational diabetes in prior , currently ([facility])Start: 07-13-2025 End: 45-05-4391Wouuhkvaw Result EncounterCorey Lucia DO Work Phone: noms External Department UnsolicitedStart: 07-13-2025 End: 75-77-8421Bvieokqyr Result EncounterCorey Lucia DO Work Phone: noms External Department UnsolicitedStart: 06-22-2025 End: 37-52-8683yxygumbotcZTHKL FAZIONot AvailableStart: 06-22-2025 End: 44-72-9580Uefvtpc encounter procedureCorey Lucia DO Work Phone: noms HealthcareStart: 06-22-2025 End: 53-82-7226Cksaprry preventive med est patient 18-39 yrsCorey Lucia DO Work Phone: noms Chelita OBGYNComment on above:Well woman exam with routine gynecological exam; Second trimester ([facility]); 17 weeks gestation of ([facility]); Exposure to STD; Need for maternal serum alpha-protein (MSAFP) screening ([facility]); Screening, , for anatomic survey ([facility]); Diabetes mellitus screeningStart: 06-22-2025 End: 54-29-2145Tdgasw flowsheetCorey Lucia DO Work Phone: NOYJ Chelita OBGYNStart: 06-22-2025 End: 73-32-6637Hlsedi flowsheetCorey Lucia DO Work Phone: noms [place] OBGYNStart: 06-22-2025 End: 32-59-8799Inysqwabz Result EncounterGeneric External Data ProviderNOMS External Department UnsolicitedStart: 06-22-2025 End: 00-52-4065Flxbnpwl Result EncounterCorey Lucia DO Work Phone: noms External Department UnsolicitedStart: 06-20-2025 End: 58-92-0026dmihcqtazgHhlzg C TinkerFacility:FTMCStart: 05-23-2025 End: 36-61-4683Ijrwdupz flow sheetCorey Lucia DO Work Phone: N[facility]S Chelita OBGYNComment on above:13 weeks gestation of ([facility]); Second trimester ([facility])Start: 05-23-2025 End: 08-22-1155stgobjtllaHHSXX FAZIONot AvailableStart: 05-23-2025 End: 79-37-1239Lpdcbw flowsheetCorey Lucia DO Work Phone: NOMS [place] OBGYNStart: 05-23-2025 End: 93-72-9477Ulwlba flowsheetCorey Lucia DO Work Phone: NOMS [place] OBGYNStart: 05-13-2025 End: 75-10-4506Buldmamqz Result EncounterCorey Lucia DO Work Phone: noms External Department UnsolicitedStart: 05-13-2025 End: 30-52-1576Yxkllvfhv Result EncounterCorey Lucia DO Work Phone: noms External Department UnsolicitedStart: 04-21-2025 End: 15-07-9268Fbfaex outpatient visit 5 minutesFavane Nurse Noms Bcp ObNOMS Chelita OBGYNComment on above:GA: 8x5pMxqio: 04-21-2025 End: 60-24-4155ixctywylavXSRGD PETITTINot AvailableStart: 03-31-2025 End: 28-17-0066Jicdmx flowsheetBee Tran MD Work Phone: noMS SWS DERMStart: 03-31-2025 End: 78-26-5711Yyeyga flowsheetEmaileen Tran MD Work Phone: noms SWS DERMStart: 03-31-2025 End: 17-89-2029sppvctmophHUNLK A PETITTINot AvailableStart: 03-31-2025 End: 88-48-9819Veancn outpatient visit 25 minutesEmaileen Tran MD Work Phone: noms SWS DERMComment on above:Acne vulgaris (Primary Dx)Start: 01-21-2025 End: 49-57-1417ijrodhnfmrTrvzf C TinkerFacility:FTMCStart: 01-21-2025 End: 53-55-6475Ytypnhu encounter procedureElyse C Isabell [facility] Start: 09-20-2024 End: 70-34-9913bzdyztgaxoRYMYM PETITTINot AvailableStart: 08-25-2024 End: 67-80-6612Suenva outpatient visit 15 minutesAmy Sadia ACKERMAN Work Phone: NOMS BCP OBComment on above:Abnormal uterine bleeding (AUB); Right sided abdominal pain; Pelvic pain in female; Acne, unspecified acne typeStart: 08-25-2024 End: 97-39-8225orrrzuelotNIE RAMEYNot AvailableStart: 08-25-2024 End: 36-47-3992Galfmp flowsheetAmy Sadia PA Work Phone: NOMS BCP OBStart: 08-25-2024 End: 88-09-9674Whwbdm flowsheetAmy Sadai PA Work Phone: NOKA BCP OBStart: 07-05-2024 End: 31-31-7341Ntsgiu outpatient visit 25 minutesEmaileen Tran MD Work Phone: NOMS SWS DERMComment on above:Acne vulgaris (Primary Dx)Start: 07-05-2024 End: 49-56-3892Aqzapo flowsheetEmaileen Tran MD Work Phone: NOMS SWS DERMStart: 07-05-2024 End: 18-72-8293Kxrabb flowsheetEmaileen Tran MD Work Phone: NOMS SWS DERMStart: 01-08-2023 End: 59-02-8058aewehlexedYO COREY FAZIO .Facility:C4Vmwau: 12-31-2022 End: 64-03-3609rnvtshmojxLG COREY FAZIO .Facility:F1Poymt: 27-74-0974ytavlvchmx DR FREDDY MYERS .Facility:U2Xtxiy: 12-26-2022 End: 37-37-7944Prbfczfqcd and management of inpatientDR MELINA TUTTLE . Facility:Z7Kzlyr: 12-23-2022 End: 26-39-2357uqyfishqgbCE GREGORY KARASIK .Facility:Q2Blahe: 12-19-2022 End: 94-72-4565fmelmjwgtkBDXIEKF SOMMERSFacility:F5Guhga: 12-16-2022 End: 75-17-7402vnlalohcsoWZ GREGORY KARASIK .Facility:N2Mclot: 12-12-2022 End: 91-78-6013ytafjtdtjaBLJKMIW SOMMERSFacility:I2Huuwn: 12-09-2022 End: 47-90-3418gpldslhrpbOJ GREGORY KARASIK .Facility:C8Slvdu: 12-05-2022 End: 47-71-5323zaxbjeuoiyOXVKBVS SOMMERSFacility:S0Hntwl: 12-04-2022 End: 30-62-5904qsdicidewiXLJFJPQ SOMMERSFacility:Y6Kqafv: 12-02-2022 End: 34-45-5280xerxyseianTHESXUM SOMMERSFacility:U8Sryis: 11-28-2022 End: 12-01-2071vhxpwlsinzRIYJVGU SOMMERSFacility:G3Ngldt: 11-25-2022 End: 19-33-8758nlkshfwafsOIXTGXQ SOMMERSFacility:Q0Stdeq: 11-21-2022 End: 84-02-9506dnfhsqcdhfADIRQOQ SOMMERSFacility:G5Ejbun: 11-18-2022 End: 14-53-8340csmayyqdajFNQQPUQ SOMMERSFacility:O5Joqdu: 11-14-2022 End: 76-12-3814ebgpeydlnxFH GREGORY KARASIK .Facility:L8Jxaic: 11-11-2022 End: 70-20-4054kvhythgztgYZ GREGORY KARASIK .Facility:X4Yqidl: 11-07-2022 End: 29-80-8441omaqhxxiqwAH GREGORY KARASIK .Facility:R2Lfpfc: 11-04-2022 End: 91-59-0994psxvzdxbcvBR GREGORY KARASIK .Facility:T4Dwdmz: 10-31-2022 End: 67-58-3566xdklzhqdrtDPZNTBZ SOMMERSFacility:C3Avelz: 10-07-2022 End: 40-91-3461mshbvbopfbDURMZYI SOMMERSFacility:F3Tpaeo: 10-03-2022 End: 57-09-9138kuarfratsuPYTOQSI SOMMERSFacility:X5Ytgde: 09-28-2022 End: 90-53-7363ualhnycaivTNPVFXI SOMMERSFacility:J0Dmkdp: 09-21-2022 End: 16-37-3576wahzjrbhvuGSEBJDB SOMMERSFacility:Q5Bzzud: 08-14-2022 End: 01-61-8768xdodfehxdrBACMTGS SOMMERSFacility:J6Xdjnr: 06-07-2022 End: 07-09-6737vbjsxurprvJNSDYNG SOMMERSFacility:A9Smhpx: 05-24-2022 End: 90-14-5374hwhmpakhdsBD FREDDY LUCIA .Facility:X7Iprhz: 05-21-2022 End: 49-81-4054hrbfoxdiqvJN FREDDY LUCIA .Facility: Procedures DateProcedureProcedure DetailPerforming ClinicianStart: 77-51-2522WX OB ANATOMY Freddy Lucia DO Work Phone: Start: 05-44-5468MA OB CERVICAL LENGTHCorey Lucia DO Work Phone: Start: 35-99-7229RPEDFXPUY VAGINITIS (HTRX)Freddy Lucia DO Work Phone: Start: 30-11-6927Ahvbe dip stick/tablet rgnt non-auto w/o micrscpCorey Lucia DO Work Phone: Start: 88-62-5191DSQ,APTIMA HPV,AGE GDLNGeneric External Data ProviderStart: 72-44-1098Igdmp dip stick/tablet rgnt non-auto w/o micrscpCorey Lucia DO Work Phone: Start: 03-53-3216ZKK TESTGeneric External Data ProviderStart: 04-21-2025 End: 97-28-4006Tncsu dip stick/tablet rgnt non-auto w/o micrscpCorey Lucia DEL ROSARIO Work Phone: Start: 08-25-2024 End: 12-64-4758Isbpf dip stick/tablet rgnt non-auto w/o micrscpAmy Sadia ACKERMAN Work Phone: Start: 84-11-0804Synqunas of Products of Conception, External ApproachTHE MEDICAL CENTERStart: 45-28-3755Vlfamsoc of Female Perineum, External ApproachTHE MEDICAL CENTERStart: 44-98-5302Kvxtesbb of Amniotic Fluid, Therapeutic from Products of Conception, Via Natural or Artificial Opening [facility]ENTERStart: 56-68-6455Hyiieqroszdo of Other Hormone into Peripheral Vein, Percutaneous ApproachJames B. Haggin Memorial Hospitalart: 34-29-5518Agskdh Perineum Muscle, Open ApproachJames B. Haggin Memorial Hospitalart: 73-92-9580Ldin Lesion Removal (right) Lydia Whyte structure of wisdom tooth (body structure)Lydia Whyte Tonsillectomy and adenoidectomyElfariba Whyte Plan of Treatment DateCare ActivityDetailAuthorStart: 08-15-2025 End: 21-66-4934Neqwfyk encounter pksuudpbz42/08/2025 3:20 PM EST Routine [facility] [address] [place], [id number] Freddy Myers DO [address] [place] [address] TRAY WALTONNStart: 07-13-2025 End: 39-51-8115Zprobad encounter /05/2025 3:10 PM EST Routine [facility] [place] [facility] [address] [place], [id number] Freddy Myers [address] [place] [address] NOMBelen [place] OBGYNStart: 06-22-2025 End: 23-00-7257Afhzrbf encounter procedureNO SWS DERMStart: 06-22-2025 End: 11-96-5876Mchao fetoprotein, maternalAlpha fetoprotein, maternal Lab Routine Screening, , for anatomic survey ([facility]) Expected: 06/22/2025 (Approximate), Expires: 08/22/2025NOMS HealthcareComment on above: Expected: 06/22/2025 (Approximate), Expires: 08/22/2025Start: 06-22-2025 End: 65-24-3663Sehvgemdhoi of glucose 1 hour after glucose challenge for glucose tolerance testGlucose tolerance, 1 hour Lab Routine Diabetes mellitus screening Expected: 06/22/2025 (Approximate), Expires: 06/22/2026NOME HealthcareComment on above:Expected: 06/22/2025 (Approximate), Expires: 06/22/2026Start: 06-22-2025 End: 82-27-8334AU for pregnancyUS OB 14+ weeks anatomy scan Imaging Routine Screening, , for anatomic survey ([facility]) Expected: 06/22/2025 (Approximate), Expires: 06/22/2026NOME HealthcareComment on above:Expected: 06/22/2025 (Approximate), Expires: 06/22/2026Start: 05-23-2025 End: 48-91-8346Dkoulxk encounter procedureNOMS Barrazaue OBGYNComment on above: ArrivedStart: 62-20-4094JCHGZ-19 Vaccine ( season)COVID-19 Vaccine ( season)NOMS HealthcareStart: 80-29-3668Fxkahkzvk vaccinationInfluenza Vaccine (#1)NOMS HealthcareStart: 04-21-2025 End: 66-06-0756YXN/RhABO/Rh Lab Routine Missed menses , unspecified gestational age ([facility]) Expected: 04/21/2025 (Approximate), Expires: 04/21/2026[facility] HealthcareComment on above:Expected: 04/21/2025 (Approximate), Expires: 04/21/2026Start: 04-21-2025 End: 82-58-5890Zsezr type and Indirect antibody screen panel - BloodType and screen Lab Routine Missed menses , unspecified gestational age ([facility]) Expected: 04/21/2025 (Approximate), Expires: 04/21/2026[facility] Healthcare Comment on above:Expected: 04/21/2025 (Approximate), Expires: 04/21/2026Start: 04-21-2025 End: 57-26-1946Jsoui of abuse panel - Urine by Screen methodRapid drug screen, urine Lab Routine , unspecified gestational age ([facility]) Encounter for supervision of normal first in first trimester ([facility]) Expected: 04/21/2025 (Approximate), Expires: 04/21/2026[facility] HealthcareComment on above: Expected: 04/21/2025 (Approximate), Expires: 04/21/2026Start: 04-21-2025 End: 83-46-3955nqagwuhycx25/14/2025 1:00 PM EDT Initial [facility] OB [address] [place] [address] [facility] OBStart: 04-21-2025 End: 06-91-0093Ecuxppejsjni / ancillary services wszvipkcko99/14/2025 12:30 PM EDT Ancillary Procedure [facility] [place] [phone] NOM[facility] BCP OBStart: 04-13-2025 End: 32-61-3165MV Pelvis transvaginalUS OB transvaginal Imaging Routine Missed menses Positive urine test ([facility]) Expected: 04/13/2025, Expires: 07/14/2025[facility] Healthcare Work Phone: comment on above:Expected: 04/13/2025, Expires: 07/14/2025Start: 03-31-2025 End: 59-71-7881Zrxgvbn encounter hroheuugv85/24/2025 8:45 AM EDT Office Visit [facility]ER[facility] [address] [place] [phone] Bee Tran MD [address] [place] [address] [facility] DERMStart: 09-20-2024 End: 98-99-8825Fkscenmstymn / ancillary services lozekrdijs47/13/2025 3:00 PM EST Ancillary Procedure [facility] [address] [place] [address] [facility] OBStart: 09-14-2024 End: 74-37-0818Iayzauq encounter etrmddfgr99/07/2025 4:00 PM EST Office Visit [facility] [address] [place] [phone] Bee Tran MD [address] [place] [address] N[facility] DERMStart: 08-25-2024 End: 85-79-3603Qdprieq encounter kvujpmwge99/18/2024 3:30 PM EST Office Visit [facility] OB [address] [place] [phone] Neisha Lamb PA [address] [facility] [address] [place], [place] [phone] ArrivedNOLOS [facility] OBComment on above:ArrivedStart: 08-25-2024 End: 62-01-5509UU for pregnancyUS PELVIS-TRANSVAG IF INDICATED Imaging Routine Pelvic pain in female Expected: 08/25/2024 (Approximate), Expires: 08/25/2025 [facility] Work Phone: comment on above:Expected: 08/25/2024 (Approximate), Expires: 08/25/2025Start: 16-02-5913Bqddfiylg vaccinationInfluenza Vaccine (#1) [facility] HealthcareBacteria identified in Urine by CultureUrine culture Microbiology Routine Missed menses Ordered: 04/21/2025[facility] HealthcareComment on above: Ordered: 04/21/2025BC W Auto Differential panel - BloodCBC and differential Lab Routine Missed menses , unspecified gestational age ([facility]) Ordered: 04/21/2025[facility] HealthcareComment on above:Ordered: 04/21/2025HLAMYDIA TRACHOMATIS (GENITO/STI)CHLAMYDIA TRACHOMATIS (GENITO/STI) Lab Routine Exposure to STD Ordered: 06/22/2025[facility] HealthcareComment on above:Ordered: 06/22/2025 Cytology Cervical or vaginal smear or scraping studyPap Smear Pathology and Cytology Routine Well woman exam with routine gynecological exam Ordered: [facility] HealthcareComment on above:Ordered: 06/22/2025Hemoglobin A1c/Hemoglobin.total in BloodHemoglobin A1c Lab Routine Missed menses , unspecified gestational age ([facility]) Ordered: 04/21/2025[facility] HealthcareComment on above:Ordered: 04/21/2025Hepatitis B virus surface Ag [Presence] in Serum or Plasma by ImmunoassayHepatitis B surface antigen Lab Routine Missed menses , unspecified gestational age ([facility]) Ordered: 04/21/2025[facility] HealthcareComment on above:Ordered: 04/21/2025Hepatitis C virus Ab [Presence] in Serum or Plasma by ImmunoassayHepatitis C antibody Lab Routine Missed menses , unspecified gestational age ([facility]) Ordered: 04/21/2025[facility] HealthcareComment on above:Ordered: 04/21/2025HIV-1/HIV-2 antigen/antibody combination immunoassayHIV-1 and HIV-2 antibodies Lab Routine Missed menses , unspecified gestational age ([facility]) Ordered: 04/21/2025[facility] HealthcareComment on above:Ordered: 04/21/2025Neisseria gonorrhoeae DNA [Presence] in Unspecified specimen by NASH with probe detectionNeisseria gonorrhea DNA probe, direct Lab Routine Exposure to STD Ordered: 06/22/2025[facility] HealthcareComment on above:Ordered: 06/22/2025Reagin Ab [Presence] in Serum by RPRRPR Lab Routine Missed menses , unspecified gestational age ([facility]) Ordered: 04/21/2025[facility] HealthcareComment on above:Ordered: 04/21/2025 Rubella antibody, IgGRubella antibody, IgG Lab Routine Missed menses , unspecified gestational age ([facility]) Ordered: 04/21/2025[facility] HospitalComment on above:Ordered: 04/21/2025SURESWAB(R) ADVANCED VAGINITIS PLUS, TMASURESWAB(R) ADVANCED VAGINITIS PLUS, TMA Pathology and Cytology Routine Exposure to STD Ordered: 06/22/2025[facility] Red Lambda Work Phone: comment on above:Ordered: 06/22/2025US Pelvis transvaginalUS OB transvaginal Imaging Routine Missed menses Positive urine test ([facility]) :[facility] Immunizations Immunization DateImmunizationNotesCare LlfahwluYgpigulr50-83-8751uowmizccqmuw conjugate vaccine, 13 valentElyse Isabell [phone]-Yhukg[address] [place], [place] 3280401-21-1999 haemophilus influenzae type b vaccine, HbOC conjugateElyse Isabell [phone]-Eslkj[address] [place], [place] 3280401-21-1999 measles, mumps and rubella virus vaccineElyse Isabell [phone]-Nviln[address] [place], [place] 3280410-20-1998 varicella virus vaccineElyse Isabell [phone]-Xtktd[address] [place], [place] 3280404-21-1998 diphtheria, tetanus toxoids and acellular pertussis vaccineElyse Isabell [phone]-Hcdps[address] [place], [place] 3280404-21-1998 hepatitis B vaccine, adult dosageElyse Isabell [phone]-Ggxqm[address] [place], [place] 3280402-12-1998 diphtheria, tetanus toxoids and acellular pertussis vaccineElyse Isabell [phone]-Qumsv[address] [place], [place] 3280412-12-1997 diphtheria, tetanus toxoids and acellular pertussis vaccineElyse Isabell [phone]-Llolu[address] [place], [place] 3280412-12-1997 hepatitis B vaccine, adult dosageElyse Whyte [phone]-KakxyKing'S Daughters [facility] Center [place] Primary CareNEGATED: Highlighted row has not occurred!31-94-1828irhitgjje virus vaccine, unspecified formulationLydia Wyhte [phone]-IiyazKing'S Daughters Medical [facility] [place] [facility] Payers DatePayer CategoryPayerPolicy [id number] [id number] Health Insurance [id number] 2.16.840.1.856487.3.57[id number] 2.16.840.1.042815.3.579.[id number] 2.16.840.1.473513.3.579.[id number] 2.16.840.1.333287.3.579.2.78261-86-9713Yshjcex6681603 2.16.840.1.465298.3.579.2.80779-74-3940Yszzzsw8697189 2.16.840.1.540747.3.579.2.30467-04-0313Wqwgfxa5444172 2.16.840.1.716445.3.579.2.23345-90-3838Astlttc6311923 2.16.840.1.668797.3.579.2.90397-33-2416Kpklzxr9165882 2.16.840.1.411366.3.579.2.29713-68-6680Vyxkraa8132054 2.16.840.1.734145.3.579.2.29277-84-4041Tiounzf5340361 2.16.840.1.066411.3.579.2.14401-96-1132Hfdwpgw7613570 2.16.840.1.277439.3.579.2.89180-36-7250Mxicdou0293508 2.16.840.1.598945.3.579.2.86578-94-3549Llqwirb4804851 2.16.840.1.088131.3.579.2.32820-21-5863Nkxtzhg6415442 2.16.840.1.753536.3.579.2.58355-64-3237Tpanejn2304664 2.16.840.1.731871.3.579.2.27222-74-0607Anrsxqo6745040 2.16840.1.701214.3.579.2.42270-46-9755Ukwjmfm1063242 2.16.840.1.316634.3.579.2.32910-09-9602Wfcelst2192058 2.16.840.1.984589.3.579.2.90891-45-9734Lhuqksl8494071 2.16.840.1.880972.3.579.2.11996-35-8034Bmnhevy4664947 2.16.840.1.401057.3.579.2.43860-52-1283Yhhnmfc2099548 2.16.840.1.451890.3.579.2.38840-04-2095Wzrmsim0237655 2.16.840.1.539261.3.579.2.35777-45-7184Ialxxwr8258018 2.16.840.1.970590.3.579.2.87299-53-9713Xomrnbj0167637 2.16.840.1.957002.3.579.2.41630-34-5841Aphdsgi1960721 2.16.840.1.878675.3.579.2.68450-88-3117Ufjudps0871289 2.16.840.1.492388.3.579.2.84277-59-3132Hdkggpm7862316 2.16.840.1.421749.3.579.2.65968-24-0359Hlofulh1132114 2.16.840.1.326542.3.579.2.31528-91-7980Jjroszj77860241 2.16.840.1.597211.3.579.2.85835-10-7033Xoranyg74479332 2.16.840.1.667168.3.579.2.63251-80-4499Lgvmtpi42903900 2.16.840.1.565192.3.579.2.641028-15-4353Hesgqiq70806341 2.16.840.1.280298.3.579.2.583529-08-0396Jhxeynd13359074 2.16.840.1.318542.3.579.2.662521-28-4831Olpdelk57923608 2.16.840.1.072002.3.579.2.159007-26-8942Cauluvd60486321 2.16.840.1.324816.3.579.2.911613-82-0577Ylvjeqw92632561 2.16.840.1.001782.3.579.2.359418-40-4984Jbktiqo5689525 2.16.840.1.642971.3.579.2.457617-93-4779Bhuymtl7089381 2.16.840.1.340660.3.579.2.802650-86-6076Ovqp-uyp33-58-9218Htcwydn950018398177 Pfxrmle8283005 2.16.840.1.642027.3.579.2.471Iztltsv1966720 2.16.840.1.342471.3.579.2.593 Social History DateTypeDetailFacilityStart: 12-22-2019 End: 39-02-8922Heapelx smoking status NHISNever smoked tobaccoLONE PEAK HOSPITAL Healthcare Work Phone: Start: 81-09-1531Zdrjhcd use and exposureSmokeless tobacco non-userLONE PEAK HOSPITAL HealthcareStart: 03-30-2024 End: 85-42-9891Sidgzurty beverage intakeLifetime non-drinker (finding)[facility] HealthcareStart: 03-30-2024 End: 65-98-1825Oaxevyr of Social functionNOME HealthcareStart: 03-30-2024 End: 84-49-6153Sxovvfq use OhioHealthtart: 1995 [facility] HealthcareStart: 59-93-2718Seorrc identity Identifies as female gender (finding)[facility] HospitalStart: 26-48-4694Vwsxqmd smoking statusNeOhioHealth Mansfield Hospitalexual OrientationSt. Mary'S Medical Center Start: 36-79-1611UzkSbdwbc (finding)[facility] Centertart: 68-78-6637QqkmjypqySKSZTurkey Creek Medical Center Clinical Notes 07-05-2024 to 07-13-2025 Note Date & [id number] History of Present illness Narrative* Peace Espino MA - 07/13/2025 3:10 PM EST Reason for Appointment: Patient ID: Leroy Negro is a 30 y.o. female who presents [...] Date Noted Gestational diabetes mellitus (GDM) affecting ([facility]) 04/13/2025 H/O gestational diabetes in prior , currently ([facility]) 04/21/2025 Resolved Ambulatory Problems Diagnosis Date [...] was 02/20/2025. Assessment/Plan ICD-10-CM 1. Second trimester ([facility]) Z34.92 POCT urinalysis dipstick manually resulted 2. 20 weeks gestation of ([facility]) Z3A.20 3. H/O gestational diabetes in prior , currently ([facility]) O09.299 Z86.32 Return OB: Patient presents today [...] by Peace Espino MA on behalf of: Freddy Myers DO documented in this encounterSSM Health Cardinal Glennon Children's [id number] History of Present illness Narrative* Micki Seymour LPN - 06/22/2025 3:20 PM EDT Reason for Appointment: Patient ID: Leroy Negro is a 30 y.o. female who presents [...] Date Noted Gestational diabetes mellitus (GDM) affecting ([facility]) 04/13/2025 H/O gestational diabetes in prior , currently ([facility]) 04/21/2025 Resolved Ambulatory Problems Diagnosis Date [...] exam Z01.419 Pap Smear 2. Second trimester ([facility]) Z34.92 POCT urinalysis dipstick manually resulted 3. 17 weeks gestation of ([facility]) Z3A.17 4. Exposure to STD Z20.2 SURESWAB(R) ADVANCED VAGINITIS PLUS, TMA CHLAMYDIA TRACHOMATIS (GENITO/STI) Neisseria gonorrhea DNA probe, direct 5. Need for maternal serum alpha-protein (MSAFP) screening ([facility]) Z36.1 6. Screening, , for anatomic survey ([facility]) Z36.89 US OB 14+ weeks anatomy scan Alpha fetoprotein, maternal Alpha fetoprotein, maternal Return OB/Annual Exam: Patient presents today for a annual exam/routine obstetrics appointment. Patient is currently 12f9hcohsdhmk. Patient states she is doing well but [...] 2004 WISDOM TOOTH EXTRACTION documented in this encounterSSM Health Cardinal Glennon Children's [id number] History of Present illness Narrative* Lily Raymond LPN - 05/23/2025 3:40 PM EDT Reason for Appointment: Patient ID: Leroy Negro is a 29 y.o. female who presents [...] Date Noted Gestational diabetes mellitus (GDM) affecting ([facility]) 04/13/2025 H/O gestational diabetes in prior , currently ([facility]) 04/21/2025 Resolved Ambulatory Problems Diagnosis Date [...] nursing note reviewed. Exam conducted with a shift foreman present. Vitals: Estimated body mass index is 21.58 kg/m as calculated from the following: Height as of 02/10/23: 5' 7 . Weight as of this encounter: 137 lb 12.8 oz. BP: Patient's last menstrual period was 02/20/2025. ASSESSMENT & PLAN ICD-10-CM 1. 13 weeks gestation of ([facility]) Z3A.13 POCT urinalysis dipstick manually resulted 2. Second trimester ([facility]) Z34.92 POCT urinalysis dipstick manually resulted New [...] or undercooked meat, and stay away [facility]. Patient has been consulted regarding any further do's and don'tsof . Patient voiced understanding and all questions and concerns were answered. Discussed with patient and spouse Rh detected on [place] Screening. Patient and spouse given gender in envelope to also check online if they desire. Orders Placed This Encounter Procedures POCT urinalysis dipstick manually resulted Follow Up: Patient is to return in 4 weeks for routine OB appointment. Documented by Lily Raymond LPN on behalf of: Freddy Myers DO documented in this encounterSSM Health Cardinal Glennon Children's [id number] History of Present illness Narrative* Peace Espino MA - 04/21/2025 1:00 PM EDT Reason for Appointment: Patient ID: Leroy Negro is a 29 y.o. female who presents [...] Date Noted Gestational diabetes mellitus (GDM) affecting ([facility]) 04/13/2025 H/O gestational diabetes in prior , currently ([facility]) 04/21/2025 Resolved Ambulatory Problems Diagnosis Date [...] urinalysis dipstick manually resulted Positive urine test ([facility]) - US OB transvaginal; Future Amenorrhea 8 weeks gestation of ([facility]) , unspecified gestational age ([facility]) - Type and screen; Future - ABO/Rh; Future - CBC and differential - Hemoglobin A1c - RPR - Rubella antibody, IgG - Hepatitis B surface antigen - Hepatitis C antibody - HIV-1 and HIV-2 antibodies - Rapid drug screen, urine; Future Encounter for supervision of normal first in first trimester ([facility]) - Rapid drug screen, urine; Future H/O gestational diabetes in prior , currently ([facility]) Nurse Note: Pt desires [employer] to one. Pt was advised to make sure she takes both the [facility] and labs together at [facility]. [facility]. Pt has a h/o GDM [...] or undercooked meat, and stay away [facility]. Patient has also been advised to [...] by: Peace Espino MA documented in this encounterSSM Health Cardinal Glennon Children's [id number] History of Present illness Narrative* Bee Tran MD - 03/31/2025 8:45 AM EDT Images from the original note were not included. Follow up Diagnosis: Acne Location: face, back Last visit: 10 months ago Symptoms: pimples Status: stable, breakouts on her back every now and then Treatments tried and failed: Azelaic acid 20% gel, Clindamycin Phosphate 0.1% lotion, Benzaclin (Clindamycin/BPO) 1%/5% gel, Insurance denied [facility]. Current treatment: Tretinoin 0.025% cream Ceftin 250 [...] Next Visit: 1 year documented in this encounterSSM Health Cardinal Glennon Children's [id number] History of Present illness Narrative* TYRON Kathleen - 08/25/2024 3:30 PM EST Reason for Appointment: Patient ID: Leroy Negro is a 29 y.o. female who presents [...] behalf of: TYRON Kathleen documented in this encounterSSM Health Cardinal Glennon Children's [id number] History of Present illness Narrative* Bee Tran [...] cream every day Insurance denied coverage of [employer] All pertinent medical history, medications, and allergies [...] Next [facility]: 2 months [facility] No data available for this section [facility] Evaluation note* Diagnosis Acne vulgaris- Primary Other acne documented in this encounter [facility]* Diagnosis Abnormal uterine bleeding (AUB) Right sided abdominal pain Abdominal pain, unspecified site Pelvic pain in female Unspecified symptom associated with female genital organs Acne, unspecified acne type documented in this encounter [facility]* Diagnosis Acne vulgaris- Primary Other acne documented in this encounter [facility] note* Diagnosis Missed menses Positive urine test ([facility]) Amenorrhea Absence of menstruation 8 weeks gestation of ([facility]) , unspecified gestational age ([facility]) Encounter for supervision of normal first in first trimester ([facility]) H/O gestational diabetes in prior , currently ([facility]) documented in [facility] encounter [facility]* Diagnosis 13 weeks gestation of ([facility]) Second trimester ([facility]) state, incidental documented in this encounter [facility]* Diagnosis Well woman exam with routine gynecological exam Routine gynecological examination Second trimester ([facility]) state, incidental 17 weeks gestation of ([facility]) Exposure to STD Need for maternal serum alpha-protein (MSAFP) screening ([facility]) Screening, , for anatomic survey ([facility]) Encounter for anatomic survey Diabetes mellitus screening Screening for diabetes mellitus documented in this encounter [facility]* Diagnosis Second trimester ([facility]) state, incidental 20 weeks gestation of ([facility]) H/O gestational diabetes in prior , currently ([facility]) documented in [facility] encounter [facility] Discharge instructions No data available for this section [facility] Progress note No data available for this section [facility] Summary Purpose Family History No Family History [...] section and content) DATE CREATED AUTHOR 01/17/2023 [facility] DATE CREATED AUTHOR AUTHOR'S ORGANIZ ATION 06/21/2025 [facility] DATE CREATED AUTHOR AUTHOR'S ORGANIZ ATION 06/22/2025 [facility] DATE CREATED AUTHOR AUTHOR'S ORGANIZ ATION 06/28/2025 [facility] DATE CREATED AUTHOR AUTHOR'S ORGANIZ ATION 07/15/[address] [facility] EPIC Care Teams (unrecognized sec tion and content) Team MemberRelationshipSpecialtyStart DateEnd Date Regina Wright PA [address] [place] [address] PCP - GeneralFamily Medicine6/5/23Team MemberRelationshipSpecialtyStart DateEnd Date Regina Wright PA [address] [place] [address] PCP - GeneralFamily Medicine6/5/23Team MemberRelationshipSpecialtyStart DateEnd Date Regina Wright PA [address] [place] [address] PCP - GeneralFamily Medicine6//23Team MemberRelationshipSpecialtyStart DateEnd Date Regina Wright PA [address] [place] [address] PCP - GeneralFamily Medicine6/5/23Team MemberRelationshipSpecialtyStart DateEnd Date Regina Wright PA [address] [place] [address] PCP - GeneralFamily Medicine6/5/23Team MemberRelationshipSpecialtyStart DateEnd Date Regina Wright PA [address] [place] [address] PCP - GeneralFamily Medicine6/23Team MemberRelationshipSpecialtyStart DateEnd Date Regina Wright PA [address] [place] [address] PCP - GeneralFamily Medicine6/5/23Team MemberRelationshipSpecialtyStart DateEnd Date Regina Wright PA [address] [place] [address] PCP - [facility]Robert [facility] Medicine02/10/23Te MemberRelationshipSpecialtySthudson DateEnd Date Regina Wright PA [address] [place] [address] PCP - [facility]02/10/23Te MemberRelationshipSpecialtySthudson DateEnd Date Regina Wright PA [address] [place] [address] PCP - [facility]02/10/23Te MemberRelationshipSpecialtySthudson DateEnd Date Regina Wright PA [address] [place] [address] PCP - [facility]02/10/23 Reason for Visit (unrecogniz ed section and [...] BE BASED ON THE PRIMARY CLINICAL RECORDS. SeeFuture [facility]. provides no warranty or guarantee of the accuracy or completeness of information in this document.
--- OUTSIDE RECORDS SUMMARY | 2025-07-23 08:24 | XMS_ITS | Clinical Summary ---
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 Plant Name Role Phone Regina Wright Primary Care Provider [phone] Allergies No known active allergies Medications MedicationSigDispense [...] DateH/O gestational diabetes in prior , currently ([facility])04/21/2025Gestational diabetes mellitus (GDM) affecting ([facility])04/13/2025Estimated Date of Delivery RsawaphqFmw32/22/2026ased on last menstrual period of 02/20/2025 Encounters DateTypeDepartmentCare OgeoDxkozvynxzl08/05/2025 3:10 PM ESTRoutine [facility] [address] [place] [address] [place] [phone] Freddy Myers DO Second trimester ([facility]); 20 weeks gestation of ([facility]); H/O gestational diabetes in prior , currently ([facility]) 5Clinisync Result Encounter NOMS External Department Unsolicited Freddy Myers DO 5Clinisync Result Encounter NOMS External Department Unsolicited Freddy Myers, DO 07/06/20254936Cdkfps33/27/2025Orders [place] [address] Peace Espino MA 06/22/2025 3:20 PM EDTRoutine [place] [address] Freddy Myers, DO Well woman exam with routine gynecological exam; Second trimester ([facility]); 17 weeks gestation of ([facility]); Exposure to STD; Need for maternal serum alpha-protein (MSAFP) screening ([facility]); Screening, , for anatomic survey ([facility]); Diabetes mellitus ieiknwbxj24/15/2025linisync Result Encounter NOMS External Department Unsolicited Provider, Generic External Data 06/22/2025External Result Encounter NOMS External Department Unsolicited Freddy Myers, DO 06/22/2025amboo flowsheet [facility] OBGYAndrew [address] [place] [address] Freddy Myers, DO 06/15/20252361Rszrbn99/08/2025[place] [address] Peace Espino MA Error (VOID this visit)05/23/2025 3:40 [place] [address] Freddy Myers, DO 13 weeks gestation of ([facility]); Second trimester ([facility])05/23/2025amboo [place] [address] Freddy Myers, DO 05/16/20254898Saycki34/05/2025bstract [place] [address] Freddy Myers DO 05/13/2025linisync Result Encounter NOMS External Department Unsolicited Freddy Myers DO from Last 3 Months Family History Medical HistoryRelationNameCommentsMental illnessFatherCancerMaternal GrandmotherNo Known ProblemsMotherMelanomaNeg HxRelationNameStatusComments DaughterDrewAliveFatherAliveMaternal GrandmotherMotherAlive Social History Tobacco UseTypesPacks/DayYears UsedDateSmoking Tobacco: NeverSmokeless Tobacco: Never Tobacco Cessation:Counseling Given: Not Answered Alcohol UseStandard Drinks/WeekCommentsNever0 (1 standard drink = 0.6 oz pure alcohol)Estimated Date of FvmazygfMnaffiafJdx70/22/2026ased on last menstrual period of 02/20/2025Sex and Gender InformationValueDate RecordedSex Assigned at YzmvhCubpry77/04/2023 11:12 AM EDTLegal JquXshswv99/15/2023 6:42 PM EDTGender VvpmrprvDzzbde66/04/2023 11:12 AM EDTSexual OrientationNot on file Last Filed Vital Signs Vital SignReadingTime TakenCommentsBlood Jscczvnm244/7207/13/2025 3:39 PM EST Pulse--Temperature--Respiratory Rate--Oxygen Saturation--Inhaled Oxygen Concentration--Cpybgr60.9 kg (143 lb)07/13/2025 3:39 PM EXDFefryu623.2 cm (5' 7 )02/10/2023 9:47 AM EDTBody Mass Index22.406 9:47 AM EDT Plan of Treatment DateTypeDepartmentCare Team (Latest Contact Info)Qchwkethcgw79/08/2025 3:20 PM ESTRoutine [facility] [address] [place] [address] Freddy Myers, DO [address] [place], [place] [phone] Health MaintenanceDue DateLast DoneCommentsCOVID-19 Vaccine ( season) 2025Influenza Vaccine (#1)2025Pneumococcal Vaccine: Pediatrics (0 to 5 Years) and At-Risk Patients (6 to 64 Years)Aged OutNo longer eligible based on patient's age to complete this topic Procedures Procedure NamePriorityDate/TimeAssociated DiagnosisCommentsUS OB ANATOMY 07/13/2025 8:40 AM EST US OB CERVICAL XRJNPL6407/13/2025 8:40 AM EST RECURRENT VAGINITIS (HTRX)Ppkgvki5006/22/2025 4:25 PM EDT POCT URINALYSIS SBXFFPMDIdsokzc86/15/2025 3:52 PM EDT Second trimester ([facility]) IGP,APTIMA HPV,AGE LUAPAmlftiy50/15/2025 3:37 PM EDT PAP TEST, TSXKRXZIVynjzcj49/15/2025 12:00 AM EDTPOCT URINALYSIS DIPSTICKRoutine 05/23/2025 4:48 PM EDT 13 weeks gestation of ([facility]) Second trimester ([facility]) HBSAG ODDUSTVpqjdov19/05/2025 4:24 PM EDT RAPID PLASMA REAGIN, NIGTMUrtqtsq52/05/2025 4:24 PM EDT HCV ANTIBODY RFX TO QUANT CWCFtngawq83/05/2025 4:24 PM EDT ALL RUBELLA IGG ZQSckfain39/05/2025 4:24 PM EDT HIV AB/P24 AG WITH SPQNUBXorxfne46/05/2025 4:24 PM EDT ALL TYPE AND GUFMLHLhcwbcc45/05/2025 4:24 PM EDT MLR HEMOGLOBIN A6CZitzale06/05/2025 4:24 PM EDT ALL CBC WITH AUTO UQPUQqjfplf72/05/2025 4:24 PM EDT BOX MPZTHedolhj86/05/2025 4:24 PM EDT URINE CULTURE, GNHMDRJKnsghkp08/05/2025 4:15 PM EDT [facility] DRUG SCREEN RAPID (URINE)Pjcvhus6605/13/2025 4:15 PM EDT from Last 3 Months Results * US OB CERVICAL LENGTH (07/13/2025 8:40 AM EST)Anatomical RegionLaterality ModalityOtherSpecimen (Source)Anatomical Location / LateralityCollection Method / VolumeCollection TimeReceived Time07/13/2025 8:40 AM EST Narrative 07/13/2025 8:42 AM EST [facility] ?[address] ? [place] [address] ? Ultrasound Report ? Signed ? Patient: MILDRED NEGRO ?MR#: [id number] ?? : 1995 ?Acct:[id number] ?? Age/Sex: 30 / F ?ADM Date: 07/12/25 ?? Loc: US ? Attending Dr: Freddy Myers D.O. ? Ordering Physician: Freddy Myers D.O. ?? Date of Service: 07/12/25 ?? Procedure(s): US OB cervical length ?? Accession Number(s): [id number] ? cc: Freddy Myers D.O.; REGINA WRIGHT ? [facility] ? [address] ? [place] [address] ? Patient Name: ?? MILDRED ??SLAUTERBECK ? MRN: [id number] ? date: 1995 ?Sex: F ?? Assigned Patient Location: ?? Current Patient Location: ? Accession/Order Number: [id number] ?? Exam Date: 07/12/2025 ??16:10 ?Report Date: 07/13/2025 ??08:40 ? At the request of: ?? FREDDY ??LUCIA ??DO ? Procedure: ??US OB anatomy ? CLINICAL DATA: Anatomy screening ? COMPARISON: None ? ULTRASOUND OB ANATOMY ? There is a single live intrauterine gestation in variable presentation. ??There ?? is cardiac and somatic activity with heart rate of 151 bpm. ??The ?? placenta is anterior. ??The amniotic fluid volume is subjectively normal. ??The ?? neural axis and all 4 extremities were surveyed by the crew director. ??The ?? thoracic spine was suboptimally visualized due to position. ??No ?? extremity abnormalities were detected. ??A 4 chamber heart with right and left ?? ventricular outflow tracts was also suboptimally seen. ??The bladder, ?? stomach, kidneys, three-vessel cord with insertion, diaphragm, facial features ?? and male gender are visualized. ??The following measurements were obtained: ?? Biparietal diameter ? 4.6 cm ?? 20 weeks 0 days ? 30% ?? Head circumference ? 17.5 cm ?? 20 weeks 0 days ? 31% ?? Abdominal circumference ?15.6 cm ?? 20 weeks 6 days ? 61% ?? Femur length ?3.2 cm ?? 20 weeks 1 day ? 35% ?? The composite ultrasound age based on these measurements is 20 weeks 2 days ?? +/- 1 week 3 days. ??The estimated date of delivery is 11/27/2025 which ?? correlates with reported gestational age. ??The estimated weight is 12 ?? ounces +/- 2 ounces (53%). ? US/US OB cervical length ?? IMPRESSION: ? SINGLE LIVE INTRAUTERINE GESTATION WITH ULTRASOUND AGE OF 20 WEEKS 2 DAYS. ? INCOMPLETE ANATOMY SURVEY WITH SUBOPTIMAL VISUALIZATION OF THE HEART AND ?? SPINE. ? ULTRASOUND OB CERVICAL LENGTH ? The cervix was evaluated with the transvaginal probe. ??The cervix is closed ?? and measures approximately 4.7 cm in length. ??There is no evidence of previa. ? IMPRESSION: ? NORMAL CLOSED CERVIX. ? Impression dictated by: Micki Espinoza M.D. ??07/13/2025 8:40 AM ? Dictation Location: [place] [address] ? Electronically authenticated by: [id number] ??Y ?? Date: 07/13/2025 ??08:40 ? Dictated By: ?Micki Espinoza M.D. ? Signed By: ?07/13/ 0842 ? DD/DT: 1105/25 0840 ? TD/TT: ? Tenter: Procedure Note Radiology, Radiologist, - 07/13/2025 [place] [address] Ultrasound Report Signed Patient: SHARI NEGRO#: [id number] : 1995Acct:[id number] Age/Sex: 30 / FADM Date: 07/12/25 Loc: US Attending Dr: Freddy Myers D.O. Ordering Physician: Freddy Myers D.O. Date of Service: 07/12/25 Procedure(s): US OB cervical length Accession Number(s): [id number] cc: Freddy Myers D.O.; REGINA WRIGHT The [place] [id number] Patient Name: MILDRED NEGRO MRN: [id number] date: 1995 Sex: F Assigned Patient Location: Current Patient Location: Accession/Order Number: [id number] Exam Date: 07/12/2025 16:10 Report Date: 07/13/2025 08:40 At the request of: FREDDY MYERS DO Procedure: US OB anatomy CLINICAL DATA: Anatomy screening COMPARISON: None ULTRASOUND OB ANATOMY There is a single live intrauterine gestation in variable presentation.There is cardiac and somatic activity with heart rate of 151 bpm. The placenta is anterior. The amniotic fluid volume is subjectively normal.The neural axis and all 4 extremities were surveyed by the crew director. The thoracic spine was suboptimally visualized due to position. No extremity abnormalities were detected. A 4 chamber heart with right andleft ventricular outflow tracts was also suboptimally seen. The bladder, stomach, kidneys, three-vessel cord with insertion, diaphragm, facialfeatures and male gender are visualized. The following measurements were obtained: Biparietal diameter 4.6 cm 20 weeks 0 days 30% Head circumference 17.5 cm 20 weeks 0 days 31% Abdominal circumference 15.6 cm 20 weeks 6 days 61% Femur length 3.2 cm 20 weeks 1 day35% The composite ultrasound age based on these measurements is 20 weeks 2days +/- 1 week 3 days. The estimated date of delivery is 11/27/2025 which correlates with reported gestational age. The estimated weight is12 ounces +/- 2 ounces (53%). US/US OB cervical length IMPRESSION: SINGLE LIVE INTRAUTERINE GESTATION WITH ULTRASOUND AGE OF 20 WEEKS 2 DAYS. INCOMPLETE ANATOMY SURVEY WITH SUBOPTIMAL VISUALIZATION OF THE HEART AND SPINE. ULTRASOUND OB CERVICAL LENGTH The cervix was evaluated with the transvaginal probe. The cervix isclosed and measures approximately 4.7 cm in length. There is no evidence ofprevia. IMPRESSION: NORMAL CLOSED CERVIX. Impression dictated by: Micki Espinoza M.D. 07/13/2025 8:40 AM Dictation Location: [place] [address] Electronically authenticated by: [id number] Y Date: 508:40 Dictated By: Micki Espinoza M.D. Signed By:07/13/25 0842 DD/ 0840 TD/TT: Tenter: Authorizing ProviderResult TypeResult StatusCorey Lucia DOCLINISYNC IMAGINGFinal Result * OB ANATOMY (07/13/2025 8:40 AM EST)Anatomical RegionLateralityModalityOther Specimen (Source)Anatomical Location / LateralityCollection Method / Volume Collection TimeReceived Time07/13/2025 8:40 AM EST Narrative 07/13/2025 8:43 AM EST [facility] ?[address] ? [place] [address] ? Ultrasound Report ? Signed ? Patient: MILDRED NEGRO ?MR#: [id number] ?? : 1995 ?Acct:[id number] ?? Age/Sex: 30 / F ?ADM Date: 07/12/25 ?? Loc: US ? Attending Dr: Freddy Myers D.O. ? Ordering Physician: Freddy Myers D.O. ?? Date of Service: 07/12/25 ?? Procedure(s): US OB anatomy ?? Accession Number(s): [id number] ? cc: Freddy Myers D.O.; REGINA WRIGHT ? [facility] ? [address] ? [place] [address] ? Patient Name: ?? MILDRED ??SLAUTERBECK ? MRN: [facility]:[id number] ? date: 1995 ?Sex: F ?? Assigned Patient Location: US ?? Current Patient Location: ? Accession/Order Number: [id number] ?? Exam Date: 07/12/2025 ??16:10 ?Report Date: 07/13/2025 ??08:40 ? At the request of: ?? FREDDY ??LUCIA ??DO ? Procedure: ??US OB anatomy ? CLINICAL DATA: Anatomy screening ? COMPARISON: None ? ULTRASOUND OB ANATOMY ? There is a single live intrauterine gestation in variable presentation. ??There ?? is cardiac and somatic activity with heart rate of 151 bpm. ??The ?? placenta is anterior. ??The amniotic fluid volume is subjectively normal. ??The ?? neural axis and all 4 extremities were surveyed by the crew director. ??The ?? thoracic spine was suboptimally visualized due to position. ??No ?? extremity abnormalities were detected. ??A 4 chamber heart with right and left ?? ventricular outflow tracts was also suboptimally seen. ??The bladder, ?? stomach, kidneys, three-vessel cord with insertion, diaphragm, facial features ?? and male gender are visualized. ??The following measurements were obtained: ?? Biparietal diameter ? 4.6 cm ?? 20 weeks 0 days ? 30% ?? Head circumference ? 17.5 cm ?? 20 weeks 0 days ? 31% ?? Abdominal circumference ?15.6 cm ?? 20 weeks 6 days ? 61% ?? Femur length ?3.2 cm ?? 20 weeks 1 day ? 35% ?? The composite ultrasound age based on these measurements is 20 weeks 2 days ?? +/- 1 week 3 days. ??The estimated date of delivery is 11/27/2025 which ?? correlates with reported gestational age. ??The estimated weight is 12 ?? ounces +/- 2 ounces (53%). ? US/US OB anatomy ?? IMPRESSION: ? SINGLE LIVE INTRAUTERINE GESTATION WITH ULTRASOUND AGE OF 20 WEEKS 2 DAYS. ? INCOMPLETE ANATOMY SURVEY WITH SUBOPTIMAL VISUALIZATION OF THE HEART AND ?? SPINE. ? ULTRASOUND OB CERVICAL LENGTH ? The cervix was evaluated with the transvaginal probe. ??The cervix is closed ?? and measures approximately 4.7 cm in length. ??There is no evidence of previa. ? IMPRESSION: ? NORMAL CLOSED CERVIX. ? Impression dictated by: Micki Espinoza M.D. ??07/13/2025 8:40 AM ? Dictation Location: [place] [address] ? Electronically authenticated by: [id number] ??Y ?? Date: 07/13/2025 ??08:40 ? Dictated By: ?Micki Espinoza M.D. ? Signed By: ?07/13/25842 ? DD/ 0840 ? TD/TT: ? Tenter: Procedure Note Radiology, Radiologist, - 07/13/2025 [place] [address] Ultrasound Report Signed Patient: SHARI NEGRO#: [id number] : 1995Acct:[id number] Age/Sex: 30 / FADM Date: 07/12/25 Loc: US Attending Dr: Freddy Myers D.O. Ordering Physician: Freddy Myers D.O. Date of Service: 07/12/25 Procedure(s): US OB anatomy Accession Number(s): [id number] cc: Freddy Myers D.O.; REGINA WRIGHT The [address] [address] Patient Name: MILDRED NEGRO MRN: [facility]:[id number] date: 1995 Sex: F Assigned Patient Location: US Current Patient Location: Accession/Order Number: [id number] Exam Date: 07/12/2025 16:10 Report Date: 07/13/2025 08:40 At the request of: FREDDY MYERS DO Procedure: US OB anatomy CLINICAL DATA: Anatomy screening COMPARISON: None ULTRASOUND OB ANATOMY There is a single live intrauterine gestation in variable presentation.There is cardiac and somatic activity with heart rate of 151 bpm. The placenta is anterior. The amniotic fluid volume is subjectively normal.The neural axis and all 4 extremities were surveyed by the crew director. The thoracic spine was suboptimally visualized due to position. No extremity abnormalities were detected. A 4 chamber heart with right andleft ventricular outflow tracts was also suboptimally seen. The bladder, stomach, kidneys, three-vessel cord with insertion, diaphragm, facialfeatures and male gender are visualized. The following measurements were obtained: Biparietal diameter 4.6 cm 20 weeks 0 days 30% Head circumference 17.5 cm 20 weeks 0 days 31% Abdominal circumference 15.6 cm 20 weeks 6 days 61% Femur length 3.2 cm 20 weeks 1 day35% The composite ultrasound age based on these measurements is 20 weeks 2days +/- 1 week 3 days. The estimated date of delivery is 11/27/2025 which correlates with reported gestational age. The estimated weight is12 ounces +/- 2 ounces (53%). US/US OB anatomy IMPRESSION: SINGLE LIVE INTRAUTERINE GESTATION WITH ULTRASOUND AGE OF 20 WEEKS 2 DAYS. INCOMPLETE ANATOMY SURVEY WITH SUBOPTIMAL VISUALIZATION OF THE HEART AND SPINE. ULTRASOUND OB CERVICAL LENGTH The cervix was evaluated with the transvaginal probe. The cervix isclosed and measures approximately 4.7 cm in length. There is no evidence ofprevia. IMPRESSION: NORMAL CLOSED CERVIX. Impression dictated by: Micki Espinoza M.D. 07/13/2025 8:40 AM Dictation Location: [place] [address] Electronically authenticated by: [id number] Y Date: 508:40 Dictated By: Micki Espinoza M.D. Signed By:07/13/25 0843 DD/ 9 TD/TT: Tenter: Authorizing ProviderResult TypeResult StatusCorey Lucia DOCLINISYNC IMAGINGFinal Result * RECURRENT VAGINITIS (HTRX) (06/22/2025 4:25 PM EDT)ComponentValueRef RangeTest MethodAnalysis TimePerformed AtPathologist SignatureATOPOBIUM YFDKOJB477.961 - 24.689 ppm06/24/2025 7:20 AM EDTHealthTrackRx at LabPortATOPOBIUM VAGINAENot Mvbpsxii31.961 - 24.689 ppm06/24/2025 7:20 AM EDTHealthTrackRx at [facility] HealthBVAB 2,3 (BACTERIAL VAGINOSIS ASSOCIATED BACTERIA 2, 3); MOBILUNCUS ILU774.961 - 24.689 ppm06/24/2025 7:20 AM EDTHealthTrackRx at [facility] HealthBVAB 2,3 (BACTERIAL VAGINOSIS ASSOCIATED BACTERIA 2, 3); MOBILUNCUS SPPNot Qkbyuhbq49.961 - 24.689 ppm06/24/2025 7:20 AM EDTHealthTrackRx at [facility] ColumbusPortCANDIDA ALBICANS, PARAPSILOSIS, OHXXNITPEL721.000 - 30.347 ppm06/24/2025 7:20 AM EDT [facility] at [facility] HealthCANDIDA ALBICANS, PARAPSILOSIS, TROPICALISNot Detected 23.000 - 30.347 ppm06/24/2025 7:20 AM EDTHealthTrackRx at [facility] HealthCANDIDA RYZATNQQ146.000 - 31.618 ppm06/24/2025 7:20 AM EDTHealthTrackRx at [facility] NANCY GLABRATANot Jaixuibp79.000 - 31.618 ppm06/24/2025 7:20 AM EDT [facility] at [facility] HealthCANDIDA XDPRTC368.000 - 30.873 ppm06/24/2025 7:20 AM EDTHealthTrackRx at [facility] HealthCANDIDA KRUSEINot Yzuijtvp38.000 - 30.873 ppm 06/24/2025 7:20 AM EDTHealthTrackRx at [facility] HealthCHLAMYDIA PEWKFBIOZSG788.000 - 31.586 ppm06/24/2025 7:20 AM EDTHealthTrackRx at [facility] HealthCHLAMYDIA TRACHOMATIS Not Lyjygayv51.000 - 31.586 ppm06/24/2025 7:20 AM EDTHealthTrackRx at [facility] GARDNERELLA JOXGAEBQU700.961 - 24.689 ppm06/24/2025 7:20 AM EDTHealthTrackRx at [facility] HealthGARDNERELLA VAGINALISNot Feggknjy79.961 - 24.689 ppm06/24/2025 7:20 AM EDTHealthTrackRx at [facility] HealthMEGASPHAERA (TYPES 1, 2)019.961 - 24.689 ppm 06/24/2025 7:20 AM EDTHealthTrackRx at [facility] HealthMEPRSPHAERA (TYPES 1, 2)Not Unqvjutx37.961 - 24.689 ppm06/24/2025 7:20 AM EDTHealthTrackRx at [facility] NEISSERIA RLIMRWKIXOH729.000 - 32.587 ppm06/24/2025 7:20 AM EDTHealthTrackRx at [facility] HealthNEISSERIA GONORRHOEAENot Sczemxmz92.000 - 32.587 ppm06/24/2025 7:20 AM EDTHealthTrackRx at [facility] HealthTRICHOMONAS CKJTLMKUF223.000 - 31.995 ppm 06/24/2025 7:20 AM EDTHealthTrackRx at [facility] HealthTRICHOMONAS VAGINALISNot Nwkthten93.000 - 31.995 ppm06/24/2025 7:20 AM EDTHealthTrackRx at [facility] MYCOPLASMA PQAPIQRLDN333.961 - 24.689 ppm06/24/2025 7:20 AM EDTHealthTrackRx at [facility] HealthMYCOPLASMA GENITALIUMNot Cvwtuexp06.961 - 24.689 ppm06/24/2025 7:20 AM EDTHealthTrackRx at Franciscan HealthSpecimen (Source)Anatomical Location / LateralityCollection Method / VolumeCollection TimeReceived TimeTissue 06/22/2025 4:25 PM EDT1 2:19 AM EDT Narrative Authorizing ProviderResult TypeResult StatusCorey Lucia DOLAB BLOOD ORDERABLES Final ResultPerforming OrganizationAddressCity/State/ZIP CodePhone Number [facility]ALTH[facility] [address] [address] * POCT urinalysis dipstick manually resulted (06/22/2025 3:52 PM EDT) Only the most recent of2 resultswithin the time period is included. ComponentValueRef RangeTest MethodAnalysis TimePerformed AtPathologist Signature Color, UAYellowClarity, UAClearGlucose, UANegativeNegative - 1999(110) ++++ mg/dLBilirubin, UANegativeNegative - 4(70) +++ mg/dLKetones, UANegativeNegative - 160(16) ++++ mg/dLSpec Grav, UA1.0101 - 1.03Blood, UANegativeNegative - 50 Josh/mcLpH, UA6.05 - 9Protein, UANegativeNegative - 2000(20) ++++ mg/dL Urobilinogen, UA1.00.2 - 12 mg/dLLeukocytes, UANegativeNegative - 500+++ Елена/mcL Nitrite, UANegativeNegative - PositiveSpecimen (Source)Anatomical Location / LateralityCollection Method / VolumeCollection TimeReceived HeqzNcszw22/15/2025 3:52 PM EDT Narrative Authorizing ProviderResult TypeResult StatusCorey [facility] OF CARE TEST ENTER/EDIT ORDERABLESFinal Result * [...] at: 01 =G ?[facility] ?? [address] [place] ??[address] ?? Fay Parson MD, IGP, RFX APTIMA HPV ASCUNote.TBHComment: ?? TESTS ? RESULT ??FLAG ??UNITS ?REF RANGE ??LAB DIAGNOSIS: ?02 ?? NEGATIVE FOR INTRAEPITHELIAL LESION OR MALIGNANCY. Specimen adequacy: ?02 ?? Satisfactory for evaluation. ??Endocervical and/or squamous metaplastic ?? cells (endocervical component) are present. Performed by: ? 02 ?? Lokesh Veras Adding Machine Operator (ASCP) . ? 02 Note: ? Note [...] pap test was interpreted ?? using the Pawzii(R) Genius(TM) Cervical Algorithm whole ?? slide imaging system. . ? 02 ?? The HPV DNA reflex criteria were not met with this specimen ?? result therefore, no HPV testing was performed. ?FLAG LEGEND: ?L-Low Normal,H-High Normal,LL-Alert Low,HH-Alert High <-Panic Low,>-Panic High,A-Abnormal,AA-Critical Abnormal Performed at: 02 WB ?[facility] ?? [address] [facility], [place] ??[address] ?? Fay Parson MD, Performed at: ??=G - [facility] [address] [place], [place] ??[id number] Dry House Worker: Fay Parson MD, Phone: ??[phone] Performed at: ??WB - [facility] [address] [place], [place] ??[id number] Dry House Worker: Fay Parson MD, Phone: ??[phone] Specimen (Source)Anatomical Location / LateralityCollection Method / Volume Collection TimeReceived Time06/22/2025 3:37 PM EDT1 7:29 PM EDT Narrative [facility] - 06/28/2025 4:09 PM EDT SPATULA-ALONE ENDOCERVIX Authorizing ProviderResult TypeResult StatusGeneric External Data ProviderLAB BLOOD ORDERABLESFinal ResultPerforming OrganizationAddressCity/State/ZIP Code Phone Number [facility] * PAP TEST, EXTERNAL (06/22/2025 12:00 AM EDT) Narrative Authorizing ProviderResult TypeResult StatusCorey Lucia DOLAB CYTOLOGY ORDERABLESFinal ResultPerforming OrganizationAddressCity/State/ZIP CodePhone Number EXTERNAL LAB * BOX TEST (05/13/2025 4:24 PM EDT)ComponentValueRef RangeTest MethodAnalysis TimePerformed AtPathologist SignatureBOX TEST SENT ULHQLWGWHOUUBR4XHDIYFAMVNF5 05/13/2025TBHSpecimen (Source)Anatomical Location / LateralityCollection Method / VolumeCollection TimeReceived Time05/13/2025 4:24 PM EDT05/13/2025 4:32 PM EDT Narrative [facility] - 05/13/2025 4:37 PM EDT Authorizing ProviderResult TypeResult StatusGeneric External Data ProviderLAB BLOOD ORDERABLESFinal ResultPerforming OrganizationAddressCity/State/ZIP Code Phone Number [facility] * HBSAG SCREEN (05/13/2025 4:24 PM EDT)ComponentValueRef RangeTest Method Analysis TimePerformed AtPathologist SignatureHBSAG SCREENNegativeNegativeTBH Comment: Performed at: ??[address] ??[id number] Dry House Worker: Sincere Giraldo PhD, Phone: ??[phone] Specimen (Source)Anatomical Location / LateralityCollection Method / Volume Collection TimeReceived Time05/13/2025 4:24 PM EDT05/13/2025 4:32 PM EDT Narrative [facility] - 05/15/2025 9:44 AM EDT Authorizing ProviderResult TypeResult StatusGeneric External Data ProviderLAB BLOOD ORDERABLESFinal ResultPerforming OrganizationAddressty/[facility] Code Phone Number [facility] * RAPID PLASMA REAGIN, QUANT (05/13/2025 4:24 [...] utilized, such as Treponema pallidum (Syphilis) Screening [place] ([id number]) or Rapid Plasma Reagin (RPR) Test With Reflex to Quantitative RPR and Confirmatory Treponema pallidum Antibodies ([id number]). Performed at: ??[address] ??[id number] Dry House Worker: Sincere Giraldo PhD, Phone: ??[phone] Specimen (Source)Anatomical Location / LateralityCollection Method / Volume Collection TimeReceived Time05/13/2025 4:24 PM EDT05/13/2025 4:32 PM EDT Narrative [facility] - 05/15/2025 9:44 AM EDT Authorizing ProviderResult TypeResult StatusGeneric External Data ProviderLAB BLOOD ORDERABLESFinal ResultPerforming OrganizationAddressty/State/ZIP Code Phone Number [facility] * HIV AB/P24 AG WITH REFLEX (05/13/2025 4:24 PM EDT)ComponentValueRef RangeTest MethodAnalysis TimePerformed AtPathologist SignatureHIV AB/P24 AG SCREENNon ReactiveNon ReactiveTBHComment: HIV-1/HIV-2 antibodies and HIV-1 p24 antigen were NOT detected. There is no laboratory evidence of HIV infection. HIV Negative Performed at: ?? - [facility] ??[id number] Dry House Worker: Sincere Giraldo PhD, Phone: ??[phone] Specimen (Source)Anatomical Location / LateralityCollection Method / Volume Collection TimeReceived Time05/13/2025 4:24 PM EDT05/13/2025 4:32 PM EDT Narrative [facility] - 05/15/2025 7:09 AM EDT Authorizing ProviderResult TypeResult StatusGeneric External Data ProviderLAB BLOOD ORDERABLESFinal ResultPerforming OrganizationAddLancaster Rehabilitation Hospitalty/State/[facility] Code Phone Number [facility] * HCV ANTIBODY RFX TO QUANT [...] 4:24 PM EDT05/13/2025 4:32 PM EDT Narrative [facility] - 05/15/2025 8:39 AM EDT Authorizing ProviderResult TypeResult StatusCorey Lucia DOLAB BLOOD ORDERABLES Final ResultPerforming OrganizationAddCo[facility] CodePhone Number [facility] * MLR HEMOGLOBIN A1C (05/13/2025 4:24 PM EDT)ComponentValueRef RangeTest Method Analysis TimePerformed AtPathologist SignatureGLYCOHEMOGLOBIN A1C5.04.5 - 6.2 %TBHComment: ADA RECOMMENDED LIMIT 4.0 - 6.0 ADA THERAPEUTIC TARGET < 7.0 ACTION SUGGESTED > 7.0 ESTIMATED AVERAGE CYTPEAH86dz/dLTBHSpecimen (Source)Anatomical Location / LateralityCollection Method / VolumeCollection TimeReceived Time05/13/2025 4:24 PM EDT05/13/2025 4:32 PM EDT Narrative [facility] - 05/13/2025 5:19 PM EDT Authorizing ProviderResult TypeResult StatusCorey Lucia DOCLINISYNCFinal Result Performing OrganizationAddLancaster Rehabilitation Hospitalty/State/ZIP CodePhone Number [facility] * ALL TYPE AND SCREEN (05/13/2025 4:24 PM EDT)ComponentValueRef RangeTest Method Analysis TimePerformed AtPathologist SignatureBLOOD TYPEA PositiveTBHANTIBODY SCREENNEGATIVETBHSpecimen (Source)Anatomical Location / LateralityCollection Method / VolumeCollection TimeReceived Time05/13/2025 4:24 PM EDT05/13/2025 4:32 PM EDT Narrative [facility] - 05/13/2025 5:52 PM EDT [facility] , ?? Authorizing ProviderResult TypeResult StatusCorey Lucia DOCLINISYNCFinal Result Performing OrganizationAddressCity/State/ZIP CodePhone Number [facility] * ALL RUBELLA IGG AB (05/13/2025 4:24 PM EDT)ComponentValueRef RangeTest Method Analysis TimePerformed AtPathologist SignatureRUBELLA ANTIBODIES, IGG16.20 Immune >0.99 indexTBHComment: Non-immune <0.90 ?Equivocal ??0.90 - 0.99 Immune >0.99 Performed at: ?? - [facility] [address], [place], [place] ??[id number] Dry House Worker: Sincere Giraldo PhD, Phone: ??[phone] Specimen (Source)Anatomical Location / LateralityCollection Method / Volume Collection TimeReceived Time05/13/2025 4:24 PM EDT05/13/2025 4:32 PM EDT Narrative [facility] - 05/15/2025 8:39 AM EDT Authorizing ProviderResult TypeResult StatusCorey Lucia DOCLINISYNCFinal Result Performing OrganizationAddressCity/State/ZIP CodePhone Number [facility] * (ABNORMAL) ALL CBC WITH AUTO DIFF (05/13/2025 4:24 PM EDT)ComponentValueRef RangeTest MethodAnalysis TimePerformed AtPathologist SignatureTBH WBC8.04.0 - 11.0 10 3/uLTBHTBH RBC4.374.20 - 5.40 10 6/uLTBHTBH HGB13.412.0 - 16.0 g/dLTBH TBH HCT38.936.0 - 48.0 %TBHTBH MCV89.081.0 - 99.0 fLTBHTBH MCH30.726.7 - 34.0 pgTBHTBH MCHC34.429.9 - 35.2 g/dLTBHTBH RDW12.511.0 - 15.0 %TBHTBH JVF564533 - 450 10 3/uLTBHTBH MPV8.8(L)9.5 - 13.5 [...] Authorizing ProviderResult TypeResult StatusGeneric External Data Provider [facility] Centeral ResultPerforming OrganizationAddLancaster Rehabilitation Hospitalty/State/ZIP CodePhone Number [facility] * URINE CULTURE, ROUTINE (05/13/2025 4:15 PM EDT)ComponentValueRef RangeTest MethodAnalysis TimePerformed AtPathologist SignatureURINE CULTURE, ROUTINE ??Urine Culture, Routine TBHURINE CULTURE, ROUTINEMixed urogenital floraTBHURINE CULTURE, WHLXYKJ92,000- 50,000 colony forming units per mLTBHURINE CULTURE, ROUTINEPerformed at: [facility] LabTr[facility] Health [facility] Haven HospitalTBHURINE CULTURE, [id number] [place], [place] [id number] URINE CULTURE, ROUTINELab Director: Sincere Giraldo PhD, Phone: [phone] Specimen (Source)Anatomical Location / LateralityCollection Method / Volume Collection TimeReceived Time05/13/2025 4:15 PM EDT05/13/2025 4:16 PM EDT Narrative [facility] - 05/16/2025 5:11 AM EDT Authorizing ProviderResult TypeResult StatusGeneric External Data ProviderLAB BLOOD ORDERABLESFinal ResultPerforming OrganizationAddressty/State/[facility] Code Phone Number [facility] * TB DRUG SCREEN RAPID (URINE) (05/13/2025 4:15 PM [...] EDT05/13/2025 4:16 PM EDT Narrative [facility] - 05/13/2025 4:48 PM EDT Authorizing ProviderResult TypeResult StatusCorey Lucia DOCLINISYNCFinal Result Performing OrganizationAddressCity/State/ZIP CodePhone Number [facility] from Last 3 Months Insurance Care Teams Team MemberRelationshipSpecialtyStart DateEnd Date Regina Wright PA [address] [place] [address] PCP - GeneralFamily Medicine02/10/23
--- OUTSIDE RECORDS SUMMARY | 2025-07-23 08:25 | XMS_ITS | Encounter Summary ---
Author Organization [facility] Address [address] [facility] [address] Care Team Providers Care Piano Stringer Name Role Phone Regina Wright Primary Care Provider [phone]- [phone] Encounter Details DateTypeDepartmentCare Team (Latest Contact Info)Xqzpkmhhztu19/05/2025linisync Result Encounter [facility] External Department Unsolicited J Carlos Myers DO [address], [facility] Social History Tobacco UseTypesPacks/DayYears UsedDateSmoking Tobacco: NeverSmokeless Tobacco: NeverAlcohol UseStandard Drinks/WeekCommentsNever0 (1 standard drink = 0.6 oz pure alcohol)Estimated Date of BeumehylSixfxroyJrp67/22/2026ased on last menstrual period of 02/20/2025Sex and Gender InformationValueDate Recorded Sex Assigned at BplzuMegido51/04/2023 11:12 AM EDTLegal PpfNdcbtv29/15/2023 6:42 PM EDTGender KxfkeluvPkhgrt28/04/2023 11:12 AM EDTSexual OrientationNot on file documented as of this encounter Plan of Treatment DateTypeDepartmentCare Team (Latest Contact Info)Puldjauvepk78/08/2025 3:20 PM ESTRoutine [facility] [address] [place] [address] J Carlos Myers DO [address], [place] [id number] documented as of this encounter Procedures Procedure NamePriorityDate/TimeAssociated DiagnosisCommentsUS OB CERVICAL LENGTH 07/13/2025 8:40 AM EST documented in this encounter Results * US OB CERVICAL LENGTH (07/13/2025 8:40 AM EST)Anatomical RegionLaterality ModalityOtherSpecimen (Source)Anatomical Location / LateralityCollection Method / VolumeCollection TimeReceived Time07/13/2025 8:40 AM EST Narrative 07/13/2025 8:42 AM EST [facility] ?[address] ? [place] [address] ? Ultrasound Report ? Signed ? Patient: MILDRED NEGRO ?MR#: [id number] ?? : 1995 ?Acct:[id number] ?? Age/Sex: 30 / F ?ADM Date: 07/12/25 ?? Loc: US ? Attending Dr: J Carlos Myers D.O. ? Ordering Physician: J Carlos Myers D.O. ?? Date of Service: 07/12/25 ?? Procedure(s): US OB cervical length ?? Accession Number(s): [id number] ? cc: J Carlos Myers D.O.; REGINA WRIGHT ? [facility] ? [facility] [address] ? [place] [address] ? Patient Name: ?? MILDRED ??SLAUTERBECK ? MRN: [facility]:[id number] ? date: 1995 ?Sex: F ?? Assigned Patient Location: US ?? Current Patient Location: ? Accession/Order Number: [id number] ?? Exam Date: 07/12/2025 ??16:10 ?Report Date: 07/13/2025 ??08:40 ? At the request of: ?? J CARLOS ??LUCIA ??DO ? Procedure: ??US OB anatomy [...] all 4 extremities were surveyed by the air tube releaser. ??The ?? thoracic spine was suboptimally visualized [...] M.D. ??07/13/2025 8:40 AM ? Dictation Location: [facility]-02 ? Electronically authenticated by: [id number] ??Y ?? Date: 07/13/2025 ??08:40 ? Dictated By: ?Micki Espinoza M.D. ? Signed By: ?// 0842 ? DD/DT: //25 0840 ? TD/TT: ? Certification And Selection Specialist: Procedure Note Radiology, Radiologist, MD - 07/13/2025 [place] [address] Ultrasound Report Signed Patient: SHARI NEGRO#: [id number] : 1995Acct:[id number] Age/Sex: 30 / FADM Date: 07/12/25 Loc: US Attending Dr: J Carlos Myers D.O. Ordering Physician: J Carlos Myers D.O. Date of Service: 07/12/25 Procedure(s): US OB cervical length Accession Number(s): [id number] cc: J Carlos Myers D.O.; REGINA WRIGHT The [place] [id number] Patient Name: MILDRED NEGRO MRN: [id number] date: 1995 Sex: F Assigned Patient Location: US Current Patient Location: Accession/Order Number: [id number] Exam Date: 07/12/2025 16:10 Report Date: 07/13/2025 08:40 At the request of: J CARLOS MYERS DO Procedure: US OB anatomy CLINICAL DATA: Anatomy screening COMPARISON: None ULTRASOUND OB ANATOMY There is a single live intrauterine gestation in variable presentation.There is cardiac and somatic activity with heart rate of 151 bpm. The placenta is anterior. The amniotic fluid volume is subjectively normal.The neural axis and all 4 extremities were surveyed by the air tube releaser. The thoracic spine was suboptimally visualized due [...] Espinoza M.D. 07/13/2025 8:40 AM Dictation Location: [place] [address] Electronically authenticated by: [id number] Y Date: 508:40 Dictated By: Micki Espinoza M.D. Signed By:07/13/2542 DD/ 9 TD/TT: Certification And Selection Specialist: Authorizing ProviderResult TypeResult StatusCorey Lucia DOCLINISYNC IMAGINGFinal Result documented in this encounter Visit Diagnoses Not on filedocumented in this encounter Care Teams Team MemberRelationshipSpecialtyStart DateEnd Date Regina Wright PA [address] [place] [address] PCP - GeneralFamily Medicine02/10/23documented as of this encounter
--- OUTSIDE RECORDS SUMMARY | 2025-07-23 08:25 | XMS_ITS | Encounter Summary ---
Author Organization [facility] Address [address] [facility] [place] [address] Care Team Providers Care Sheet Metal Erector Name Role Phone Regina Wright Primary Care Provider [phone]- [phone] Encounter Details DateTypeDepartmentCare Team (Latest Contact Info)Esgefmumixx37/05/2025linisync Result Encounter [facility] External Department Unsolicited J Carlos Myers DO [address], [facility]11 Social History Tobacco UseTypesPacks/DayYears UsedDateSmoking Tobacco: NeverSmokeless Tobacco: NeverAlcohol UseStandard Drinks/WeekCommentsNever0 (1 standard drink = 0.6 oz pure alcohol)Estimated Date of NizeykxyIadaooyhKqn80/22/2026ased on last menstrual period of 02/20/2025Sex and Gender InformationValueDate Recorded Sex Assigned at XrwabGzhkjm17/04/2023 11:12 AM EDTLegal LxoHougtu33/15/2023 6:42 PM EDTGender RgfrrvwzJchkak59/04/2023 11:12 AM EDTSexual OrientationNot on file documented as of this encounter Plan of Treatment DateTypeDepartmentCare Team (Latest Contact Info)Lxmixinqtce22/08/2025 3:20 PM ESTRoutine [facility] [address] [place] [address] J Carlos Myers DO [address], [place] [id number] documented as of this encounter Procedures Procedure NamePriorityDate/TimeAssociated DiagnosisCommentsUS OB ANATOMY 07/13/2025 8:40 AM EST documented in this encounter Results * US OB ANATOMY (07/13/2025 8:40 AM EST)Anatomical RegionLateralityModalityOther Specimen (Source)Anatomical Location / LateralityCollection Method / Volume Collection TimeReceived Time07/13/2025 8:40 AM EST Narrative 07/13/2025 8:43 AM EST [facility] ?[address] ? [place] [address] ? Ultrasound Report ? Signed ? Patient: MILDRED NEGRO ?MR#: [id number] ?? : 1995 ?Acct:[id number] ?? Age/Sex: 30 / F ?ADM Date: 07/12/25 ?? Loc: US ? Attending Dr: J Carlos Myers D.O. ? Ordering Physician: J Carlos Myers D.O. ?? Date of Service: 07/12/25 ?? Procedure(s): US OB anatomy ?? Accession Number(s): [id number] ? cc: J Carlos Myers D.O.; REGINA WRIGHT ? [facility] ? [address] ? [place] [address] ? Patient Name: ?? MILDRED ??SLAUTERBECK ? MRN: [facility]:[id number] ? date: 1995 ?Sex: F ?? Assigned Patient Location: US ?? Current Patient Location: ? Accession/Order Number: [id number] ?? Exam Date: 07/12/2025 ??16:10 ?Report Date: [...] all 4 extremities were surveyed by the weaver apprentice. ??The ?? thoracic spine was suboptimally visualized [...] ?? ounces +/- 2 ounces (53%). ? US/ OB anatomy ?? IMPRESSION: ? SINGLE LIVE [...] M.D. ??07/13/2025 8:40 AM ? Dictation Location: [facility]--02 ? Electronically authenticated by: [id number] ??Y ?? Date: 07/13/2025 ??08:40 ? Dictated By: ?Micki Espinoza M.D. ? Signed By: ?07/13/25 0843 ? DD/ 0840 ? TD/TT: ? Outdoor Studies Professor: Procedure Note Radiology, Radiologist, MD - 07/13/2025 [place] [address] Ultrasound Report Signed Patient: SHARI NEGRO#: [id number] : 1995Acct:[id number] Age/Sex: 30 / FADM Date: 07/12/25 Loc: US Attending Dr: J Carlos Myers D.O. Ordering Physician: J Carlos Myers D.O. Date of Service: 07/12/25 Procedure(s): US OB anatomy Accession Number(s): [id number] cc: J Carlos Myers D.O.; REGINA WRIGHT The [place] [id number] Patient Name: MILDRED NEGRO MRN: [id number] date: 1995 Sex: F Assigned Patient Location: US Current Patient Location: Accession/Order Number: [id number] Exam Date: 07/12/2025 16:10 Report Date: 07/13/2025 [...] all 4 extremities were surveyed by the weaver apprentice. The thoracic spine was suboptimally visualized due [...] Espinoza M.D. 07/13/2025 8:40 AM Dictation Location: [facility] Electronically authenticated by: [id number] Y Date: 508:40 Dictated By: Micki Espinoza M.D. Signed By:07/13/2543 DD/ 9 TD/TT: Outdoor Studies Professor: Authorizing ProviderResult TypeResult StatusCorey Lucia DOCLINISYNC IMAGINGFinal Result documented in this encounter Visit Diagnoses Not on filedocumented in this encounter Care Teams Team MemberRelationshipSpecialtyStart DateEnd Date Regina Wright PA [address] [place] [address] PCP - GeneralFamily Medicine02/10/23documented as of this encounter
--- OUTSIDE RECORDS SUMMARY | 2025-07-23 08:26 | XMS_ITS | Clinical Summary ---
Author Organization [facility] Address [id number] [address] [place] [address] Care Team Providers Care Advisor To Command In Combat Name Role Phone Unavailable Primary Care Provider Unavailabl e Allergies No known active allergies Medications MedicationSigDispense QuantityRefillsLast FilledStart DateEnd DateStatus amoxicillin (AMOXIL) 500 mg capsule Take 1 capsule (500 mg total) by mouth 3 (three) times a day.Active LHT886-mkktlej fumarate-FA () 28-800 mg-mcg tablet Take by mouth.Active clindamycin-benzoyl peroxide (BENZACLIN) gel Apply 1 application topically in the morning.Active Active Problems ProblemNoted DateDiagnosed DateEchogenic bowel of fetus on ultrasound 09/12/2022 Assessment & Plan (09/12/2022 2:17 PM EST): U/S at patient's prior visit suggested possible increased bowel echogenicity. Today's ultrasound reveals bowel with no echogenicity and not dilated. There is no ascites. No additional sonographic follow up is necessary at this time (patient and her were very happy with the news). Family History Medical HistoryRelationNameCommentsMental illnessFatherCancerMaternal GrandmotherRelationNameStatusCommentsFatherMaternal Grandmother Social History Tobacco UseTypesPacks/DayYears UsedDateSmoking Tobacco: NeverSmokeless Tobacco: Never Tobacco Cessation:Counseling Given: Not Answered Alcohol UseStandard Drinks/WeekCommentsNot Currently0 (1 standard drink = 0.6 oz pure alcohol)OCCASIONALHunger ScreeningAnswerDate RecordedWithin the past 12 months we worried whether our food would run out before we got money to buy more.Never True09/12/2022Within the past 12 months the food we bought just didn't last and we didn't have money to get more.Never True09/12/2022 CommentsNoSex and Gender InformationValueDate RecordedSex Assigned at BirthNot on fileLegal TagRthunp28/10/2022 1:41 PM ESTGender IdentityNot on fileSexual OrientationNot on file Last Filed Vital Signs Vital SignReadingTime TakenCommentsBlood Hmxdirsk536/77009/12/2022 1:40 PM EST Lrfmr82594/05/2023 1:40 PM ESTTemperature--Respiratory Rate--Oxygen Saturation-- Inhaled Oxygen Concentration--Jtapeo89 kg (145 lb 8.1 oz)09/12/2022 1:40 PM EST Qknuyo198.2 cm (5' 7 )09/12/2022 1:40 PM ESTBody Mass Index22.7909/12/2022 1:40 PM EST Plan of Treatment Health MaintenanceDue DateLast DoneCommentsDepression Nbcuhsrpn73/12/2009Tobacco Xmqnokxvo98/12/2009DTaP,Tdap and Td Vaccines (1 - Tdap)2016Pap Smear 2018Adult BMI Xstsfaoav20/05/61405709/12/2022Influenza Ptqdtwo3505/09/2025 Medical Devices Not on file Insurance
[2025-07-23 09:28] LABS: Hematocrit 35.5 % (36.0-48.0); Hemoglobin 12.1 g/dL (12.0-16.0); Immature Granulocytes Abs Auto 0.04 10^3/uL (0.00-0.03); Immature Granulocytes Pct Auto 0.6 % (0.0-0.5); Lymphocytes Absolute Auto 1.3 10^3/uL (1.2-3.8); Mean Corpuscular HGB Conc 34.1 g/dL (29.9-35.2); Mean Corpuscular Hemoglobin 31.6 pg (26.7-34.0); Mean Corpuscular Volume 92.7 fL (81.0-99.0); Platelet Count 219 10^3/uL (150-450); Red Blood Count 3.83 10^6/uL (4.20-5.40); White Blood Count 7.0 10^3/uL (4.0-11.0)
[2025-07-23 10:49] LABS: Glucose 1 Hour 97 mg/dL (<130)
== END 2025-07-23 08:16 | disposition home or self-care (01) ==
LOC: LAB 08:20
PROVIDERS: PCP Physician Assistant; Visit Provider Obstetrics & Gynecology
DX: Z13.1 Encounter for screening for diabetes mellitus (principal)
CPT/HCPCS: 36415; 82950; 82951; 82952; 85025